=== PATIENT | male | born 1955 | race Caucasian/White ===

== ENCOUNTER → 2020-04-27 | Outpatient (CLI) | payer MEDICARE, OTHER | LOC: LABNPT 05:33 | PROVIDERS: ATTEND Nurse Practitioner Adult Health | DX: Z11.59 Encounter for screening for other viral diseases (principal) | CPT/HCPCS: 87635 ==

== ENCOUNTER 2021-08-16 09:02 | Emergency (ER) | payer MEDICARE, OTHER ==
[~2021-08-16] VITALS: Ht 175.2 cm; Wt 72.5 kg
--- OUTSIDE RECORDS SUMMARY | 2021-08-16 09:16 | XMS REPORT | Clinical Summary ---
Author Author [facility] Organization [facility] Address Unknown Phone Unavailable Care Team Providers Care Environmental Protection Geologist Name Role Phone PCP Unavailable Allergies Not on File Medications Not on file Active Problems Not on file Social History Date Tobacco Use Types Packs/Day Years Used Never Assessed Sex Assigned at Date Recorded Not on file Last Filed Vital Signs Not on file Plan of Treatment Not on file Results Not on filefrom Last 3 Months
--- OUTSIDE RECORDS SUMMARY | 2021-08-16 09:17 | XMS REPORT | Encounter Summary ---
Author Author [facility] Organization [facility] Address Unknown Phone Unavailable Care Team Providers Care Pediatric Genetic Counselor Name Role Phone Zakiya Ledezma RN Unavailable Unavailable Liberty Justice MD Unavailable Moy Serrano MD Unavailable Stephania Liu RN Unavailable Unavailable Leobardo Giordano MD Unavailable Kati Thomas MD Unavailable Edilson Villalba MD Unavailable Alex Balbuena MD Unavailable Kleber Can MD Unavailable Unavailable aHrish Irvin MD Unavailable Luis Eduardo Art MD Unavailable Alton Sewell MD Unavailable Unavailable Ariane Campoverde MD Unavailable Dayan Daniels MD Unavailable Jamel Hutchins MD Unavailable Unavailable Leigh Resendez MD Unavailable Carmen Reeves APRN Unavailable Margaux Ng RN Unavailable Unavailable Maureen Robertson LPN Unavailable Unavailable Lupe Hamilton Unavailable Unavailable Berta Baldwin Unavailable Unavailable Michelle Orellana Unavailable Unavailable Lashon Carey MA Unavailable Unavailable Carmen Lassiter PANELBEATER-INSULATOR APPRENTICE Unavailable [phone] Linsey Watson Unavailable Unavailable Audrey Howard RN Unavailable Unavailable Angelic Resendez MD PCP Encounter Details Care Team Description Date Type Department 06/19/2021 Travel Social History Date Tobacco Use Types Packs/Day Years Used Quit: 02/01/1976 Former Smoker Cigarettes 3 Smokeless Tobacco: Never Used Comments: Quit 08/1976 Comments Alcohol Use Standard Drinks/Week No 0 (1 standard drink = 0.6 o z pure alcohol) Sex Assigned at Date Recorded Male 04/17/2020 2:33 PM CDT Date Recorded COVID-19 Exposure Response 06/19/2021 6:44 AM UNIT NURSE In the last month, have you been in contact with No / Unsure someone who was confirmed or suspected to have Coronavirus / COVID-19? documented as of this encounter Functional Status Date of Assessment Functional Status Response 06/18/2021 Does the patient have a hearing impairment: No 06/18/2021 Does the patient have a visual impairment: Yes 06/18/2021 Does the patient have impaired ambulation: No 06/18/2021 Does the patient have an activity of daily living No (ADL) impairment: 06/18/2021 Does the patient have an instrumental activity of No daily living (IADL) impairment: Date of Assessment Cognitive Status Response 06/18/2021 Does the patient have a cognitive impairment: No documented as of this encounter Plan of Treatment Not on filedocumented as of this encounter Goals Goal Patient Associated Recent Progress Patient-Stat Aut hor Goal Type Problems ed? GOAL General No Maria M Erwin, RN Note: get my liver transplant Resume normal activities Hospital No Deandra Bean, RN Note: Waiting for a liver transplant Move to [place]. documented as of this encounter Visit Diagnoses Not on filedocumented in this encounter Additional Health Concerns Noted Time Assessment 06/19/2021 9:20 AM UNIT NURSE A fall risk assessment has been complet ed for the patient 06/19/2021 9:22 AM UNIT NURSE PHQ-2 Depression Total Score: 0 documented as of this encounter Care Teams Start Date End Date Pediatric Genetic Counselor Relationship Specialty 08/12/19 Angelic Resendez MD PCP - [address] [place] [address] 06/03/10 Zakiya Ledezma, RN 06/03/10 Liberty Justice MD [address] [place] [address] 06/03/10 Moy Serrano MD [address] [facility] [id number] [place] [address] 08/25/10 Stephania Liu, ELIAS Emergency Medicine 09/03/10 Leobardo Giordano MD Infectious [address] Disease [facility] Lvl [address] [place] [address] 03/29/11 Kati Thomas MD Internal [address] [place] [address] 05/01/11 Edilson Villalba MD Internal [address] [place] [address] 05/05/11 Alex Balbuena MD Infectious [address] Disease [facility] Lvl [address] [place] [address] 05/20/11 Kleber Can MD Internal Fellow provider only Medicine 06/18/11 Harish Irvin MD Transplant [address] [facility] [address] [place] [address] 10/02/11 Luis Eduardo Art MD Gastroentero [address] logy [facility] Lvl [address] [place] [address] 06/15/12 Alton Sewell MD Dermatology Forwarding Address Unknown 06/15/12 Ariane Campoverde MD Dermatology [address] [place] [address] 09/14/12 Dayan Daniels MD Dermatology [address] [facility] [address]vl [address] [place] [address] 12/21/12 Jamel Hutchins MD Dermatology [place] [place] [id number] 12/21/12 Leigh Resendez MD Dermatology [address] [place] [address] 01/03/15 Carmen Reeves, PANELBEATER Transplant [address] Hepatology [place] [address] [place] [address] 05/07/15 Margaux Ng, RN 06/06/15 Maureen Robertson LPN Maternal and Medicine 07/04/15 Lupe Hamilton Maternal and Medicine 09/05/15 Berta Baldwin 12/11/15 Michelle Orellana 01/01/16 Lashon Carey MA Maternal and Medicine 01/03/16 Carmen Lassiter, Gastroentero PANELBEATER-INSULATOR APPRENTICE logy [address] [facility] [address]vl [address] [place] [address] 01/03/16 Linsey Watson 01/17/16 Audrey Howard, ELIAS documented as of this encounter
--- OUTSIDE RECORDS SUMMARY | 2021-08-16 09:17 | XMS REPORT | Clinical Summary ---
Author Author [facility] Organization [facility] Address Unknown Phone Unavailable Care Team Providers Care Director Of Event Sales Name Role Phone Zakiya Ledezma RN Unavailable Unavailable Liberty Justice MD Unavailable Moy Serrano MD Unavailable Stephania Liu RN Unavailable Unavailable Leobardo Giordano MD Unavailable Kati Thomas MD Unavailable Edilson Villalba MD Unavailable Alex Balbuena MD Unavailable Kleber Can MD Unavailable Unavailable Harish Irvin MD Unavailable Luis Eduardo Art MD Unavailable Alton Sewell MD Unavailable Unavailable Ariane Campoverde MD Unavailable Dayan Daniels MD Unavailable Jamel Hutchins MD Unavailable Unavailable Leigh Resendez MD Unavailable Carmen Reeves APRN Unavailable Margaux Ng RN Unavailable Unavailable Maureen Robertson LPN Unavailable Unavailable Lupe Hamilton Unavailable Unavailable Berta Baldwin Unavailable Unavailable Michelle Orellana Unavailable Unavailable Lashon Carey MA Unavailable Unavailable Carmen Lassiter PACKAGE LINE RELIEF OPERATOR-INTERNAL REVENUE AGENT Unavailable [phone] Linsey Watson Unavailable Unavailable Audrey Howard RN Unavailable Unavailable Angelic Resendez MD PCP Source Comments Some departments are not documenting in the electronic medical record. If you d o not see the information that you expected, contact Release of Information in [facility] Information Management department at [phone] for further assistan ce in locating additional records.[facility] Allergies Comments Active Allergy Reactions Severity Noted Date Developed breast tissue Spironolactone SEE COMMENTS Low 06/19/2021 Medications End Date Status Medication Sig Dispensed Refills Start Date Active calcium carbonate-vitamin Take 1 tablet 0 D3 200 mg (500 mg) -400 by mouth unit cap three times daily. Active camphor/menthol (SARNA) Apply to skin 222 mL 5 0.5/0.5 % lotn areas two to 7 three times as needed. Active cholecalciferol (VITAMIN Take 1,000 0 D-3) 1,000 units tablet Units by mouth every 48 hours. Active COCONUT OIL TP Apply 0 topically to affected area. Active fish oil /omega-3 fatty Take 1 0 acids (SEA-OMEGA) capsule by 340/1000 mg capsule mouth every 48 hours. Active vitamins, multiple (DAILY Take 1 tablet 0 MULTI-VITAMIN) tablet by mouth daily. Active Apple Cider Vinegar 600 Take 1 0 mg cap capsule by mouth daily. Active atorvastatin (LIPITOR) 20 Take one 90 tablet 3 mg tablet tablet by 1 mouth at bedtime daily. Active ursodioL (ACTIGALL) 300 TAKE 1 270 capsule 3 mg capsule CAPSULE IN 1 THE MORNING AND 2 CAPSULES IN THE EVENING Active famotidine (PEPCID) 20 mg TAKE 1 TABLET 180 tablet 3 tablet TWICE A DAY 1 08/25/2021 Active tacrolimus (PROGRAF) 0.5 Take two 120 capsule 5 0 mg capsuleIndications: capsules by 1 Liver transplant status mouth twice (HCC) daily for 180 days. Additional Information Patient taking differently: 1 mg Oral TWICE DAILY, 2 mg in the morning and 1.5 in the evening, Reported on 02/26/2021 Active predniSONE (DELTASONE) 5 TAKE 1 TABLET 90 tablet 3 mg tabletIndications: DAILY WITH 1 Liver transplant status BREAKFAST (HCC) Active amoxicillin/K clavulanate TAKE 1 TABLET 30 tablet 3 (AUGMENTIN) 500/125 mg DAILY WITH 1 tablet FOOD FOR 1 WEEK, THEN CYCLE OFF OF MEDICATION AND TAKE BACTRIM FOR 1 WEEK, THEN CIPRO FOR 1 WEEK, REPEAT CYCLE Active ciprofloxacin (CIPRO) 500 TAKE 1 TABLET 30 tablet 3 mg tablet DAILY FOR 1 1 WEEK, THEN CYCLE OFF OF MEDICATION AND TAKE AUGMENTIN FOR 1 WEEK, THEN BACTRIM FOR 1 WEEK, REPEAT CYCLE Active trimethoprim/sulfamethoxa Take as 180 tablet 3 zole (BACTRIM) 80/400 mg directed by 1 tablet provider Active triamcinolone acetonide Apply 0 (KENALOG) 0.1 % topical topically to cream affected area twice daily as needed. Active tacrolimus (PROGRAF) 1 mg Take 1 mg by 0 capsule mouth twice daily. Active zinc sulfate (ORAZINC) Take one 90 capsule 1 220 mg (50 mg elemental capsule by 1 zinc) capsule mouth daily. 10/15/2021 Active aMILoride (MIDAMOR) 5 mg Take two 360 tablet 1 1 tablet tablets by 1 mouth twice daily for 90 days. 10/15/2021 Active furosemide (LASIX) 20 mg Take one 90 tablet 1 1 tablet tablet by 1 mouth every morning for 90 days. Active Problems Problem Noted Date Encounter for pre-transplant evaluation for liver tra nsplant 06/17/2021 Non-recurrent unilateral inguinal hernia without obst ruction or gangrene 03/05/2021 Inflammatory bowel disease 03/03/2021 Overview: Formatting of this note might be differ ent from the original. Formatting of this note might be differ ent from the original. Unclear if crohns or UC; w/u ongoing Elevated PSA 01/03/2021 Overview: Formatting of this note might be differ ent from the original. PSA SUMMARY 06/2018: 4.62 ng/mL 12/2020: 8.32 ng/mL (-) prior biopsy (-) family history (-) erectile dysfunction (+) mild obstructive urinary symptoms L ast Assessment & Plan: Formatting of this note might be differ ent from the original. I had the pleasure of visiting with Mr. Chun to discuss his PSA. I reviewed what PSA is and why it is used in the screening for prostate cancer. I then explained how PSA level s factor into decision making for further prostate cancer testing. Addit ionally, we reviewed how his current health factors into the decision to pur balbir prostate cancer screening. We then discussed initial steps for a b iopsy naive patient with an elevated PSA. Specifically I reviewed the role of transrectal ultrasound guided prostate biopsies as the standar d of care for further testing. I reviewed the procedural risks, includin g hematuria, hematospermia, hematochezia, pain, infection, and even transient erectile dysfunction. Additional options reviewed included up -front mpMRI with directed biopsy if a lesion is identified versus standard biopsy if the mpMRI were negative. I explained that this approach may redu ce the need for a biopsy and improve the accuracy, however, this is not the standard of care approach, and therefore there is the risk that he wou ld be liable for out of pocket expense if he were to choose upfront MR [place]. Similarly I reviewed the role of biomarkers in improving our ability to assess the risk of harboring prostate cancer, specifically the ExoDx . Finally I discussed the option of pursuing a repeat PSA at a set interval with a predefined threshold to initiate a biopsy. We discussed the competing risks of delia er dysfunction and possible prostate cancer. We also reviewed the c omplexity of biopsy given his prior surgeries and explained that transperin eal biopsy would be necessary due to the absence of a rectum. Ultimately the patient is comfortable p ursuing repeat PSA. 1. Repeat PSA Osteoporosis 04/23/2020 Secondary esophageal varices without bleeding 2019 Skin cancer screening 06/23/2018 Immunosuppressed status 05/21/2018 Total bilirubin, elevated 05/28/2017 Overview: Formatting of this note might be differ ent from the original. Added automatically from request for janey james [id number] History of liver transplant 05/28/2017 Overview: Formatting of this note might be differ ent from the original. Added automatically from request for janey taylorery [id number] Vitamin D deficiency 06/25/2011 Status post liver transplantation 06/19/2011 Overview: Formatting of this note might be differ ent from the original. OLT 06/18/11 Primary sclerosing cholangitis 05/13/2010 Ulcerative colitis 05/13/2010 Sclerosing cholangitis 08/03/1990 Overview: Formatting of this note might be differ ent from the original. Formatting of this note might be differ ent from the original. with liver failure Formatting of this note might be differ ent from the original. Recurrent; Dr Medina; h/o liver failure s /p transplant; referred back to transplant center in [place] Resolved Problems Problem Noted Date Resolved Date Other cirrhosis of liver 04/23/2020 06/19/2021 Sepsis 02/01/2020 06/17/2021 Fever 09/01/2019 09/02/2019 UTI (urinary tract infection) 07/17/2018 07/31/20 18 RODO (acute kidney injury) 07/17/2018 06/17/2021 Fever 02/08/2016 06/17/2021 History of liver transplant 07/11/2013 06/19/2021 Overview: Formatting of this note might be differ ent from the original. Formatting of this note might be differ ent from the original. Chronic LFT elevation Tx Done 2010 - [place]; Dr Serrano ( transplant specialist [place]) following q6mo; needs monthly labs to b e forwarded to Dr Serrano; local GI - Dr Medina; on ASA to prevent portal vein thrombosis Rigors 03/28/2011 06/17/2021 Acute cholangitis 03/12/2011 06/17/2021 Periodontitis 03/09/2010 06/17/2021 Cholangitis 03/09/2010 05/13/2010 Bacteremia 03/08/2010 06/17/2021 Periodontal abscess 03/07/2010 03/09/2010 UTI (lower urinary tract infection) 03/07/2010 Dehydration 03/07/2010 06/17/2021 Encounters Care Team Description Date Type Specialty Trudy Caba MA Liver transplant status (HCC) 08/06/2021 Orders Only Transplant Surgery Luis Hamilton RN Liver transplant status (HCC) (Primary D x) 08/05/2021 Orders Only Transplant Surgery Trudy Caba MA Liver transplant status (HCC) 08/05/2021 Orders Only Transplant Surgery Fred Hanna Liver transplant status (HCC) 07/30/2021 Orders Only Transplant Surgery Luis Hamilton RN Liver transplant status (HCC) (Primary D x) 07/29/2021 Orders Only Transplant Surgery Fred Hanna Status post liver transplantation (HCC); Primary sclerosing cholangitis 07/29/2021 Orders Only Transplant Surgery Marisela Moore RN Liver transplant status (HCC) 07/22/2021 Orders Only Transplant Surgery Trudy Caba MA Liver transplant status (HCC); Other cirrhosis of liver (HCC) 07/17/2021 Orders Only Transplant Surgery Luis Hamilton RN 07/17/2021 Refill Transplant Surgery Luis Hamilton RN Liver transplant status (HCC) (Primary D x); Other cirrhosis of liver (HCC) 07/17/2021 Orders Only Transplant Surgery Truyd Caba MA Status post liver transplantation (HCC); Primary sclerosing cholangitis 07/16/2021 Orders Only Transplant Surgery Kat Ren, ELIAS 07/11/2021 Documentation Transplant Surgery Catrachito Soliz RN On-call; Other (ER visit) 07/09/2021 Telephone Transplant Surgery Sinan Lin RN Lab Request 07/08/2021 Telephone Transplant Surgery Moy Serrano MD Lab Request (ret. call) 07/08/2021 Telephone Transplant Surgery Moy Serrano MD Follow-up Phone Call 06/25/2021 Telephone Transplant Surgery Luis Hamilton RN 06/25/2021 Orders Only Transplant Surgery Moy Serrano MD 06/20/2021 Hospital Cardiology Encounter Moy Serrano MD Records Request (f/u call) 06/20/2021 Telephone Transplant Surgery 06/20/2021 Travel Self, Referral 06/19/2021 Clinical Transplant Surgery Support Self, Referral 06/19/2021 Clinical Transplant Surgery Support Ravin Mcconnell MD New Patient 06/19/2021 Office Visit Cardiology Moy Serrano MD 06/19/2021 Hospital Cardiology Encounter Moy Serrano MD 06/19/2021 Orders Only Transplant Surgery Josué Hooks Financial/Insurance Questions (Financial Consult Update ) 06/19/2021 Telephone Transplant Surgery 06/19/2021 Travel Do Gerry Devine DO Encounter for pre-transplant evaluation for liver transplant (Primary Dx) 06/18/2021 Office Visit Psychiatry Gemma Vaca MD Age related osteoporosis, unspecified pa thological fracture presence (Primary Dx); Vitamin D deficiency 06/18/2021 Office Visit Endocrinology Telehealth Moy Serrano MD Liver transplant status (HCC) (Primary D x) 06/18/2021 Office Visit Transplant Surgery Moy Serrano MD 06/18/2021 Hospital Radiology Encounter 06/18/2021 Travel Moy Serrano MD 06/17/2021 Hospital Radiology Encounter Angelic Resendez MD Status post liver transplantation (HCC); Primary sclerosing cholangitis; Other cirrhosis of liver (HCC); Encounter for pre-transplant evaluation for liver transplant; Bowel disease; 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; Osteopenia, unspecified location 06/17/2021 Clinical Endocrinology, [place] bolism Support & Genetics Moy Serrano MD 06/17/2021 Hospital Encounter Harish Irvin MD History of liver transplant (HCC) (Prima ry Dx); PSC (primary sclerosing cholangitis); End-stage liver disease (HCC) 06/17/2021 Transplant Transplant Surgery Evaluation Harish Irvin MD 06/17/2021 Clinical Transplant Surgery Support Genesis Andersen MD Encounter for pre-transplant evaluation for liver transplant (Primary Dx); Primary sclerosing cholangitis; Status post liver transplantation (HCC); Immunosuppressed status (HCC); Vitamin D deficiency 06/17/2021 Office Visit Infectious Diseases Moy Serrano MD 06/17/2021 Hospital Lab Encounter December, Stress Test Instructions (Thall Prep lef t to pt's VM. RX meds ok on test AM as indicated. # left to Cb if questions) 06/17/2021 Telephone Cardiology 06/17/2021 Travel Moy Serrano MD Other (Prescription Discussion) 06/13/2021 Telephone Transplant Surgery Fred Hanna Status post liver transplantation (HCC); Primary sclerosing cholangitis 06/10/2021 Orders Only Transplant Surgery Michelle Collier BSN Other (education) 05/23/2021 Telephone Transplant Surgery Fred Hanna Status post liver transplantation (HCC); Primary sclerosing cholangitis 05/22/2021 Orders Only Transplant Surgery Luis Hamilton RN 05/21/2021 Refill Transplant Surgery Sinan Lin RN Status post liver transplantation (HCC) (Primary Dx); Primary sclerosing cholangitis 05/21/2021 Orders Only Transplant Surgery Moy Serrano MD Lab Request 05/21/2021 Telephone Transplant Surgery Adam López MD History of immunosuppression (Primary Dx ); Multiple melanocytic nevi; Seborrheic keratosis; Telangiectasias 05/17/2021 Office Visit Dermatology Moy Serrano MD Appointment Request (OLT Re-Eval) 05/17/2021 Telephone Transplant Surgery Sinan Lin RN Status post liver transplantation (HCC) (Primary Dx); Primary sclerosing cholangitis; Other cirrhosis of liver (HCC); Encounter for observation for other suspected diseases and conditions ruled out ; Abnormal finding of blood chemistry, unspecified ; Encounter for screening for human immunodeficiency virus (HIV) ; Chronic fatigue, unspecified ; Encounter for other preprocedural examination 05/17/2021 Orders Only Transplant Surgery 05/17/2021 Travel Luis Hamilton RN 05/16/2021 Refill Transplant Surgery from Last 3 Months Immunizations Name Administration Dates Next Due Adenovirus Vaccine Type 4 12/15/1983 COVID-19 ([employer]), mRNA 09/25/2020, 08/16/2020 vacc, 30 mcg/0.3 mL (PF) FLU VACCINE >3YO 05/15/2010 FLU VACCINE >3YO 05/21/2011 (Preservative Free) Flu Vaccine =>6 Months 09/02/2019 Quadrivalent PF Flu Vaccine =>65 YO 06/22/2018 High-Dose (PF) Flu Vaccine =>65 YO 08/07/2020 High-Dose Quadrivalent (PF) IPV 12/01/2001 MMR Vaccine 03/13/1986 Measles/Rubella Vaccine 12/17/1983 Meningococcal 12/18/2001 Polysaccharide Vaccine IM (MPSV4)([place]) OPV 01/29/1984 Pneumococcal Vaccine 09/02/2019, 06/24/2013, (23-[facility] Adult) Pneumococcal 06/19/2016 Vaccine(13-[facility] Peds/immunocompromised adult) Td vaccine, unspecified 03/29/2013 (Historical) Tdap Vaccine 09/18/2017 Typhoid Vaccine Im 10/15/2004 Typhoid Vaccine, 12/01/2001 unspecified Varicella-Zoster Vaccine 07/06/2008 - live (ZOSTAVAX) Yellow Fever Vaccine 12/01/2001 Zoster Vaccine 06/22/2018 Recombinant, Adjuvanted (shingles) IM (vial 2 of 2)(SHINGRIX) Zoster Vaccine 06/22/2018 Recombinant, adjuvant suspension component (vial 1 of 2)(SHINGRIX) Surgical History Surgery Date Site/Laterality Comments HX CHOLECYSTECTOMY 1990 HX TONSILLECTOMY 1966 ELECTROCARDIOGRAM LIVER TRANSPLANT 06/18/11 UPPER GASTROINTESTINAL 08/12/2018 N/A ESOPHAG OGASTRODUODENOSCOPY WITH SPECIMEN ENDOSCOPY COLLECTION BY BRUSHING/ WAS JUNG performed by Hay Shaw MD at ENDO/GI ERCP 05/20/2018 N/A CHOLANGIOPANCRE ATOGRAPHY ENDOSCOPY RETROGRADE performed by Moy Serrano MD at END O/GI ERCP 06/10/2017 N/A CHOLANGIOPANCRE ATOGRAPHY ENDOSCOPY RETROGRADE performed by Moy Serrano MD at END O/GI ERCP 02/16/2017 N/A CHOLANGIOPANCRE ATOGRAPHY ENDOSCOPY RETROGRADE performed by Moy Serrano MD at END O/GI UPPER GASTROINTESTINAL 02/16/2017 N/A ESOPHAG OGASTRODUODENOSCOPY ENDOSCOPIC ULTRASOUND ENDOSCOPY performed by Rhoda Serrano MD at ENDO/GI ERCP 02/16/2017 CHOLANGIOPANCREATOG RAVEN ENDOSCOPY RETROGRADE WITH BILIARY DUCT DILATATION performed by Moy Oh MD at ENDO/GI ERCP 01/17/2016 N/A CHOLANGIOPANCRE ATOGRAPHY ENDOSCOPY RETROGRADE performed by Moy Serrano MD at END O/GI LIVER BIOPSY 01/17/2016 N/A BIOPSY LIVER pe rformed by Moy Serrano MD at ENDO/GI UPPER GASTROINTESTINAL 08/12/2019 N/A ESOPHAG OGASTRODUODENOSCOPY WITH SPECIMEN ENDOSCOPY COLLECTION BY BRUSHING/ WAS JUNG performed by Adam Simental MD at ENDO/GI ERCP 02/02/2020 ENDOSCOPIC RETROGRA DE CHOLANGIOPANCREATOGRAPHY WITH REMOVAL CALCULI/ DEBRIS FROM BILIA RY/ PANCREATIC DUCT performed by Paolo Serrano MD at [facility] ENDO UPPER GASTROINTESTINAL 04/30/2020 N/A ESOPHAG OGASTRODUODENOSCOPY WITH TRANSENDOSCOPIC ENDOSCOPY ULTRASOUND GUIDED FINE NEED LE ASPIRATION/ BIOPSY LIVER BX performed by Moy Serrano MD at [facility] ENDO ERCP 04/30/2020 ENDOSCOPIC RETROGRA DE CHOLANGIOPANCREATOGRAPHY WITH TRANS-ENDOSCOPIC BALLOON DILATION BILIARY/ PANCREATIC DUCT/ AMPULLA - EACH DUCT pe rformed by Moy Serrano MD at [facility] ENDO ERCP 08/29/2020 N/A ENDOSCOPIC RETR OGRADE CHOLANGIOPANCREATOGRAPHY WITH TRANS-ENDOSCOPIC BALLOON DILATION BILIARY/ PANCREATIC DUCT/ AMPULLA - EACH DUCT pe rformed by Moy Serrano MD at [facility] ENDO UPPER GASTROINTESTINAL 08/29/2020 N/A ESOPHAG OGASTRODUODENOSCOPY WITH BAND LIGATION ENDOSCOPY ESOPHAGEAL/ GASTRIC VARICES - FLEXIBLE performed by Moy Serrano MD at [facility] ENDO Medical History Medical History Date Comments Primary sclerosing cholangitis diagnosed 2007 Ulcerative colitis diagnosed 1990 Cholangitis, recurrent Pancreatitis, acute 2007 Possibly related t o ERCP Hemorrhoids Elevated liver enzymes Bacteremia E. Coli Transplant 06/19/2011 liver Cancer of colon (HCC) UTI (lower urinary tract infection) 03/07/2010 Acute cholangitis 03/12/2011 Family History Medical History Relation Name Comments Hypertension Brother Diabetes Father Hypertension Father Thyroid Disease Father Cancer Maternal Grandfather Migraines Maternal Uncle Arthritis-osteo Mother Crohn's Disease Mother Stroke Mother Cancer Sister breast CA age 39 Melanoma Neg Hx Relation Name Status Comments Brother Alive Brother Alive Brother Alive Father Alive pacemaker Maternal Grandfather Maternal Uncle Mother Alive Sister Sister Alive Social History Date Tobacco Use Types Packs/Day Years Used Quit: 02/01/1976 Former Smoker Cigarettes 3 Smokeless Tobacco: Never Used Tobacco Cessation: Counseling Given: No Comments: Quit 08/1976 Comments Alcohol Use Standard Drinks/Week No 0 (1 standard drink = 0.6 o z pure alcohol) Sex Assigned at Date Recorded Male 04/17/2020 2:33 PM CDT Last Filed Vital Signs Reading Time Taken Comments Vital Sign 118/68 06/19/2021 9:20 AM ASSEMBLY REPAIRER Blood Pressure 61 06/19/2021 9:20 AM ASSEMBLY REPAIRER Pulse 36.5 C (97.7 F) 06/18/2021 10:48 AM ASSEMBLY REPAIRER Temperature 16 06/17/2021 2:42 PM ASSEMBLY REPAIRER Respiratory Rate 96% 06/19/2021 9:20 AM ASSEMBLY REPAIRER Oxygen Saturation - - Inhaled Oxygen Concentration 73 kg (161 lb) 06/19/2021 9:20 AM ASSEMBLY REPAIRER Weight 175.3 cm (5' 9") 06/19/2021 9:20 AM ASSEMBLY REPAIRER Height 23.78 06/19/2021 9:20 AM ASSEMBLY REPAIRER Body Mass Index Plan of Treatment Health Maintenance Due Date Last Done Comments MEDICARE ANNUAL WELLNESS 1955 VISIT PHYSICAL (COMPREHENSIVE) 1972 EXAM SHINGLES RECOMBINANT 08/17/2018 06/22/2018 VACCINE (2 of 2) ABDOMINAL AORTIC ANEURYSM 11/16/2019 SCREENING INFLUENZA VACCINE 03/03/2021 08/07/2020, 09/02/2019, 06/22/2018, Additional history exists COVID-19 VACCINE (4 - 12/05/2021 06/07/2021, Booster for Pfizer 09/25/2020, series) 08/16/2020 COLORECTAL CANCER 03/25/2022 03/25/2012, SCREENING 10/02/2011, 05/16/2010 PNEUMONIA (PPSV23) 09/02/2024 09/02/2019, VACCINE (4 of 4 - PPSV23) 06/19/2016, 06/24/2013, Additional history exists DTAP/TDAP VACCINES (2 - 09/18/2027 09/18/2017, Td or Tdap) 03/29/2013 HEPATITIS C SCREENING Completed 06/17/2021, 06/21/2018, 05/13/2010, Additional history exists Goals Goal Patient Associated Recent Progress Patient-Stat Aut hor Goal Type Problems ed? GOAL General No Maria M Erwin, RN Note: get my liver transplant Resume normal activities Hospital No Deandra Bean, RN Note: Waiting for a liver transplant [place]. Procedures Comments Procedure Name Priority Date/Time Associated Diag nosis PROTIME INR (PT) Routine 08/03/2021 Liver transpl ant status 8:12 AM ASSEMBLY REPAIRER (HCC) CBC AND DIFF Routine 08/03/2021 Liver transplan t status 8:12 AM ASSEMBLY REPAIRER (HCC) COMPREHENSIVE METABOLIC Routine 08/03/2021 Liver transplant status PANEL 8:12 AM ASSEMBLY REPAIRER (HCC) PTT (APTT) Routine 07/26/2021 Liver transplan t status 12:03 PM ASSEMBLY REPAIRER (HCC) COMPREHENSIVE METABOLIC Routine 07/26/2021 Status post liver PANEL 12:03 PM ASSEMBLY REPAIRER transplantation (HC C) Primary sclerosing cholangitis CBC AND DIFF Routine 07/26/2021 Status post delia er 12:03 PM ASSEMBLY REPAIRER transplantation (HCC) Primary sclerosing cholangitis PROTIME INR (PT) Routine 07/26/2021 Status post l iver 12:03 PM ASSEMBLY REPAIRER transplantation (HCC) Primary sclerosing cholangitis TACROLIMUS LC-MS/MS Routine 07/16/2021 Liver yu splant status 7:39 AM ASSEMBLY REPAIRER (HCC) LIPID PROFILE Routine 07/16/2021 Liver transplan t status 7:39 AM ASSEMBLY REPAIRER (HCC) Other cirrhosis of liver (HCC) 25-OH VITAMIN D (D2 + D3) Routine 07/16/2021 Live r transplant status 7:39 AM ASSEMBLY REPAIRER (HCC) Other cirrhosis of liver (HCC) COMPREHENSIVE METABOLIC Routine 07/16/2021 Status post liver PANEL 7:39 AM ASSEMBLY REPAIRER transplantation (HC C) Primary sclerosing cholangitis CBC AND DIFF Routine 07/16/2021 Status post delia er 7:39 AM ASSEMBLY REPAIRER transplantation (HCC) Primary sclerosing cholangitis PROTIME INR (PT) Routine 07/16/2021 Status post l iver 7:39 AM ASSEMBLY REPAIRER transplantation (HCC) Primary sclerosing cholangitis PROTEIN/CR RATIO,UR RAN Routine 07/16/2021 Other cirrhosis of liver 7:39 AM ASSEMBLY REPAIRER (HCC) SINGLE GATED Routine 06/20/2021 Status post delia er 8:52 AM ASSEMBLY REPAIRER transplantation (HCC) Primary sclerosing cholangitis Other cirrhosis of liver (HCC) 2D + DOPPLER ECHO NO Routine 06/19/[address] liver CONTRAST 8:22 AM ASSEMBLY REPAIRER transplantation (HC C) Primary sclerosing cholangitis Other cirrhosis of liver (HCC) ECG-SCAN 06/19/2021 12:00 AM ASSEMBLY REPAIRER US DUPLEX SCAN CAROTID Routine 06/18/2021 Encount er for other BILATERAL 8:47 AM ASSEMBLY REPAIRER preprocedural exami nation S tatus post liver transplantation (HCC) Primary sclerosing cholangitis Other cirrhosis of liver (HCC) CHEST 2 VIEWS Routine 06/17/2021 Status post delia er 3:45 PM ASSEMBLY REPAIRER transplantation (HCC) Primary sclerosing cholangitis Other cirrhosis of liver (HCC) HC METHEMOGLOBIN;QUANT 06/17/2021 12:39 PM ASSEMBLY REPAIRER HC HEMOGLOBIN (BG) 06/17/2021 12:39 PM ASSEMBLY REPAIRER HC 06/17/2021 CARBOXYHEMOGLOBIN-CARBON 12:39 PM ASSEMBLY REPAIRER MONOX HC BLOOD 06/17/2021 Encounter for other GASES;(CALCULATED 02) 12:39 PM ASSEMBLY REPAIRER preprocedural e xamination PFT COMPLETE PULM Routine 06/17/2021 Status post liver FUNCTION 12:34 PM ASSEMBLY REPAIRER transplantation (HC C) Primary sclerosing cholangitis Other cirrhosis of liver (HCC) HC BLOOD TYPING, ABO Routine 06/17/[address] liver CONFIRM 91 9:33 AM ASSEMBLY REPAIRER transplantation (HC C) Primary sclerosing cholangitis Other cirrhosis of liver (HCC) HC PHENCYCLIDINES; QUAL Routine 06/17/[address] for observation 9:18 AM ASSEMBLY REPAIRER for other suspected diseases and conditions ruled out Status post liver transplantation (HCC) Primary sclerosing cholangitis Other cirrhosis of liver (HCC) HC OPIATES; QUAL Routine 06/17/2021 Encounter for observation 9:18 AM ASSEMBLY REPAIRER for other suspected diseases and conditions ruled out Status post liver transplantation (HCC) Primary sclerosing cholangitis Other cirrhosis of liver (HCC) HC COCAINE; QUAL Routine 06/17/2021 Encounter for observation 9:18 AM ASSEMBLY REPAIRER for other suspected diseases and conditions ruled out Status post liver transplantation (HCC) Primary sclerosing cholangitis Other cirrhosis of liver (HCC) HC CANNABINOIDS; QUAL Routine 06/17/2021 Encounte r for observation 9:18 AM ASSEMBLY REPAIRER for other suspected diseases and conditions ruled out Status post liver transplantation (HCC) Primary sclerosing cholangitis Other cirrhosis of liver (HCC) HC BENZODIAZEPINES, QUAL Routine 06/17/2021 Encou nter for observation 9:18 AM ASSEMBLY REPAIRER for other suspected diseases and conditions ruled out Status post liver transplantation (HCC) Primary sclerosing cholangitis Other cirrhosis of liver (HCC) HC BARBITURATES Routine 06/17/2021 Encounter for observation 9:18 AM ASSEMBLY REPAIRER for other suspected diseases and conditions ruled out Status post liver transplantation (HCC) Primary sclerosing cholangitis Other cirrhosis of liver (HCC) HC AMPHETAMINES QUAL, Routine 06/17/2021 Encounte r for observation URINE 9:18 AM ASSEMBLY REPAIRER for other suspected diseases and conditions ruled out Status post liver transplantation (HCC) Primary sclerosing cholangitis Other cirrhosis of liver (HCC) URINALYSIS, MICROSCOPIC Routine 06/17/2021 Status post liver 9:18 AM ASSEMBLY REPAIRER transplantation (HCC) Primary sclerosing cholangitis Other cirrhosis of liver (HCC) HC URINALYSIS, AUTO W Routine 06/17/2021 Status p ost liver MICRO 9:18 AM ASSEMBLY REPAIRER transplantation (HC C) Primary sclerosing cholangitis Other cirrhosis of liver (HCC) HC T-SPOT TB TEST Routine 06/17/2021 Status post liver 9:18 AM ASSEMBLY REPAIRER transplantation (HCC) Primary sclerosing cholangitis Other cirrhosis of liver (HCC) ABO/RH(D) Routine 06/17/2021 Status post delia er 9:17 AM ASSEMBLY REPAIRER transplantation (HCC) Primary sclerosing cholangitis Other cirrhosis of liver (HCC) TRYPANOSOMA CRUZI Add on 06/17/2021 Immunodefici ency, ANTIBODY, IGG, SERUM 9:17 AM ASSEMBLY REPAIRER unspecified (HCC ) HC PROSTATIC SPECIF Routine 06/17/2021 Elevated P SA AG(PSA);TOT 9:17 AM ASSEMBLY REPAIRER HC TACROLIMUS LC-MS/MS Routine 06/17/2021 Liver t ransplant status 9:17 AM ASSEMBLY REPAIRER (HCC) HC ZINC(ZN) Routine 06/17/2021 Status post delia er 9:17 AM ASSEMBLY REPAIRER transplantation (HCC) Primary sclerosing cholangitis Other cirrhosis of liver (HCC) HC VITAMIN E(ALPHA Routine 06/17/2021 Status post liver TOCOPHEROL) 9:17 AM ASSEMBLY REPAIRER transplantation (HC C) Primary sclerosing cholangitis Other cirrhosis of liver (HCC) HC VITAMIN A Routine 06/17/2021 Status post delia er 9:17 AM ASSEMBLY REPAIRER transplantation (HCC) Primary sclerosing cholangitis Other cirrhosis of liver (HCC) HC VARICELLA ZOSTER Routine 06/17/2021 Status pos t liver IGG(VZG, IGG 9:17 AM ASSEMBLY REPAIRER transplantation (HC C) Primary sclerosing cholangitis Other cirrhosis of liver (HCC) HC TSH SCREEN Routine 06/17/2021 Chronic fatigue , 9:17 AM ASSEMBLY REPAIRER unspecified Status post liver transplantation (HCC) Primary sclerosing cholangitis Other cirrhosis of liver (HCC) TRANSFERRIN Routine 06/17/2021 Status post delia er 9:17 AM ASSEMBLY REPAIRER transplantation (HCC) Primary sclerosing cholangitis Other cirrhosis of liver (HCC) HC T4 TOTAL(THYROXINE) Routine 06/17/2021 Chronic fatigue, 9:17 AM ASSEMBLY REPAIRER unspecified Status post liver transplantation (HCC) Primary sclerosing cholangitis Other cirrhosis of liver (HCC) HC SYPHILIS AB SCREEN Routine 06/17/2021 Status p ost liver (SYPT) 9:17 AM ASSEMBLY REPAIRER transplantation (HC C) Primary sclerosing cholangitis Other cirrhosis of liver (HCC) HC RUBELLA IGG TITER Routine 06/17/[address] liver 9:17 AM ASSEMBLY REPAIRER transplantation (HCC) Primary sclerosing cholangitis Other cirrhosis of liver (HCC) HC RHEUMATOID Routine 06/17/2021 Status post delia er FACTOR:QUANT 9:17 AM ASSEMBLY REPAIRER transplantation (HC C) Primary sclerosing cholangitis Other cirrhosis of liver (HCC) HC PTT(APTT) Routine 06/17/2021 Status post delia er 9:17 AM ASSEMBLY REPAIRER transplantation (HCC) Primary sclerosing cholangitis Other cirrhosis of liver (HCC) HC PT(INR) Routine 06/17/2021 Status post delia er 9:17 AM ASSEMBLY REPAIRER transplantation (HCC) Primary sclerosing cholangitis Other cirrhosis of liver (HCC) HC MAGNESIUM Routine 06/17/2021 Status post delia er 9:17 AM ASSEMBLY REPAIRER transplantation (HCC) Primary sclerosing cholangitis Other cirrhosis of liver (HCC) HC Routine 06/17/2021 Status post delia er LIPID-5:CHOL/TRG/HDL/LDL+ 9:17 AM ASSEMBLY REPAIRER transplanta tion (HCC) VLDL Primary sclerosing cholangitis Other cirrhosis of liver (HCC) HC LD(LDH;LACTIC Routine 06/17/2021 Status post l iver DEHYDROGENASE) 9:17 AM ASSEMBLY REPAIRER transplantation (HC C) Primary sclerosing cholangitis Other cirrhosis of liver (HCC) HC TRANSFERIN Routine 06/17/2021 Status post delia er 9:17 AM ASSEMBLY REPAIRER transplantation (HCC) Primary sclerosing cholangitis Other cirrhosis of liver (HCC) HC HSV I AB IGG Routine 06/17/2021 Status post li angela IMMUNOBLOT(HSVG) 9:17 AM ASSEMBLY REPAIRER transplantation (HC C) Primary sclerosing cholangitis Other cirrhosis of liver (HCC) HC HIV 1/2 CORA AG SCREEN Routine 06/17/2021 Encou nter for screening 9:17 AM ASSEMBLY REPAIRER for human immunodeficiency virus (HIV) Status post liver transplantation (HCC) Primary sclerosing cholangitis Other cirrhosis of liver (HCC) HC HEPATITIS C CORA Routine 06/17/2021 Status post liver 9:17 AM ASSEMBLY REPAIRER transplantation (HCC) Primary sclerosing cholangitis Other cirrhosis of liver (HCC) HC HEPATITIS B-S ANTIGEN Routine 06/17/2021 Statu s post liver 9:17 AM ASSEMBLY REPAIRER transplantation (HCC) Primary sclerosing cholangitis Other cirrhosis of liver (HCC) HC HEPATITIS B-S ANTIBODY Routine 06/17/2021 Stat us post liver 9:17 AM ASSEMBLY REPAIRER transplantation (HCC) Primary sclerosing cholangitis Other cirrhosis of liver (HCC) HC HEPATITIS B CORE Routine 06/17/2021 Status pos t liver ANTIBODY 9:17 AM ASSEMBLY REPAIRER transplantation (HC C) Primary sclerosing cholangitis Other cirrhosis of liver (HCC) HC HEPATITIS A IGM Routine 06/17/2021 Status post liver 9:17 AM ASSEMBLY REPAIRER transplantation (HCC) Primary sclerosing cholangitis Other cirrhosis of liver (HCC) HC HEPATITIS A CORA IGG Routine 06/17/2021 Status post liver AND IGM 9:17 AM ASSEMBLY REPAIRER transplantation (HC C) Primary sclerosing cholangitis Other cirrhosis of liver (HCC) HC GGTP Routine 06/17/2021 Status post delia er 9:17 AM ASSEMBLY REPAIRER transplantation (HCC) Primary sclerosing cholangitis Other cirrhosis of liver (HCC) HC RON THORNTON CAPSID AG Routine 06/17/2021 Stat us post liver IGG 9:17 AM ASSEMBLY REPAIRER transplantation (HC C) Primary sclerosing cholangitis Other cirrhosis of liver (HCC) HC COMPREHENSIVE Routine 06/17/2021 Status post l iver METABOLIC PANEL 9:17 AM ASSEMBLY REPAIRER transplantation (HC C) Primary sclerosing cholangitis Other cirrhosis of liver (HCC) HC CMV TITER IGM Routine 06/17/2021 Status post l iver 9:17 AM ASSEMBLY REPAIRER transplantation (HCC) Primary sclerosing cholangitis Other cirrhosis of liver (HCC) HC CMV IGG Routine 06/17/2021 Status post delia er 9:17 AM ASSEMBLY REPAIRER transplantation (HCC) Primary sclerosing cholangitis Other cirrhosis of liver (HCC) HC CBC W/ AUTOMATED DIFF Routine 06/17/2021 Statu s post liver 9:17 AM ASSEMBLY REPAIRER transplantation (HCC) Primary sclerosing cholangitis Other cirrhosis of liver (HCC) HC AMYLASE Routine 06/17/2021 Status post delia er 9:17 AM ASSEMBLY REPAIRER transplantation (HCC) Primary sclerosing cholangitis Other cirrhosis of liver (HCC) HC ALPHA FETO PROTEIN, Routine 06/17/2021 Status post liver SERUM 9:17 AM ASSEMBLY REPAIRER transplantation (HC C) Primary sclerosing cholangitis Other cirrhosis of liver (HCC) HC 25-OH VITAMIN D Routine 06/17/2021 Status post liver 9:17 AM ASSEMBLY REPAIRER transplantation (HCC) Primary sclerosing cholangitis Other cirrhosis of liver (HCC) HC NICOTINE Routine 06/17/2021 Encounter for o bservation 9:17 AM ASSEMBLY REPAIRER for other suspected diseases and conditions ruled out Status post liver transplantation (HCC) Primary sclerosing cholangitis Other cirrhosis of liver (HCC) HC HEMOGLOBIN A1C Routine 06/17/2021 Abnormal fin ding of blood 9:17 AM ASSEMBLY REPAIRER chemistry, unspecified Status post liver transplantation (HCC) Primary sclerosing cholangitis Other cirrhosis of liver (HCC) HC PHOSPHATIDYLETHANOL Routine 06/17/2021 Encount er for observation 9:17 AM ASSEMBLY REPAIRER for other suspected diseases and conditions ruled out Status post liver transplantation (HCC) Primary sclerosing cholangitis Other cirrhosis of liver (HCC) BONE DENSITY SPINE Routine 06/17/2021 Status post liver transplantation (HCC) Primary sclerosing cholangitis Other cirrhosis of liver (HCC) COMPREHENSIVE METABOLIC Routine 06/09/2021 Status post liver PANEL 7:40 PM ASSEMBLY REPAIRER transplantation (HC C) Primary sclerosing cholangitis CBC AND DIFF Routine 06/09/2021 Status post delia er 7:40 PM ASSEMBLY REPAIRER transplantation (HCC) Primary sclerosing cholangitis PROTIME INR (PT) Routine 06/09/2021 Status post l iver 7:40 PM ASSEMBLY REPAIRER transplantation (HCC) Primary sclerosing cholangitis PROTIME INR (PT) Routine 05/21/2021 Status post l iver 12:01 PM CDT transplantation (HCC) Primary sclerosing cholangitis COMPREHENSIVE METABOLIC Routine 05/21/2021 Status post liver PANEL 12:01 PM CDT transplantation (HC C) Primary sclerosing cholangitis CBC AND DIFF Routine 05/21/2021 Status post delia er 12:01 PM CDT transplantation (HCC) Primary sclerosing cholangitis from Last 3 Months Results * (ABNORMAL) PROTIME INR (PT) (08/03/2021 8:12 AM ASSEMBLY REPAIRER) Only the most recent of 6 results within the time period is included. INR 1.3 1.0 - 4.0 LABDE INTERFACE Protime 16.3 (H) 12.1 - 14.5 LABDE INTERFACE Specimen Blood (substance) Narrative LABDE INTERFACE - 08/06/2021 12:00 AM ASSEMBLY REPAIRER Outside Lab Verified by Trudy Caba on 08/05/2021. Performing Organization Address City/State/ZIP Code P suzy Number LABDE INTERFACE * (ABNORMAL) CBC AND DIFF (08/03/2021 8:12 AM ASSEMBLY REPAIRER) Only the most recent of 6 results within the time period is included. White Blood 12.20 (H) 5.00 - 10.00 K/uL LABDE INTERF ANGELIA Cells RBC 3.41 (L) 4.20 - 5.40 LABDE INTERFACE Hemoglobin 10.8 (L) 14.0 - 17.0 LABDE INTERFACE Hematocrit 32.0 (L) 42.0 - 52.0 LABDE INTERFACE MCV 93.8 80.0 - 97.0 LABDE INTERFACE MCH 31.7 (H) 27.0 - 31.2 pg LABDE INTERFACE MCHC 33.8 32.0 - 36.0 g/dL LABDE INTERFA CE Platelet Count 217 150 - 400 K/uL LABDE INTERFACE RDW 14.9 (H) 11.6 - 14.8 % LABDE INTERFACE Absolute 6.63 2.00 - 6.90 K/uL LABDE INTERFA CE Neutrophil Count Neutrophils 54.3 37.0 - 80.0 % LABDE INTERFACE Absolute Lymph 2.94 0.60 - 3.40 K/uL LABDE INTERFA CE Count Lymphocytes 24.1 10.0 - 50.0 % LABDE INTERFACE Absolute 1.3 (H) 0.0 - 0.9 K/uL LABDE INTERFACE Monocyte Count Monocytes 10.7 0.0 - 12.0 % LABDE INTERFACE Absolute 1.3 (H) 0.0 - 0.2 LABDE INTERFACE Eosinophil Count Eosinophil 10.6 (H) 0.0 - 7.0 LABDE INTERFACE Absolute 0.0 0.0 - 0.2 K/uL LABDE INTERFACE Basophil Count Basophil 0.30 0.00 - 2.50 % LABDE INTERFACE MPV 10.1 (H) 7.4 - 10.0 LABDE INTERFACE Specimen Blood Narrative LABDE INTERFACE - 08/05/2021 12:00 AM ASSEMBLY REPAIRER Outside Lab Verified by Trudy Caba on 08/05/2021. Performing Organization Address City/State/ZIP Code P suzy Number LABDE INTERFACE * (ABNORMAL) COMPREHENSIVE METABOLIC PANEL (08/03/2021 8:12 AM ASSEMBLY REPAIRER) Only the most recent of 6 results within the time period is included. Sodium 139 134 - 148 LABDE INTERFACE Potassium 4.6 3.5 - 5.3 mmol/L LABDE INTERFA CE Chloride 113 95 - 114 mmol/L LABDE INTERFAC E CO2 17 (L) 22 - 33 mEq/L LABDE INTERFACE Anion Gap 14 6 - 14 LABDE INTERFACE Glucose 82 70 - 110 mg/dL LABDE INTERFACE Blood Urea 21 5 - 25 LABDE INTERFACE Nitrogen Creatinine 1.49 0.50 - 1.50 mg/dL LABDE INTERF ANGELIA Calcium 9.4 8.3 - 10.4 mg/dL LABDE INTERFA CE Alk Phosphatase 131 (H) 35 - 130 U/L LABDE INTERFAC E AST (SGOT) 85 (H) 2 - 40 U/L LABDE INTERFACE ALT (SGPT) 67 (H) 6 - 45 U/L LABDE INTERFACE Total Bilirubin 2.2 (H) 0.2 - 1.2 LABDE INTERFAC E Total Protein 6.5 6.0 - 8.3 LABDE INTERFACE Albumin 3.0 (L) 3.6 - 5.1 LABDE INTERFACE eGFR Non 47 (L) >59 ml LABDE INTERFACE Specimen Blood Narrative LABDE INTERFACE - 08/05/2021 12:00 AM ASSEMBLY REPAIRER Outside Lab Verified by Trudy Caba on 08/05/2021. Performing Organization Address City/State/ZIP Code P suzy Number LABDE INTERFACE * (ABNORMAL) PTT (APTT) (07/26/2021 12:03 PM ASSEMBLY REPAIRER) Only the most recent of 2 results within the time period is included. APTT 35.4 (H) 25.2 - 35.0 LABDE INTERFACE Specimen Blood (substance) Narrative LABDE INTERFACE - 07/30/2021 12:00 AM ASSEMBLY REPAIRER Outside Lab Verified by Fred Hanna on 07/29/2021. Performing Organization Address City/[facility] Code P suzy Number LABDE INTERFACE * TACROLIMUS LC-MS/MS (07/16/2021 7:39 AM ASSEMBLY REPAIRER) Only the most recent of 2 results within the time period is included. Tacrolimus 6.4 LABDE INTERFACE LC-MS/MS Specimen Blood Narrative LABDE INTERFACE - 07/22/2021 12:00 AM ASSEMBLY REPAIRER Outside Lab Verified by Marisela Moore on 07/22/2021. Performing Organization Address City/[facility] P suzy Number LABDE INTERFACE * (ABNORMAL) PROTEIN/CR RATIO,UR RAN (07/16/2021 7:39 AM ASSEMBLY REPAIRER) Protein, Random 7 LABDE INTERFACE Creatinine, 164.1 (H) 0.0 - 50.0 LABDE INTERFACE Random Protein/CR 0.04 LABDE INTERFACE ratio Specimen Urine specimen (specimen) - Urine Narrative LABDE INTERFACE - 02/22/2021 12:00 AM CDT Outside Lab Verified by Fred Hanna on 07/18/2021. Performing Organization Address City/State/ZIP Code P suzy Number LABDE INTERFACE * 25-OH VITAMIN D (D2 + D3) (07/16/2021 7:39 AM ASSEMBLY REPAIRER) Only the most recent of 2 results within the time period is included. Vitamin 40.30 LABDE INTERFACE D(25-OH)Total Specimen Blood (substance) Narrative LABDE INTERFACE - 07/17/2021 12:00 AM ASSEMBLY REPAIRER Outside Lab Verified by Fred Hanna on 07/18/2021. Performing Organization Address City/State/ZIP Code P suzy Number LABDE INTERFACE * (ABNORMAL) LIPID PROFILE (07/16/2021 7:39 AM ASSEMBLY REPAIRER) Only the most recent of 2 results within the time period is included. Cholesterol 96 (L) 100 - 240 LABDE INTERFACE Triglycerides 55 LABDE INTERFACE HDL 38 LABDE INTERFACE LDL 47 LABDE INTERFACE VLDL 11 LABDE INTERFACE Cholesterol/HDL 2.5 (L) 3.7 - 6.7 LABDE INTERFAC E Ratio Specimen Blood (substance) Narrative LABDE INTERFACE - 07/17/2021 12:00 AM ASSEMBLY REPAIRER Outside Lab Verified by Frde Hanna on 07/17/2021. Performing Organization Address City/State/ZIP Code P suzy Number LABDE INTERFACE * SINGLE GATED (06/20/2021 8:52 AM ASSEMBLY REPAIRER) Baseline HR 58 bpm OTHER OUTSIDE LAB Baseline BP - 100 mmHg OTHER OUTSIDE Sys LAB Peak HR 70 bpm OTHER OUTSIDE LAB Peak BP - Sys 119 mmHg OTHER OUTSIDE LAB Referring Angelic Resendez MD OTHER OUTSIDE Provider LAB PUL TO [place] 0.33 OTHER OUTSIDE COUNT RATIO LAB Stress Dose 1.8 mCi OTHER OUTSIDE LAB CV NUCLEAR BMI 23.78 kg/m2 OTHER OUTSIDE LAB MPI EF 73 % OTHER OUTSIDE LAB Summed Stress 0 OTHER OUTSIDE Score LAB Baseline BP - 70 mmHg OTHER OUTSIDE Goncalves LAB Peak BP - Goncalves 69 OTHER OUTSIDE LAB LV volume 99 mL OTHER OUTSIDE LAB Study Number [id number] OTHER OUTSIDE LAB Nuclear In aggregate the current study OTHER OUTSIDE Cardiology is low risk in regards to LAB Mortality Risk predicted annual cardiovascular mortality rate. Modality Anatomical Region Laterality Ultrasound Specimen Narrative OTHER OUTSIDE LAB - 06/20/2021 12:52 PM ASSEMBLY REPAIRER Nuclear Report Cardiology: [facility] Division of Nuclear Cardiac Imaging Consultation Report EXAMINATION: D-SPECT Gated [id number] Chloride myocardial perfusion single-photon emission computed tomography regional wall function, post stress ejection fraction, and perfusion imaging utilizing Regadenoson pharmacological stress. Date of Study: 06/20/21 Study #: [id number] IAIN KU Billing ID: [id number] Referring Physician: Angelic Resendez MD Requested by: Moy Serrano MD BMI: 23.78 kg/m2 INDICATIONS FOR STUDY (HISTORY): This is a 65 year old male with a history of end-stage liver disease. This study is being done in the preoperative setting to rule out significant myocardial ischemia. PROCEDURAL DETAILS: Initially, the patient received a 5 ml intravenous infusion of Regadenoson at 0.08 mg/ml over 10 to 15 seconds. Approximately 20 seconds later 1.8 mCi of [id number] hloride was injected intravenously. Throughout the infusion continuous electrocardiographic monitoring and serial electrocardiograms were obtained, as well as intermittent blood pressure recordings. Gated upright D-SPECT tomographic images were then acquired approximately 5 minutes after discontinuation of the regadenoson infusion. When indicated supine D-SPECT images were also obtained. FINDINGS: Pharmacological Stress Electrocardiogram: The patient's resting heart rate was 58 bpm and the resting blood pressure was 100/70. The patient s peak stress heart rate was 70 bpm and the peak stress blood pressure was 119/69. The patient experienced no sig nificant symptoms during the study. The resting ECG shows Normal sinus rhythm. Following Regadenoson infusion there are no new diagnostic ECG changes. Conclusion: Pharmacologic stress ECG is negative for ischemia. Ughcyxzwq-bu-Xxxvntnbkn Count Ratio: 0.33 (normal = or < 0.52). Scintigraphic Findings: Raw images reveal the left ventricular cavity is normal in size. There is normal pulmonary tracer uptake. There is no significant attenuation present. Tomographic images were reconstructed in two orthogonal views. There is normal homogenous uptake of thallium in all myocardial segments. There are no perfusion defects. All myocardial segments appear viable. Polar coordinate map identifies no perfusion abnormalities. Summed Stress Score: 0 Regional Wall Thickening and Motion Post Stress: There is normal left ventricular wall motion and thickening of all myocardial segments. Left Ventricular Ejection Fraction = 73 %. Left Ventricular End Diastolic Volume: 99 mL SUMMARY/OPINION: This stress test only myocardial perfusion imaging study is normal with no evidence of significant myocardial ischemia. Left ventricular systolic function is normal. There are no high risk prognostic indicators present. The pharmacologic ECG portion of the study is negative for ischemia. Comparison is made with a prior D SPECT study completed 06/23/2018. Ejection fraction was 61%. There are no significant changes. In aggregate the current study is low risk in regards to predicted annual cardiovascular mortality rate. Performing Organization Address City/State/ZIP Code P suzy Number OTHER OUTSIDE LAB * 2D + DOPPLER ECHO NO CONTRAST (06/19/2021 8:22 AM ASSEMBLY REPAIRER) IVS 0.90 0.6 - 1.0 cm OTHER OUTSIDE LAB LVIDD 4.99 4.2 - 5.8 cm OTHER OUTSIDE LAB LVIDS 3.27 2.5 - 4.0 cm OTHER OUTSIDE LAB PW 1.20 0.6 - 1.0 cm OTHER OUTSIDE LAB Left Ventricle 90.00 62 - 150 mL OTHER OUTSIDE Diastolic LAB Volume Left Ventricle 48 34 - 74 mL OTHER OUTSIDE Diastolic LAB Volume Index Left Ventricle 23.00 21 - 61 mL OTHER OUTSIDE Systolic Volume LAB Left Ventricle 12 11 - 31 mL OTHER OUTSIDE Systolic Volume LAB Index LVOT peak cecile 0.95 m/s OTHER OUTSIDE LAB TDI lateral e' 0.10 m/s OTHER OUTSIDE LAB Right 3.45 1.9 - 3.5 cm OTHER OUTSIDE Ventricular Mid LAB Diameter LA size 3.28 3.0 - 4.0 cm OTHER OUTSIDE LAB LA volume 42.26 18 - 58 mL OTHER OUTSIDE LAB Right Atrial 17.79 <18 cm2 OTHER OUTSIDE Area LAB Right Atrial 4.77 2.1 - 2.7 cm OTHER OUTSIDE Major Dimension LAB AV peak 1.47 m/s OTHER OUTSIDE velocity LAB AV 959.30 ms OTHER OUTSIDE regurgitation LAB pressure 1/2 time MV Peak A Cecile 0.46 m/s OTHER OUTSIDE LAB MV Peak E Cecile 0.57 m/s OTHER OUTSIDE PW LAB Right 3.71 2.5 - 4.1 cm OTHER OUTSIDE Ventricular LAB Basal Diameter Right Heart 0.15 m/s OTHER OUTSIDE Systolic TDI S' LAB Right Heart 2.48 >1.7 cm OTHER OUTSIDE Systolic Mmode LAB TAPSE Ao root annulus 2.11 2.0 - 3.2 cm OTHER OUTSIDE LAB Sinus 3.62 2.8 - 4.0 cm OTHER OUTSIDE LAB STJ 3.20 2.3 - 3.5 cm OTHER OUTSIDE LAB Ascending aorta 3.75 cm OTHER OUTSIDE LAB BSA 1.89 m2 OTHER OUTSIDE LAB CV ECHO PV ELIAS Flannery IV Sue, RDMILENA OTHER OUTSID E IMAGING SCIENCE PROFESSOR LAB FS 34.47 28 - 44 % OTHER OUTSIDE LAB EF 58.60 % OTHER OUTSIDE LAB LV mass 194 88 - 224 g OTHER OUTSIDE LAB RWT 0.48 <=0.42 OTHER OUTSIDE LAB AV index 0.65 OTHER OUTSIDE (resighini) LAB E/A ratio 1.24 OTHER OUTSIDE LAB Lateral E/E' 5.70 OTHER OUTSIDE ratio LAB Left Atrium 22.36 16 - 34 OTHER OUTSIDE Index LAB Cardiology Siemens [id number] OTHER OUTSIDE Ultrasound LAB Machine Left Ventricle 103 49 - 115 g/m2 OTHER OUTSIDE Mass Index LAB TDI Medial e' 0.076 m/s OTHER OUTSIDE LAB Medial E/E' 7.50 OTHER OUTSIDE ratio LAB TV rest 17 mmHg OTHER OUTSIDE pulmonary LAB artery pressure TR PEAK 1.9 m/s OTHER OUTSIDE VELOCITY LAB RV SYSTOLIC 14 OTHER OUTSIDE PRESSURE LAB RA PRESSURE 3 OTHER OUTSIDE LAB Modality Anatomical Region Laterality Ultrasound Specimen Narrative OTHER OUTSIDE LAB - 06/19/2021 9:52 AM ASSEMBLY REPAIRER Normal left ventricular systolic function, estimated ejection fraction is 65%. The right ventricle is mildly dilated with preserved systolic function. No significant valvular abnormalities. The ascending aorta is mildly dilated. Small pericardial effusion mainly adjacent to the right ventricle, no evidence of hemodynamic compromise. An intracardiac shunt was visualized by agitated saline injection with and without Valsalva maneuver. Performing Organization Address City/State/ZIP Code P suzy Number OTHER OUTSIDE LAB * ECG-SCAN (06/19/2021 12:00 AM ASSEMBLY REPAIRER) Narrative 06/19/2021 12:00 AM ASSEMBLY REPAIRER Ordered by an unspecified provider. * US DUPLEX SCAN CAROTID BILATERAL (06/18/2021 8:47 AM ASSEMBLY REPAIRER) Modality Anatomical Region Laterality Ultrasound Neck, Vascular Bilateral Specimen Impressions [facility] RAD RESULTS - 06/18/2021 10:38 AM ASSEMBLY REPAIRER Normal carotid Doppler exam. Approved by Cruz Gamble D.O. on 06/18/2021 9:50 AM By my electronic signature, I attest that I have personally reviewed the images for this examination and formulated the interpretations and opinions expressed in this report Finalized by Samantha Richard M.D. on 06/18/2021 10:38 AM. Dictated by Cruz Gamble D.O. on 06/18/2021 8:28 AM. Narrative [facility] RAD RESULTS - 06/18/2021 10:38 AM ASSEMBLY REPAIRER CAROTID DOPPLER CLINICAL INDICATION: 65-year-old male. Liver transplant evaluation. TECHNIQUE: Multiple grayscale, color Doppler and spectral Doppler ultrasound images were obtained throughout both carotid systems. COMPARISON: None FINDINGS: RIGHT: CCA PSV: 77 cm/sec ECA PSV: 104 cm/sec ICA PSV: 73 cm/sec ICA EDV: 21 cm/sec ICA/CCA Ratio: 0.95 Vertebral artery: Patent with normal, antegrade blood flow. Grayscale images demonstrate no significant plaque or visible stenosis. Spectral analysis demonstrates no hemodynamically significant CCA or ICA stenosis. LEFT: CCA PSV: 90 cm/sec ECA PSV: 69 cm/sec ICA PSV: 87 cm/sec ICA EDV: 16 cm/sec ICA/CCA ratio: 0.97 Vertebral artery: Patent with normal, antegrade blood flow. Grayscale images demonstrate no significant plaque or visible stenosis. Spectral analysis demonstrates no hemodynamically significant CCA or ICA stenosis. Procedure Note Samantha Richard MD - 06/18/2021 CAROTID DOPPLER CLINICAL INDICATION: 65-year-old male. Liver transplant evaluation. TECHNIQUE: Multiple grayscale, color Doppler and spectral Doppler ultrasound images were obtained throughout both carotid systems. COMPARISON: None FINDINGS: RIGHT: CCA PSV: 77 cm/sec ECA PSV: 104 cm/sec ICA PSV: 73 cm/sec ICA EDV: 21 cm/sec ICA/CCA Ratio: 0.95 Vertebral artery: Patent with normal, antegrade blood flow. Grayscale images demonstrate no significant plaque or visible stenosis. Spectral analysis demonstrates no hemodynamically significant CCA or ICA stenosis. LEFT: CCA PSV: 90 cm/sec ECA PSV: 69 cm/sec ICA PSV: 87 cm/sec ICA EDV: 16 cm/sec ICA/CCA ratio: 0.97 Vertebral artery: Patent with normal, antegrade blood flow. Grayscale images demonstrate no significant plaque or visible stenosis. Spectral analysis demonstrates no hemodynamically significant CCA or ICA stenosis. IMPRESSION Normal carotid Doppler exam. Approved by Cruz Gamble D.O. on 06/18/2021 9:50 AM By my electronic signature, I attest that I have personally reviewed the images for this examination and formulated the interpretations and opinions expressed in this report Finalized by Samantha Richard M.D. on 06/18/2021 10:38 AM. Dictated by Cruz Gamble D.O. on 06/18/2021 8:28 AM. Performing Organization Address City/State/ZIP Code P suzy Number [facility] RAD RESULTS * CHEST 2 VIEWS (06/17/2021 3:45 PM ASSEMBLY REPAIRER) Modality Anatomical Region Laterality Computed Radiography Chest Specimen Impressions [facility] RESULTS - 06/17/2021 4:59 PM ASSEMBLY REPAIRER No acute cardiopulmonary abnormality. By my electronic signature, I attest that I have personally reviewed the images for this examination and formulated the interpretations and opinions expressed in this report Finalized by Stanley Nj M.D. on 06/17/2021 4:59 PM. Dictated by Harjit Romo M.D. on 06/17/2021 3:52 PM. Narrative [facility] RESULTS - 06/17/2021 4:59 PM ASSEMBLY REPAIRER CHEST 2 VIEWS INDICATION: LIVER TRANSPLANT RE EVALUATION. COMPARISON STUDY: External imaging chest radiograph March 02, 2021 and chest radiograph February 01, 2020. FINDINGS: Lungs/Pleura: The lung volume is normal. No focal airspace disease. No pleural effusion or pneumothorax. Heart and Mediastinum: The cardiomediastinal silhouette is normal. Skeletal Structures and Soft Tissues: Multiple surgical clips are redemonstrated in the upper abdomen. Procedure Note Stanley Nj MD - 06/17/2021 CHEST 2 VIEWS INDICATION: LIVER TRANSPLANT RE EVALUATION. COMPARISON STUDY: External imaging chest radiograph March 02, 2021 and chest radiograph February 01, 2020. FINDINGS: Lungs/Pleura: The lung volume is normal. No focal airspace disease. No pleural effusion or pneumothorax. Heart and Mediastinum: The cardiomediastinal silhouette is normal. Skeletal Structures and Soft Tissues: Multiple surgical clips are redemonstrated in the upper abdomen. IMPRESSION No acute cardiopulmonary abnormality. By my electronic signature, I attest that I have personally reviewed the images for this examination and formulated the interpretations and opinions expressed in this report Finalized by Stanley Nj M.D. on 06/17/2021 4:59 PM. Dictated by Harjit Romo M.D. on 06/17/2021 3:52 PM. Performing Organization Address City/State/ZIP Code P suzy Number [facility] RESULTS * (ABNORMAL) HEMOGLOBIN & HEMATOCRIT, BG (06/17/2021 12:39 PM ASSEMBLY REPAIRER) Hemoglobin BG 11.8 (L) 13.5 - 16.5 GM/DL [facility] MAIN LAB Hematocrit BG 36.5 (L) 40 - 50 % [facility] Specimen Performing Organization Address [facility] Code P suzy Number [facility] MAIN LAB [address] [place] [address] * METHEMOGLOBIN (06/17/2021 12:39 PM ASSEMBLY REPAIRER) Methemoglobn 1.2 <1.5 % [facility] Specimen Performing Organization Address [facility] Code P suzy Number MAIN LAB [address] [place] [address] * (ABNORMAL) BLOOD GASES, ARTERIAL (06/17/2021 12:39 PM ASSEMBLY REPAIRER) pH-Arterial 7.40 7.35 - 7.45 MAIN LAB pCO2-Arterial 31 (L) 35 - 45 MMHG MAIN LAB pO2-Arterial 89 80 - 100 MMHG [facility] MAIN LAB Base 4.5 MMOL/L MAIN LAB Deficit-Arteria l O2 Sat-Arterial 97.2 95 - 99 % MAIN LAB Bicarbonate-ART 20.7 (L) 21 - 28 MMOL/L MAIN LAB -Mitch Specimen Performing Organization Address [facility] Code P suzy Number MAIN LAB [address] [place] [address] * CARBON MONOXIDE,BG (06/17/2021 12:39 PM ASSEMBLY REPAIRER) Carbon Monoxide 0.9 <2.0 % MAIN LAB Specimen Performing Organization Address [facility] P suzy Number MAIN LAB [address] [place] [address] * PFT COMPLETE PULM FUNCTION (06/17/2021 12:34 PM ASSEMBLY REPAIRER) FVC-Pre 4.13 L PFT MAIN FVC-%Pred-pre 96 % [facility] PFT MAIN FEV1-Pre 3.38 L [facility] PFT MAIN FEV1-%Pred-Pre 103 % [facility] PFT MAIN FEV1/FVC-Pre 82 % [facility] PFT MAIN [id number] 64 % [facility] PFT MAIN [id number] 3.79 L/sec [facility] PFT MAIN [id number]-%Pred-P 146 % [facility] PFT MAIN re RVPleth-Pre 1.88 L [facility] PFT MAIN RVPleth-%Pred-P 81 % [facility] PFT MAIN re TLCPleth-Pre 6.14 L [facility] PFT MAIN TLCPleth-%Pred- 90 % [facility] PFT MAIN Pre DLCOunc-Pre 18.55 ml/min/mmHg [facility] PFT MAIN DLCOunc-%Pred-P 69 % [facility] PFT MAIN re DLCOunc-#SD -1.338 ml/min/mmHg K[facility] PFT MAIN DLCOcor-#SD -1.037 ml/min/mmHg K[facility] PFT MAIN DLVA-Pred 4.11 ml/min/mmHg/L [facility] PFT MAIN DLVA-Pre 3.11 ml/min/mmHg/L [facility] PFT MAIN DLVA-%Pred-Pre 75 % [facility] PFT MAIN DLVA-SD 0.73 ml/min/mmHg/L [facility] PFT MAIN DLVA-LLN 2.65 ml/min/mmHg/L [facility] PFT MAIN DLVA-ULN 5.57 ml/min/mmHg/L [facility] PFT MAIN DLVA-#SD -1.380 ml/min/mmHg/L [facility] PFT MAIN [id number] 75 % [facility] PFT MAIN Specimen Narrative Performing Organization Address City/State/ZIP Code P suzy Number PFT MAIN [address] [place] [phone] * BLOOD TYPE CONFIRMATION - ORDER ONLY IF REQUESTED BY LAB (06/17/2021 9:33 AM ASSEMBLY REPAIRER) ABO/RH(D) O POS MAIN LAB Specimen Performing Organization Address City/[facility]/ZIP Code P suzy Number MAIN LAB [address] [place] [address] * T SPOT TB (QUANTIFERON TB) (06/17/2021 9:18 AM ASSEMBLY REPAIRER) T Spot TB Negative REFERENCE LAB Reference range: Normal Value: Negative A negative test result does not exclude the possibility of exposure to or infection with Mycobacterium tuberculosis (M. tuberculosis). Patients with recent exposure to TB infected individuals exhibiting a negative T-SPOT.TB result should be considered for retesting within 6 weeks or if other relevant clinical symptoms indicate. Results from T-SPOT.TB testing must be used in conjunction with each individual's epidemiological history, current medical status, and results of other diagnostic evaluations.[id number] T-SPOT.TB test is qualitative and results are reported as positive, borderline or negative, given that the test controls perform as expected. In line with the Centers for Disease Control and Prevention's 2010 recommendation to report quantitative measurements alongside the qualitative result, the laboratory provides spot counts for informational purposes only. The T-SPOT.TB test should not be interpreted as a quantitative test. Neg Control TB Passed REFERENCE LAB Spot Count Panel A TB Spot 1 REFERENCE LAB Count Panel B TB Spot 0 REFERENCE LAB Count Pos Control TB Passed REFERENCE LAB Spot Count Specimen Blood Performing Organization Address City/State/ZIP Code P suzy Number REFERENCE LAB REFERENCE LAB See results for address. * URINALYSIS, MICROSCOPIC (06/17/2021 9:18 AM ASSEMBLY REPAIRER) WBCs,UA 2-10 0 - 2 /HPF [facility] MAIN LAB RBCs,UA 0-2 0 - 3 /HPF [facility] MAIN [facility] MucousUA 2+ [facility] MAIN LAB Squamous 0-2 0 - 5 [facility] MAIN LAB Epithelial Cells Calcium Oxalate FEW [facility] MAIN LAB Crystals Hyaline Cast 2-5 [facility] MAIN LAB Specimen Urine specimen (specimen) - Urine Performing Organization Address City/[facility]/ZIP Code P suzy Number [facility] MAIN LAB [address] [place] [address] * (ABNORMAL) URINALYSIS DIPSTICK (06/17/2021 9:18 AM ASSEMBLY REPAIRER) Color,UA LIBERTY [facility] MAIN LAB Turbidity,UA CLEAR CLEAR-CLEAR [facility] MAIN [facility] Specific 1.024Comment: NOTE NEW 1.005 - 1.030 [facility] MAIN LAB Himrod-Urine REFERENCE RANGES pH,UA 5.0 5.0 - 8.0 [facility] MAIN LAB Protein,UA 1+ (A) NEG-NEG [facility] MAIN LAB Glucose,UA NEG NEG-NEG [facility] MAIN [facility] Ketones,UA NEG NEG-NEG [facility] MAIN [facility] Bilirubin,UA NEG NEG-NEG [facility]IN [facility] Blood,UA NEG NEG-NEG [facility]IN [facility] Urobilinogen,UA NORMAL NORM-NORMAL [facility] MAIN [facility] Nitrite,UA NEG NEG-NEG [facility]IN [facility] Leukocytes,UA NEG NEG-NEG [facility] Urine Ascorbic POS (A) NEG-NEG [facility] MAIN [facility] Acid, UA Comment: Ascorbic acid is found in various food supplies and dietary supplements, and is reported to cause strong interference with Macroscopic Urinalysis testing for glucose, blood and nitrite, and can result in a false negative result. Specimen Urine specimen (specimen) - Urine Performing Organization Address [facility] Code P suzy Number [facility] [address] [place] [address] * PHENCYCLIDINES-URINE RANDOM (06/17/2021 9:18 AM ASSEMBLY REPAIRER) Phencyclidine NEG NEG-NEG [facility] (PCP) Comment: RESULTS WERE OBTAINED BY IMMUNOASSAY AND ARE PRESUMPTIVE ONLY. POSITIVE INDICATES THE PRESENCE OF SUBSTANCE WITH CHARACTERISTICS SIMILAR TO DRUG-DRUG CLASS OR METABOLITE IN CONC. EQUAL TO OR EXCEEDING VALUES LISTED. PHENCYCLIDINE (PCP) 25 NG/ML Specimen Urine specimen (specimen) - Urine Performing Organization Address [facility] P suzy Number [facility] [address] [place] [address] * OPIATES-URINE RANDOM (06/17/2021 9:18 AM ASSEMBLY REPAIRER) Opiates-Urine NEG NEG-NEG [facility] Comment: RESULTS WERE OBTAINED BY IMMUNOASSAY AND ARE PRESUMPTIVE ONLY. POSITIVE INDICATES THE PRESENCE OF SUBSTANCE WITH CHARACTERISTICS SIMILAR TO DRUG-DRUG CLASS OR METABOLITE IN CONC. EQUAL TO OR EXCEEDING VALUES LISTED. OPIATES 2000 NG/ML Specimen Urine specimen (specimen) - Urine Performing Organization Address [facility] P suzy Number [facility] [address] [place] [address] * COCAINE-URINE RANDOM (06/17/2021 9:18 AM ASSEMBLY REPAIRER) Cocaine-Urine NEG NEG-NEG [facility] Comment: RESULTS WERE OBTAINED BY IMMUNOASSAY AND ARE PRESUMPTIVE ONLY. POSITIVE INDICATES THE PRESENCE OF SUBSTANCE WITH CHARACTERISTICS SIMILAR TO DRUG-DRUG CLASS OR METABOLITE IN CONC. EQUAL TO OR EXCEEDING VALUES LISTED. COCAINE 300 NG/ML Specimen Urine specimen (specimen) - Urine Performing Organization Address [facility] P suzy Number [facility] [address] [place] [address] * CANNABINOIDS-URINE RANDOM (06/17/2021 9:18 AM ASSEMBLY REPAIRER) THC NEG NEG-NEG MAIN LAB Comment: RESULTS WERE OBTAINED BY IMMUNOASSAY AND ARE PRESUMPTIVE ONLY. POSITIVE INDICATES THE PRESENCE OF SUBSTANCE WITH CHARACTERISTICS SIMILAR TO DRUG-DRUG CLASS OR METABOLITE IN CONC. EQUAL TO OR EXCEEDING VALUES LISTED. CANNABINOIDS 50 NG/ML Specimen Urine specimen (specimen) - Urine Performing Organization Address [facility] P suzy Number MAIN LAB [address] [place] [address] * BENZODIAZEPINES-URINE RANDOM (06/17/2021 9:18 AM ASSEMBLY REPAIRER) Benzodiazepines NEG NEG-NEG [facility] Comment: RESULTS WERE OBTAINED BY IMMUNOASSAY AND ARE PRESUMPTIVE ONLY. POSITIVE INDICATES THE PRESENCE OF SUBSTANCE WITH CHARACTERISTICS SIMILAR TO DRUG-DRUG CLASS OR METABOLITE IN CONC. EQUAL TO OR EXCEEDING VALUES LISTED. BENZODIAZEPINES 200 NG/ML Specimen Urine specimen (specimen) - Urine Performing Organization Address [facility] P suzy Number [facility] MAIN LAB [address] [place] [address] * BARBITURATES-URINE RANDOM (06/17/2021 9:18 AM ASSEMBLY REPAIRER) Pathologist [facility] Barbiturates,Ur NEG NEG-NEG MAIN LAB ine Comment: RESULTS WERE OBTAINED BY IMMUNOASSAY AND ARE PRESUMPTIVE ONLY. POSITIVE INDICATES THE PRESENCE OF SUBSTANCE WITH CHARACTERISTICS SIMILAR TO DRUG-DRUG CLASS OR METABOLITE IN CONC. EQUAL TO OR EXCEEDING VALUES LISTED. BARBITURATES 200 NG/ML Specimen Urine specimen (specimen) - Urine Performing Organization Address [facility] P suzy Number MAIN LAB [address] [place] [address] * AMPHETAMINES-URINE RANDOM (06/17/2021 9:18 AM ASSEMBLY REPAIRER) Pathologist [facility] Amphetamines NEG NEG-NEG [facility] MAIN LAB Comment: RESULTS WERE OBTAINED BY IMMUNOASSAY AND ARE PRESUMPTIVE ONLY. POSITIVE INDICATES THE PRESENCE OF SUBSTANCE WITH CHARACTERISTICS SIMILAR TO DRUG-DRUG CLASS OR METABOLITE IN CONC. EQUAL TO OR EXCEEDING VALUES LISTED. AMPHETAMINES 1000 NG/ML Specimen Urine specimen (specimen) - Urine Performing Organization Address [facility] P suzy Number MAIN LAB [address] [place] [address] * TRYPANOSOMA CRUZI ANTIBODY, IGG, SERUM (06/17/2021 9:17 AM ASSEMBLY REPAIRER) Trypanosoma 0.3 REFERENCE LAB cruzi Antibody, Comment: IgG Reference range: <=1.0 Unit: IV INTERPRETIVE INFORMATION: Trypanosoma cruzi Ab, IgG 1.0 IV or less......Negative - No significant level of Trypanosoma cruzi IgG antibody detected. 1.1 IV..............Equivocal - Questionable presence of Trypanosoma cruzi IgG antibody detected. Repeat testing in 10-14 days may be helpful. 1.2 IV or greater...Positive - IgG antibodies to Trypanosoma cruzi detected, which may suggest current or past infection. This assay should not be used for blood donor screening or associated re-entry protocols, or for screening Human Cell and Cellular Tissue-Based Products (HCT/Ps). According to the CDC, at least two different serologic tests should be used to make the laboratory diagnosis of chronic Chagas Disease, as no single serologic test is sufficiently sensitive and specific. Performed By: [facility] [address] [place] [id number] [employer] Officer: Lorena Hill MD Specimen Performing Organization Address City/[facility]/ZIP Code P suzy Number REFERENCE LAB REFERENCE LAB See results for address. * PHOSPHATIDYLETHANOL (06/17/2021 9:17 AM ASSEMBLY REPAIRER) Phosphatidyleth NEGATIVE REFERENCE LAB anol Reference range: NEGATIVE Unit: ng/mL Analyzed compound: PEth 16:0/18:1. [id number]. Analysis performed by Liquid Chromatography with Tandem Mass Spectrometry (LC/MS/MS). Detection limit: 20 ng/mL PEth levels in excess of 20 ng/mL are considered evidence of moderate to heavy ethanol consumption. However, the Center for Substance Abuse Treatment (CSAT) advises caution in interpretation and use of biomarkers alone to assess alcohol use. Results should be interpreted in the context of all available clinical and behavioral information. Reference: Substance Abuse and Mental Health Services Administration (2012). "The Role of Biomarkers in the Treatment of Alcohol Use Disorders", 2012 Revision. Advisory, Volume 11, Issue 2. This test was developed and its performance characteristics determined by [facility]. It has not been cleared or approved by the Food and Drug Administration. Test Performed by: [facility] [employer]. [address] [place] [id number] Specimen Performing Organization Address City/[facility] Code P suzy Number REFERENCE LAB REFERENCE LAB See results for address. * IRON + BINDING CAPACITY + %SAT+ FERRITIN (06/17/2021 9:17 AM ASSEMBLY REPAIRER) Iron 135 50 - 185 MCG/DL [facility] MAIN LAB Iron 322 270 - 380 MCG/DL [facility] MAIN LAB Binding-TIBC % Saturation 42 28 - 42 % [facility] MAIN LAB Ferritin 184 30 - 300 NG/ML [facility] Specimen Blood Performing Organization Address [facility]/ZIP Code P suzy Number [facility] [address] [place] [address] * HIV 1& 2 AG-AB SCRN W REFLEX HIV 1 PCR QUANT (06/17/2021 9:17 AM ASSEMBLY REPAIRER) HIV 1 and 2 AG NONREACTIVEComment: Negative NR-NONREACTIVE K [facility] MAIN LAB AB Screen for HIV-1 Ag and HIV-1/2 specific antibodies. Specimen Blood Performing Organization Address City/[facility]/ZIP Code P suzy Number [facility] [address] [place] [address] * SYPHILIS AB SCREEN (06/17/2021 9:17 AM ASSEMBLY REPAIRER) Syphilis AB, NEG NEG-NEG [facility] Total Specimen Blood Performing Organization Address [facility] P suzy Number [facility] [address] [place] [address] * TSH WITH FREE T4 REFLEX (06/17/2021 9:17 AM ASSEMBLY REPAIRER) TSH 3.03 0.35 - 5.00 MCU/ML [facility] Specimen Blood Performing Organization Address [facility] Code P suzy Number [facility] [address] [place] [address] * ABO/RH(D) (06/17/2021 9:17 AM ASSEMBLY REPAIRER) ABO/RH(D) O POS [facility] Specimen Performing Organization Address [facility] P suzy Number [facility] [address] [place] [address] * (ABNORMAL) ZINC (06/17/2021 9:17 AM ASSEMBLY REPAIRER) Zinc 0.41 (L) REFERENCE LAB Comment: Reference range: 0.66 to 1.10 Unit: mcg/mL ADDITIONAL INFORMATION This test was developed and its performance characteristics determined by [facility] in a manner consistent with CLIA requirements. This test has not been cleared or approved by the U.S. Food and Drug Administration. [facility], [address] [place] [id number] Specimen Blood Performing Organization Address City/[facility]/ZIP Code P suzy Number REFERENCE LAB REFERENCE LAB See results for address. * (ABNORMAL) VITAMIN A (06/17/2021 9:17 AM ASSEMBLY REPAIRER) [facility] Vitamin A 21.8 (L) REFERENCE LAB Comment: Reference range: 32.5 to 78.0 Unit: mcg/dL ADDITIONAL INFORMATION This test was developed and its performance characteristics determined by [facility] in a manner consistent with CLIA requirements. This test has not been cleared or approved by the U.S. Food and Drug Administration. [facility], [address] [place] [address] Specimen Blood Performing Organization Address [facility] P suzy Number REFERENCE LAB REFERENCE LAB See results for address. * TOTAL THYROXINE T4 (06/17/2021 9:17 AM ASSEMBLY REPAIRER) [facility] T4 (Total) 9.9 6.1 - 12.3 MCG/DL MAIN LAB Specimen Blood Performing Organization Address [facility] Code P suzy Number [facility] MAIN LAB [address] [place] [address] * RUBELLA AB IGG (06/17/2021 9:17 AM ASSEMBLY REPAIRER) [facility] Rubella IgG IMMUNE MAIN LAB Specimen Blood Performing Organization Address [facility] P suzy Number [facility] MAIN LAB [address] [place] [address] * RHEUMATOID FACTOR (RF) (06/17/2021 9:17 AM ASSEMBLY REPAIRER) [facility] Rheum Factor <10 <25 IU/mL MAIN LAB Screen Specimen Blood Performing Organization Address [facility] P suzy Number [facility] MAIN LAB [address] [place] [address] * NICOTINE & COTININE LEVEL (06/17/2021 9:17 AM ASSEMBLY REPAIRER) [facility] Nicotine <3.0 REFERENCE LAB Reference range: <3.0 Unit: ng/mL [facility], [address] [place], [place] [id number] Cotinine <3.0 REFERENCE LAB Reference range: <3.0 Unit: ng/mL ADDITIONAL INFORMATION This test was developed and its performance characteristics determined by [facility] in a manner consistent with CLIA requirements. This test has not been cleared or approved by the U.S. Food and Drug Administration. [facility], [address] [place] [address], [place] [address] Specimen Blood Performing Organization Address [facility] P suzy Number REFERENCE LAB REFERENCE LAB See results for address. * HERPES SIMPLEX IGG AB (HSV IGG) (06/17/2021 9:17 AM ASSEMBLY REPAIRER) HSV Type 1 IgG NEG NEG-NEG MAIN LAB HSV Type 2 IgG NEG NEG-NEG MAIN LAB Specimen Blood Performing Organization Address [facility] P suzy Number MAIN LAB [address] [place] [address] * HEPATITIS C ANTIBODY W REFLEX HCV PCR QUANT (06/17/2021 9:17 AM ASSEMBLY REPAIRER) Anti HCV NONREACTIVEComment: Antibodies NR-NONREACTIVE [facility] to HCV were not detected. Specimen Blood Performing Organization Address [facility] P suzy Number [facility] MAIN LAB [address] [place] [address] * HEPATITIS B CORE AB TOT (IGG+IGM) (06/17/2021 9:17 AM ASSEMBLY REPAIRER) Anti HBc Total NONREACTIVEComment: Antibodies NR-NONREACTIVE [facility] to HBV core antigen (anti-HBc) were not detected. Specimen Blood Performing Organization Address [facility] P suzy Number [facility] MAIN LAB [address] [place] [address] * HEPATITIS A IGM (06/17/2021 9:17 AM ASSEMBLY REPAIRER) Hepatitis A IgM NONREACTIVE NR-NONREACTIVE MAIN LAB Specimen Blood Performing Organization Address [facility] P suzy Number [facility] MAIN LAB [address] [place] [address] * (ABNORMAL) HEPATITIS A TOTAL AB (IGG+IGM) (06/17/2021 9:17 AM ASSEMBLY REPAIRER) Hepatitis A, REACTIVE (A) NR-NONREACTIVE [facility] MAIN LAB Total Specimen Blood Performing Organization Address [facility] Code P suzy Number [facility] MAIN LAB [address] [place] [address] * HEPATITIS B SURFACE AG (06/17/2021 9:17 AM ASSEMBLY REPAIRER) HBsAg NONREACTIVEComment: HBs NR-NONREACTIVE [facility] ELIZ N LAB antigen not detected. Specimen Blood Performing Organization Address [facility]/ZIP Code P suzy Number [facility] MAIN LAB [address] [place] [address] * (ABNORMAL) HEPATITIS B SURFACE AB (06/17/2021 9:17 AM ASSEMBLY REPAIRER) Anti HBs POS (A) NEG-NEG [facility] MAIN LAB Comment: Anti-HBs concentration detected at >10 mIU/mL, indicating recovery from HBV infection or acquired immunity from HBV vaccination. Specimen Blood Performing Organization Address [facility] Code P suzy Number [facility] MAIN LAB [address] [place] [address] * (ABNORMAL) GGTP (06/17/2021 9:17 AM ASSEMBLY REPAIRER) GGTP 86 (H) 9 - 64 U/L [facility] MAIN LAB Specimen Blood Performing Organization Address [facility] Code P suzy Number [facility] MAIN LAB [address] [place] [id number] * RON THORNTON PANEL(EBV) (06/17/2021 9:17 AM ASSEMBLY REPAIRER) EBV Capsid IgG POS [facility] MAIN LAB EBV Nuclear POS [facility] MAIN LAB Ag,Ab EBV Early Ag,Ab NEG [facility] MAIN LAB EBV Capsid IgM NEG NEG-NEG [facility] MAIN LAB Specimen Blood Performing Organization Address City/[facility]/ZIP Code P suzy Number [facility] MAIN LAB [address] [place] [address] * CMV AB IGM (06/17/2021 9:17 AM ASSEMBLY REPAIRER) CMV, IgM NEG NEG-NEG [facility] MAIN LAB Specimen Blood Performing Organization Address City/[facility]/ZIP Code P suzy Number [facility] MAIN LAB [address] [place] [address] * CMV AB IGG (06/17/2021 9:17 AM ASSEMBLY REPAIRER) CMV, IgG POS [facility] MAIN LAB Specimen Blood Performing Organization Address City/[facility]/ZIP Code P suzy Number [facility] MAIN LAB [address] [place] [phone] * ALPHA FETO PROTEIN (AFP) (06/17/2021 9:17 AM ASSEMBLY REPAIRER) Alpha Feto 2.7 0.0 - 15.0 NG/ML MAIN LAB Protein Specimen Blood Performing Organization Address [facility] P suzy Number [facility] MAIN LAB [address] [place] [address] * VARICELLA ZOSTER AB IGG (06/17/2021 9:17 AM ASSEMBLY REPAIRER) Varcella Zoster POS [facility] MAIN LAB IgG Specimen Blood Performing Organization Address [facility] P suzy Number [facility] MAIN LAB [address] [place] [address] * TRANSFERRIN (06/17/2021 9:17 AM ASSEMBLY REPAIRER) Transferrin 224 185 - 336 MG/DL MAIN LAB Specimen Blood Performing Organization Address [facility] P suzy Number MAIN LAB [address] [place] [address] * VITAMIN E (06/17/2021 9:17 AM ASSEMBLY REPAIRER) Vitamin E 6.9 REFERENCE LAB Comment: Reference range: 5.5 to 17.0 Unit: mg/L ADDITIONAL INFORMATION This test was developed and its performance characteristics determined by [facility] in a manner consistent with CLIA requirements. This test has not been cleared or approved by the U.S. Food and Drug Administration. [facility], [address] [place] [id number] Specimen Blood Performing Organization Address [facility] P suzy Number REFERENCE LAB REFERENCE LAB See results for address. * PROSTATIC SPECIFIC ANTIGEN-PSA (06/17/2021 9:17 AM ASSEMBLY REPAIRER) Prostatic 3.41 <4.01 NG/ML [facility] MAIN LAB Specific Comment: Antigen REFERENCE RANGES AGE PSA VALUE <50 <=1.5 50-54 <=2.0 55-59 <=3.0 60-69 <=4.0 70+ <=6.0 Specimen Blood Performing Organization Address [facility] P suzy Number [facility] MAIN LAB [address] [place] [address] * MAGNESIUM (06/17/2021 9:17 AM ASSEMBLY REPAIRER) Magnesium 1.8 1.6 - 2.6 mg/dL [facility] MAIN LAB Specimen Blood Performing Organization Address City/[facility] P suzy Number [facility]U MAIN LAB [address] [place] [phone] * LDH-LACTATE DEHYDROGENASE (06/17/2021 9:17 AM ASSEMBLY REPAIRER) Lactate 192 100 - 210 U/L [facility] MAIN LAB Dehydrogenase Specimen Blood Performing Organization Address [facility] P suzy Number [facility]U MAIN LAB [address] [place] [phone] * (ABNORMAL) HEMOGLOBIN A1C (06/17/2021 9:17 AM ASSEMBLY REPAIRER) Hemoglobin A1C 6.5 (H) 4.0 - 6.0 % [facility] MAIN LAB Comment: The ADA recommends that most patients with type 1 and type 2 diabetes maintain an A1c level <7%. Specimen Blood Performing Organization Address [facility] P suzy Number [facility] MAIN LAB [address] [place] [phone] * AMYLASE (06/17/2021 9:17 AM ASSEMBLY REPAIRER) Amylase 90 24 - 100 U/L [facility] MAIN LAB Specimen Blood Performing Organization Address [facility] P suzy Number K[facility] MAIN LAB [address] [place] [phone] * BONE DENSITY SPINE (06/17/2021) Modality Anatomical Region Laterality Other Spine Narrative Performing Organization Address [facility]/ZIP Code P suzy Number IN CLINIC from Last 3 Months Insurance Type Payer Benefit Subscriber ID Effective Phone Address Plan / Dates Group Medicare MEDICARE MEDICARE [id number] 2019-P [address] resent [address] [place] [address] HMO [id number] 2019-P [phone] resent [address] [place] [address] Medicare MEDICARE MEDICARE [id number] 2019-P [phone] AND resent [address] [place] [phone] Ravindra Chun Transplant Self 1955 [address] (Home) [place] [address] Advance Directives Patient Supervising Deputy Explanation Type Date Recorded Advance 08/12/2019 10:52 AM Directive/DPOA Advance Directives 03/08/2013 4:14 PM and Living Will Advance Directives 09/18/2011 12:00 AM and Living Will Date Inactivated Comments Code Status Date Activated 03/05/2021 4:57 PM Full Code 03/03/2021 4:48 AM Provider has discussed Code Status No, more discussi on w/Patient or Family? needed 02/03/2020 2:07 PM Full Code 02/01/2020 5:38 AM Provider has discussed Code Status Yes w/Patient or Family? 02/01/2020 5:38 AM Full Code 02/01/2020 4:50 AM Provider has discussed Code Status No, more discussi on w/Patient or Family? needed 09/02/2019 6:11 PM Full Code 09/01/2019 1:48 AM Provider has discussed Code Status Yes w/Patient or Family? 08/05/2018 12:33 PM Full Code 07/17/2018 10:06 PM Provider has discussed Code Status Yes w/Patient or Family? Care Teams Start Date End Date Director Of Event Sales Relationship Specialty 08/12/19 Angelic Resendez MD PCP - [address] [place] [address] 06/03/10 Zakiya Ledezma RN 06/03/10 Liberty Justice MD [address] [place] [address] 06/03/10 Moy Serrano MD [address] [facility] [place] [address] 08/25/10 Stephania Liu RN Emergency Medicine 09/03/10 Leobardo Giordano MD Infectious [address] Disease Ortho/Med Pavilion Lvl [address] [place] [address] 03/29/11 Kati Thomas MD Internal [address] [place] [address] 05/01/11 Edilson Villalba MD Internal [address] [place] [address] 05/05/11 Alex Balbuena MD Infectious [address] Disease Ortho/Med Pavilion Lvl [address] [place] [address] 05/20/11 Kleber Can MD Internal Fellow provider only Medicine 06/18/11 Harish Irvin MD Transplant 4000 [facility] Main [address]st [place] [address] 10/02/11 Luis Eduardo Art MD Gastroentero [address] logy Ortho/Med Pavilion Lvl 2B [place] [address] 06/15/12 Alton Sewell MD Dermatology Forwarding Address Unknown 06/15/12 Ariane Campoverde MD Dermatology [address] [place] [address] 09/14/12 Dayan Daniels MD Dermatology [address] Ortho/Med Pavilion Lvl [address] [place] [address] 12/21/12 Jamel Hutchins MD Dermatology [place]ired Left [place] [id number] 12/21/12 Leigh Resendez MD Dermatology [address] [facility] [address] [place] [address] 01/03/15 Carmen Reeves, PACKAGE LINE RELIEF OPERATOR Transplant [address] Hepatology [place] [address] [place] [address] 05/07/15 Margaux Ng, ELIAS 06/06/15 Maureen Robertson LPN Maternal and Medicine 07/04/15 Lupe Hamilton Maternal and Medicine 09/05/15 Berta Baldwin 12/11/15 Michelle Orellana 01/01/16 Lashon Carey MA Maternal and Medicine 01/03/16 Carmen Lassiter, Gastroentero PACKAGE LINE RELIEF OPERATOR-INTERNAL REVENUE AGENT logy [address] Ortho/Med Pavilion Lvl 2B [place] [address] 01/03/16 Linsey Watson 01/17/16 Audrey Howard, RN
--- OUTSIDE RECORDS SUMMARY | 2021-08-16 09:17 | XMS REPORT | Encounter Summary ---
Author Author [facility] Organization [facility] Address Unknown Phone Unavailable Care Team Providers Care Tearoom Host Name Role Phone Zakiya Ledezma RN Unavailable [...] Lashon Carey MA Unavailable Unavailable Carmen Lassiter PLATING TANK OPERATOR-SILO MAN Unavailable [phone] Linsey Watson Unavailable Unavailable Audrey Howard RN Unavailable Unavailable Angelic Resendez MD PCP Reason for Visit * Reason Onset Date Comments Records Request 06/20/2021 f/u call Encounter Details Care Team Description Date Type Department Moy Serrano MD 4000 [facility] [id number] [place] [address] Records Request (f/u call) 06/20/2021 Telephone Transplant: Main Ca mp, [facility] 4000 [facility] Level 1, [address] [place] [address] Social History Date Tobacco Use Types Packs/Day Years Used Quit: 02/01/1976 Former Smoker Cigarettes 3 Smokeless Tobacco: Never Used Comments: Quit 08/1976 Comments Alcohol Use Standard Drinks/Week No 0 (1 standard drink = 0.6 o z pure alcohol) Sex Assigned at Date Recorded Male 04/17/2020 2:33 PM CDT Date Recorded COVID-19 Exposure Response 06/20/2021 7:42 AM MANAGER ACCESS In the last month, have you been [...] impairment: No documented as of this encounter Miscellaneous Notes * Telephone Encounter - Lashon Carey MA - 06/25/2021 9:05 AM MANAGER ACCESS Spoke w/staff will leave message for medical personnel stating I have not receiv ed these records. GER ACCESS * Telephone Encounter - Lashon Carey MA - 06/20/2021 11:55 AM MANAGER ACCESS Spoke w/Dr. Rubio office request most recent panerox (2019 OSH), states will sen d this report and recent scan from doctor Joanne (not a panerox). GER ACCESS documented in this encounter Plan of Treatment Not on filedocumented as of this encounter Goals Goal Patient Associated Recent Progress Patient-Stat Aut hor Goal Type Problems ed? GOAL General No Maria M Erwin, RN Note: get my liver transplant Resume normal activities Hospital No Deandra Bean, ELIAS Note: Waiting for a liver transplant Move to [place]. documented as of this encounter Visit Diagnoses Not on filedocumented in this encounter Additional Health Concerns Noted Time Assessment 06/19/2021 9:20 AM MANAGER ACCESS A fall risk assessment has been complet ed for the patient 06/19/2021 9:22 AM MANAGER ACCESS PHQ-2 Depression Total Score: 0 documented as of this encounter Care Teams Start Date End Date Tearoom Host Relationship Specialty 08/12/19 Angelic Resendez MD PCP - [address] [place] [address] 06/03/10 Zakiya Ledezma, ELIAS 06/03/10 Liberty Justice MD [address] [place], [place] [id number] 06/03/10 Moy Serrano MD 4000 [facility]1170 [place], [place] [id number] 08/25/10 Stephania Liu, ELIAS Emergency Medicine 09/03/10 Leobardo Giordano MD Infectious [address] [facility] Disease Ortho/Med Pavilion Lvl [address] [place] [address] 03/29/11 Kati Thomas MD Internal [address] [place] [address] 05/01/11 Edilson Villalba MD Internal [address] [place] [address] 05/05/11 Alex Balbuena MD Infectious [address] Disease Ortho/Med Pavilion Lvl [address] [place] [address] 05/20/11 Kleber Can MD Internal Fellow provider only Medicine 06/18/11 Harish Irvin MD Transplant [address] [facility] Main 1st [place] [address] 10/02/11 Luis Eduardo Art MD Gastroentero [address] logy Ortho/Med Pavilion Lvl 2B [place] [address] 06/15/12 Alton Sewell MD Dermatology Forwarding Address Unknown 06/15/12 Ariane Campoverde MD Dermatology [address] [place] [address] 09/14/12 Dayan Daniels MD Dermatology [address] Ortho/Med Pavilion Lvl [address] [place] [address] 12/21/12 Jamel Hutchins MD Dermatology Retired Left [place] [id number] 12/21/12 Leigh Resendez MD Dermatology [address] [place] [address] 5201 [place] [address] 01/03/15 Carmen Reeves, PLATING TANK OPERATOR Transplant [address] Hepatology [place] 1023 [place] [address] 05/07/15 Margaux Ng, ELIAS 06/06/15 Maureen Robertson LPN Maternal and Medicine 07/04/15 Lupe Hamilton Maternal and Medicine 09/05/15 Berta Baldwin 12/11/15 Michelle Orellana 01/01/16 Lashon Carey MA Maternal and Medicine 01/03/16 Carmen Lassiter, Gastroentero PLATING TANK OPERATOR-SILO MAN logy [address] Ortho/Med Pavilion Lvl 2B [place] [address] 01/03/16 Linsey Watson 01/17/16 Audrey Howard, ELIAS documented as of this encounter
--- OUTSIDE RECORDS SUMMARY | 2021-08-16 09:17 | XMS REPORT | Encounter Summary ---
Author Author [facility] Organization [facility] Address Unknown Phone Unavailable Care Team Providers Care Pump And Still Operator Name Role Phone Zakiya Ledezma RN Unavailable [...] Lashon Carey MA Unavailable Unavailable Carmen Lassiter DIRECTOR OF NEUROLOGY-CERTIFIED ADDICTION COUNSELOR Unavailable [phone] Linsey Watson Unavailable Unavailable Audrey Howard RN Unavailable Unavailable Angelic Resendez MD PCP Reason for Visit * Reason Onset Date Comments Financial/Insurance 06/19/2021 Financial Consult Update Questions Encounter Details Care Team Description Date Type Department Josué Hooks Financial/Insurance Questions (Financial Consult Update ) 06/19/2021 Telephone Transplant: Main La mpus, [facility] [address], [address] [place] [address] Social History Date Tobacco Use Types Packs/Day Years Used Quit: 02/01/1976 Former Smoker Cigarettes 3 Smokeless Tobacco: Never Used Comments: Quit 08/1976 Comments Alcohol Use Standard Drinks/Week No 0 (1 standard drink = 0.6 o z pure alcohol) Sex Assigned at Date Recorded Male 04/17/2020 2:33 PM CDT Date Recorded COVID-19 Exposure Response 06/19/2021 6:44 AM SPECTACLE TRUER In the last month, have you been [...] encounter Miscellaneous Notes * Telephone Encounter - Josué Hooks - 06/19/2021 7:18 AM SPECTACLE TRUER Josué Hooks met with Ravindra Chun for insurance consult update. There appea r to be NO coverage/insurance barriers with [employer] and [employer] plan. Ravindra expressed NO insurance concerns related to cost of post-transplant care and medications and verbalized understanding of Transplant Finance Coordinator's discussion and documents presented. NO Authorization required prior to listing. Patient remains Financially Approved with No Barriers Documents presented: Signed Patient Liability Form, Medication Cost Estimate TACLE TRUER documented in this encounter Plan of Treatment Not on filedocumented as of this encounter Goals Goal Patient Associated Recent Progress Patient-Stat Aut hor Goal Type Problems ed? GOAL General No Maria M Erwin, RN Note: get my liver transplant Resume normal activities Hospital No Deandra Bean, ELIAS Note: Waiting for a liver transplant Move to [place]. documented as of this encounter Visit Diagnoses Not on filedocumented in this encounter Additional Health Concerns Noted Time Assessment 06/19/2021 9:20 AM SPECTACLE TRUER A fall risk assessment has been complet ed for the patient 06/19/2021 9:22 AM SPECTACLE TRUER PHQ-2 Depression Total Score: 0 documented as of this encounter Care Teams Start Date End Date Pump And Still Operator Relationship Specialty 08/12/19 Angelic Resendez MD PCP - [address] [address] 06/03/10 Zakiya Ledezma RN 06/03/10 Liberty Justice MD [address] [place] [address] 06/03/10 Moy Serrano MD 4000 [facility] BS1838 [place] [address] 08/25/10 Stephania Liu RN Emergency Medicine 09/03/10 Leobardo Giordano MD Infectious 2000 [facility] Disease Ortho/Med [address] [address] 03/29/11 Kati Thomas MD Internal 4000 [place] [address] 05/01/11 Edilson Villalba MD Internal 4000 [facility] [place] [address] 05/05/11 Alex Balbuena MD Infectious [address] Disease Ortho/Med Pavilion Lvl 4C [place] [address] 05/20/11 Kleber Can MD Internal Fellow provider only Medicine 06/18/11 Harish Irvin MD Transplant 4000 [facility] Main 1st [place] [address] 10/02/11 Luis Eduardo Art MD Gastroentero [address] logy Ortho/Med Pavilion Lvl 2B [place] [address] 06/15/12 Alton Sewell MD Dermatology Forwarding Address Unknown 06/15/12 Ariane Campoverde MD Dermatology [address] [place] [address] 09/14/12 Dayan Daniels MD Dermatology [address] Ortho/Med Pavilion Lvl [address] [place] [address] 12/21/12 Jamel Hutchins MD Dermatology Retired Left [place] [id number] 12/21/12 Leigh Resendez MD Dermatology [address] [facility] [address] [place] [address] 01/03/15 Carmen Reeves, DIRECTOR OF NEUROLOGY Transplant [address] Hepatology [place] [address] [place] [address] 05/07/15 Margaux Ng RN 06/06/15 Maureen Robertson LPN Maternal and Medicine 07/04/15 Lupe Hamilton Maternal and Medicine 09/05/15 Berta Baldwin 12/11/15 Michelle Orellana 01/01/16 Lashon Carey MA Maternal and Medicine 01/03/16 Carmen Lassiter, Gastroentero DIRECTOR OF NEUROLOGY-CERTIFIED ADDICTION COUNSELOR [facility]Med Pavilion Lvl [address]B [place] [address] 01/03/16 Linsey Watson 01/17/16 Audrey Howard, ELIAS documented as of this encounter
--- OUTSIDE RECORDS SUMMARY | 2021-08-16 09:17 | XMS REPORT | Encounter Summary ---
Author Author [facility] Organization [facility] Address Unknown Phone Unavailable Care Team Providers Care Cone Tender Name Role Phone Zakiya Ledezma RN Unavailable [...] Lashon Carey MA Unavailable Unavailable Carmen Lassiter KITCHEN FOOD SERVER-GARBAGE DEPOT WORKER Unavailable [phone] Linsey Watson Unavailable Unavailable Audrey Howard RN Unavailable Unavailable Angelic Resendez MD PCP Encounter Details Care Team Description Date Type Department Luis Hamilton RN Liver transplant status (HCC) (Primary D x); Other cirrhosis of liver (HCC) 07/17/2021 Orders Only Transplant: Main De mpus, [facility] [address] 1, [address] [place] [address] Social History Date Tobacco Use Types Packs/Day Years Used Quit: 02/01/1976 Former Smoker Cigarettes 3 Smokeless Tobacco: Never Used Comments: Quit 08/1976 Comments Alcohol Use Standard Drinks/Week No 0 (1 standard drink = 0.6 o z pure alcohol) Sex Assigned at Date Recorded Male 04/17/2020 2:33 PM CDT Date Recorded COVID-19 Exposure Response 06/20/2021 7:42 AM TOOL MECHANIC In the last month, have you been [...] ed? GOAL General No Maria M Erwin, ELIAS Note: get my liver transplant Resume normal activities Hospital No Deandra Bean RN Note: Waiting for a liver transplant Move to [place]. documented as of this encounter Results * 25-OH VITAMIN D (D2 + D3) (07/16/2021 7:39 AM TOOL MECHANIC) Vitamin 40.30 LABDE INTERFACE D(25-OH)Total Specimen Blood (substance) Narrative LABDE INTERFACE - 07/17/2021 12:00 AM TOOL MECHANIC Outside Lab Verified by Freddarling Hanna on 07/18/2021. Performing Organization Address City/State/ZIP Code P suzy Number LABDE INTERFACE * (ABNORMAL) LIPID PROFILE (07/16/2021 7:39 AM TOOL MECHANIC) Cholesterol 96 (L) 100 - 240 LABDE INTERFACE Triglycerides 55 LABDE INTERFACE HDL 38 LABDE INTERFACE LDL 47 LABDE INTERFACE VLDL 11 LABDE INTERFACE Cholesterol/HDL 2.5 (L) 3.7 - 6.7 LABDE INTERFAC E Ratio Specimen Blood (substance) Narrative LABDE INTERFACE - 07/17/2021 12:00 AM TOOL MECHANIC Outside Lab Verified by Freddarling Hanna on 07/17/2021. Performing Organization Address City/State/ZIP Code P suzy Number LABDE INTERFACE documented in this encounter Visit Diagnoses Diagnosis Liver transplant status (HCC) - Primary Other cirrhosis of liver (HCC) Liver transplant status (HCC) Other cirrhosis of liver (HCC) documented in this encounter Additional Health Concerns Noted Time Assessment 06/19/2021 9:20 AM TOOL MECHANIC A fall risk assessment has been complet ed for the patient 06/19/2021 9:22 AM TOOL MECHANIC PHQ-2 Depression Total Score: 0 documented as of this encounter Care Teams Start Date End Date Cone Tender Relationship Specialty 08/12/19 Angelic Resendez MD PCP - [address] [place] [address] 06/03/10 Zakiya Ledezma RN 06/03/10 Liberty Justice MD 3901 [place], [place] [id number] 06/03/10 Moy Serrano MD [address] [id number] 08/25/10 Stephania Liu, ELIAS Emergency Medicine 09/03/10 Leobardo Giordano MD Infectious [address] Disease Ortho/Med Pavilion Lvl [address] [place] [address] 03/29/11 Kati Thomas MD Internal 4000 [place] [address] 05/01/11 Edilson Villalba MD Internal [address] [place] [address] 05/05/11 Alex Balbuena MD Infectious [address] Disease Ortho/Med Pavilion Lvl [address] [place] [address] 05/20/11 Kleber Can MD Internal Fellow provider only Medicine 06/18/11 Harish Irvin MD Transplant 4000 [facility] Main [address]st [place] [address] 10/02/11 Luis Eduardo Art MD Gastroentero [address] logy Ortho/Med Pavilion Lvl [address] [place] [address] 06/15/12 Alton Sewell MD Dermatology Forwarding Address Unknown 06/15/12 Ariane Campoverde MD Dermatology [address] [place] [address] 09/14/12 Dayan Daniels MD Dermatology [address] Ortho/Med Pavilion Lvl [address] [place] [address] 12/21/12 Jamel Hutchins MD Dermatology [place]ired Left [place] [id number] 12/21/12 Leigh Resendez MD Dermatology 35 [facility] [address] [place] [address] 01/03/15 Carmen Reeves, KITCHEN FOOD SERVER Transplant [address] Hepatology [place] [address] [place] [address] 05/07/15 Margaux Ng, ELIAS 06/06/15 Maureen Robertson LPN Maternal and Medicine 07/04/15 Lupe Hamilton Maternal and Medicine 09/05/15 Berta Baldwin 12/11/15 Michelle Orellana 01/01/16 Lashon Carey MA Maternal and Medicine 01/03/16 Carmen Lassiter, Gastroentero KITCHEN FOOD SERVER-GARBAGE DEPOT WORKER logy [address] Ortho/Med Pavilion Lvl [address] [place] [address] 01/03/16 Linsey Watson 01/17/16 Audrey Howard, ELIAS documented as of this encounter
--- OUTSIDE RECORDS SUMMARY | 2021-08-16 09:17 | XMS REPORT | Encounter Summary ---
Author Author [facility] Organization [facility] Address Unknown Phone Unavailable Care Team Providers Care Tumbler Plater Name Role Phone Zakiya Ledezma RN Unavailable [...] Lashon Carey MA Unavailable Unavailable Carmen Lassiter HR ASSOCIATE-COOK DESSERT Unavailable [phone] Linsey Watson Unavailable Unavailable Audrey Howard RN Unavailable Unavailable Angelic Resendez MD PCP Encounter Details Care Team Description Date Type Department Marisela Moore RN Liver transplant status (HCC) 07/22/2021 Orders Only Transplant: Main Ak mpus, [facility] [address], [address] [place] [address] Social History Date Tobacco Use Types Packs/Day Years Used Quit: 02/01/1976 Former Smoker Cigarettes 3 Smokeless Tobacco: Never Used Comments: Quit 08/1976 Comments Alcohol Use Standard Drinks/Week No 0 (1 standard drink = 0.6 o z pure alcohol) Sex Assigned at Date Recorded Male 04/17/2020 2:33 PM CDT documented as of this encounter Functional Status [...] Waiting for a liver transplant Move to [place]. documented as of this encounter Procedures Comments Procedure Name Priority Date/Time Associated Diag nosis TACROLIMUS LC-MS/MS Routine 07/16/2021 Liver yu splant status 7:39 AM COLLEGE OR UNIVERSITY DEPARTMENT HEAD (HCC) documented in this encounter Results * TACROLIMUS LC-MS/MS (07/16/2021 7:39 AM COLLEGE OR UNIVERSITY DEPARTMENT HEAD) Tacrolimus 6.4 LABDE INTERFACE LC-MS/MS Specimen Blood Narrative LABDE INTERFACE - 07/22/2021 12:00 AM COLLEGE OR UNIVERSITY DEPARTMENT HEAD Outside Lab Verified by Marisela Moore on 07/22/2021. Performing Organization Address City/State/ZIP Code P suzy Number LABDE INTERFACE documented in this encounter Visit Diagnoses Diagnosis Liver transplant status (HCC) documented in this encounter Additional Health Concerns Noted Time Assessment 06/19/2021 9:20 AM COLLEGE OR UNIVERSITY DEPARTMENT HEAD A fall risk assessment has been complet ed for the patient 06/19/2021 9:22 AM COLLEGE OR UNIVERSITY DEPARTMENT HEAD PHQ-2 Depression Total Score: 0 documented as of this encounter Care Teams Start Date End Date Tumbler Plater Relationship Specialty 08/12/19 Angelic Resendez MD PCP - [address] Ardon [address] [place] [address] 06/03/10 Zakiya Ledezma, ELIAS 06/03/10 Liberty Justice MD [address] [place] [address] 06/03/10 Moy Serrano MD 4000 [facility] OR3372 [place] [address] 08/25/10 Stephania Liu, ELIAS Emergency Medicine 09/03/10 Leobardo Giordano MD Infectious [address] Disease [facility] [address] [address] 03/29/11 Kati Thomas MD Internal 4000 [place] [address] 05/01/11 Edilson Villalba MD Internal 4000 [place] [address] 05/05/11 Alex Balbuena MD Infectious [address] Disease Ortho[facility] Pavilion Lvl [address]C [place] [address] 05/20/11 Kleber Can MD Internal Fellow provider only Medicine 06/18/11 Harish Irvin MD Transplant 4000 [facility] Main 1st [place] [address] 10/02/11 Luis Eduardo Art MD Gastroentero [address] logy Ortho[facility]Med Pavilion Lvl 2B [place] [address] 06/15/12 Alton Sewell MD Dermatology Forwarding Address Unknown 06/15/12 Ariane Campoverde MD Dermatology [address] [place] [address] 09/14/12 Dayan Daniels MD Dermatology [address] Ortho/Med Pavilion Lvl 4C [place] [address] 12/21/12 Jamel Hutchins MD Dermatology Retired Left [place] [id number] 12/21/12 Leigh Resendez MD Dermatology [address] [address] 01/03/15 Carmen Reeves APRN Transplant [address] Hepatology [place] 1023 [place] [address] 05/07/15 Margaux Ng RN 06/06/15 Maureen Robertson LPN Maternal and Medicine 07/04/15 Lupe Hamilton Maternal and Medicine 09/05/15 Berta Baldwin 12/11/15 Michelle Orellana 01/01/16 Lashon Carey MA Maternal and Medicine 01/03/16 Carmen Lassiter, Gastroentero HR ASSOCIATE-COOK DESSERT logy 1999 [facility] Ortho/Med Pavilion l 2B [place] [address] 01/03/16 Linsey Watson 01/17/16 Audrey Howard RN documented as of this encounter
--- OUTSIDE RECORDS SUMMARY | 2021-08-16 09:17 | XMS REPORT | Encounter Summary ---
Author Author [facility] Organization [facility] Address Unknown Phone Unavailable Care Team Providers Care Vp Marketing Name Role Phone Zakiya Ledezma RN Unavailable Unavailable Liberty Jutsice MD Unavailable Moy Serrano MD Unavailable Stephania Liu RN Unavailable Unavailable Leobardo Giordano MD Unavailable Kati Thomas MD Unavailable Edilson Villalba MD Unavailable Alex Balbuena MD Unavailable Kleber Can MD Unavailable Unavailable Harish Irvin MD Unavailable Luis dEuardo Art MD Unavailable Alton Sewell MD Unavailable Unavailable Ariane Campoverde MD Unavailable Dayan Daniels MD Unavailable Jamel Hutchins MD Unavailable Unavailable Leigh Resendez MD Unavailable Carmen Reeves APRN Unavailable Margaux Ng RN Unavailable Unavailable Maureen Robertson LPN Unavailable Unavailable Lupe Hamilton Unavailable Unavailable Berta Baldwin Unavailable Unavailable Michelle Orellana Unavailable Unavailable Lashon Carey MA Unavailable Unavailable Carmen Lassiter SOCIAL SECURITY ASSESSOR-K 12 SCHOOL PROFESSIONAL Unavailable [phone] Linsey Watson Unavailable Unavailable Audrey Howard RN Unavailable Unavailable Angelic Resendez MD PCP Encounter Details Care Team Description Date Type Department Trudy Caba MA Liver transplant status (HCC) 08/05/2021 Orders Only Transplant: Main Ca mpus, [facility] [address], [address] [place] [address] Social History Date Tobacco Use [...] Waiting for a liver transplant Move to [place]. documented as of this encounter Procedures Comments Procedure Name Priority Date/Time Associated Diag nosis CBC AND DIFF Routine 08/03/2021 Liver transplan t status 8:12 AM FULL STACK PYTHON DEVELOPER (HCC) COMPREHENSIVE METABOLIC Routine 08/03/2021 Liver transplant status PANEL 8:12 AM FULL STACK PYTHON DEVELOPER (HCC) documented in this encounter Results * (ABNORMAL) CBC AND DIFF (08/03/2021 8:12 AM FULL STACK PYTHON DEVELOPER) White Blood 12.20 (H) 5.00 - 10.00 [...] Narrative LABDE INTERFACE - 08/05/2021 12:00 AM FULL STACK PYTHON DEVELOPER Outside Lab Verified by Trudy Caba on 08/05/2021. Performing Organization Address City/State/ZIP Code P suzy Number LABDE INTERFACE * (ABNORMAL) COMPREHENSIVE METABOLIC PANEL (08/03/2021 8:12 AM FULL STACK PYTHON DEVELOPER) Sodium 139 134 - 148 LABDE INTERFACE [...] Narrative LABDE INTERFACE - 08/05/2021 12:00 AM FULL STACK PYTHON DEVELOPER Outside Lab Verified by Trudy Caba on 08/05/2021. Performing Organization Address City/State/ZIP Code P suzy Number LABDE INTERFACE documented in this encounter Visit Diagnoses Diagnosis Liver transplant status (HCC) documented in this encounter Additional Health Concerns Noted Time Assessment 06/19/2021 9:20 AM FULL STACK PYTHON DEVELOPER A fall risk assessment has been complet ed for the patient 06/19/2021 9:22 AM FULL STACK PYTHON DEVELOPER PHQ-2 Depression Total Score: 0 documented as of this encounter Care Teams Start Date End Date Vp Marketing Relationship Specialty 08/12/19 Angelic Resendez MD PCP - [address] Ardon [address] [place] [address] 06/03/10 Zakiya Ledezma RN 06/03/10 Liberty Justice MD 3901 [place] [address] 06/03/10 Moy Serrano MD [address] [address] 08/25/10 Stephania Liu, ELIAS Emergency Medicine 09/03/10 Leobardo Giordano MD Infectious [address] Disease Ortho[facility]Med Pavilion Lvl [address] [place] [address] 03/29/11 Kati Thomas MD Internal 4000 [place] [address] 05/01/11 Edilson Villalba MD Internal 4000 [place] [address] 05/05/11 Alex Balbuena MD Infectious [address] Disease Ortho[facility]Med Pavilion Lvl [address] [place] [address] 05/20/11 Kleber Can MD Internal Fellow provider only Medicine 06/18/11 Harish Irvin MD Transplant 4000 [facility] Main 1st [place] [address] 10/02/11 Luis Eduardo Art MD Gastro[facility] [address] logy Ortho/Med Pavilion Lvl 2B [place] [address] 06/15/12 Alton Sewell MD Dermatology Forwarding Address Unknown 06/15/12 Ariane Campoverde MD Dermatology [address] [place] [address] 09/14/12 Dayan Daniels MD Dermatology [address] Ortho/Med Pavilion Lvl 4C [place] [address] 12/21/12 Jamel Hutchins MD Dermatology Retired Left [id number] [id number] 12/21/12 Leigh Resendez MD Dermatology 35 [facility] [address] [place] [address] 01/03/15 Carmen Reeves, SOCIAL SECURITY ASSESSOR Transplant [address] Hepatology [place] 1023 [place] [address] 05/07/15 Margaux Ng, ELIAS 06/06/15 Maureen Robertson LPN Maternal and Medicine 07/04/15 Lupe Hamilton Maternal and Medicine 09/05/15 Berta Baldwin 12/11/15 Michelle Orellana 01/01/16 Lashon Carey MA Maternal and Medicine 01/03/16 Carmen Lassiter, Gastroentero SOCIAL SECURITY ASSESSOR-K 12 SCHOOL PROFESSIONAL logy [address] Ortho/Med Pavilion Lvl [address]B [place] [address] 01/03/16 Linsey Watson 01/17/16 Audrey Howard, ELIAS documented as of this encounter
--- OUTSIDE RECORDS SUMMARY | 2021-08-16 09:17 | XMS REPORT | Encounter Summary ---
Author Author [facility] Organization [facility] Address Unknown Phone Unavailable Care Team Providers Care Patient Case Manager Name Role Phone Zakiya Ledezma RN Unavailable [...] Lashon Carey MA Unavailable Unavailable Carmen Lassiter SERVICE DISPATCHER-WATER RESOURCES PROJECT MANAGER Unavailable [phone] Linsey Watson Unavailable Unavailable Audrey Howard RN Unavailable Unavailable Angelic Resendez MD PCP Encounter Details Care Team Description Date Type Department Trudy Caba MA Status post liver transplantation (HCC); Primary sclerosing cholangitis 07/16/2021 Orders Only Transplant: Main Md mpus, [facility] [address], [address] [place] [address] Social History Date Tobacco Use Types Packs/Day Years Used Quit: 02/01/1976 Former Smoker Cigarettes 3 Smokeless Tobacco: Never Used Comments: Quit 08/1976 Comments Alcohol Use Standard Drinks/Week No 0 (1 standard drink = 0.6 o z pure alcohol) Sex Assigned at Date Recorded Male 04/17/2020 2:33 PM CDT Date Recorded COVID-19 Exposure Response 06/20/2021 7:42 AM CHAINSTITCH FELLED SEAM OPERATOR In the last month, have you been [...] Waiting for a liver transplant Move to [place]. documented as of this encounter Procedures Comments Procedure Name Priority Date/Time Associated Diag nosis PROTIME INR (PT) Routine 07/26/2021 Status post l iver 12:03 PM CHAINSTITCH FELLED SEAM OPERATOR transplantation (HCC) Primary sclerosing cholangitis PROTIME INR (PT) Routine 07/16/2021 Status post l iver 7:39 AM CHAINSTITCH FELLED SEAM OPERATOR transplantation (HCC) Primary sclerosing cholangitis CBC AND DIFF Routine 07/16/2021 Status post delia er 7:39 AM CHAINSTITCH FELLED SEAM OPERATOR transplantation (HCC) Primary sclerosing cholangitis COMPREHENSIVE METABOLIC Routine 07/16/2021 Status post liver PANEL 7:39 AM CHAINSTITCH FELLED SEAM OPERATOR transplantation (HC C) Primary sclerosing cholangitis documented in this encounter Results * (ABNORMAL) PROTIME INR (PT) (07/26/2021 12:03 PM CHAINSTITCH FELLED SEAM OPERATOR) Protime 16.0 (H) 12.1 - 14.5 LABDE INTERFACE INR 1.3 LABDE INTERFACE Specimen Blood Narrative LABDE INTERFACE - 07/16/2021 12:00 AM CHAINSTITCH FELLED SEAM OPERATOR Outside Lab Verified by Fred Hanna on 07/29/2021. Performing Organization Address City/State/ZIP Code P suzy Number LABDE INTERFACE * (ABNORMAL) COMPREHENSIVE METABOLIC PANEL (07/16/2021 7:39 AM CHAINSTITCH FELLED SEAM OPERATOR) Sodium 141 mmol/L LABDE INTERFACE Potassium 4.1 LABDE INTERFACE Chloride 112 LABDE INTERFACE CO2 18 (L) 22 - 33 LABDE INTERFACE Anion Gap 15 (H) 6 - 14 LABDE INTERFACE Glucose 87 LABDE INTERFACE Blood Urea 28 (H) 5 - 25 LABDE INTERFACE Nitrogen Creatinine 1.39 mg/dl LABDE INTERFACE Calcium 9.3 LABDE INTERFACE Alk Phosphatase 147 (H) 35 - 130 LABDE INTERFAC E AST (SGOT) 91 (H) 2 - 40 LABDE INTERFACE ALT (SGPT) 64 (H) 6 - 45 LABDE INTERFACE Total Bilirubin 2.0 (H) 0.2 - 1.2 mg/dL LABDE INTERFA CE Total Protein 6.6 LABDE INTERFACE Albumin 3.1 (L) 3.6 - 5.1 LABDE INTERFACE Specimen Blood Narrative LABDE INTERFACE - 07/16/2021 12:00 AM CHAINSTITCH FELLED SEAM OPERATOR Outside Lab Verified by Fred Jacques on 07/18/2021. Performing Organization Address City/State/ZIP Code P suzy Number LABDE INTERFACE * (ABNORMAL) CBC AND DIFF (07/16/2021 7:39 AM CHAINSTITCH FELLED SEAM OPERATOR) White Blood 12.12 (H) 5.00 - 10.00 LABDE INTERFACE Cells RBC 3.52 (L) 4.20 - 5.40 LABDE INTERFACE Hemoglobin 11.0 (L) 14.0 - 17.0 LABDE INTERFACE Hematocrit 32.9 (L) 42.0 - 52.0 LABDE INTERFACE MCV 93.5 LABDE INTERFACE MCH 31.3 (H) 27.0 - 31.2 LABDE INTERFACE MCHC 33.4 LABDE INTERFACE Platelet Count 277 LABDE INTERFACE RDW 14.9 (H) 11.6 - 14.8 LABDE INTERFACE Absolute 7.14 (H) 2.00 - 6.90 LABDE INTERFACE Neutrophil Count Neutrophils 58.9 LABDE INTERFACE Absolute Lymph 2.71 LABDE INTERFACE Count Lymphocytes 22.4 LABDE INTERFACE Absolute 1.3 (H) 0.0 - 0.9 LABDE INTERFACE Monocyte Count Monocytes 11.0 LABDE INTERFACE Absolute 0.9 (H) 0.0 - 0.7 LABDE INTERFACE Eosinophil Count Eosinophil 7.5 (H) 0.0 - 7.0 LABDE INTERFACE Absolute 0.0 LABDE INTERFACE Basophil Count Basophil 0.20 LABDE INTERFACE MPV 10.4 (H) 7.4 - 10.0 LABDE INTERFACE Specimen Blood Narrative LABDE INTERFACE - 07/16/2021 12:00 AM CHAINSTITCH FELLED SEAM OPERATOR Outside Lab Verified by Fred Lando on 07/18/2021. Performing Organization Address City/State/ZIP Code P suzy Number LABDE INTERFACE * (ABNORMAL) PROTIME INR (PT) (07/16/2021 7:39 AM CHAINSTITCH FELLED SEAM OPERATOR) Protime 16.3 (H) 12.1 - 14.5 LABDE INTERFACE INR 1.3 LABDE INTERFACE Specimen Blood Narrative LABDE INTERFACE - 07/16/2021 12:00 AM CHAINSTITCH FELLED SEAM OPERATOR Outside Lab Verified by Fred Jacques on 07/18/2021. Performing Organization Address City/State/ZIP Code P suzy Number LABDE INTERFACE documented in this encounter Visit Diagnoses Diagnosis Status post liver transplantation (HCC) Liver replaced by transplant Primary sclerosing cholangitis Cholangitis documented in this encounter Additional Health Concerns Noted Time Assessment 06/19/2021 9:20 AM CHAINSTITCH FELLED SEAM OPERATOR A fall risk assessment has been complet ed for the patient 06/19/2021 9:22 AM CHAINSTITCH FELLED SEAM OPERATOR PHQ-2 Depression Total Score: 0 documented as of this encounter Care Teams Start Date End Date Patient Case Manager Relationship Specialty 08/12/19 Angelic Resendez MD PCP - [address] Ardon [address] [place] [address] 06/03/10 Zakiya Ledezma, ELIAS 06/03/10 Liberty Justice MD 3901 [place] [address] 06/03/10 Moy Serrano MD 4000 [facility]1170 [place] [address] 08/25/10 Stephania Liu RN Emergency Medicine 09/03/10 Leobardo Giordano MD Infectious [address] Disease Ortho/Med Pavilion Lvl [address] [place] [address] 03/29/11 Kati Thomas MD Internal 4000 [place] [address] 05/01/11 Edilson Villalba MD Internal 4000 [place] [address] 05/05/11 Alex Balbuena MD Infectious [address] Disease Ortho/Med Pavilion Lvl [address] [place] [address] 05/20/11 Kleber Can MD Internal Fellow provider only Medicine 06/18/11 Harish Irvin MD Transplant 4000 [facility] Main 1st Flr [place], [place] [address] 10/02/11 Luis Eduardo Art MD Gastro[facility] [address] logy Ortho/Med Pavilion Lvl 2B [place] [address] 06/15/12 Alton Sewell MD Dermatology Forwarding Address Unknown 06/15/12 Ariane Campoverde MD Dermatology [address] [place] [address] 09/14/12 Dayan Daniels MD Dermatology [address] Ortho/Med Pavilion Lvl 4C [place] [address] 12/21/12 Jamel Hutchins MD Dermatology Retired Left [place] [id number] 12/21/12 Leigh Resendez MD Dermatology 35 [facility] [address] [place] [address] 01/03/15 Carmen Reeves APRN Transplant [address] Hepatology [place] 1023 [place] [address] 05/07/15 Margaux Ng, ELIAS 06/06/15 Maureen Robertson LPN Maternal and Medicine 07/04/15 Lupe Hamilton Maternal and Medicine 09/05/15 Berta Baldwin 12/11/15 Michelle Orellana 01/01/16 Lashon Carey MA Maternal and Medicine 01/03/16 Carmen Lassiter, Gastroentero SERVICE DISPATCHER-WATER RESOURCES PROJECT MANAGER logy [address] Ortho/Med Pavilion Lvl 2B [place] [address] 01/03/16 Linsey Watson 01/17/16 Audrey Howard RN documented as of this encounter
--- OUTSIDE RECORDS SUMMARY | 2021-08-16 09:17 | XMS REPORT | Encounter Summary ---
Author Author [facility] Organization [facility] Address Unknown Phone Unavailable Care Team Providers Care Corsage Maker Name Role Phone Zakiya Ledezma RN Unavailable [...] Unavailable Unavailable Maureen Robertson LPN Unavailable Unavailable uLpe Hamilton Unavailable Unavailable Berta Baldwin Unavailable Unavailable Michelle Orellana Unavailable Unavailable Lashon Carey MA Unavailable Unavailable Carmen Lassiter APRN-FREELANCE PATTERNMAKER Unavailable Linsey Watson Unavailable Unavailable Audrey Howard RN Unavailable Unavailable Angelic Resendez MD PCP Reason for Visit * Reason Onset Date Comments On-call 07/09/2021 Other 07/09/2021 ER visit Encounter Details Care Team Description Date Type Department Catrachito Soliz RN On-call; Other (ER visit) 07/09/2021 Telephone Transplant: Main Ca mpus, Main [facility] 4000 [facility] Level 1, [address] [place] [address] Social History Date Tobacco Use Types Packs/Day Years Used Quit: 02/01/1976 Former Smoker Cigarettes 3 Smokeless Tobacco: Never Used Comments: Quit 08/1976 Comments Alcohol Use Standard Drinks/Week No 0 (1 standard drink = 0.6 o z pure alcohol) Sex Assigned at Date Recorded Male 04/17/2020 2:33 PM CDT Date Recorded COVID-19 Exposure Response 06/20/2021 7:42 AM PHOTOGRAPHIC EQUIPMENT ASSEMBLER In the last month, have you been [...] encounter Miscellaneous Notes * Telephone Encounter - Catrachito Soliz RN - 07/09/2021 6:37 PM PHOTOGRAPHIC EQUIPMENT ASSEMBLER Received page from FREELANCE PATTERNMAKER at [facility] regarding pt. Returned call to Sourav hendricks NP. He reports pt went to ER today with complaints of feeling lethargic and "catatonic." [place], FREELANCE PATTERNMAKER reports he did not find anything abnormal on physical as sessment, CXR clear, urine normal, and labs are all consistent with trends. Pt's temperature was 100 upon arrival to ER, but was reportedly wearing 4 shirts and a coat, so layers were removed and repeat temperature was 98.9. Asked if pt was confused/encephalopathic. [place] denies and sates he clinically does not see any need to admit pt or have him transferred to . Advised that he can request tra nsfer if warranted, otherwise he can d/c pt and instructed for pt to call [facility] tomorrow to f/u. Routing to primary [place] for follow up. Wbc 12 hgb 11 plt 228 Creatinine 1.59 t bili 1.3 INR 1.3 Ammonia 79 AST, ALT, ALP all improved from last month Lactic acid 1.0 OGRAPHIC EQUIPMENT ASSEMBLER documented in this encounter Plan of Treatment Not on filedocumented as of this encounter Goals Goal Patient Associated Recent Progress Patient-Stat Aut hor Goal Type Problems ed? GOAL General No Maria M Erwin, RN Note: get my liver transplant Resume normal activities Hospital No Deandra Bean, RN Note: Waiting for a liver transplant Move to [place]. documented as of this encounter Visit Diagnoses Not on filedocumented in this encounter Additional Health Concerns Noted Time Assessment 06/19/2021 9:20 AM PHOTOGRAPHIC EQUIPMENT ASSEMBLER A fall risk assessment has been complet ed for the patient 06/19/2021 9:22 AM PHOTOGRAPHIC EQUIPMENT ASSEMBLER PHQ-2 Depression Total Score: 0 documented as of this encounter Care Teams Start Date End Date Corsage Maker Relationship Specialty 08/12/19 Angelic Resendez MD PCP - [address] Ardon [address] [place] [address] 06/03/10 Zakiya Ledezma, ELIAS 06/03/10 Liberty Justice MD 3901 [place] [address] 06/03/10 Moy Serrano MD 4000 [facility] LB[address]661 [place] [address] 08/25/10 Stephania Liu, ELIAS Emergency Medicine 09/03/10 Leobardo Giordano MD Infectious [address] Disease Ortho/Med Pavilion Lvl [address]C [place] [address] 03/29/11 Kati Thomas MD Internal 4000 [place] [address] 05/01/11 Edilson Villalba MD Internal 4000 [place] [address] 05/05/11 Alex Balbuena MD Infectious [address] Disease Ortho/Med Pavilion Lvl [address] [place] [address] 05/20/11 Kleber Can MD Internal Fellow provider only Medicine 06/18/11 Harish Irvin MD Transplant 4000 [facility] 1st [place] [address] 10/02/11 Luis Eduardo Art MD Gastro[facility]ero [address] logy Ortho/Med Pavilion Lvl 2B [place] [address] 06/15/12 Alton Sewell MD Dermatology Forwarding Address Unknown 06/15/12 Ariane Campovedre MD Dermatology [address] [place] [address] 09/14/12 Dayan Daniels MD Dermatology [address] Ortho/Med Pavilion Lvl [address]C [place] [address] 12/21/12 Jaeml Hutchins MD Dermatology [place] [id number] 12/21/12 Leigh Resendez MD Dermatology 35 [facility] [address] [place] [address] 01/03/15 Carmen Reeves, AUTOMATIC CLIPPER AND STRIPPER Transplant [address] Hepatology MS 1023 [place] [address] 05/07/15 Margaux Ng, RN 06/06/15 Maureen Robertson LPN Maternal and Medicine 07/04/15 Lupe Hamilton Maternal and Medicine 09/05/15 Berta Baldwin 12/11/15 Michelle Orellana 01/01/16 Lashon Carey MA Maternal and Medicine 01/03/16 Carmen Lassiter, Gastroentero AUTOMATIC CLIPPER AND STRIPPER-FREELANCE PATTERNMAKER logy [address] Ortho/Med Pavilion Lvl [address]B [place] [address] 01/03/16 Linsey Watson 01/17/16 Audrey Howard, ELIAS documented as of this encounter
--- OUTSIDE RECORDS SUMMARY | 2021-08-16 09:17 | XMS REPORT | Encounter Summary ---
Author Author [facility] Organization [facility] Address Unknown Phone Unavailable Care Team Providers Care Dentist/Owner Name Role Phone Zakiya Ledezma RN Unavailable [...] Lashon Carey MA Unavailable Unavailable Carmen Lassiter INVENTORY CONTROL SUPERVISOR-CUTTER BRAKE LINING Unavailable [phone] Linsey Watson Unavailable Unavailable Audrey Howard RN Unavailable Unavailable Angelic Resendez MD PCP Encounter Details Care Team Description Date Type Department 06/20/2021 Travel Social History Date Tobacco Use Types Packs/Day Years Used Quit: 02/01/1976 Former Smoker Cigarettes 3 Smokeless Tobacco: Never Used Comments: Quit 08/1976 Comments Alcohol Use Standard Drinks/Week No 0 (1 standard drink = 0.6 o z pure alcohol) Sex Assigned at Date Recorded Male 04/17/2020 2:33 PM CDT Date Recorded COVID-19 Exposure Response 06/20/2021 7:42 AM INSOLE DEPARTMENT WORKER In the last month, have you been [...] Waiting for a liver transplant Move to [place]. documented as of this encounter Visit Diagnoses Not on filedocumented in this encounter Additional Health Concerns Noted Time Assessment 06/19/2021 9:20 AM INSOLE DEPARTMENT WORKER A fall risk assessment has been complet ed for the patient 06/19/2021 9:22 AM INSOLE DEPARTMENT WORKER PHQ-2 Depression Total Score: 0 documented as of this encounter Care Teams Start Date End Date Dentist/Owner Relationship Specialty 08/12/19 Angelic Resendez MD PCP - [address] [place] [address] 06/03/10 Zakiya Ledezma, RN 06/03/10 Liberty Justice MD [address] [place] [address] 06/03/10 Moy Serrano MD 4000 [facility] NH5494 [place] [address] 08/25/10 Stephania Liu, ELIAS Emergency Medicine 09/03/10 Leobardo Giordano MD Infectious [address] Disease Orth[facility]ilion Lvl [address] [place] [address] 03/29/11 Kati Thomas MD Internal 4000 [place] [address] 05/01/11 Edilson Villalba MD Internal 4000 [place] [address] 05/05/11 Alex Balbuena MD Infectious [address] Disease Ortho/Med Pavilion Lvl [address] [place] [address] 05/20/11 Kleber Can MD Internal Fellow provider only Medicine 06/18/11 Harish Irvin MD Transplant 4000 [facility] 1st [place] [address] 10/02/11 Luis Eduardo Art MD Gastroentero [address] logy Ortho/Med Pavilion Lvl 2B [place] [address] 06/15/12 Alton Sewell MD Dermatology Forwarding Address Unknown 06/15/12 Ariane Campoverde MD Dermatology [address] [place] [address] 09/14/12 Dayan Daniels MD Dermatology [address] Ortho/Med Pavilion Lvl 4C [place] [address] 12/21/12 Jamel Hutchins MD Dermatology Retired Left [place] [id number] 12/21/12 Leigh Resendez MD Dermatology 35 [place] [address] 01/03/15 Carmen Reeves, INVENTORY CONTROL SUPERVISOR Transplant [address] Hepatology [place] [address] [place] [address] 05/07/15 Margaux Ng, RN 06/06/15 Maureen Robertson LPN Maternal and Medicine 07/04/15 Lupe Hamilton Maternal and Medicine 09/05/15 Berta Baldwin 12/11/15 Michelle Orellana 01/01/16 Lashon Carey MA Maternal and Medicine 01/03/16 Carmen Lassiter, Gastroentero INVENTORY CONTROL SUPERVISOR-CUTTER BRAKE LINING logy [address] Ortho/Med Pavilion Lvl 2B [place] [address] 01/03/16 Linsey Watson 01/17/16 Audrey Howard, ELIAS documented as of this encounter
--- OUTSIDE RECORDS SUMMARY | 2021-08-16 09:17 | XMS REPORT | Encounter Summary ---
Author Author [facility] Organization [facility] Address Unknown Phone Unavailable Care Team Providers Care Clinic Business Manager Name Role Phone Zakiya Ledezma RN [...] Lashon Carey MA Unavailable Unavailable Carmen Lassiter NOVELTY PRINTING MACHINE OPERATOR-UNIVERSITY RELATIONS DIRECTOR Unavailable [phone] Linsey Watson Unavailable Unavailable Audrey Howard RN Unavailable Unavailable Angelic Resendez MD PCP Encounter Details Care Team Description Date Type Department Kat Ren RN 07/11/2021 Documentation Transplant: Main [place] [facility], [facility] [address], [address] [place] [address] Social History Date Tobacco Use Types Packs/Day Years Used Quit: 02/01/1976 Former Smoker Cigarettes 3 Smokeless Tobacco: Never Used Comments: Quit 08/1976 Comments Alcohol Use Standard Drinks/Week No 0 (1 standard drink = 0.6 o z pure alcohol) Sex Assigned at Date Recorded Male 04/17/2020 2:33 PM CDT Date Recorded COVID-19 Exposure Response 06/20/2021 7:42 AM INSIDE B2B SALES In the last month, have you been [...] liver transplant Resume normal activities Hospital No Deandar Bean, ELIAS Note: Waiting for a liver transplant Move to [place]. documented as of this encounter Visit Diagnoses Not on filedocumented in this encounter Additional Health Concerns Noted Time Assessment 06/19/2021 9:20 AM INSIDE B2B SALES A fall risk assessment has been complet ed for the patient 06/19/2021 9:22 AM INSIDE B2B SALES PHQ-2 Depression Total Score: 0 documented as of this encounter Care Teams Start Date End Date Clinic Business Manager Relationship Specialty 08/12/19 Angelic Resendez MD PCP - [address] [place] [address] 06/03/10 Zakiya Ledezma RN 06/03/10 Liberty Justice MD [address] [place] [address] 06/03/10 Moy Serrano MD 4000 [facility] [id number] [place] [address] 08/25/10 Stephania Liu RN Emergency Medicine 09/03/10 Leobardo Giordano MD Infectious [address] Disease Ortho/Med Pavilion Lvl [address] [place] [address] 03/29/11 Kati Thomas MD Internal 4000 [place] [address] 05/01/11 Edilson Villalba MD Internal 4000 [place] [address] 05/05/11 Alex Balbuena MD Infectious [address] Disease Ortho/Med Pavilion Lvl [address] [place] [address] 05/20/11 Kleber Can MD Internal Fellow provider only Medicine 06/18/11 Harish Irvin MD Transplant 4000 [facility] 1st [place] [address] 10/02/11 Luis Eduardo Art MD Gastroentero [address] logy Ortho/Med Pavilion Lvl 2B [place] [address] 06/15/12 Alton Sewell MD Dermatology Forwarding Address Unknown 06/15/12 Ariane Campoverde MD Dermatology [address] [place] [address] 09/14/12 Dayan Daniels MD Dermatology [address] Ortho/Med Pavilion Lvl 4C [place] [address] 12/21/12 Jamel Hutchins MD Dermatology Retired Left [place] [id number] 12/21/12 Leigh Resendez MD Dermatology 35 [facility] [address] [place] [address] 01/03/15 Carmen Reeves, NOVELTY PRINTING MACHINE OPERATOR Transplant [address] Hepatology [address] [place] [address] 05/07/15 Margaux Ng RN 06/06/15 Maureen Robertson LPN Maternal and Medicine 07/04/15 Lupe Hamilton Maternal and Medicine 09/05/15 Berta Baldwin 12/11/15 Michelle Orellana 01/01/16 Lashon Carey MA Maternal and Medicine 01/03/16 Carmen Lassiter, Gastroentero NOVELTY PRINTING MACHINE OPERATOR-UNIVERSITY RELATIONS DIRECTOR logy [address] Ortho/Med Pavilion Lvl 2B [place] [address] 01/03/16 Linsey Watson 01/17/16 Audrey Howard RN documented as of this encounter
--- OUTSIDE RECORDS SUMMARY | 2021-08-16 09:17 | XMS REPORT | Encounter Summary ---
Author Author [facility] Organization [facility] Address Unknown Phone Unavailable Care Team Providers Care Filter Pulp Washer Name Role Phone Zakiya Ledezma RN Unavailable [...] Lashon Carey MA Unavailable Unavailable Carmen Lassiter ASSET ANALYST-MICROWAVE SUPERVISOR Unavailable [phone] Linsey Watson Unavailable Unavailable Audrey Howard RN Unavailable Unavailable Angelic Resendez MD PCP Reason for Visit * Reason Onset Date Comments Lab Request 07/08/2021 ret. call Encounter Details Care Team Description Date Type Department Moy Serrano MD 4000 [facility] PZ5403 [place] [address] Lab Request (ret. call) 07/08/2021 [facility]phone [facility] 4000 [facility] Level 1, [address] [place] [address] Social History Date Tobacco Use Types Packs/Day Years Used Quit: 02/01/1976 Former Smoker Cigarettes 3 Smokeless Tobacco: Never Used Comments: Quit 08/1976 Comments Alcohol Use Standard Drinks/Week No 0 (1 standard drink = 0.6 o z pure alcohol) Sex Assigned at Date Recorded Male 04/17/2020 2:33 PM CDT Date Recorded COVID-19 Exposure Response 06/20/2021 7:42 AM INFORMAL WAITER/WAITRESS In the last month, have you been [...] encounter Miscellaneous Notes * Telephone Encounter - Ligia Del Valle - 07/08/2021 8:36 AM INFORMAL WAITER/WAITRESS Ravindra returned your call. Please call him. RMAL WAITER/WAITRESS * Telephone Encounter - Sinan Lin RN - 07/08/2021 8:30 AM INFORMAL WAITER/WAITRESS Message left for pt to call regarding need for updated Waitlist labs RMAL WAITER/WAITRESS documented in this encounter Plan of Treatment Not on filedocumented as of this encounter Goals Goal Patient Associated Recent Progress Patient-Stat Aut hor Goal Type Problems ed? GOAL General No Maria M Erwin, RN Note: get my liver transplant Resume normal activities Hospital No Deandra Bean, RN Note: Waiting for a liver transplant Move to [place]. documented as of this encounter Visit Diagnoses Not on filedocumented in this encounter Additional Health Concerns Noted Time Assessment 06/19/2021 9:20 AM INFORMAL WAITER/WAITRESS A fall risk assessment has been complet ed for the patient 06/19/2021 9:22 AM INFORMAL WAITER/WAITRESS PHQ-2 Depression Total Score: 0 documented as of this encounter Care Teams Start Date End Date Filter Pulp Washer Relationship Specialty 08/12/19 Angelic Resendez MD PCP - [address] Ardon [address] [place] [address] 06/03/10 Zakiya Ledezma RN 06/03/10 Liberty Justice MD [address] [place] [address] 06/03/10 Moy Serrano MD 4000 [facility] HA2382 [place] [address] 08/25/10 Stephania Liu, ELIAS Emergency Medicine 09/03/10 Leobardo Giordano MD Infectious [address] [facility] Disease Ortho/Med [address] [address] 03/29/11 Kati Thomas MD Internal 4000 [place] [address] 05/01/11 Edilson Villalba MD Internal 4000 [place] [address] 05/05/11 Alex Balbuena MD Infectious [address] Disease Ortho/Med Pavilion Lvl 4[address] [place] [address] 05/20/11 Kleber Can MD Internal Fellow provider only Medicine 06/18/11 Harish Irvin MD Transplant 4000 [facility] Main 1st [place] [address] 10/02/11 Luis Eduardo Art MD Gastroentero [address] logy Ortho/Med Pavilion Lvl 2B [place] [address] 06/15/12 Alton Sewell MD Dermatology Forwarding Address Unknown 06/15/12 Ariane Campoverde MD Dermatology [address] [place] [address] 09/14/12 Dayan Daniels MD Dermatology [address] Ortho/Med Pavilion Lvl 4C [place] [address] 12/21/12 Jamel Hutchins MD Dermatology Retired Left [id number] [id number] 12/21/12 Leigh Resendez MD Dermatology 35 [place] [address] 01/03/15 Carmen Reeves, ASSET ANALYST Transplant 3901 [facility] Hepatology [address] [place] [address] 05/07/15 Margaux Ng RN 06/06/15 Maureen Robertson LPN Maternal and Medicine 07/04/15 Lupe Hamilton Maternal and Medicine 09/05/15 Berta Baldwin 12/11/15 Michelle Orellana 01/01/16 Lashon Carey MA Maternal and Medicine 01/03/16 Carmen Lassiter, Gastroentero ASSET ANALYST-MICROWAVE SUPERVISOR logy 2000 [facility] Ortho/Med Pavilion Lvl 2B [place] [address] 01/03/16 Linsey Watson 01/17/16 Audrey Howard, ELIAS documented as of this encounter
--- OUTSIDE RECORDS SUMMARY | 2021-08-16 09:17 | XMS REPORT | Encounter Summary ---
Author Author [facility] Organization [facility] Address Unknown Phone Unavailable Care Team Providers Care Dispatcher Maintenance Service Name Role Phone Zakiya Leedzma RN Unavailable Unavailable Liberty Justice MD Unavailable [...] Unavailable Unavailable Michelle Orellana Unavailable Unavailable Lashon Carye MA Unavailable Unavailable Carmen Lassiter HOT PLATE PLYWOOD PRESS OFFBEARER-COLLECTIONS ATTORNEY Unavailable [phone] Linsey Watson Unavailable Unavailable Audrey Howard RN Unavailable Unavailable Angelic Resendez MD PCP Encounter Details Care Team Description Date Type Department Luis Hamilton RN Liver transplant status (HCC) (Primary D x) 07/29/2021 Orders Only Transplant: [facility] mp, [facility] [address], [address] [place] [address] Social History Date Tobacco Use [...] Waiting for a liver transplant Move to [place]. documented as of this encounter Results * (ABNORMAL) PTT (APTT) (07/26/2021 12:03 PM STENOTYPE OPERATOR) APTT 35.4 (H) 25.2 - 35.0 LABDE INTERFACE Specimen Blood (substance) Narrative LABDE INTERFACE - 07/30/2021 12:00 AM STENOTYPE OPERATOR Outside Lab Verified by Fred Hanna on 07/29/2021. Performing Organization Address City/State/ZIP Code P suzy Number LABDE INTERFACE documented in this encounter Visit Diagnoses Diagnosis Liver transplant status (HCC) - Primary Liver transplant status (HCC) documented in this encounter Additional Health Concerns Noted Time Assessment 06/19/2021 9:20 AM STENOTYPE OPERATOR A fall risk assessment has been complet ed for the patient 06/19/2021 9:22 AM STENOTYPE OPERATOR PHQ-2 Depression Total Score: 0 documented as of this encounter Care Teams Start Date End Date Dispatcher Maintenance Service Relationship Specialty 08/12/19 Angelic Resendez MD PCP - [address] [address] 06/03/10 Zakiya Ledezma RN 06/03/10 Liberty Justice MD [address] [place] [address] 06/03/10 Moy Serrano MD 4000 [facility] UI4028 [place] [address] 08/25/10 Stephania Liu, ELIAS Emergency Medicine 09/03/10 Leobardo Giordano MD Infectious [address] Disease Ortho/Med Pavilion Lvl [address] [place] [address] 03/29/11 Kati Thomas MD Internal 4000 [place] [address] 05/01/11 Edilson Villalba MD Internal 4000 [place] [address] 05/05/11 Alex Balbuena MD Infectious [address] Disease Ortho/Med Pavilion Lvl 4C [place] [address] 05/20/11 Kleber Can MD Internal Fellow provider only Medicine 06/18/11 Harish Irvin MD Transplant 4000 [facility] Main 1st [place] [address] 10/02/11 Luis Eduardo Art MD Gastroentero [address] logy Ortho/Med Pavilion Lvl 2B [place] [address] 06/15/12 Alton Sewell MD Dermatology Forwarding Address Unknown 06/15/12 Ariane Campoverde MD Dermatology [address] [place] [address] 09/14/12 Dayan Daniels MD Dermatology [address] Ortho/Med Pavilion Lvl 4C [place] [address] 12/21/12 Jamel Hutchins MD Dermatology Retired Left [place] [id number] 12/21/12 Leigh Resendez MD Dermatology 35 [facility] [address] [place] [address] 01/03/15 Carmen Reeves, HOT PLATE PLYWOOD PRESS OFFBEARER Transplant [address] Hepatology [address] [place] [address] 05/07/15 Margaux Ng, RN 06/06/15 Maureen Robertson LPN Maternal and Medicine 07/04/15 Lupe Hamilton Maternal and Medicine 09/05/15 Berta Baldwin 12/11/15 Michelle Orellana 01/01/16 Lashon Carey MA Maternal and Medicine 01/03/16 Carmen Lassiter, Gastroentero HOT PLATE PLYWOOD PRESS OFFBEARER-COLLECTIONS ATTORNEY logy [facility] Orth[facility]/Med Pavilion Lvl 2B [place] [address] 01/03/16 Linsey Watson 01/17/16 Audrey Howard RN documented as of this encounter
--- OUTSIDE RECORDS SUMMARY | 2021-08-16 09:17 | XMS REPORT | Encounter Summary ---
Author Author [facility] Organization [facility] Address Unknown Phone Unavailable Care Team Providers Care Aeronautical Drafter Name Role Phone Zakiya Ledezma RN Unavailable [...] Lashon Carey MA Unavailable Unavailable Carmen Lassiter TILE LAYER SUPERVISOR-SUPERVISOR REWORK Unavailable [phone] Linsey Watson Unavailable Unavailable Audrey Howard RN Unavailable Unavailable Angelic Resendez MD PCP Encounter Details Care Team Description Date Type Department Trudy Caba MA Liver transplant status (HCC); Other cirrhosis of liver (HCC) 07/17/2021 Orders Only Transplant: Main [place], [facility] 4000 [facility] Level 1, [address] [place] [address] Social History Date Tobacco Use Types Packs/Day Years Used Quit: 02/01/1976 Former Smoker Cigarettes 3 Smokeless Tobacco: Never Used Comments: Quit 08/1976 Comments Alcohol Use Standard Drinks/Week No 0 (1 standard drink = 0.6 o z pure alcohol) Sex Assigned at Date Recorded Male 04/17/2020 2:33 PM CDT Date Recorded COVID-19 Exposure Response 06/20/2021 7:42 AM FURNACE PROCESS SUPERVISOR In the last month, have you been [...] Waiting for a liver transplant [place]. documented as of this encounter Procedures Comments Procedure Name Priority Date/Time Associated Diag nosis 25-OH VITAMIN D (D2 + D3) Routine 07/16/2021 Live r transplant status 7:39 AM FURNACE PROCESS SUPERVISOR (HCC) Other cirrhosis of liver (HCC) LIPID PROFILE Routine 07/16/2021 Liver transplan t status 7:39 AM FURNACE PROCESS SUPERVISOR (HCC) Other cirrhosis of liver (HCC) documented in this encounter Results * (ABNORMAL) LIPID PROFILE (07/16/2021 7:39 AM FURNACE PROCESS SUPERVISOR) Cholesterol 96 (L) 100 - 240 LABDE INTERFACE Triglycerides 55 LABDE INTERFACE HDL 38 LABDE INTERFACE LDL 47 LABDE INTERFACE VLDL 11 LABDE INTERFACE Cholesterol/HDL 2.5 (L) 3.7 - 6.7 LABDE INTERFAC E Ratio Specimen Blood (substance) Narrative LABDE INTERFACE - 07/17/2021 12:00 AM FURNACE PROCESS SUPERVISOR Outside Lab Verified by Freddarling Hamht on 07/17/2021. Performing Organization Address City/State/ZIP Code P suzy Number LABDE INTERFACE * 25-OH VITAMIN D (D2 + D3) (07/16/2021 7:39 AM FURNACE PROCESS SUPERVISOR) Vitamin 40.30 LABDE INTERFACE D(25-OH)Total Specimen Blood (substance) Narrative LABDE INTERFACE - 07/17/2021 12:00 AM FURNACE PROCESS SUPERVISOR Outside Lab Verified by Fred Jacques on 07/18/2021. Performing Organization Address City/State/ZIP Code P suzy Number LABDE INTERFACE documented in this encounter Visit Diagnoses Diagnosis Liver transplant status (HCC) Other cirrhosis of liver (HCC) documented in this encounter Additional Health Concerns Noted Time Assessment 06/19/2021 9:20 AM FURNACE PROCESS SUPERVISOR A fall risk assessment has been complet ed for the patient 06/19/2021 9:22 AM FURNACE PROCESS SUPERVISOR PHQ-2 Depression Total Score: 0 documented as of this encounter Care Teams Start Date End Date Aeronautical Drafter Relationship Specialty 08/12/19 Angelic Resendez MD PCP - [address] [place] [address] 06/03/10 Zakiya Ledezma RN 06/03/10 Liberty Justice MD [address] [place] [address] 06/03/10 Moy Serrano MD 4000 [facility] [id number] [place] [address] 08/25/10 Stephania Liu RN Emergency Medicine 09/03/10 Leobardo Giordano MD Infectious [address] Disease Ortho/Med Pavilion Lvl [address] [place] [address] 03/29/11 Kati Thomas MD Internal 4000 [place] [address] 05/01/11 Edilson Villalba MD Internal 4000 [place] [address] 05/05/11 Alex Balbuena MD Infectious [address] Disease Ortho/Med Pavilion Lvl [address] [place] [address] 05/20/11 Kleber Can MD Internal Fellow provider only Medicine 06/18/11 Harish Irvin MD Transplant 4000 [facility] 1st [place] [address] 10/02/11 Luis Eduardo Art MD Gastroentero [address] logy Ortho/Med Pavilion Lvl 2B [place] [address] 06/15/12 Alton Sewell MD Dermatology Forwarding Address Unknown 06/15/12 Ariane Campoverde MD Dermatology [address] [place] [address] 09/14/12 Dayan Daniels MD Dermatology [address] Ortho/Med Pavilion Lvl 4C [place] [address] 12/21/12 Jamel Hutchins MD Dermatology Retired Left [place]U [id number] 12/21/12 Leigh Resendez MD Dermatology 35 [facility] [address] [place] [address] 01/03/15 Carmen Reeves, TILE LAYER SUPERVISOR Transplant [address] Hepatology [address] [place] [address] 05/07/15 Margaux Ng, ELIAS 06/06/15 Maureen Robertson LPN Maternal and Medicine 07/04/15 Lupe Hamilton Maternal and Medicine 09/05/15 Berta Baldwin 12/11/15 Michelle Orellana 01/01/16 Lashon Carey MA Maternal and Medicine 01/03/16 Carmen Lassiter, Gastroentero TILE LAYER SUPERVISOR-SUPERVISOR REWORK logy [address] Ortho/Med Pavilion Lvl 2B [place] [address] 01/03/16 Linsey Watson 01/17/16 Audrey Howard, ELIAS documented as of this encounter
--- OUTSIDE RECORDS SUMMARY | 2021-08-16 09:17 | XMS REPORT | Encounter Summary ---
Author Author [facility] Organization [facility] Address Unknown Phone Unavailable Care Team Providers Care Pipe Finisher Name Role Phone Zakiya Ledezma RN Unavailable [...] Lashon Carey MA Unavailable Unavailable Carmen Lassiter TAB MACHINE OPERATOR-PUBLIC HEALTH SANITARIAN Unavailable [phone] Linsey Watson Unavailable Unavailable Audrey Howard RN Unavailable Unavailable Angelic Resendez MD PCP Encounter Details Care Team Description Date Type Department Luis Hamilton RN Liver transplant status (HCC) (Primary D x) 08/05/2021 Orders Only Transplant: [facility] mp, [facility] [address], [address] [place] [address] Social History Date Tobacco Use [...] Waiting for a liver transplant Move to [place]. documented as of this encounter Results * (ABNORMAL) PROTIME INR (PT) (08/03/2021 8:12 AM PAN WASHER) INR 1.3 1.0 - 4.0 LABDE INTERFACE Protime 16.3 (H) 12.1 - 14.5 LABDE INTERFACE Specimen Blood (substance) Narrative LABDE INTERFACE - 08/06/2021 12:00 AM PAN WASHER Outside Lab Verified by Trudy Caba on 08/05/2021. Performing Organization Address City/State/ZIP Code P suzy Number LABDE INTERFACE documented in this encounter Visit Diagnoses Diagnosis Liver transplant status (HCC) - Primary Liver transplant status (HCC) documented in this encounter Additional Health Concerns Noted Time Assessment 06/19/2021 9:20 AM PAN WASHER A fall risk assessment has been complet ed for the patient 06/19/2021 9:22 AM PAN WASHER PHQ-2 Depression Total Score: 0 documented as of this encounter Care Teams Start Date End Date Pipe Finisher Relationship Specialty 08/12/19 Angelic Resendez MD PCP - [address] Ardon [address] [place] [address] 06/03/10 Zakiya Ledezma RN 06/03/10 Liberty Justice MD [address] [place] [address] 06/03/10 Moy Serrano MD 4000 [facility] AX0023 [place] [address] 08/25/10 Stephania Liu, RN Emergency Medicine 09/03/10 Leobardo Giordano MD Infectious [address] Disease Ortho/Med Pavilion Lvl [address] [place] [address] 03/29/11 Kati Thomas MD Internal 4000 [place] [address] 05/01/11 Edilson Villalba MD Internal 4000 [place] [address] 05/05/11 Alex Balbuena MD Infectious [address] Disease Ortho/Med Pavilion Lvl 4C [place] [address] 05/20/11 Kleber Can MD Internal Fellow provider only Medicine 06/18/11 Harish Irvin MD Transplant 4000 [facility] Main 1st [place] [address] 10/02/11 Luis Edaurdo Art MD Gastroentero [address] logy Ortho/Med Pavilion Lvl 2B [place] [address] 06/15/12 Alton Sewell MD Dermatology Forwarding Address Unknown 06/15/12 Ariane Campoverde MD Dermatology [address] [place] [address] 09/14/12 Dayan Daniels MD Dermatology [address] Ortho/Med Pavilion Lvl 4C [place] [address] 12/21/12 Jamel Hutchins MD Dermatology Retired Left [id number] [id number] 12/21/12 Leigh Resendez MD Dermatology 35 [facility] [address] [place] [address] 01/03/15 Carmen Reeves, GINI Transplant [address] Hepatology [address] [place] [address] 05/07/15 Margaux Ng, RN 06/06/15 Maureen Robertson LPN Maternal and Medicine 07/04/15 Lupe Hamilton Maternal and Medicine 09/05/15 Berta Baldwin 12/11/15 Michelle Orellana 01/01/16 Lashon Carey MA Maternal and Medicine 01/03/16 Carmen Lassiter, Gastroentero TAB MACHINE OPERATOR-PUBLIC HEALTH SANITARIAN logy 1999 [facility] Ortho/Med Pavilion [facility] 2B [place] [address] 01/03/16 Linsey Watson 01/17/16 Audrey Howard RN documented as of this encounter
--- OUTSIDE RECORDS SUMMARY | 2021-08-16 09:17 | XMS REPORT | Encounter Summary ---
Author Author [facility] Organization [facility] Address Unknown Phone Unavailable Care Team Providers Care Vending Technician Name Role Phone Zakiya Ledezma RN Unavailable [...] Lashon Carey MA Unavailable Unavailable Carmen Lassiter OPTICAL ENGINEER-VACUUM EVAPORATION OPERATOR Unavailable [phone] Linsey Watson Unavailable Unavailable Audrey Howard RN Unavailable Unavailable Angelic Resendez MD PCP Encounter Details Care Team Description Date Type Department Moy Serrano MD 4000 [facility] [id number] [place], [place] [id number] 06/19/2021 Orders Only Transplant: Main Ca mpus, [facility] [address] [facility] Level 1, [address] [place] [address] Social History Date Tobacco Use Types Packs/Day Years Used Quit: 02/01/1976 Former Smoker Cigarettes 3 Smokeless Tobacco: Never Used Comments: Quit 08/1976 Comments Alcohol Use Standard Drinks/Week No 0 (1 standard drink = 0.6 o z pure alcohol) Sex Assigned at Date Recorded Male 04/17/2020 2:33 PM CDT Date Recorded COVID-19 Exposure Response 06/19/2021 6:44 AM WINDOW MACHINE OPERATOR In the last month, have you [...] impairment: No documented as of this encounter Ordered Prescriptions Start Date End Date Prescription Sig Dispensed Refills 06/19/2021 zinc sulfate (ORAZINC) Take one 90 capsule 1 220 mg (50 mg elemental capsule by zinc) capsule mouth daily. documented in this encounter Plan of Treatment Not on filedocumented as of this encounter Goals Goal Patient Associated Recent Progress Patient-Stat Aut hor Goal Type Problems ed? GOAL General No Maria M Erwin, RN Note: get my liver transplant Resume normal activities [facility] Deandra Bean, ELIAS Note: Waiting for a liver transplant Move to [place]. documented as of this encounter Visit Diagnoses Not on filedocumented in this encounter Additional Health Concerns Noted Time Assessment 06/19/2021 9:20 AM WINDOW MACHINE OPERATOR A fall risk assessment has been complet ed for the patient 06/19/2021 9:22 AM WINDOW MACHINE OPERATOR PHQ-2 Depression Total Score: 0 documented as of this encounter Care Teams Start Date End Date Vending Technician Relationship Specialty 08/12/19 Angelic Resendez MD PCP - [address] Ardon [address] [place] [address] 06/03/10 Zakiya Ledezma RN 06/03/10 Liberty Justice MD [address] [place] [address] 06/03/10 Moy Serrano MD 4000 [facility] GI6317 [place] [address] 08/25/10 Stephania Liu, ELIAS Emergency Medicine 09/03/10 Leobardo Giordano MD Infectious [address] Disease Ortho/Med Pavilion Lvl [address] [place] [address] 03/29/11 Kati Thomas MD Internal 4000 [place] [address] 05/01/11 Eidlson Villalba MD Internal 4000 [place] [address] 05/05/11 Alex Balbuena MD Infectious [address] Disease Ortho/Med Pavilion Lvl 4C [place] [address] 05/20/11 Kleber Can MD Internal Fellow provider only Medicine 06/18/11 Harish Irvin MD Transplant 4000 [facility] Main 1st [place] [address] 10/02/11 Luis Eduardo Art MD Gastroentero [address] logy Ortho/Med Pavilion Lvl 2B [place] [address] 06/15/12 Alton Sewell MD Dermatology Forwarding Address Unknown 06/15/12 Ariane Campoverde MD Dermatology [address] [place] [address] 09/14/12 Dayan Daniels MD Dermatology [address] Ortho/Med Pavilion Lvl 4C [place] [address] 12/21/12 Jamel Hutchins MD Dermatology Retired Left [place] [id number] 12/21/12 Leigh Resendez MD Dermatology 35 [facility] [address] [place] [address] 01/03/15 Carmen Reeves APRN Transplant [address] Hepatology [place] 1023 [place] [address] 05/07/15 Margaux Ng, RN 06/06/15 Maureen Robertson LPN Maternal and Medicine 07/04/15 Lupe Hamilton Maternal and Medicine 09/05/15 Berta Baldwin 12/11/15 Michelle Orellana 01/01/16 Lashon Carey MA Maternal and Medicine 01/03/16 Carmen Lassiter, Gastroentero OPTICAL ENGINEER-VACUUM EVAPORATION OPERATOR logy 1999 [facility] Ortho/Med Pavilion [facility] 2B [place] [address] 01/03/16 Linsey Watson 01/17/16 Audrey Howard RN documented as of this encounter
--- OUTSIDE RECORDS SUMMARY | 2021-08-16 09:17 | XMS REPORT | Encounter Summary ---
Author Author [facility] Organization [facility] Address Unknown Phone Unavailable Care Team Providers Care Model And Dye Person Name Role Phone Zakiya Ledezma RN Unavailable [...] Lashon Carey MA Unavailable Unavailable Carmen Lassiter DESIGN ENGINEERING SPECIALIST-DEMAND EQUIPMENT REPAIRER Unavailable [phone] Linsey Watson Unavailable Unavailable Audrey Howard RN Unavailable Unavailable Angelic Resendez MD PCP Reason for Visit * Reason Onset Date Comments Lab Request 07/08/2021 Encounter Details Care Team Description Date Type Department Sinan Lin RN 4000 [place] [address] Lab Request 07/08/2021 Telephone Transplant: Main [place] mpus, [facility] 4000 [facility]. Level 1, [address] [place] [address] Social History Date Tobacco Use Types Packs/Day Years Used Quit: 02/01/1976 Former Smoker Cigarettes 3 Smokeless Tobacco: Never Used Comments: Quit 08/1976 Comments Alcohol Use Standard Drinks/Week No 0 (1 standard drink = 0.6 o z pure alcohol) Sex Assigned at Date Recorded Male 04/17/2020 2:33 PM CDT Date Recorded COVID-19 Exposure Response 06/20/2021 7:42 AM SENIOR LINUX UNIX ADMINISTRATOR In the last month, have you been [...] encounter Miscellaneous Notes * Telephone Encounter - Sinan Lin RN - 07/08/2021 9:42 AM SENIOR LINUX UNIX ADMINISTRATOR Advised pt that his waitlist labs are due by 07/17. Pt will go next week to hav e labs drawn. OR LINUX UNIX ADMINISTRATOR documented in this encounter Plan of Treatment Not on filedocumented as of this encounter Goals Goal Patient Associated Recent Progress Patient-Stat Aut hor Goal Type Problems ed? GOAL General No Maria M Erwin, RN Note: get my liver transplant Resume normal activities Hospital No Deandra Bean, RN Note: Waiting for a liver transplant Move to [place]. documented as of this encounter Visit Diagnoses Not on filedocumented in this encounter Additional Health Concerns Noted Time Assessment 06/19/2021 9:20 AM SENIOR LINUX UNIX ADMINISTRATOR A fall risk assessment has been complet ed for the patient 06/19/2021 9:22 AM SENIOR LINUX UNIX ADMINISTRATOR PHQ-2 Depression Total Score: 0 documented as of this encounter Care Teams Start Date End Date Model And Dye Person Relationship Specialty 08/12/19 Angelic Resendez MD PCP - [address] Ardon [address] [place] [address] 06/03/10 Zakiya Ledezma RN 06/03/10 Liberty Justice MD [address] [place] [address] 06/03/10 Moy Serrano MD 4000 [facility] QV9770 [place] [address] 08/25/10 Stephania Liu RN Emergency Medicine 09/03/10 Leobardo Giordano MD Infectious [address] Disease Ortho/Med Pavilion [address] [address] 03/29/11 Kati Thomas MD Internal 4000 [place] [address] 05/01/11 Edilson Villalba MD Internal 4000 [place] [address] 05/05/11 Alex Balbuena MD Infectious [address] Disease Ortho/Med Pavilion Lvl 4C [place] [address] 05/20/11 Kleber Can MD Internal Fellow provider only Medicine 06/18/11 Harish Irvin MD Transplant 4000 [facility] Main 1st [place] [address] 10/02/11 Luis Eduardo Art MD Gastroentero [address] logy Ortho/Med Pavilion Lvl 2B [place] [address] 06/15/12 Alton eSwell MD Dermatology Forwarding Address Unknown 06/15/12 Ariane Campoverde MD Dermatology [address] [place] [address] 09/14/12 Dayan Daniels MD Dermatology [address] Ortho/Med Pavilion Lvl 4C [place] [address] 12/21/12 Jamel Hutchins MD Dermatology Retired Left [id number] [id number] 12/21/12 Leigh Resendez MD Dermatology [address] [address] 01/03/15 Carmen Reeves, GINI Transplant [address] Hepatology MS 1023 [place] [address] 05/07/15 Margaux Ng RN 06/06/15 Maureen Robertson LPN Maternal and Medicine 07/04/15 Lupe Hamilton Maternal and Medicine 09/05/15 Berta Baldwin 12/11/15 Michelle Orellana 01/01/16 Lashon Carey MA Maternal and Medicine 01/03/16 Carmen Lassiter, Gastroentero DESIGN ENGINEERING SPECIALIST-DEMAND EQUIPMENT REPAIRER logy 1999 [facility] Ortho/Med Pavilion Lvl 2B [place] [address] 01/03/16 Linsey Watson 01/17/16 Audrey Howard RN documented as of this encounter
--- OUTSIDE RECORDS SUMMARY | 2021-08-16 09:17 | XMS REPORT | Encounter Summary ---
Author Author [facility] Organization [facility] Address Unknown Phone Unavailable Care Team Providers Care Manager Equity Name Role Phone Zakiya Ledezma RN Unavailable [...] Lashon Carey MA Unavailable Unavailable Carmen Lassiter TUMBLER PLATER-MARKETING CONTENT MANAGER Unavailable [phone] Linsey Watson Unavailable Unavailable Audrey Howard RN Unavailable Unavailable Angelic Resendez MD PCP Reason for Visit * Reason Onset Date Comments Medication Refill 07/17/2021 Encounter Details Care Team Description Date Type Department Luis Hamilton RN 07/17/2021 Refill Transplant: Main [place] mpus, [facility] 4000 [facility] Level 1, [address] [place] [address] Social History Date Tobacco Use Types Packs/Day Years Used Quit: 02/01/1976 Former Smoker Cigarettes 3 Smokeless Tobacco: Never Used Comments: Quit 08/1976 Comments Alcohol Use Standard Drinks/Week No 0 (1 standard drink = 0.6 o z pure alcohol) Sex Assigned at Date Recorded Male 04/17/2020 2:33 PM CDT Date Recorded COVID-19 Exposure Response 06/20/2021 7:42 AM AMMONIA OPERATOR In the last month, have you [...] Date End Date Prescription Sig Dispensed Refills 07/17/2021 10/15/2021 furosemide (LASIX) 20 mg Take one 90 tablet 1 tablet tablet by mouth every morning for 90 days. 07/17/2021 10/15/2021 aMILoride (MIDAMOR) 5 mg Take two 360 tablet 1 tablet tablets by mouth twice daily for 90 days. documented in this encounter Plan of Treatment Not on filedocumented as of this encounter Goals Goal Patient Associated Recent Progress Patient-Stat Aut hor Goal Type Problems ed? GOAL General No Maria M Erwin, RN Note: get my liver transplant Resume normal activities [facility] No Deandra Bean, ELIAS Note: Waiting for a liver transplant Move to [place]. documented as of this encounter Visit Diagnoses Not on filedocumented in this encounter Discontinued Medications Start Date End Date Medication Sig Discontinue Reason 05/16/2021 07/17/2021 furosemide (LASIX) 20 mg Take one Reorder tablet tablet by mouth every morning for 90 days. 06/10/2021 07/17/2021 aMILoride (MIDAMOR) 5 mg Take two Reorder tablet tablets by mouth twice daily. documented as of this encounter Additional Health Concerns Noted Time Assessment 06/19/2021 9:20 AM AMMONIA OPERATOR A fall risk assessment has been complet ed for the patient 06/19/2021 9:22 AM AMMONIA OPERATOR PHQ-2 Depression Total Score: 0 documented as of this encounter Care Teams Start Date End Date Manager Equity Relationship Specialty 08/12/19 Angelic Resendez MD PCP - [address] [address] 06/03/10 Zakiya Ledezma RN 06/03/10 Liberty Justice MD 3901 [place] [address] 06/03/10 Moy Serrano MD 4000 [facility] HG4530 [place] [address] 08/25/10 Stephania Liu RN Emergency Medicine 09/03/10 Leobardo Giordano MD Infectious 2000 [facility] Disease Ortho/Med [address] [address] 03/29/11 Kati Thomas MD Internal 4000 [place] [address] 05/01/11 Edilson Villalba MD Internal 4000 [facility] [address] 05/05/11 Alex Balbuena MD Infectious [address] Disease Ortho/Med Pavilion Lvl 4C [place] [address] 05/20/11 Kleber Can MD Internal Fellow provider only Medicine 06/18/11 Harish Irvin MD Transplant 4000 [facility] Main 1st [place] [address] 10/02/11 Luis Eduardo Art MD Gastroentero [address] logy Ortho/Med Pavilion Lvl 2B [place] [address] 06/15/12 Alton Sewell MD Dermatology Forwarding Address Unknown 06/15/12 Ariane Campoverde MD Dermatology [address] [place] [address] 09/14/12 Dayan Daniels MD Dermatology [address] Ortho/Med Pavilion Lvl [address] [place] [address] 12/21/12 Jamel Hutchins MD Dermatology Retired Left KU [id number] 12/21/12 Leigh Resendez MD Dermatology 35 [facility] [address] [place] [address] 01/03/15 Carmen Reeves, TUMBLER PLATER Transplant [address] Hepatology [place] 10[address] [place] [address] 05/07/15 Margaux Ng RN 06/06/15 Maureen Robertson LPN Maternal and Medicine 07/04/15 Lupe Hamilton Maternal and Medicine 09/05/15 Berta Baldwin 12/11/15 Michelle Orellana 01/01/16 Lashon Carey MA Maternal and Medicine 01/03/16 Carmen Lassiter, Gastroentero TUMBLER PLATER-MARKETING CONTENT MANAGER loghali [facility]Med Pavilion Lvl 2B [place] [address] 01/03/16 Linsey Watson 01/17/16 Audrey Howard, ELIAS documented as of this encounter
--- OUTSIDE RECORDS SUMMARY | 2021-08-16 09:17 | XMS REPORT | Encounter Summary ---
Author Author [facility] Organization [facility] Address Unknown Phone Unavailable Care Team Providers Care Software Release Manager Name Role Phone Zakiya Ledezma RN Unavailable Unavailable Liberty Justice MD Unavailable Moy Serrano MD Unavailable Stephnaia Liu RN Unavailable Unavailable Leobardo Giordano MD [...] Lashon Carey MA Unavailable Unavailable Carmen Lassiter EDGE CUTTING MACHINE OPERATOR-PHOTOGRAPHER FINISH Unavailable [phone] Linsey Watson Unavailable Unavailable Audrey Howard RN Unavailable Unavailable Angelic Resendez MD PCP Encounter Details Care Team Description Date Type Department Fred Hanna Status post liver transplantation (HCC); Primary sclerosing cholangitis 07/29/2021 Orders Only Transplant: Main [place] mpus, [facility] [address] Level 1, [address] [place] [phone] Social History Date Tobacco Use Types Packs/Day [...] Waiting for a liver transplant Move to [place]. documented as of this encounter Procedures Comments Procedure Name Priority Date/Time Associated Diag nosis CBC AND DIFF Routine 07/26/2021 Status post delia er 12:03 PM NAIL PULLER transplantation (HCC) Primary sclerosing cholangitis COMPREHENSIVE METABOLIC Routine 07/26/2021 Status post liver PANEL 12:03 PM NAIL PULLER transplantation (HC C) Primary sclerosing cholangitis documented in this encounter Results * (ABNORMAL) COMPREHENSIVE METABOLIC PANEL (07/26/2021 12:03 PM NAIL PULLER) Sodium 138 mmol/l LABDE INTERFACE Potassium 4.6 LABDE INTERFACE Chloride 114 LABDE INTERFACE CO2 17 (L) 22 - 33 LABDE INTERFACE Anion Gap 12 LABDE INTERFACE Glucose 113 (H) 70 - 110 LABDE INTERFACE Blood Urea 22 LABDE INTERFACE Nitrogen Creatinine 1.37 mg/dL LABDE INTERFACE Calcium 9.1 LABDE INTERFACE Alk Phosphatase 133 (H) 35 - 130 LABDE INTERFAC E AST (SGOT) 80 (H) 2 - 40 LABDE INTERFACE ALT (SGPT) 63 (H) 6 - 45 LABDE INTERFACE Total Bilirubin 1.8 (H) 0.2 - 1.2 mg/dL LABDE INTERFA CE Total Protein 6.4 LABDE INTERFACE Albumin 3.0 (L) 3.6 - 5.1 LABDE INTERFACE eGFR Non 52 (L) >59 LABDE INTERFACE Specimen Blood Narrative LABDE INTERFACE - 07/29/2021 12:00 AM NAIL PULLER Outside Lab Verified by Fred Hanna on 07/29/2021. Performing Organization Address City/State/ZIP Code P suzy Number LABDE INTERFACE * (ABNORMAL) CBC AND DIFF (07/26/2021 12:03 PM NAIL PULLER) White Blood 15.24 (H) 5.00 - 10.00 LABDE INTERFACE Cells RBC 3.35 (L) 4.20 - 5.40 LABDE INTERFACE Hemoglobin 10.6 (L) 14.0 - 17.0 LABDE INTERFACE Hematocrit 31.3 (L) 42.0 - 52.0 LABDE INTERFACE MCV 93.4 LABDE INTERFACE MCH 31.6 (H) 27.0 - 31.2 LABDE INTERFACE MCHC 33.9 LABDE INTERFACE Platelet Count 237 LABDE INTERFACE RDW 14.9 (H) 11.6 - 14.8 LABDE INTERFACE Absolute 10.42 (H) 2.00 - 6.90 LABDE INTERFACE Neutrophil Count Neutrophils 68.4 LABDE INTERFACE Absolute Lymph 1.48 LABDE INTERFACE Count Lymphocytes 9.7 (L) 10.0 - 50.0 LABDE INTERFACE Absolute 2.4 (H) 0.0 - 0.9 LABDE INTERFACE Monocyte Count Monocytes 15.5 (H) 0.0 - 12.0 LABDE INTERFACE Absolute 1.0 (H) 0.0 - 0.7 LABDE INTERFACE Eosinophil Count Eosinophil 6.2 LABDE INTERFACE Absolute 0.0 LABDE INTERFACE Basophil Count Basophil 0.20 LABDE INTERFACE MPV 10.9 (H) 7.4 - 10.0 LABDE INTERFACE Specimen Blood Narrative LABDE INTERFACE - 07/29/2021 12:00 AM NAIL PULLER Outside Lab Verified by Fred Hanna on 07/29/2021. Performing Organization Address City/State/ZIP Code P suzy Number LABDE INTERFACE documented in this encounter Visit Diagnoses Diagnosis Status post liver transplantation (HCC) Liver replaced by transplant Primary sclerosing cholangitis Cholangitis documented in this encounter Additional Health Concerns Noted Time Assessment 06/19/2021 9:20 AM NAIL PULLER A fall risk assessment has been complet ed for the patient 06/19/2021 9:22 AM NAIL PULLER PHQ-2 Depression Total Score: 0 documented as of this encounter Care Teams Start Date End Date Software Release Manager Relationship Specialty 08/12/19 Angelic Resendez MD PCP - [address] [address] 06/03/10 Zakiya Ledezma RN 06/03/10 Liberty Justice MD [address] [place] [address] 06/03/10 Moy Serrano MD 4000 [facility] EW0460 [place] [address] 08/25/10 Stephania Liu, ELIAS Emergency Medicine 09/03/10 Leobardo Giordano MD Infectious [address] [facility] Disease Ortho/Med [address] [address] 03/29/11 Kati Thomas MD Internal 4000 [place] [address] 05/01/11 Edilson Villalba MD Internal 4000 [facility] [place] [address] 05/05/11 Alex Balbuena MD Infectious [address] Disease Ortho/Med Pavilion Lvl 4C [place] [address] 05/20/11 Kleber Can MD Internal Fellow provider only Medicine 06/18/11 Harish Irvin MD Transplant 4000 [facility] Main 1st [place] [address] 10/02/11 Luis Eduardo Art MD Gastroentero [address] logy Ortho/Med Pavilion Lvl 2B [place] [address] 06/15/12 Alton Sewell MD Dermatology Forwarding Address Unknown 06/15/12 Ariane Campoverde MD Dermatology [address] [place] [address] 09/14/12 Dayan Daniels MD Dermatology [address] Ortho/Med Pavilion Lvl [address] [place] [address] 12/21/12 Jamel Hutchins MD Dermatology Retired Left KU [id number] 12/21/12 Leigh Resendez MD Dermatology [address] [address] 01/03/15 Carmen Reeves, EDGE CUTTING MACHINE OPERATOR Transplant [address] Hepatology MS [address] [place] [address] 05/07/15 Margaux Ng RN 06/06/15 Maureen Robertson LPN Maternal and Medicine 07/04/15 Lupe Hamilton Maternal and Medicine 09/05/15 Berta Baldwin 12/11/15 Michelle Orellana 01/01/16 Lashon Carey MA Maternal and Medicine 01/03/16 Carmen Lassiter, Gastroentero EDGE CUTTING MACHINE OPERATOR-PHOTOGRAPHER FINISH logy 1999 [facility] Ortho/Med Pavilion Lvl [address]B [place] [address] 01/03/16 Linsey Watson 01/17/16 Audrey Howard, ELIAS documented as of this encounter
--- OUTSIDE RECORDS SUMMARY | 2021-08-16 09:17 | XMS REPORT | Encounter Summary ---
Author Author [facility] Organization [facility] Address Unknown Phone Unavailable Care Team Providers Care Burlesque Dancer Name Role Phone Zakiya Ledezma RN Unavailable [...] Lashon Carey MA Unavailable Unavailable Carmen Lassiter PRODUCTION MACHINE SHOP SUPERVISOR-RIVER DRIVER Unavailable [phone] Linsey Watson Unavailable Unavailable Audrey Howard RN Unavailable Unavailable Angelic Resendez MD PCP Encounter Details Care Team Description Date Type Department Trudy Caba MA Liver transplant status (HCC) 08/06/2021 Orders Only Transplant: Main [place] mpus, [facility] [address] 1, [address] [place] [address] Social History Date Tobacco Use [...] Waiting for a liver transplant Move to [place]. documented as of this encounter Procedures Comments Procedure Name Priority Date/Time Associated Diag nosis PROTIME INR (PT) Routine 08/03/2021 Liver transpl ant status 8:12 AM HOUSEPERSON (HCC) documented in this encounter Results * (ABNORMAL) PROTIME INR (PT) (08/03/2021 8:12 AM HOUSEPERSON) INR 1.3 1.0 - 4.0 LABDE INTERFACE Protime 16.3 (H) 12.1 - 14.5 LABDE INTERFACE Specimen Blood (substance) Narrative LABDE INTERFACE - 08/06/2021 12:00 AM HOUSEPERSON Outside Lab Verified by Trudy Caba on 08/05/2021. Performing Organization Address City/State/ZIP Code P suzy Number LABDE INTERFACE documented in this encounter Visit Diagnoses Diagnosis Liver transplant status (HCC) documented in this encounter Additional Health Concerns Noted Time Assessment 06/19/2021 9:20 AM HOUSEPERSON A fall risk assessment has been complet ed for the patient 06/19/2021 9:22 AM HOUSEPERSON PHQ-2 Depression Total Score: 0 documented as of this encounter Care Teams Start Date End Date Burlesque Dancer Relationship Specialty 08/12/19 Angelic Resendez MD PCP - [address] Ardon [address] [place] [address] 06/03/10 Zakiya Ledezma, ELIAS 06/03/10 Liberty Justice MD [address] [place] [address] 06/03/10 Moy Serrano MD 4000 [facility] [id number] [place] [address] 08/25/10 Stephania Liu RN Emergency Medicine 09/03/10 Leobardo Giordano MD Infectious 2000 [facility] Disease Ortho/Med Pavilion [address] [address] 03/29/11 Kati Thomas MD Internal 4000 [place] [address] 05/01/11 Edilson Villalba MD Internal 4000 [place] [address] 05/05/11 Alex Balbuena MD Infectious [address] Disease Ortho/Med Pavilion Lvl 4C [place] [address] 05/20/11 Kleber Can MD Internal Fellow provider only Medicine 06/18/11 Harish Irvin MD Transplant 4000 [facility] Main 1st [place] [address] 10/02/11 Luis Eduardo Art MD Gastroentero [address] logy Ortho/Med Pavilion Lvl 2B [place] [address] 06/15/12 Alton Sewell MD Dermatology Forwarding Address Unknown 06/15/12 Ariane Campoverde MD Dermatology [address] [place] [address] 09/14/12 Dayan Daniels MD Dermatology [address] Ortho/Med Pavilion Lvl 4C [place] [address] 12/21/12 Jamel Hutchins MD Dermatology Retired Left [id number] [id number] 12/21/12 Leigh Resendez MD Dermatology 35 [facility] [address] [place] [address] 01/03/15 Carmen Reeves APRN Transplant [address] Hepatology MS 10[address] [place] [address] 05/07/15 Margaux Ng RN 06/06/15 Robertson, Maureen, VETERINARY RECEPTIONIST Maternal and Medicine 07/04/15 Lupe Hamilton Maternal and Medicine 09/05/15 Berta Baldwin 12/11/15 Michelle Orellana 01/01/16 Lashon Carey MA Maternal and Medicine 01/03/16 Carmen Lassiter, Gastroentero PRODUCTION MACHINE SHOP SUPERVISOR-RIVER DRIVER logy 1999 [facility] Ortho/Med Pavilion [facility] [address]B [place] [address] 01/03/16 Linsey Watson 01/17/16 Audrey Howard RN documented as of this encounter
--- OUTSIDE RECORDS SUMMARY | 2021-08-16 09:17 | XMS REPORT | Encounter Summary ---
Author Author [facility] Organization [facility] Address Unknown Phone Unavailable Care Team Providers Care Fruit Picker Machine Operator Name Role Phone Zakiya Ledezma RN [...] Lashon Carey MA Unavailable Unavailable Carmen Lassiter MIXING MACHINE TENDER CORK GASKET-COPER HAND Unavailable [phone] Linsey Watson Unavailable Unavailable Audrey Howard RN Unavailable Unavailable Angelic Resendez MD PCP Reason for Visit * Reason Onset Date Comments Follow-up Phone Call 06/25/2021 Encounter Details Care Team Description Date Type Department Moy Serrano MD 4000 [facility] [id number] [place] [address] Follow-up Phone Call 06/25/2021 Telephone Transplant: Main Ca mpus, [facility] 4000 [facility] Level 1, [address] [place] [address] Social History Date Tobacco Use Types Packs/Day Years Used Quit: 02/01/1976 Former Smoker Cigarettes 3 Smokeless Tobacco: Never Used Comments: Quit 08/1976 Comments Alcohol Use Standard Drinks/Week No 0 (1 standard drink = 0.6 o z pure alcohol) Sex Assigned at Date Recorded Male 04/17/2020 2:33 PM CDT Date Recorded COVID-19 Exposure Response 06/20/2021 7:42 AM WASH TEST CHECKER In the last month, have you been [...] Encounter - Lashon Carey MA - 06/25/2021 2:17 PM WASH TEST CHECKER After multiple phone calls w/Valerie (nurse) and further instructions from nurses (Sinan & Kat) they will await pt's phone call to get scheduled for panorex (dental clearance). TEST CHECKER documented in this encounter Plan of Treatment Not on filedocumented as of this encounter Goals Goal Patient Associated Recent Progress Patient-Stat Aut hor Goal Type Problems ed? GOAL General No Maria M Erwin, RN Note: get my liver transplant Resume normal activities Hospital No Deandra Bean, ELIAS Note: Waiting for a liver transplant Move to [place]. documented as of this encounter Visit Diagnoses Not on filedocumented in this encounter Additional Health Concerns Noted Time Assessment 06/19/2021 9:20 AM WASH TEST CHECKER A fall risk assessment has been complet ed for the patient 06/19/2021 9:22 AM WASH TEST CHECKER PHQ-2 Depression Total Score: 0 documented as of this encounter Care Teams Start Date End Date Fruit Picker Machine Operator Relationship Specialty 08/12/19 Angelic Resendez MD PCP - [address] Ardon [address] [place] [address] 06/03/10 Zakiya Ledezma, ELIAS 06/03/10 Liberty Justice MD [address]01 [place] [address] 06/03/10 Moy Serrano MD 4000 [facility] RA7295 [place] [address] 08/25/10 Stephania Liu RN Emergency Medicine 09/03/10 Leobardo Giordano MD Infectious [address] [place] [facility] Disease Ortho/Med [address] [address] 03/29/11 Kati Thomas MD Internal 4000 [place] [address] 05/01/11 Edilson Villalba MD Internal 4000 [facility] [address] 05/05/11 Alex Balbuena MD Infectious [address] Disease Ortho/Med Pavilion Lvl 4C [place] [address] 05/20/11 Kleber Can MD Internal Fellow provider only Medicine 06/18/11 Harish Irvin MD Transplant 4000 [facility] Main 1st [place] [address] 10/02/11 Luis Eduardo Art MD Gastroentero [address] logy Ortho/Med Pavilion Lvl 2B [place] [address] 06/15/12 Alton Sewell MD Dermatology Forwarding Address Unknown 06/15/12 Ariane Campoverde MD Dermatology [address] [place] [address] 09/14/12 Dayan Daniels MD Dermatology [address] Ortho/Med Pavilion Lvl 4C [place] [address] 12/21/12 Jamel Hutchins MD Dermatology Retired Left [place] [id number] 12/21/12 Leigh Resendez MD Dermatology [address] [address] 01/03/15 Carmen Reeves, MIXING MACHINE TENDER CORK GASKET Transplant [address] Hepatology [place] [address] [place] [address] 05/07/15 Margaux Ng, ELIAS 06/06/15 Maureen Robertson LPN Maternal and Medicine 07/04/15 Lupe Hamilton Maternal and Medicine 09/05/15 Berta [place] 12/11/15 Michelle Orellana 01/01/16 Lashon Carey MA Maternal and Medicine 01/03/16 Carmen Lassiter, Gastroentero MIXING MACHINE TENDER CORK GASKET-COPER HAND logy 2000 [facility] Ortho/Med [facility] 2B [place] [address] 01/03/16 Linsey Watson 01/17/16 Audrey Howard, ELIAS documented as of this encounter
--- OUTSIDE RECORDS SUMMARY | 2021-08-16 09:17 | XMS REPORT | Encounter Summary ---
Author Author [facility] Organization [facility] Address Unknown Phone Unavailable Care Team Providers Care Horses Or Mules Teamster Name Role Phone Zakiya Ledezma RN Unavailable [...] Lashon Carey MA Unavailable Unavailable Carmen Lassiter CUSTOMER SERVICE ENGINEER-DYNAMITE SHOOTER Unavailable [phone] Linsey Watson Unavailable Unavailable Audrey Howard RN Unavailable Unavailable Angelic Resendez MD PCP Encounter Details Care Team Description Date Type Department Fred Hanna Liver transplant status (HCC) 07/30/2021 Orders Only Transplant: Main Nm mpus, [facility] [address] [place] [address], [address] [place] [address] Social History Date Tobacco Use [...] Waiting for a liver transplant Move to [place]. documented as of this encounter Procedures Comments Procedure Name Priority Date/Time Associated Diag nosis PTT (APTT) Routine 07/26/2021 Liver transplan t status 12:03 PM ITALIAN TEACHER (HCC) documented in this encounter Results * (ABNORMAL) PTT (APTT) (07/26/2021 12:03 PM ITALIAN TEACHER) APTT 35.4 (H) 25.2 - 35.0 LABDE INTERFACE Specimen Blood (substance) Narrative LABDE INTERFACE - 07/30/2021 12:00 AM ITALIAN TEACHER Outside Lab Verified by Fred Hanna on 07/29/2021. Performing Organization Address City/State/ZIP Code P suzy Number LABDE INTERFACE documented in this encounter Visit Diagnoses Diagnosis Liver transplant status (HCC) documented in this encounter Additional Health Concerns Noted Time Assessment 06/19/2021 9:20 AM ITALIAN TEACHER A fall risk assessment has been complet ed for the patient 06/19/2021 9:22 AM ITALIAN TEACHER PHQ-2 Depression Total Score: 0 documented as of this encounter Care Teams Start Date End Date Horses Or Mules Teamster Relationship Specialty 08/12/19 Angelic Resendez MD PCP - [address] Ardon [address] [place] [address] 06/03/10 Zakiya Ledezma, ELIAS 06/03/10 Liberty Justice MD [address] [place] [address] 06/03/10 Moy Serrano MD 4000 [facility]1170 [place] [address] 08/25/10 Stephania Liu, ELIAS Emergency Medicine 09/03/10 Leobardo Giordano MD Infectious 2000 [facility] Disease Ortho/Med Pavilion Lvl [address] [place] [address] 03/29/11 Kati Thomas MD Internal 4000 [place] [address] 05/01/11 Edilson Villalba MD Internal 4000 [place] [address] 05/05/11 Alex Balbuena MD Infectious [address] Disease Ortho/Med Pavilion Lvl 4C [place] [address] 05/20/11 Kleber Can MD Internal Fellow provider only Medicine 06/18/11 Harish Irvin MD Transplant 4000 [facility] Main 1st [place] [address] 10/02/11 Luis Eduardo Art MD Gastroentero [address] logy Ortho/Med Pavilion Lvl 2B [place] [address] 06/15/12 Alton Sewell MD Dermatology Forwarding Address Unknown 06/15/12 Ariane Campoverde MD Dermatology [address] [place] [address] 09/14/12 Dayan Daniels MD Dermatology [address] Ortho/Med Pavilion Lvl 4C [place] [address] 12/21/12 Jamel Hutchins MD Dermatology Retired Left [place] [id number] 12/21/12 Leigh Resendez MD Dermatology 35 [facility] [address] [place] [address] 01/03/15 Carmen Reeves APRN Transplant [address] Hepatology MS [address] [place] [address] 05/07/15 Margaux Ng RN 06/06/15 Maureen Robertson LPN Maternal and Medicine 07/04/15 Lupe Hamilton Maternal and Medicine 09/05/15 Berta [place] 12/11/15 Michelle Orellana 01/01/16 Lashon Carey MA Maternal and Medicine 01/03/16 Carmen Lassiter, Gastroentero CUSTOMER SERVICE ENGINEER-DYNAMITE SHOOTER logy [facility]Med Pavilion Lvl 2B [place] [address] 01/03/16 Linsey Watson 01/17/16 Audrey Howard RN documented as of this encounter
--- OUTSIDE RECORDS SUMMARY | 2021-08-16 09:17 | XMS REPORT | Encounter Summary ---
Author Author [facility] Organization [facility] Address Unknown Phone Unavailable Care Team Providers Care Patient Flow Coordinator Name Role Phone Zakiya Ledezma RN Unavailable [...] Lashon Carey MA Unavailable Unavailable Carmen Lassiter SUPERVISOR CELL OPERATION-SCIENTIST Unavailable Linsey Watson Unavailable Unavailable Audrey Howard RN Unavailable Unavailable Angelic Resendez MD PCP Encounter Details Care Team Description Date Type Department Luis Hamilton RN 06/25/2021 Orders Only Transplant: Main Pa mp, [facility] [address], [address] [place] [address] Social History Date Tobacco Use Types Packs/Day Years Used Quit: 02/01/1976 Former Smoker Cigarettes 3 Smokeless Tobacco: Never Used Comments: Quit 08/1976 Comments Alcohol Use Standard Drinks/Week No 0 (1 standard drink = 0.6 o z pure alcohol) Sex Assigned at Date Recorded Male 04/17/2020 2:33 PM CDT Date Recorded COVID-19 Exposure Response 06/20/2021 7:42 AM MOBILE 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 documented as of this encounter Visit Diagnoses Not on filedocumented in this encounter Additional Health Concerns Noted Time Assessment 06/19/2021 9:20 AM MOBILE HOME LOT UTILITY WORKER A fall risk assessment has been complet ed for the patient 06/19/2021 9:22 AM MOBILE HOME LOT UTILITY WORKER PHQ-2 Depression Total Score: 0 documented as of this encounter Care Teams Start Date End Date Patient Flow Coordinator Relationship Specialty 08/12/19 Angelic Resendez MD PCP - [address] Ardon [address] [place] [address] 06/03/10 Zakiya Ledezma RN 06/03/10 Liberty Justice MD [address] [place] [address] 06/03/10 Moy Serrano MD 4000 [facility] QR0188 [place] [address] 08/25/10 Stephania Liu RN Emergency Medicine 09/03/10 Leobardo Giordano MD Infectious [address] Disease Ortho/Med Pavilion Lvl [address] [place] [address] 03/29/11 Kati Thomas MD Internal 4000 [place] [address] 05/01/11 Edilson Villalba MD Internal 4000 [place] [address] 05/05/11 Alex Balbuena MD Infectious [address] Disease Ortho/Med Pavilion Lvl [address] [place] [address] 05/20/11 Kleber Can MD Internal Fellow provider only Medicine 06/18/11 Harish Irvin MD Transplant 4000 [facility] 1st [place] [address] 10/02/11 Luis Eduardo Art MD Gastroentero [address] logy Ortho/Med Pavilion Lvl 2B [place] [address] 06/15/12 Alton Sewell MD Dermatology Forwarding Address Unknown 06/15/12 Ariane Campoverde MD Dermatology [address] [place] [address] 09/14/12 Dayan Daniels MD Dermatology [address] Ortho/Med Pavilion Lvl 4C [place] [address] 12/21/12 Jamel Hutchins MD Dermatology Retired Left [place] [id number] 12/21/12 Leigh Resendez MD Dermatology 35 [facility] [address] [place] [address] 01/03/15 Carmen Reeves, SUPERVISOR CELL OPERATION Transplant [address] Hepatology [place] [address] [place] [address] 05/07/15 Margaux Ng RN 06/06/15 Maureen Robertson LPN Maternal and Medicine 07/04/15 Lupe Hamilton Maternal and Medicine 09/05/15 Berta [place] 12/11/15 Michelle Orellana 01/01/16 Lashon Carey MA Maternal and Medicine 01/03/16 Carmen Lassiter, Gastroentero SUPERVISOR CELL OPERATION-SCIENTIST logy [address] Ortho/Med Pavilion Lvl 2B [place] [address] 01/03/16 Linsey Watson 01/17/16 Audrey Howard RN documented as of this encounter
--- OUTSIDE RECORDS SUMMARY | 2021-08-16 09:17 | XMS REPORT | Encounter Summary ---
Author Author [facility] Organization [facility] Address Unknown Phone Unavailable Care Team Providers Care Reception Clerk Name Role Phone Zakiya Ledezma RN Unavailable [...] Lashon Carey MA Unavailable Unavailable Carmen Lassiter WIRE STITCHER MACHINE-REWINDER OPERATOR Unavailable [phone] Linsey Watson Unavailable Unavailable Audrey Howard RN Unavailable Unavailable Angelic Resendez MD PCP Reason for Referral * Consult, Test & Treat (Routine) - Authorized Diagnoses / Procedures Referred By Contact Referred To [facility] ct Specialty Diagnoses Status post liver transplantation (HCC) Primary sclerosing cholangitis Other cirrhosis of liver (HCC) Procedures REGADENOSON MPI STRESS TEST [place] MYOCARDIAL SPECT MULTIPLE STUDIES [place] CV STRS TST XERS&/OR RX CONT ECG I&R ONLY [place] CV STRS TST XERS&/OR RX CONT ECG W/O I&R [place] CV STRS TST XERS&/OR RX CONT ECG TRCG ONLY Moy Serrano MD [address] [place] [address] [address] Cardiology Referral ID Status Reason Start Date Expiration Visits Vi sits Date Requested Authorized [id number] Authorized 05/17/2021 05/17/2022 1 1 CUTTER Reason for Visit * Consult, Test & Treat (Routine) - Authorized Diagnoses / Procedures Referred By Contact Referred To [facility] ct Specialty Diagnoses Status post liver transplantation (HCC) Primary sclerosing cholangitis Other cirrhosis of liver (HCC) Procedures REGADENOSON MPI STRESS TEST [place] MYOCARDIAL SPECT MULTIPLE STUDIES [place] CV STRS TST XERS&/OR RX CONT ECG I&R ONLY [place] CV STRS TST XERS&/OR RX CONT ECG W/O I&R [place] CV STRS TST XERS&/OR RX CONT ECG TRCG ONLY Moy Serrano MD [address] [place] [address] [facility] Nuclear [address] [place] [address], [address] [place] [address] Cardiology Referral ID Status Reason Start Date Expiration Visits Vi sits Date Requested Authorized [id number] Authorized 05/17/2021 05/17/2022 1 1 Encounter Details Care Team Description Date Type Department Moy Serrano MD 4000 [facility] [id number] [place] [address] 06/20/2021 Hospital Cardiology: [facility] 4000 [facility], [address] [place] [address] Social History Date Tobacco Use Types Packs/Day Years Used Quit: 02/01/1976 Former Smoker Cigarettes 3 Smokeless Tobacco: Never Used Comments: Quit 08/1976 Comments Alcohol Use Standard Drinks/Week No 0 (1 standard drink = 0.6 o z pure alcohol) Sex Assigned at Date Recorded Male 04/17/2020 2:33 PM CDT Date Recorded COVID-19 Exposure Response 06/20/2021 7:42 AM SOD CUTTER In the last month, have you been [...] impairment: No documented as of this encounter Medications at Time of Discharge Start Date End Date Medication Sig Dispensed Refills 05/07/2021 amoxicillin/K clavulanate TAKE 1 TABLET 30 tablet 3 (AUGMENTIN) 500/125 mg DAILY WITH tablet FOOD FOR 1 WEEK, THEN CYCLE OFF OF MEDICATION AND TAKE BACTRIM FOR 1 WEEK, THEN CIPRO FOR 1 WEEK, REPEAT CYCLE Apple Cider Vinegar 600 Take 1 0 mg cap capsule by mouth daily. 11/13/2020 atorvastatin (LIPITOR) 20 Take one 90 tablet 3 mg tablet tablet by mouth at bedtime daily. calcium carbonate-vitamin Take 1 tablet 0 D3 200 mg (500 mg) -400 by mouth unit cap three times daily. 02/16/2017 camphor/menthol (SARNA) Apply to skin 222 mL 5 0.5/0.5 % lotn areas two to three times as needed. cholecalciferol (VITAMIN Take 1,000 0 D-3) 1,000 units tablet Units by mouth every 48 hours. 05/07/2021 ciprofloxacin (CIPRO) 500 TAKE 1 TABLET 30 tablet 3 mg tablet DAILY FOR 1 WEEK, THEN CYCLE OFF OF MEDICATION AND TAKE AUGMENTIN FOR 1 WEEK, THEN BACTRIM FOR 1 WEEK, REPEAT CYCLE COCONUT OIL TP Apply 0 topically to affected area. 02/21/2021 famotidine (PEPCID) 20 mg TAKE 1 TABLET 180 tablet 3 tablet TWICE A DAY fish oil /omega-3 fatty Take 1 0 acids (SEA-OMEGA) capsule by 340/1000 mg capsule mouth every 48 hours. 04/10/2021 predniSONE (DELTASONE) 5 TAKE 1 TABLET 90 tablet 3 mg tabletIndications: DAILY WITH Liver transplant status BREAKFAST (HCC) 02/26/2021 08/25/2021 tacrolimus (PROGRAF) 0.5 Take two 120 capsule 5 mg capsuleIndications: capsules by Liver transplant status mouth twice (HCC) daily for 180 days. tacrolimus (PROGRAF) 1 mg Take 1 mg by 0 capsule mouth twice daily. triamcinolone acetonide Apply 0 (KENALOG) 0.1 % topical topically to cream affected area twice daily as needed. 05/16/2021 trimethoprim/sulfamethoxa Take as 180 tablet 3 zole (BACTRIM) 80/400 mg directed by tablet provider 02/21/2021 ursodioL (ACTIGALL) 300 TAKE 1 270 capsule 3 mg capsule CAPSULE IN THE MORNING AND 2 CAPSULES IN THE EVENING vitamins, multiple (DAILY Take 1 tablet 0 MULTI-VITAMIN) tablet by mouth daily. 06/19/2021 zinc sulfate (ORAZINC) Take one 90 capsule 1 220 mg (50 mg elemental capsule by zinc) capsule mouth daily. 06/10/2021 07/17/2021 aMILoride (MIDAMOR) 5 mg Take two 120 tablet 5 tablet tablets by mouth twice daily. 05/16/2021 07/17/2021 furosemide (LASIX) 20 mg Take one 90 tablet 0 tablet tablet by mouth every morning for 90 days. documented as of this encounter Discharge Disposition Code Departure Means Destination Disposition Home Home or Self Care documented in this encounter Plan of Treatment Not on filedocumented as of this encounter Goals Goal Patient Associated Recent Progress Patient-Stat Aut hor Goal Type Problems ed? GOAL General No Maria M Erwin, RN Note: get my liver transplant Resume normal activities Hospital No Deandra Bean, ELIAS Note: Waiting for a liver transplant Move to [place]. documented as of this encounter Procedures Comments Procedure Name Priority Date/Time Associated Diag nosis SINGLE GATED Routine 06/20/2021 Status post delia er 8:52 AM SOD CUTTER transplantation (HCC) Primary sclerosing cholangitis Other cirrhosis of liver (HCC) documented in this encounter Results * SINGLE GATED (06/20/2021 8:52 AM SOD CUTTER) Baseline HR 58 bpm OTHER OUTSIDE LAB [...] 99 mL OTHER OUTSIDE LAB Study Number [id number] OTHER OUTSIDE LAB Nuclear In aggregate the current study OTHER OUTSIDE Cardiology is low risk in regards to LAB Mortality Risk predicted annual cardiovascular mortality rate. Modality Anatomical Region Laterality Ultrasound Specimen Narrative OTHER OUTSIDE LAB - 06/20/2021 12:52 PM SOD CUTTER Nuclear Report Cardiology: [facility] Division of Nuclear Cardiac Imaging Consultation Report EXAMINATION: D-SPECT Gated [id number] Chloride myocardial perfusion single-photon emission computed tomography regional wall function, post stress ejection fraction, and perfusion imaging utilizing Regadenoson pharmacological stress. Date of Study: 06/20/21 Study #: [id number] Billing ID: [id number] Referring Physician: Angelic Resendez MD Requested by: [...] Approximately 20 seconds later 1.8 mCi of [id number] hloride was injected intravenously. Throughout the infusion [...] Pharmacologic stress ECG is negative for ischemia. Kgywjgann-ha-Kevbhqzyiq Count Ratio: 0.33 (normal = or < [...] Code P suzy Number OTHER OUTSIDE LAB documented in this encounter Visit Diagnoses Diagnosis Status post liver transplantation (HCC) Liver replaced by transplant Primary sclerosing cholangitis Cholangitis Other cirrhosis of liver (HCC) documented in this encounter Administered Medications Action Date Dose Rate Site Medication Order MAR Action 06/20/2021 8:10 AM SOD CUTTER 0.4 mg regadenoson (LEXISCAN) injection 0.4 mg Given 0.4 mg, Intravenous, ONCE, 1 dose, On Mala 06/20/21 at 0900, Inject 0.4 mg Regadenoson IV over 10 to 15 seconds, flush with 10 mL 0.9% Sodium Chloride solution IV over 10-20 seconds., MAC Procedure Area Only - Medications 06/20/2021 8:52 AM SOD CUTTER 1.8 millicuries RP DX [id number] thallous chloride injection Given 1.75 millicurie 1.75 millicurie, Intravenous, ONCE, 1 dose, On Mala 06/20/21 at 0900, MAC Procedure Area Only - Medications documented in this encounter Orders First Ordered Date Medications Ordered That Might Not Have Count Last Ordered Date Been Administered albuterol sulfate (PROAIR HFA) inhaler 2 1 06/20/2021 puff aminophylline injection 50 mg 1 06/20/20 21 eucalyptus-menthol (HALLS) lozenge 1 1 1 08/20/2020 lozenge nitroglycerin (NITROSTAT) tablet 0.4 mg 1 06/20/2021 sodium chloride 0.9 % infusion 1 06/20 documented in this encounter Additional Health Concerns Noted Time Assessment 06/19/2021 9:20 AM SOD CUTTER A fall risk assessment has been complet ed for the patient 06/19/2021 9:22 AM SOD CUTTER PHQ-2 Depression Total Score: 0 documented as of this encounter Care Teams Start Date End Date Reception Clerk Relationship Specialty 08/12/19 Angelic Resendez MD PCP - [address]don [address] [place] [address] 06/03/10 Zakiya Ledezma, ELIAS 06/03/10 Liberty Justice MD [address] [place] [address] 06/03/10 Moy Serrano MD 4000 [facility] PC8025 [place] [address] 08/25/10 Stephania Liu RN Emergency Medicine 09/03/10 Leobardo Giordano MD Infectious [address] Disease Ortho/Med Pavilion Lvl [address] [place] [address] 03/29/11 Kati Thomas MD Internal 4000 [place] [address] 05/01/11 Edilson Villalba MD Internal [address] [place] [address] 05/05/11 Alex Balbuena MD Infectious [address] Disease Ortho/Med Pavilion Lvl [address] [place] [address] 05/20/11 Kleber Can MD Internal Fellow provider only Medicine 06/18/11 Harish Irvin MD Transplant 4000 [facility] 1st [place] [address] 10/02/11 Luis Eduardo Art MD Gastroentero [address] logy Ortho/Med Pavilion Lvl 2B [place] [address] 06/15/12 Alton Sewell MD Dermatology Forwarding Address Unknown 06/15/12 Ariane Campoverde MD Dermatology [address] [place] [address] 09/14/12 Dayan Daniels MD Dermatology [address] Ortho/Med Pavilion Lvl 4C [place] [address] 12/21/12 Jamel Hutchins MD Dermatology Retired Left KU [id number] 12/21/12 Leigh Resendez MD Dermatology 35 [place] [address] 01/03/15 Carmen Reeves, WIRE STITCHER MACHINE Transplant [address] Hepatology MS [address] [place] [address] 05/07/15 Margaux Ng, RN 06/06/15 Maureen Robertson LPN Maternal and Medicine 07/04/15 Lupe Hamilton Maternal and Medicine 09/05/15 Berta [place] 12/11/15 Michelle Orellana 01/01/16 Lashon Carey MA Maternal and Medicine 01/03/16 Carmen Lassiter, Gastroentero WIRE STITCHER MACHINE-REWINDER OPERATOR logy [address] Ortho/Med Pavilion Lvl 2B [place] [address] 01/03/16 Linsey Watson 01/17/16 Audrey Howard, ELIAS documented as of this encounter
--- OUTSIDE RECORDS SUMMARY | 2021-08-16 09:18 | XMS REPORT | Encounter Summary ---
Author Author [facility] Organization [facility] Address Unknown Phone Unavailable Care Team Providers Care Inventory Transcriber Name Role Phone Zakiya Ledezma RN Unavailable [...] Lashon Carey MA Unavailable Unavailable Carmen Lassiter CHANGE MANAGEMENT LEAD-STUMP SHOOTER Unavailable Linsey Watson Unavailable Unavailable Audrey Howard RN Unavailable Unavailable Angelic Resendez MD PCP Reason for Visit * Consult, Test & Treat (Routine) - Authorized Diagnoses / Procedures Referred By Contact Referred To Conta ct Specialty Diagnoses Status post liver transplantation (HCC) Primary sclerosing cholangitis Other cirrhosis of liver (HCC) Moy Serrano MD [address] [facility] [address] [place] [address] [facility] Hepatology Cl [address] [address], [address] [place] [address] Transplant Surgery Referral ID Status Reason Start Date Expiration Visits Vi sits Date Requested Authorized [id number] Authorized Specialty Services 05/17/2021 05/17/2022 1 1 Required Encounter Details Care Team Description Date Type Department Self, Referral 06/19/2021 Clinical Transplant: Main Ca mpus, Support [facility] [address] [address], [address] [place] [address] Social History Date Tobacco Use Types Packs/Day Years Used Quit: 02/01/1976 Former Smoker Cigarettes 3 Smokeless Tobacco: Never Used Comments: Quit 08/1976 Comments Alcohol Use Standard Drinks/Week No 0 (1 standard drink = 0.6 o z pure alcohol) Sex Assigned at Date Recorded Male 04/17/2020 2:33 PM CDT Date Recorded COVID-19 Exposure Response 06/20/2021 7:42 AM SOLAR POOL HEATING INSTALLER In the last month, have you been [...] impairment: No documented as of this encounter Progress Notes * Ni Frost, RD - 06/19/2021 12:00 PM SOLAR POOL HEATING INSTALLER Liver Transplant Nutrition Evaluation I see no nutritional contraindications to transplantation. BMI: 23.78 Hand user support analyst strength: NA Malnutrition Assessment: Does not meet criteria Flatwork Supervisor Strength (R) lbs: (NA d/t covid 19 precautions) SARC-F Questionnaire: 0 Assessment: Estimated body mass index is 23.78 kg/m as calculated from the following: Height as of an earlier encounter on 06/19/21: 175.3 cm (69"). Weight as of an earlier encounter on 06/19/21: 73 kg (161 lb). Wt Readings from Last 10 Encounters: 06/19/21 73 kg (161 lb) 06/19/21 73 kg (161 lb) 06/18/21 72.6 kg (160 lb) 06/18/21 72.6 kg (160 lb) 06/18/21 73.1 kg (161 lb 3.2 oz) 06/17/21 73.4 kg (161 lb 12.8 oz) 06/17/21 72.8 kg (160 lb 6.4 oz) 05/17/21 69.4 kg (153 lb) 03/03/21 79.2 kg (174 lb 9.6 oz) 02/22/21 73.9 kg (162 lb 14.7 oz) Nutrition related laboratory values: Last vitamin D: Lab Results Component Value Date VITD25 56.0 06/17/2021 Last Vitamin A: Free Retinol Date Value Ref Range Status 05/13/2010 39.0 Final Comment: Reference range: 32.5 to 78.0 Unit: mcg/dL [facility] [employer] [facility], [address] [place] [address] Last Zinc: Zinc Date Value Ref Range Status 06/17/2021 0.41 (L) Final Comment: Reference range: 0.66 to 1.10 Unit: mcg/mL ADDITIONAL INFORMATION This test was developed and its performance characteristics determined by [facility] in a manner consistent with CLIA requirements. This test has not been cleared or approved by the U.S. Food and Drug Administration. [facility], [address] [facility], [place] [address] Last HbA1c: 6.5% FSBS at home: NA Nutrition supplement regimen: Supplement Taking Comment MVI with Minerals x MVI Vitamin D x Vit D3 1,000 units q48hrs, Calcium x Calcium carbonate-Vit D3 1 tablet 3x/day Vitamin A Zinc Thiamine Folate Vitamin B12 Vitamin E Other: x Fish oil/omega 3 q48 hrs, Oral calorie or protein supplement: NA Subjective: Transplant Liver Nutrition Questionnaire Highest weight in the past 6 months: 73.18 kg Lowest weight in the past 6 months: 68.18 kg Have you recently lost weight without trying?: No Have you noticed a decrease in muscle mass?: No Have you been eating poorly due to decreased appetite?: No Are you following any of the folllowing special diets?: Low Sodium Do you have any of the following conditions?: Diabetes, Ascites (swelling in the belly), Edema (swelling in the ankles, feet, hands, etc.) 65 yo M with PMH of 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 Pt reports good ap petite and intake. Typically eats 2-3 meals/day. B: banana, oj, cereal, surinamese yo gurt, L: from longterm where his mother lives (gets 5 meals/ week this way), D: noodles with kimchi or slice of apple pie, snacks: oatmeal cookies or candy. Beverages: [place] juice, 2 regular cokes/day, 16 oz of water in AM. Pt reports ascites and edema well controlled with diuretics. 30 minutes of walking each day , reports good functional status. Note: A1c 6.5%, pt not previously diagnosed wi th DM. Reviewed DM diet education as detailed below. Nutrition Education/Intervention: Instructed on low sodium diet. Encouraged pt to limit sodium intake to less than 2000mg sodium per day. Recommended pt avoid salting food at the table and during food preparation. Suggested pt make majority of food choices from fresh meats, produce. Encouraged pt to read labels and only choose products with < 140mg sodium/serving. Recommended pt avoid all products with >140mg sodium/serving. Encouraged avoidance of foods most often high in sodium ie canned vegetables, canned soup and processed meats. Discussed diet to maintain muscle mass, weight. Encouraged pt to eat 3 meals/day everyday. Suggested pt incorporate a bedtime snack daily. Encouraged protein i ntake with every meal/snack. Recommended pt aim for "palm sized" serving of prot ein with each meal. Reviewed high protein foods: Animal based proteins have the most protein/bite, however plant-based proteins are also an important part of o btaining adequate protein. Encouraged pt to avoid packaged/processed meats. Instructed on consistent CHO diet. Recommended pt consume 60-75g CHO/meal * 3 me als/day. Reviewed 3 classes of nutrients: CHO, fats, protein. Encouraged pt to choose non-starchy vegetables with as many meals/day as possible. With regards t o CHOs, recommended 100% whole grains, high fiber starches, low-fat/fat-free shawn ry products and whole fruit. Encouraged pt to avoid fruit juice and soda pop. En couraged using artificial sweetener in tea and drinking more water. Stressed imp ortance of portion management when choosing carbohydrates. Discussed plate metho d. Encouraged 1/2 plate from fruits and non-starchy vegetables, 1/4 lean meats, 1/4 whole grains. Encouraged physical activity daily. Handouts provided detailin g recommendations. Instructed on post-OLT diet related expectations including hand hygiene, grapefr uit avoidance and food safety. MD referral received on 06/19/21 for medical nutrition therapy services. Ni Frost MS, RD, LD Desk phone [phone] | Available on Voalte R POOL HEATING INSTALLER documented in this encounter Plan of Treatment Order Schedule Name Type Priority Associated Diag noses Ordered: 05/17/2021 AMB REFERRAL TO NUTRITION Outpatient Routine Stat us post liver Referral transplantation (HCC) Primary sclerosing cholangitis Other cirrhosis of liver (HCC) documented as of this encounter Goals Goal Patient Associated Recent Progress Patient-Stat Aut hor Goal Type Problems ed? GOAL General No Maria M Erwin RN Note: get my liver transplant Resume normal activities [facility] Deandra Bean RN Note: Waiting for a liver transplant Move to [place]. documented as of this encounter Visit Diagnoses Not on filedocumented in this encounter Additional Health Concerns Noted Time Assessment 06/19/2021 9:20 AM SOLAR POOL HEATING INSTALLER A fall risk assessment has been complet ed for the patient 06/19/2021 9:22 AM SOLAR POOL HEATING INSTALLER PHQ-2 Depression Total Score: 0 documented as of this encounter Care Teams Start Date End Date Inventory Transcriber Relationship Specialty 08/12/19 Angelic Resendez MD PCP - [address] [address] 06/03/10 Zakiya Ledezma RN 06/03/10 Liberty Justice MD [address] [place] [address] 06/03/10 Moy Serrano MD [address] [facility] [address] [place] [address] 08/25/10 Stephania Liu RN Emergency Medicine 09/03/10 Leobardo Giordano MD Infectious [address] Disease Ortho[facility]ilion Lvl [address] [place] [address] 03/29/11 Kati Thomas MD Internal [address] [place] [address] 05/01/11 Edilson Villalba MD Internal [address] [place] [address] 05/05/11 Alex Balbuena MD Infectious [address] Disease Ortho[facility]Med Pavilion Lvl [address] [place] [address] 05/20/11 Kleber Can MD Internal Fellow provider only Medicine 06/18/11 Harish Irvin MD Transplant 4000 [facility] Main 1st [place] [address] 10/02/11 Luis Eduardo Art MD Gastroentero [address] logy Ortho/Med Pavilion Lvl [address] [place] [address] 06/15/12 Alton Sewell MD Dermatology Forwarding Address Unknown 06/15/12 Ariane Campoverde MD Dermatology [address] [place] [address] 09/14/12 Dayan Daniels MD Dermatology [address] Ortho/Med Pavilion Lvl [address] [place] [address] 12/21/12 Jamel Hutchins MD Dermatology [place] [id number] 12/21/12 Leigh Resendez MD Dermatology 35 [facility] [address] [place] [address] 01/03/15 Carmen Reeves, CHANGE MANAGEMENT LEAD Transplant [address] Hepatology [place] [address] [place] [address] 05/07/15 Margaux Ng, RN 06/06/15 Maureen Robertson LPN Maternal and Medicine 07/04/15 Lupe Hamilton Maternal and Medicine 09/05/15 Berta Baldwin 12/11/15 Michelle Orellana 01/01/16 Lashon Carey MA Maternal and Medicine 01/03/16 Carmen Lassiter, Gastroentero CHANGE MANAGEMENT LEAD-STUMP SHOOTER [facility] Pavilion Lvl [address] [place] [address] 01/03/16 Linsey Watson 01/17/16 Audrey Howard RN documented as of this encounter
--- OUTSIDE RECORDS SUMMARY | 2021-08-16 09:18 | XMS REPORT | Encounter Summary ---
Author Author [facility] Organization [facility] Address Unknown Phone Unavailable Care Team Providers Care Shampooer Name Role Phone Zakiya Ledezma RN Unavailable [...] Lashon Carey MA Unavailable Unavailable Carmen Lassiter MOBILE UI/UX DESIGNER-FUNERAL SALES MANAGER Unavailable [phone] Linsey Watson Unavailable Unavailable Audrey Howard RN Unavailable Unavailable Angelic Resendez MD PCP Encounter Details Care Team Description Date Type Department Moy Serrano MD [address] [facility] [place] [address] 06/17/2021 [facility] Pulmonary Function Lab: Encounter [address], [address] [place] [address] Social History Date Tobacco Use Types Packs/Day Years Used Quit: 02/01/1976 Former Smoker Cigarettes 3 Smokeless Tobacco: Never Used Comments: Quit 08/1976 Comments Alcohol Use Standard Drinks/Week No 0 (1 standard drink = 0.6 o z pure alcohol) Sex Assigned at Date Recorded Male 04/17/2020 2:33 PM CDT Date Recorded COVID-19 Exposure Response 06/17/2021 8:33 AM AUTOMOTIVE FLEET SUPERVISOR In the last month, have you been in contact with No / Unsure someone who was confirmed or suspected to have Coronavirus / COVID-19? documented as of this encounter Functional Status Date of Assessment Functional Status Response 06/17/2021 Does the patient have a hearing impairment: No 06/17/2021 Does the patient have a visual impairment: No 06/17/2021 Does the patient have impaired ambulation: No 06/17/2021 Does the patient have an activity of daily living No (ADL) impairment: 06/17/2021 Does the patient have an instrumental activity of No daily living (IADL) impairment: Date of Assessment Cognitive Status Response 06/17/2021 Does the patient have a cognitive impairment: [...] mouth twice (HCC) daily for 180 days. triamcinolone acetonide Apply 0 (KENALOG) 0.1 % [...] tablet 0 MULTI-VITAMIN) tablet by mouth daily. 06/10/2021 07/17/2021 aMILoride (MIDAMOR) 5 [...] Waiting for a liver transplant Move to [place]. documented as of this encounter Procedures Comments Procedure Name Priority Date/Time Associated Diag nosis HC HEMOGLOBIN (BG) 06/17/2021 12:39 PM AUTOMOTIVE FLEET SUPERVISOR HC METHEMOGLOBIN;QUANT 06/17/2021 12:39 PM AUTOMOTIVE FLEET SUPERVISOR HC BLOOD 06/17/2021 Encounter for other GASES;(CALCULATED 02) 12:39 PM AUTOMOTIVE FLEET SUPERVISOR preprocedural e xamination HC 06/17/2021 CARBOXYHEMOGLOBIN-CARBON 12:39 PM AUTOMOTIVE FLEET SUPERVISOR MONOX PFT COMPLETE PULM Routine 06/17/2021 Status post liver FUNCTION 12:34 PM AUTOMOTIVE FLEET SUPERVISOR transplantation (HC C) Primary sclerosing cholangitis Other cirrhosis of liver (HCC) documented in this encounter Results * METHEMOGLOBIN (06/17/2021 12:39 PM AUTOMOTIVE FLEET SUPERVISOR) Methemoglobn 1.2 <1.5 % [facility] Specimen Performing Organization Address City/[facility]/ZIP Code P suzy Number [facility] [address] [place] [address] * (ABNORMAL) HEMOGLOBIN & HEMATOCRIT, BG (06/17/2021 12:39 PM AUTOMOTIVE FLEET SUPERVISOR) Hemoglobin BG 11.8 (L) 13.5 - 16.5 GM/DL [facility] Hematocrit BG 36.5 (L) 40 - 50 % [facility] Specimen Performing Organization Address City/[facility]/ZIP Code P suzy Number [facility] [address] [place] [address] * CARBON MONOXIDE,BG (06/17/2021 12:39 PM AUTOMOTIVE FLEET SUPERVISOR) Carbon Monoxide 0.9 <2.0 % [facility] Specimen Performing Organization Address City/[facility]/ZIP Code P suzy Number [facility] [address] [place] [address] * (ABNORMAL) BLOOD GASES, ARTERIAL (06/17/2021 12:39 PM AUTOMOTIVE FLEET SUPERVISOR) pH-Arterial 7.40 7.35 - 7.45 [facility] pCO2-Arterial 31 (L) 35 - 45 MMHG [facility] pO2-Arterial 89 80 - 100 MMHG [facility] Base 4.5 MMOL/L [facility] Deficit-Arteria l O2 Sat-Arterial 97.2 95 - 99 % [facility] Bicarbonate-ART 20.7 (L) 21 - 28 MMOL/L [facility] -Mitch Specimen Performing Organization Address City/[facility]/ZIP Code P suzy Number [facility] [address] [place] [address] * PFT COMPLETE PULM FUNCTION (06/17/2021 12:34 PM AUTOMOTIVE FLEET SUPERVISOR) FVC-Pre 4.13 L [facility] FVC-%Pred-pre 96 % [facility] FEV1-Pre 3.38 L [facility] FEV1-%Pred-Pre 103 % [facility] FEV1/FVC-Pre 82 % [facility] [id number] 64 % [facility] [id number] 3.79 L/sec [facility] [id number]-%Pred-P 146 % [facility] re RVPleth-Pre [...] MAIN DLVA-#SD -1.380 ml/min/mmHg/L [facility] [id number] 75 % [facility] Specimen Narrative Performing Organization Address City/State/ZIP Code P suzy Number [facility] [address] [place], [place] [address] documented in this encounter Visit Diagnoses Diagnosis Status post liver transplantation (HCC) Liver replaced by transplant Primary sclerosing cholangitis Cholangitis Other cirrhosis of liver (HCC) Encounter for other preprocedural exami nation documented in this encounter Additional Health Concerns Noted Time Assessment 06/17/2021 2:40 PM AUTOMOTIVE FLEET SUPERVISOR A fall risk assessment has been complet ed for the patient 06/17/2021 2:40 PM AUTOMOTIVE FLEET SUPERVISOR PHQ-2 Depression Total Score: 0 documented as of this encounter Care Teams Start Date End Date Shampooer Relationship Specialty 08/12/19 Angelic Resendez MD PCP - [address] [address] 06/03/10 Zakiya Ledezma RN 06/03/10 Liberty Justice MD [address] [place] [address] 06/03/10 Moy Serrano MD 4000 [facility] [id number] [place] [address] 08/25/10 Stephania Liu RN Emergency Medicine 09/03/10 Leobardo Giordano MD Infectious [address] [facility] [address] [address] 03/29/11 Kati Thomas MD Internal [address] [place] [address] 05/01/11 Edilson Villalba MD Internal 4000 [facility] [place] [address] 05/05/11 Alex Balbuena MD Infectious [address] Disease Ortho/Med Pavilion Lvl [address] [place] [address] 05/20/11 Kleber Can MD Internal Fellow provider only Medicine 06/18/11 Harish Irvin MD Transplant 4000 [facility] Main [address]st [place] [address] 10/02/11 Luis Eduardo Art MD Gastroentero [address] logy Ortho/Med Pavilion Lvl [address] [place] [address] 06/15/12 Alton Sewell MD Dermatology Forwarding Address Unknown 06/15/12 Ariane Camopverde MD Dermatology [address] [place] [address] 09/14/12 Dayan Daniels MD Dermatology [address] Ortho/Med Pavilion Lvl [address] [place] [address] 12/21/12 Jamel Hutchins MD Dermatology Retired Left [place] [id number] 12/21/12 Leigh Resendez MD Dermatology 35 [facility] [address] [place] [address] 01/03/15 Carmen Reeves, MOBILE UI/UX DESIGNER Transplant [address] Hepatology [place] [address] [place] [address] 05/07/15 Margaux Ng RN 06/06/15 Maureen Robertson LPN Maternal and Medicine 07/04/15 Lupe Hamilton Maternal and Medicine 09/05/15 Berta Baldwin 12/11/15 Michelle Orellana 01/01/16 Lashon Carey MA Maternal and Medicine 01/03/16 Carmen Lassiter, Gastroentero MOBILE UI/UX DESIGNER-FUNERAL SALES MANAGER [facility] Pavilion Lvl [address] [place] [address] 01/03/16 Linsey Watson 01/17/16 Audrey Howard, ELIAS documented as of this encounter
--- OUTSIDE RECORDS SUMMARY | 2021-08-16 09:18 | XMS REPORT | Encounter Summary ---
Author Author [facility] Organization [facility] Address Unknown Phone Unavailable Care Team Providers Care Roadmaster Name Role Phone Zakiya Ledezma RN Unavailable [...] Lashon Carey MA Unavailable Unavailable Carmen Lassiter BLOCK SPLITTER OPERATOR-OFFICE SYSTEMS TECHNOLOGY INSTRUCTOR Unavailable [phone] Linsey Watson Unavailable Unavailable Audrey Howard RN Unavailable Unavailable Angelic Resendez MD PCP Encounter Details Care Team Description Date Type Department 06/17/2021 Travel Social History Date Tobacco Use Types Packs/Day Years Used Quit: 02/01/1976 Former Smoker Cigarettes 3 Smokeless Tobacco: Never Used Comments: Quit 08/1976 Comments Alcohol Use Standard Drinks/Week No 0 (1 standard drink = 0.6 o z pure alcohol) Sex Assigned at Date Recorded Male 04/17/2020 2:33 PM CDT Date Recorded COVID-19 Exposure Response 06/17/2021 8:33 AM OPHTHALMOLOGY ASSISTANT In the last month, have you been [...] Waiting for a liver transplant Move to [place]. documented as of this encounter Visit Diagnoses Not on filedocumented in this encounter Additional Health Concerns Noted Time Assessment 06/17/2021 2:40 PM OPHTHALMOLOGY ASSISTANT A fall risk assessment has been complet ed for the patient 06/17/2021 2:40 PM OPHTHALMOLOGY ASSISTANT PHQ-2 Depression Total Score: 0 documented as of this encounter Care Teams Start Date End Date Roadmaster Relationship Specialty 08/12/19 Angelic Resendez MD PCP - [address] [place] [address] 06/03/10 Zakiya Ledezma, RN 06/03/10 Liberty Justice MD [address] [place] [address] 06/03/10 Moy Serrano MD 4000 [facility] [address] [place] [address] 08/25/10 Stephania Liu, ELIAS Emergency Medicine 09/03/10 Leobardo Giordano MD Infectious [address] Disease Ortho/Med Pavilion Lvl [address] [place] [address] 03/29/11 Kati Thomas MD Internal [address] [place] [address] 05/01/11 Edislon Villalba MD Internal [address] [place] [address] 05/05/11 Alex Balbuena MD Infectious [address] Disease Ortho/Med Pavilion Lvl [address] [place] [address] 05/20/11 Kleber Can MD Internal Fellow provider only Medicine 06/18/11 Harish Irvin MD Transplant 4000 [facility] 1st [place] [address] 10/02/11 Luis Eduardo Art MD Gastroentero [address] logy Ortho/Med Pavilion Lvl [address] [place] [address] 06/15/12 Alton Sewell MD Dermatology Forwarding Address Unknown 06/15/12 Ariane Campoverde MD Dermatology [address] [place] [address] 09/14/12 Dayan Daniels MD Dermatology [address] Ortho/Med Pavilion Lvl [address] [place] [address] 12/21/12 Jamel Hutchins MD Dermatology Retired Left [place] [id number] 12/21/12 Leigh Resendez MD Dermatology [address] [place] [address] 01/03/15 Carmen Reeves, BLOCK SPLITTER OPERATOR Transplant [address] Hepatology [place] [address] [place] [address] 05/07/15 Margaux Ng, RN 06/06/15 Maureen Robertson LPN Maternal and Medicine 07/04/15 Lupe Hamilton Maternal and Medicine 09/05/15 Berta Baldwin 12/11/15 Michelle Orellana 01/01/16 Lashon Carey MA Maternal and Medicine 01/03/16 Carmen Lassiter, Gastroentero BLOCK SPLITTER OPERATOR-OFFICE SYSTEMS TECHNOLOGY INSTRUCTOR logy [address] Ortho/Med Pavilion Lvl [address] [place] [address] 01/03/16 Linsey Watson 01/17/16 Audrey Howard, ELIAS documented as of this encounter
--- OUTSIDE RECORDS SUMMARY | 2021-08-16 09:18 | XMS REPORT | Encounter Summary ---
Author Author [facility] Organization [facility] Address Unknown Phone Unavailable Care Team Providers Care Wrapper And Preserver Name Role Phone Zakiya Ledezma RN Unavailable [...] Lashon Carey MA Unavailable Unavailable Carmen Lassiter PROJECT LEAD[employer]POULTRY PINNER Unavailable [phone] Linsey Watson Unavailable Unavailable Audrey Howard RN Unavailable Unavailable Angelic Resendez MD PCP Encounter Details Care Team Description Date Type Department Moy Serrano MD [address] [facility] [address] [place], [place] [id number] 06/17/2021 Hospital Laboratory: Main Ca mpus, Encounter [facility] [address] [facility] [address], [address] [place] [address] Social History Date Tobacco Use Types Packs/Day Years Used Quit: 02/01/1976 Former Smoker Cigarettes 3 Smokeless Tobacco: Never Used Comments: Quit 08/1976 Comments Alcohol Use Standard Drinks/Week No 0 (1 standard drink = 0.6 o z pure alcohol) Sex Assigned at Date Recorded Male 04/17/2020 2:33 PM CDT Date Recorded COVID-19 Exposure Response 06/17/2021 8:33 AM TOILET ATTENDANT In the last month, have you been [...] capsules by Liver transplant status mouth twice ([facility]) daily for 180 days. triamcinolone acetonide Apply [...] documented in this encounter Plan of Treatment Date/Time Name Type Priority Associated Diag noses 06/17/2021 9:17 AM TOILET ATTENDANT TRYPANOSOMA CRUZI Lab Add on Immunodefici ency, ANTIBODY, IGM, SERUM unspecified (HCC) documented as of this encounter Goals Goal Patient Associated Recent Progress Patient-Stat Aut hor Goal Type Problems ed? GOAL General No Maria M Erwin, RN Note: get my liver transplant Resume normal activities Hospital No Deandra Bean, ELIAS Note: Waiting for a liver transplant Move to [place]. documented as of this encounter Procedures Comments Procedure Name Priority Date/Time Associated Diag nosis HC BLOOD TYPING, ABO Routine 06/17/[address] liver CONFIRM 91 9:33 AM TOILET ATTENDANT transplantation (HC C) Primary sclerosing cholangitis Other cirrhosis of liver (HCC) HC T-SPOT TB TEST Routine 06/17/2021 Status post liver 9:18 AM TOILET ATTENDANT transplantation (HCC) Primary sclerosing cholangitis Other cirrhosis of liver (HCC) URINALYSIS, MICROSCOPIC Routine 06/17/2021 Status post liver 9:18 AM TOILET ATTENDANT transplantation (HCC) Primary sclerosing cholangitis Other cirrhosis of liver (HCC) HC URINALYSIS, AUTO W Routine 06/17/2021 Status p ost liver MICRO 9:18 AM TOILET ATTENDANT transplantation (HC C) Primary sclerosing cholangitis Other cirrhosis of liver (HCC) HC PHENCYCLIDINES; QUAL Routine 06/17/[address] for observation 9:18 AM TOILET ATTENDANT for other suspected diseases and conditions ruled out Status post liver transplantation (HCC) Primary sclerosing cholangitis Other cirrhosis of liver (HCC) HC OPIATES; QUAL Routine 06/17/2021 Encounter for observation 9:18 AM TOILET ATTENDANT for other suspected diseases and conditions ruled out Status post liver transplantation (HCC) Primary sclerosing cholangitis Other cirrhosis of liver (HCC) HC COCAINE; QUAL Routine 06/17/2021 Encounter for observation 9:18 AM TOILET ATTENDANT for other suspected diseases and conditions ruled out Status post liver transplantation (HCC) Primary sclerosing cholangitis Other cirrhosis of liver (HCC) HC CANNABINOIDS; QUAL Routine 06/17/2021 Encounte r for observation 9:18 AM TOILET ATTENDANT for other suspected diseases and conditions ruled out Status post liver transplantation (HCC) Primary sclerosing cholangitis Other cirrhosis of liver (HCC) HC BENZODIAZEPINES, QUAL Routine 06/17/2021 Encou nter for observation 9:18 AM TOILET ATTENDANT for other suspected diseases and conditions ruled out Status post liver transplantation (HCC) Primary sclerosing cholangitis Other cirrhosis of liver (HCC) HC BARBITURATES Routine 06/17/2021 Encounter for observation 9:18 AM TOILET ATTENDANT for other suspected diseases and conditions ruled out Status post liver transplantation (HCC) Primary sclerosing cholangitis Other cirrhosis of liver (HCC) HC AMPHETAMINES QUAL, Routine 06/17/2021 Encounte r for observation URINE 9:18 AM TOILET ATTENDANT for other suspected diseases and conditions ruled out Status post liver transplantation (HCC) Primary sclerosing cholangitis Other cirrhosis of liver (HCC) TRYPANOSOMA CRUZI Add on 06/17/2021 Immunodefici ency, ANTIBODY, IGG, SERUM 9:17 AM TOILET ATTENDANT unspecified (HCC ) HC PHOSPHATIDYLETHANOL Routine 06/17/2021 Encount er for observation 9:17 AM TOILET ATTENDANT for other suspected diseases and conditions ruled out Status post liver transplantation (HCC) Primary sclerosing cholangitis Other cirrhosis of liver (HCC) HC TACROLIMUS LC-MS/MS Routine 06/17/2021 Liver t ransplant status 9:17 AM TOILET ATTENDANT (HCC) HC TRANSFERIN Routine 06/17/2021 Status post delia er 9:17 AM TOILET ATTENDANT transplantation (HCC) Primary sclerosing cholangitis Other cirrhosis of liver (HCC) HC HIV 1/2 CORA AG SCREEN Routine 06/17/2021 Encou nter for screening 9:17 AM TOILET ATTENDANT for human immunodeficiency virus (HIV) Status post liver transplantation (HCC) Primary sclerosing cholangitis Other cirrhosis of liver (HCC) HC SYPHILIS AB SCREEN Routine 06/17/2021 Status p ost liver (SYPT) 9:17 AM TOILET ATTENDANT transplantation (HC C) Primary sclerosing cholangitis Other cirrhosis of liver (HCC) HC TSH SCREEN Routine 06/17/2021 Chronic fatigue , 9:17 AM TOILET ATTENDANT unspecified Status post liver transplantation (HCC) Primary sclerosing cholangitis Other cirrhosis of liver (HCC) ABO/RH(D) Routine 06/17/2021 Status post delia er 9:17 AM TOILET ATTENDANT transplantation (HCC) Primary sclerosing cholangitis Other cirrhosis of liver (HCC) HC ZINC(ZN) Routine 06/17/2021 Status post delia er 9:17 AM TOILET ATTENDANT transplantation (HCC) Primary sclerosing cholangitis Other cirrhosis of liver (HCC) HC VITAMIN A Routine 06/17/2021 Status post delia er 9:17 AM TOILET ATTENDANT transplantation (HCC) Primary sclerosing cholangitis Other cirrhosis of liver (HCC) HC T4 TOTAL(THYROXINE) Routine 06/17/2021 Chronic fatigue, 9:17 AM TOILET ATTENDANT unspecified Status post liver transplantation (HCC) Primary sclerosing cholangitis Other cirrhosis of liver (HCC) HC RUBELLA IGG TITER Routine 06/17/[address] liver 9:17 AM TOILET ATTENDANT transplantation (HCC) Primary sclerosing cholangitis Other cirrhosis of liver (HCC) HC RHEUMATOID Routine 06/17/2021 Status post delia er FACTOR:QUANT 9:17 AM TOILET ATTENDANT transplantation (HC C) Primary sclerosing cholangitis Other cirrhosis of liver (HCC) HC NICOTINE Routine 06/17/2021 Encounter for o bservation 9:17 AM TOILET ATTENDANT for other suspected diseases and conditions ruled out Status post liver transplantation (HCC) Primary sclerosing cholangitis Other cirrhosis of liver (HCC) HC HSV I AB IGG Routine 06/17/2021 Status post li angela IMMUNOBLOT(HSVG) 9:17 AM TOILET ATTENDANT transplantation (HC C) Primary sclerosing cholangitis Other cirrhosis of liver (HCC) HC HEPATITIS C CORA Routine 06/17/2021 Status post liver 9:17 AM TOILET ATTENDANT transplantation (HCC) Primary sclerosing cholangitis Other cirrhosis of liver (HCC) HC HEPATITIS B CORE Routine 06/17/2021 Status pos t liver ANTIBODY 9:17 AM TOILET ATTENDANT transplantation (HC C) Primary sclerosing cholangitis Other cirrhosis of liver (HCC) HC HEPATITIS A IGM Routine 06/17/2021 Status post liver 9:17 AM TOILET ATTENDANT transplantation (HCC) Primary sclerosing cholangitis Other cirrhosis of liver (HCC) HC HEPATITIS A CORA IGG Routine 06/17/2021 Status post liver AND IGM 9:17 AM TOILET ATTENDANT transplantation (HC C) Primary sclerosing cholangitis Other cirrhosis of liver (HCC) HC HEPATITIS B-S ANTIGEN Routine 06/17/2021 Statu s post liver 9:17 AM TOILET ATTENDANT transplantation (HCC) Primary sclerosing cholangitis Other cirrhosis of liver (HCC) HC HEPATITIS B-S ANTIBODY Routine 06/17/2021 Stat us post liver 9:17 AM TOILET ATTENDANT transplantation (HCC) Primary sclerosing cholangitis Other cirrhosis of liver (HCC) HC GGTP Routine 06/17/2021 Status post delia er 9:17 AM TOILET ATTENDANT transplantation (HCC) Primary sclerosing cholangitis Other cirrhosis of liver (HCC) HC RON THORNTON CAPSID AG Routine 06/17/2021 Stat us post liver IGG 9:17 AM TOILET ATTENDANT transplantation (HC C) Primary sclerosing cholangitis Other cirrhosis of liver (HCC) HC CMV TITER IGM Routine 06/17/2021 Status post l iver 9:17 AM TOILET ATTENDANT transplantation (HCC) Primary sclerosing cholangitis Other cirrhosis of liver (HCC) HC CMV IGG Routine 06/17/2021 Status post delia er 9:17 AM TOILET ATTENDANT transplantation (HCC) Primary sclerosing cholangitis Other cirrhosis of liver (HCC) HC ALPHA FETO PROTEIN, Routine 06/17/2021 Status post liver SERUM 9:17 AM TOILET ATTENDANT transplantation (HC C) Primary sclerosing cholangitis Other cirrhosis of liver (HCC) HC 25-OH VITAMIN D Routine 06/17/2021 Status post liver 9:17 AM TOILET ATTENDANT transplantation (HCC) Primary sclerosing cholangitis Other cirrhosis of liver (HCC) HC PTT(APTT) Routine 06/17/2021 Status post delia er 9:17 AM TOILET ATTENDANT transplantation (HCC) Primary sclerosing cholangitis Other cirrhosis of liver (HCC) HC PT(INR) Routine 06/17/2021 Status post delia er 9:17 AM TOILET ATTENDANT transplantation (HCC) Primary sclerosing cholangitis Other cirrhosis of liver (HCC) HC CBC W/ AUTOMATED DIFF Routine 06/17/2021 Statu s post liver 9:17 AM TOILET ATTENDANT transplantation (HCC) Primary sclerosing cholangitis Other cirrhosis of liver (HCC) HC VARICELLA ZOSTER Routine 06/17/2021 Status pos t liver IGG(VZG, IGG 9:17 AM TOILET ATTENDANT transplantation (HC C) Primary sclerosing cholangitis Other cirrhosis of liver (HCC) TRANSFERRIN Routine 06/17/2021 Status post delia er 9:17 AM TOILET ATTENDANT transplantation (HCC) Primary sclerosing cholangitis Other cirrhosis of liver (HCC) HC VITAMIN E(ALPHA Routine 06/17/2021 Status post liver TOCOPHEROL) 9:17 AM TOILET ATTENDANT transplantation (HC C) Primary sclerosing cholangitis Other cirrhosis of liver (HCC) HC PROSTATIC SPECIF Routine 06/17/2021 Elevated P SA AG(PSA);TOT 9:17 AM TOILET ATTENDANT HC MAGNESIUM Routine 06/17/2021 Status post delia er 9:17 AM TOILET ATTENDANT transplantation (HCC) Primary sclerosing cholangitis Other cirrhosis of liver (HCC) HC LD(LDH;LACTIC Routine 06/17/2021 Status post l iver DEHYDROGENASE) 9:17 AM TOILET ATTENDANT transplantation (HC C) Primary sclerosing cholangitis Other cirrhosis of liver (HCC) HC HEMOGLOBIN A1C Routine 06/17/2021 Abnormal fin ding of blood 9:17 AM TOILET ATTENDANT chemistry, unspecified Status post liver transplantation (HCC) Primary sclerosing cholangitis Other cirrhosis of liver (HCC) HC AMYLASE Routine 06/17/2021 Status post delia er 9:17 AM TOILET ATTENDANT transplantation (HCC) Primary sclerosing cholangitis Other cirrhosis of liver (HCC) HC Routine 06/17/2021 Status post delia er LIPID-5:CHOL/TRG/HDL/LDL+ 9:17 AM TOILET ATTENDANT transplanta tion (HCC) VLDL Primary sclerosing cholangitis Other cirrhosis of liver (HCC) HC COMPREHENSIVE Routine 06/17/2021 Status post l iver METABOLIC PANEL 9:17 AM TOILET ATTENDANT transplantation (HC C) Primary sclerosing cholangitis Other cirrhosis of liver (HCC) documented in this encounter Results * BLOOD TYPE CONFIRMATION - ORDER ONLY IF REQUESTED BY LAB (06/17/2021 9:33 AM TOILET ATTENDANT) ABO/RH(D) O POS [facility] Specimen Performing Organization Address [facility] P suzy Number MAIN LAB [address] [place] [address] * PHENCYCLIDINES-URINE RANDOM (06/17/2021 9:18 AM TOILET ATTENDANT) Phencyclidine NEG NEG-NEG MAIN LAB (PCP) Comment: RESULTS WERE OBTAINED BY IMMUNOASSAY AND ARE PRESUMPTIVE ONLY. POSITIVE INDICATES THE PRESENCE OF SUBSTANCE WITH CHARACTERISTICS SIMILAR TO DRUG-DRUG CLASS OR METABOLITE IN CONC. EQUAL TO OR EXCEEDING VALUES LISTED. PHENCYCLIDINE (PCP) 25 NG/ML Specimen Urine specimen (specimen) - Urine Performing Organization Address [facility] P suzy Number MAIN LAB [address] [place] [address] * OPIATES-URINE RANDOM (06/17/2021 9:18 AM TOILET ATTENDANT) Opiates-Urine NEG NEG-NEG MAIN LAB Comment: RESULTS WERE OBTAINED BY IMMUNOASSAY AND ARE PRESUMPTIVE ONLY. POSITIVE INDICATES THE PRESENCE OF SUBSTANCE WITH CHARACTERISTICS SIMILAR TO DRUG-DRUG CLASS OR METABOLITE IN CONC. EQUAL TO OR EXCEEDING VALUES LISTED. OPIATES 2000 NG/ML Specimen Urine specimen (specimen) - Urine Performing Organization Address City/[facility] P suzy Number MAIN LAB [address] [place] [address] * COCAINE-URINE RANDOM (06/17/2021 9:18 AM TOILET ATTENDANT) Cocaine-Urine NEG NEG-NEG MAIN LAB Comment: RESULTS WERE OBTAINED BY IMMUNOASSAY AND ARE PRESUMPTIVE ONLY. POSITIVE INDICATES THE PRESENCE OF SUBSTANCE WITH CHARACTERISTICS SIMILAR TO DRUG-DRUG CLASS OR METABOLITE IN CONC. EQUAL TO OR EXCEEDING VALUES LISTED. COCAINE 300 NG/ML Specimen Urine specimen (specimen) - Urine Performing Organization Address [facility] P suzy Number MAIN LAB [address] [place] [address] * CANNABINOIDS-URINE RANDOM (06/17/2021 9:18 AM TOILET ATTENDANT) THC NEG NEG-NEG MAIN LAB Comment: RESULTS WERE OBTAINED BY IMMUNOASSAY AND ARE PRESUMPTIVE ONLY. POSITIVE INDICATES THE PRESENCE OF SUBSTANCE WITH CHARACTERISTICS SIMILAR TO DRUG-DRUG CLASS OR METABOLITE IN CONC. EQUAL TO OR EXCEEDING VALUES LISTED. CANNABINOIDS 50 NG/ML Specimen Urine specimen (specimen) - Urine Performing Organization Address [facility] P suzy Number MAIN LAB [address] [place] [address] * BENZODIAZEPINES-URINE RANDOM (06/17/2021 9:18 AM TOILET ATTENDANT) Benzodiazepines NEG NEG-NEG MAIN LAB Comment: RESULTS WERE OBTAINED BY IMMUNOASSAY AND ARE PRESUMPTIVE ONLY. POSITIVE INDICATES THE PRESENCE OF SUBSTANCE WITH CHARACTERISTICS SIMILAR TO DRUG-DRUG CLASS OR METABOLITE IN CONC. EQUAL TO OR EXCEEDING VALUES LISTED. BENZODIAZEPINES 200 NG/ML Specimen Urine specimen (specimen) - Urine Performing Organization Address [facility] P suzy Number MAIN LAB [address] [place] [address] * BARBITURATES-URINE RANDOM (06/17/2021 9:18 AM TOILET ATTENDANT) Barbiturates,Ur NEG NEG-NEG MAIN LAB ine Comment: RESULTS WERE OBTAINED BY IMMUNOASSAY AND ARE PRESUMPTIVE ONLY. POSITIVE INDICATES THE PRESENCE OF SUBSTANCE WITH CHARACTERISTICS SIMILAR TO DRUG-DRUG CLASS OR METABOLITE IN CONC. EQUAL TO OR EXCEEDING VALUES LISTED. BARBITURATES 200 NG/ML Specimen Urine specimen (specimen) - Urine Performing Organization Address [facility] P suzy Number MAIN LAB [address] [place] [address] * AMPHETAMINES-URINE RANDOM (06/17/2021 9:18 AM TOILET ATTENDANT) Amphetamines NEG NEG-NEG [facility] Comment: RESULTS WERE OBTAINED BY IMMUNOASSAY AND ARE PRESUMPTIVE ONLY. POSITIVE INDICATES THE PRESENCE OF SUBSTANCE WITH CHARACTERISTICS SIMILAR TO DRUG-DRUG CLASS OR METABOLITE IN CONC. EQUAL TO OR EXCEEDING VALUES LISTED. AMPHETAMINES 1000 NG/ML Specimen Urine specimen (specimen) - Urine Performing Organization Address [facility] P suzy Number [facility] MAIN LAB [address] [place] [address] * URINALYSIS, MICROSCOPIC (06/17/2021 9:18 AM TOILET ATTENDANT) WBCs,UA 2-10 0 - 2 /HPF [facility] MA[facility] RBCs,UA 0-2 0 - 3 /HPF [facility] MucousUA 2+ [facility] Squamous 0-2 0 - 5 [facility] Epithelial Cells Calcium Oxalate FEW [facility] Crystals Hyaline Cast 2-5 [facility] Specimen Urine specimen (specimen) - Urine Performing Organization Address [facility] P suzy Number [facility] MAIN LAB [address] [place] [address] * (ABNORMAL) URINALYSIS DIPSTICK (06/17/2021 9:18 AM TOILET ATTENDANT) Color,UA LIBERTY [facility] Turbidity,UA CLEAR CLEAR-CLEAR [facility] Specific 1.024Comment: NOTE NEW 1.005 - 1.030 [facility] MAIN LAB [place]-Urine REFERENCE RANGES pH,UA 5.0 5.0 - 8.0 [...] specimen (specimen) - Urine Performing Organization Address [facility] P suzy Number [facility] MAIN LAB [address] [place] [address] * T SPOT TB (QUANTIFERON TB) (06/17/2021 9:18 AM TOILET ATTENDANT) Pathologist [facility] T Spot TB Negative REFERENCE LAB Reference [...] medical status, and results of other diagnostic evaluations.[id number] T-SPOT.TB test is qualitative and results are [...] REFERENCE LAB See results for address. * TRYPANOSOMA CRUZI ANTIBODY, IGG, SERUM (06/17/2021 9:17 AM TOILET ATTENDANT) Pathologist [facility] Trypanosoma 0.3 REFERENCE LAB cruzi Antibody, Comment: [...] is sufficiently sensitive and specific. Performed By: [facility] [address] [place] [address] Show Design Supervisor: Lorena Hill MD Specimen Performing Organization Address City/State/ZIP Code P suzy Number REFERENCE LAB REFERENCE LAB See results for address. * PROSTATIC SPECIFIC ANTIGEN-PSA (06/17/2021 9:17 AM TOILET ATTENDANT) Prostatic 3.41 <4.01 NG/ML [facility] MAIN [facility] Specific Comment: Antigen REFERENCE RANGES AGE PSA VALUE <50 <=1.5 50-54 <=2.0 55-59 <=3.0 60-69 <=4.0 70+ <=6.0 Specimen Blood Performing Organization Address [facility] Code P suzy Number [facility] MAIN LAB [address] [place] [address] * (ABNORMAL) TACROLIMUS LC-MS/MS (06/17/2021 9:17 AM TOILET ATTENDANT) Tacrolimus 4.8 (L) REFERENCE LAB LC-MS/MS Comment: Reference range: 5.0 to 20.0 Unit: ng/mL . The range listed under the reference range indicates the target therapeutic range for transplant patients. This range will vary some based on the type of transplant, time post transplant, and the specific drug regimen the patient is on. Results should be used in conjunction with clinical findings, and should not form the sole basis for a diagnosis or treatment decision. Results above 25 ng/mL are considered toxic. The drug level was determined by Liquid Chromatography- Tandem Mass Spectrometry (LC-MS/MS). . This test was developed and its performance characteristics determined by [email or web address]. It has not been cleared or approved by the U.S. Food and Drug Administration. Testing Performed At: [employer] [facility] [address] [place] [address] Show Design Supervisor: Martinez Cosme Ph.D., BCLD (ABB) CLIA#: [id number] Phone: Specimen Blood Performing Organization Address City/[facility]/ZIP Code P suzy Number REFERENCE LAB REFERENCE LAB See results for address. * (ABNORMAL) ZINC (06/17/2021 9:17 AM TOILET ATTENDANT) Zinc 0.41 (L) REFERENCE LAB Comment: Reference range: 0.66 to 1.10 Unit: mcg/mL ADDITIONAL INFORMATION This test was developed and its performance characteristics determined by [facility] in a manner consistent with CLIA requirements. This test has not been cleared or approved by the U.S. Food and Drug Administration. [facility], [address] [place] [address] Specimen Blood Performing Organization Address [facility] P suzy Number REFERENCE LAB REFERENCE LAB See results for address. * VITAMIN E (06/17/2021 9:17 AM TOILET ATTENDANT) [facility] Vitamin E 6.9 REFERENCE LAB Comment: Reference range: 5.5 to 17.0 Unit: mg/L ADDITIONAL INFORMATION This test was developed and its performance characteristics determined by [facility] in a manner consistent with CLIA requirements. This test has not been cleared or approved by the U.S. Food and Drug Administration. [facility], [address] [place] [address] Specimen Blood Performing Organization Address [facility] P suzy Number REFERENCE LAB REFERENCE LAB See results for address. * (ABNORMAL) VITAMIN A (06/17/2021 9:17 AM TOILET ATTENDANT) [facility] Vitamin A 21.8 (L) REFERENCE LAB Comment: Reference range: 32.5 to 78.0 Unit: mcg/dL ADDITIONAL INFORMATION This test was developed and its performance characteristics determined by [facility] in a manner consistent with CLIA requirements. This test has not been cleared or approved by the U.S. Food and Drug Administration. [facility], [address], [place] [address] Specimen Blood Performing Organization Address City/[facility] Code P suzy Number REFERENCE LAB REFERENCE LAB See results for address. * VARICELLA ZOSTER AB IGG (06/17/2021 9:17 AM TOILET ATTENDANT) Varcella Zoster POS [facility] MAIN [facility] IgG Specimen Blood Performing Organization Address [facility] Code P suzy Number [facility] MAIN LAB [address] [place] [address] * TSH WITH FREE T4 REFLEX (06/17/2021 9:17 AM TOILET ATTENDANT) TSH 3.03 0.35 - 5.00 MCU/ML [facility] MAIN [facility] Specimen Blood Performing Organization Address City/[facility] Code P suzy Number [facility] MAIN LAB [address] [place] [address] * TRANSFERRIN (06/17/2021 9:17 AM TOILET ATTENDANT) Transferrin 224 185 - 336 MG/DL [facility]IN [facility] Specimen Blood Performing Organization Address [facility] P suzy Number [facility] MAIN [facility] [address] [place] [address] * TOTAL THYROXINE T4 (06/17/2021 9:17 AM TOILET ATTENDANT) T4 (Total) 9.9 6.1 - 12.3 MCG/DL [facility]IN [facility] Specimen Blood Performing Organization Address [facility] P suzy Number [facility] [address] [place] [address] * SYPHILIS AB SCREEN (06/17/2021 9:17 AM TOILET ATTENDANT) Syphilis AB, NEG NEG-NEG [facility]IN [facility] Total Specimen Blood Performing Organization Address [facility] Code P suzy Number [facility] MAIN LAB [address] [place] [phone] * RUBELLA AB IGG (06/17/2021 9:17 AM TOILET ATTENDANT) Rubella IgG IMMUNE [facility] Specimen Blood Performing Organization Address [facility] Code P suzy Number [facility]IN [facility] [address] [place] [phone] * RHEUMATOID FACTOR (RF) (06/17/2021 9:17 AM TOILET ATTENDANT) Rheum Factor <10 <25 IU/mL [facility] MAIN [facility] Screen Specimen Blood Performing Organization Address [facility] Code P suzy Number [facility]IN [facility] [address] [place] [address] * PTT (APTT) (06/17/2021 9:17 AM TOILET ATTENDANT) APTT 35.6 24.0 - 36.5 SEC MAIN LAB Specimen Blood Performing Organization Address [facility] Code P suzy Number [facility] [address] [place] [address] * (ABNORMAL) PROTIME INR (PT) (06/17/2021 9:17 AM TOILET ATTENDANT) INR 1.4 (H) 0.8 - 1.2 [facility] Specimen Blood Performing Organization Address [facility] P suzy Number [facility] MAIN LAB [address] [place] [address] * MAGNESIUM (06/17/2021 9:17 AM TOILET ATTENDANT) Magnesium 1.8 1.6 - 2.6 mg/dL [facility] MAIN LAB Specimen Blood Performing Organization Address [facility] P suzy Number KU MAIN LAB [address] [place] [address] * LIPID PROFILE (06/17/2021 9:17 AM TOILET ATTENDANT) Cholesterol 94 <200 MG/DL [facility] Triglycerides 66 <150 MG/DL [facility] HDL 44 >40 MG/DL [facility] LDL 41 <100 mg/dL [facility] VLDL 13 MG/DL [facility]IN [facility] Non HDL 50 MG/DL [facility] Cholesterol Comment: Calculated non-HDL Cholesterol (non-HDL-C) indirectly measures LDL-C, Lp(a), IDL-C, and VLDL-C. It is a surrogate marker for Apoprotein B. Goal should be less than 130 mg/dL. Specimen Blood Performing Organization Address City/[facility] Code P suzy Number MAIN LAB [address] [place] [address] * LDH-LACTATE DEHYDROGENASE (06/17/2021 9:17 AM TOILET ATTENDANT) Lactate 192 100 - 210 U/L [facility] MAIN [facility] Dehydrogenase Specimen Blood Performing Organization Address [facility]/ZIP Code P suzy Number [facility] MAIN [facility] [address] [place] [address] * IRON + BINDING CAPACITY + %SAT+ FERRITIN (06/17/2021 9:17 AM TOILET ATTENDANT) Iron 135 50 - 185 MCG/DL [facility] Iron 322 270 - 380 MCG/DL [facility] Binding-TIBC % Saturation 42 28 - 42 % [facility] Ferritin 184 30 - 300 NG/ML [facility]IN [facility] Specimen Blood Performing Organization Address City/[facility]/ZIP Code P suzy Number [facility] MAIN LAB [address] [place] [address] * HERPES SIMPLEX IGG AB (HSV IGG) (06/17/2021 9:17 AM TOILET ATTENDANT) HSV Type 1 IgG NEG NEG-NEG [facility] MAIN [facility] HSV Type 2 IgG NEG NEG-NEG [facility] MAIN [facility] Specimen Blood Performing Organization Address City/[facility]/ZIP Code P suzy Number [facility] MAIN LAB [address] [place] [address] * HIV 1& 2 AG-AB SCRN W REFLEX HIV 1 PCR QUANT (06/17/2021 9:17 AM TOILET ATTENDANT) Pathologist [facility] HIV 1 and 2 AG NONREACTIVEComment: Negative NR-NONREACTIVE [facility] MAIN LAB AB Screen for HIV-1 Ag and HIV-1/2 specific antibodies. Specimen Blood Performing Organization Address City/[facility]/ZIP Code P suzy Number MAIN LAB [address] [place] [address] * HEPATITIS C ANTIBODY W REFLEX HCV PCR QUANT (06/17/2021 9:17 AM TOILET ATTENDANT) Pathologist [facility] Anti HCV NONREACTIVEComment: Antibodies NR-NONREACTIVE MAIN LAB to HCV were not detected. Specimen Blood Performing Organization Address City/[facility]/ZIP Code P suzy Number [facility] MAIN [facility] [address] [place] [address] * HEPATITIS B SURFACE AG (06/17/2021 9:17 AM TOILET ATTENDANT) Pathologist [facility] HBsAg NONREACTIVEComment: HBs NR-[facility]REACTIVE [facility] detected. Specimen Blood Performing Organization Address City/[facility]/ZIP Code P suzy Number [facility] MAIN [facility] [address] [place] [address] * (ABNORMAL) HEPATITIS B SURFACE AB (06/17/2021 9:17 AM TOILET ATTENDANT) Anti HBs POS (A) NEG-NEG MAIN LAB Comment: Anti-HBs concentration detected at >10 mIU/mL, indicating recovery from HBV infection or acquired immunity from HBV vaccination. Specimen Blood Performing Organization Address City/[facility] Code P suzy Number [facility] MAIN LAB [address] [place] [address] * HEPATITIS B CORE AB TOT (IGG+IGM) (06/17/2021 9:17 AM TOILET ATTENDANT) Anti HBc Total NONREACTIVEComment: Antibodies NR-NONREACTIVE [facility] to HBV core antigen (anti-HBc) were not detected. Specimen Blood Performing Organization Address [facility] Code P suzy Number [facility] MAIN [facility] [address] [place] [address] * HEPATITIS A IGM (06/17/2021 9:17 AM TOILET ATTENDANT) Hepatitis A IgM NONREACTIVE NR-NONREACTIVE [facility] MAIN [facility] Specimen Blood Performing Organization Address [facility] P suzy Number [facility] MAIN [facility] [address] [place] [address] * (ABNORMAL) HEPATITIS A TOTAL AB (IGG+IGM) (06/17/2021 9:17 AM TOILET ATTENDANT) Hepatitis A, REACTIVE (A) NR-NONREACTIVE [facility] Total Specimen Blood Performing Organization Address [facility] P suzy Number [facility] MAIN [facility] [address] [place] [address] * (ABNORMAL) GGTP (06/17/2021 9:17 AM TOILET ATTENDANT) GGTP 86 (H) 9 - 64 U/L [facility]IN [facility] Specimen Blood Performing Organization Address [facility] P suzy Number [facility] MAIN [facility] [address] [place] [address] * RON THORNTON PANEL(EBV) (06/17/2021 9:17 AM TOILET ATTENDANT) EBV Capsid IgG POS [facility] EBV Nuclear POS [facility] Ag,Ab EBV Early Ag,Ab NEG [facility] EBV Capsid IgM NEG NEG-NEG [facility] Specimen Blood Performing Organization Address [facility] Code P suzy Number [facility] MAIN [facility] [address] [place] [address] * (ABNORMAL) COMPREHENSIVE METABOLIC PANEL (06/17/2021 9:17 AM TOILET ATTENDANT) Sodium 140 137 - 147 MMOL/L [facility] Potassium 4.7 3.5 - 5.1 MMOL/L [facility] Chloride 107 98 - 110 MMOL/L [facility] Glucose 83 70 - 100 MG/DL [facility] Blood Urea 30 (H) 7 - 25 MG/DL [facility] Nitrogen Creatinine 1.80 (H) 0.4 - 1.24 MG/DL [facility] Calcium 9.5 8.5 - 10.6 MG/DL [facility] Total Protein 6.8 6.0 - 8.0 G/DL [facility] Total Bilirubin 2.7 (H) 0.3 - 1.2 MG/DL [facility] Albumin 3.3 (L) 3.5 - 5.0 G/DL [facility] Alk Phosphatase 140 (H) 25 - 110 U/L [facility] AST (SGOT) 100 (H) 7 - 40 U/L [facility] CO2 22 21 - 30 MMOL/L [facility] ALT (SGPT) 83 (H) 7 - 56 U/L [facility] Anion Gap 11 3 - 12 [facility] eGFR Non 38 (L) >60 mL/min [facility] Comment: Albanian The eGFR is not validated f or use in drug dosing adjustments. Continue to use estimated creatinine clearance per dosing reference text. Please contact the Clinical Pharmacist for questions. eGFR 46 (L) >60 mL/min [facility] Albanian Comment: The eGFR is not validated for use in drug dosing adjustments. Continue to use estimated creatinine clearance per dosing reference text. Please contact the Clinical Pharmacist for questions. Specimen Blood Performing Organization Address City/[facility]/ZIP Code P suzy Number [facility] MAIN [facility] [address] [place] [address] * CMV AB IGM (06/17/2021 9:17 AM TOILET ATTENDANT) CMV, IgM NEG NEG-NEG [facility] Specimen Blood Performing Organization Address City/[facility]/ZIP Code P suzy Number [facility] [address] [place] [address] * CMV AB IGG (06/17/2021 9:17 AM TOILET ATTENDANT) CMV, IgG POS [facility] Specimen Blood Performing Organization Address City/[facility]/ZIP Code P suzy Number [facility]IN [facility] [address] [place] [address] * (ABNORMAL) CBC AND DIFF (06/17/2021 9:17 AM TOILET ATTENDANT) White Blood 13.1 (H) 4.5 - 11.0 K/UL [facility] Cells RBC 4.02 (L) 4.4 - 5.5 M/UL [facility] Hemoglobin 12.4 (L) 13.5 - 16.5 GM/DL [facility] Hematocrit 37.9 (L) 40 - 50 % [facility] MCV 94.3 80 - 100 FL [facility] MCH 30.7 26 - 34 PG [facility] MCHC 32.6 32.0 - 36.0 G/DL [facility] RDW 17.0 (H) 11 - 15 % [facility] Platelet Count 285 150 - 400 K/UL [facility] MPV 8.6 7 - 11 FL [facility] Neutrophils 64 41 - 77 % [facility] Lymphocytes 18 (L) 24 - 44 % [facility] Monocytes 12 4 - 12 % [facility] Eosinophils 6 (H) 0 - 5 % [facility] Basophils 0 0 - 2 % [facility] Absolute 8.38 (H) 1.8 - 7.0 K/UL [facility] Neutrophil Count Absolute Lymph 2.30 1.0 - 4.8 K/UL [facility] Count Absolute 1.59 (H) 0 - 0.80 K/UL [facility] Monocyte Count Absolute 0.79 (H) 0 - 0.45 K/UL [facility] Eosinophil Count Absolute 0.05 0 - 0.20 K/UL [facility] Basophil Count Specimen Blood Performing Organization Address City/[facility]/ZIP Code P suzy Number [facility]IN [facility] [address] [place] [address] * AMYLASE (06/17/2021 9:17 AM TOILET ATTENDANT) Amylase 90 24 - 100 U/L [facility] Specimen Blood Performing Organization Address City/[facility]/ZIP Code P suzy Number [facility] [address] [place] [address] * ALPHA FETO PROTEIN (AFP) (06/17/2021 9:17 AM TOILET ATTENDANT) Alpha Feto 2.7 0.0 - 15.0 NG/ML [facility] Protein Specimen Blood Performing Organization Address City/[facility]/ZIP Code P suzy Number [facility]IN [facility] [address] [place] [address] * ABO/RH(D) (06/17/2021 9:17 AM TOILET ATTENDANT) Pathologist [facility] ABO/RH(D) O POS [facility] Specimen Performing Organization Address City/[facility]/ZIP Code P suzy Number MAIN LAB [address] [place] [address] * 25-OH VITAMIN D (D2 + D3) (06/17/2021 9:17 AM TOILET ATTENDANT) Pathologist [facility] Vitamin 56.0 30 - 80 NG/ML MAIN LAB D(25-OH)Total Specimen Blood Performing Organization Address City/[facility] P suzy Number MAIN LAB [address] [place] [address] * NICOTINE & COTININE LEVEL (06/17/2021 9:17 AM TOILET ATTENDANT) Pathologist [facility] Nicotine <3.0 REFERENCE LAB Reference range: <3.0 Unit: ng/mL [facility], [address] [place], [place] [id number] Cotinine <3.0 REFERENCE LAB Reference range: <3.0 Unit: ng/mL ADDITIONAL INFORMATION This test was developed and its performance characteristics determined by [facility] in a manner consistent with CLIA requirements. This test has not been cleared or approved by the U.S. Food and Drug Administration. [facility], [address] [place], [place] [id number] Specimen Blood Performing Organization Address [facility] P suzy Number REFERENCE LAB REFERENCE LAB See results for address. * (ABNORMAL) HEMOGLOBIN A1C (06/17/2021 9:17 AM TOILET ATTENDANT) Pathologist [facility] Hemoglobin A1C 6.5 (H) 4.0 - 6.0 % MAIN LAB Comment: The ADA recommends that most patients with type 1 and type 2 diabetes maintain an A1c level <7%. Specimen Blood Performing Organization Address City/[facility]/ZIP Code P suzy Number MAIN LAB [address] [place] [address] * PHOSPHATIDYLETHANOL (06/17/2021 9:17 AM TOILET ATTENDANT) Pathologist [facility] Phosphatidyleth NEGATIVE REFERENCE LAB anol Reference range: NEGATIVE Unit: ng/mL Analyzed compound: PEth 16:0/18:1. [id number]. Analysis performed by Liquid Chromatography with Tandem [...] developed and its performance characteristics determined by [employer]. It has not been cleared or approved by the Food and Drug Administration. Test Performed by: [employer]. [address] [place] [address] Specimen Performing Organization Address City/State/ZIP Code P suzy Number REFERENCE LAB REFERENCE LAB See results for address. documented in this encounter Visit Diagnoses Diagnosis Primary sclerosing cholangitis Cholangitis Encounter for observation for other jessica pected diseases and conditions ruled out Status post liver transplantation (HCC) Liver replaced by transplant Other cirrhosis of liver (HCC) Abnormal finding of blood chemistry, un specified Encounter for screening for human immun odeficiency virus (HIV) Special screening examination for other specified viral diseases Chronic fatigue, unspecified Liver transplant status (HCC) Elevated PSA Elevated prostate specific antigen (PSA ) Immunodeficiency, unspecified (HCC) documented in this encounter Additional Health Concerns Noted Time Assessment 06/17/2021 2:40 PM TOILET ATTENDANT A fall risk assessment has been complet ed for the patient 06/17/2021 2:40 PM TOILET ATTENDANT PHQ-2 Depression Total Score: 0 documented as of this encounter Care Teams Start Date End Date Wrapper And Preserver Relationship Specialty 08/12/19 Angelic Resendez MD PCP - [address] [place] [address] 06/03/10 Zakiya Ledezma RN 06/03/10 Liberty Justice MD [address] [place] [address] 06/03/10 Moy Serrano MD [address] [address] 08/25/10 Stephania Liu, ELIAS Emergency Medicine 09/03/10 Leobardo Giordano MD Infectious [address] Disease [facility] L[address] [place] [address] 03/29/11 Kati Thomas MD Internal [address] [place] [address] 05/01/11 Edilson Villalba MD Internal [address] [place] [address] 05/05/11 Alex Balbuena MD Infectious [address] Disease [facility] Lvl [address] [place] [address] 05/20/11 Kleber Can MD Internal Fellow provider only Medicine 06/18/11 Harish Irvin MD Transplant [address] [facility] Main [address] [place] [address] 10/02/11 Luis Eduardo Art MD [facility] [address] logy Ortho[facility] Lvl [address] [place] [address] 06/15/12 Alton Sewell MD Dermatology Forwarding Address Unknown 06/15/12 Ariane Campoverde MD Dermatology [address] [place] [address] 09/14/12 Dayan Daniels MD Dermatology [address] Orth[facility] Lvl [address] [place] [address] 12/21/12 Jamel Hutchins MD Dermatology [place] [id number] 12/21/12 Leigh Resendez MD Dermatology [address] [facility] [address] [place] [address] 01/03/15 Carmen Reeves, PROJECT LEAD Transplant [address] Hepatology [place] [address] [place] [address] 05/07/15 Margaux Ng, ELIAS 06/06/15 Maureen Robertson LPN Maternal and Medicine 07/04/15 Lupe Hamilton Maternal and Medicine 09/05/15 Berta Baldwin 12/11/15 Michelle Orellana 01/01/16 Lashon Carey MA Maternal and Medicine 01/03/16 Carmen Lassiter, [facility] PROJECT LEAD-POULTRY PINNER logy [address] Ortho[facility] Lvl [address] [place] [address] 01/03/16 Linsey Watson 01/17/16 Audrey Howard, ELIAS documented as of this encounter
--- OUTSIDE RECORDS SUMMARY | 2021-08-16 09:18 | XMS REPORT | Encounter Summary ---
Author Author [facility] Organization [facility] Address Unknown Phone Unavailable Care Team Providers Care Cryptography Teacher Name Role Phone Zakiya Ledezma RN Unavailable [...] Lashon Carey MA Unavailable Unavailable Carmen Lassiter AMPOULE FILLER-CLINICAL PHARMACY TECHNICIAN Unavailable [phone] Linsey Watson Unavailable Unavailable Audrey Howard RN Unavailable Unavailable Angelic Resendez MD PCP Reason for Visit * Reason Comments New Patient * Consult, Test & Treat (Routine) - New Request Diagnoses / Procedures Referred By Contact Referred To [facility] Specialty Diagnoses Status post liver transplantation (HCC) Primary sclerosing cholangitis Other cirrhosis of liver (HCC) Moy Serrano MD [address] [facility] [id number] [place] [address] [facility] [address] [facility], [address] [place] [address] Cardiology Referral ID Status Reason Start Date Expiration Visits Vi sits Date Requested Authorized [id number] New Request Specialty Services 05/17/2021 05/17/2022 1 1 Required Encounter Details Care Team Description Date Type Department Ravin Mcconnell MD [address] [facility] R[address]324 [place] [address] New Patient 06/19/2021 Office Visit Cardiology: [facility] [address] [facility] [place] [address] Social History Date Tobacco Use Types Packs/Day Years Used Quit: 02/01/1976 Former Smoker Cigarettes 3 Smokeless Tobacco: Never Used Comments: Quit 08/1976 Comments Alcohol Use Standard Drinks/Week No 0 (1 standard drink = 0.6 o z pure alcohol) Sex Assigned at Date Recorded Male 04/17/2020 2:33 PM CDT Date Recorded COVID-19 Exposure Response 06/20/2021 7:42 AM DIRECTOR PHARMACEUTICAL In the last month, have you been in contact with No / Unsure someone who was confirmed or suspected to have Coronavirus / COVID-19? documented as of this encounter Last Filed Vital Signs Reading Time Taken Comments Vital Sign 118/68 06/19/2021 9:20 AM DIRECTOR PHARMACEUTICAL Blood Pressure 61 06/19/2021 9:20 AM DIRECTOR PHARMACEUTICAL Pulse - - Temperature - - Respiratory Rate 96% 06/19/2021 9:20 AM DIRECTOR PHARMACEUTICAL Oxygen Saturation - - Inhaled Oxygen Concentration 73 kg (161 lb) 06/19/2021 9:20 AM DIRECTOR PHARMACEUTICAL Weight 175.3 cm (5' 9") 06/19/2021 9:20 AM DIRECTOR PHARMACEUTICAL Height 23.78 06/19/2021 9:20 AM DIRECTOR PHARMACEUTICAL Body Mass Index documented in this encounter Functional Status Date of Assessment [...] as of this encounter Progress Notes * Ravin Mcconnell MD - 06/19/2021 9:00 AM DIRECTOR PHARMACEUTICAL Date of Service: 06/19/2021 Ravindra Chun is a 65 y.o. male. HPI Mr. Chun comes for cardiac evaluation. He is being considered for redo live r transplant. We saw him 3 years ago. 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 He has a history of ulcerative colitis and primary sclerosing cholangitis. Elise de leon had a liver transplant about 10 years ago. He has not had cardiac problems. His cardiac imaging 3 years ago was low risk with no ischemia and normal heart f unction. He has not had any significant valvular problems, but did have some ao rtic sclerosis and mild aortic regurgitation. He has not had intracardiac shunt ing. His liver disease has progressed. His MELD score has gone up. He is now being considered for redo transplant. His most recent lab work showed creatinine 1.8, potassium 4.7. His liver enzymes have increased. His LDL cholesterol is 41. He denies angina. There has been no significant dyspnea, PND, orthopnea, palpit ations, presyncope, syncope, and peripheral edema. He has not had any COVID pro blems. ([id number]) Vitals: 06/19/21 0920 BP: 118/68 BP Source: Arm, Left Upper Patient Position: Sitting Pulse: 61 SpO2: 96% Weight: 73 kg (161 lb) Height: 1.753 m (5' 9") PainSc: Zero Body mass index is 23.78 kg/m. Past Medical History Patient Active Problem List Diagnosis Date Noted Encounter for pre-transplant evaluation for liver transplant 06/17/2021 Non-recurrent unilateral inguinal hernia without obstruction or gangrene 10/2020 Inflammatory bowel disease 03/03/2021 Unclear if crohns or UC; w/u ongoing Elevated PSA 01/03/2021 PSA SUMMARY 06/2018: 4.62 ng/mL 12/2020: 8.32 ng/mL (-) prior biopsy (-) family history (-) erectile dysfunction (+) mild obstructive urinary symptoms Osteoporosis 04/23/2020 Secondary esophageal varices without bleeding (HCC) 04/23/2020 Skin cancer screening 06/23/2018 Immunosuppressed status (HCC) 05/21/2018 Total bilirubin, elevated 05/28/2017 Added automatically from request for surgery [id number] History of liver transplant (HCC) 05/28/2017 Added automatically from request for surgery [id number] Vitamin D deficiency 06/25/2011 Status post liver transplantation (HCC) 06/19/2011 OLT 06/18/11 Primary sclerosing cholangitis 05/13/2010 Ulcerative colitis (HCC) 05/13/2010 Sclerosing cholangitis 08/03/1990 with liver failure Recurrent; Dr Medina; h/o liver failure s/p transplant; referred back to [facility] in [place] Review of Systems Cardiovascular: Positive for leg swelling. All other systems reviewed and are negative. Review of systems is documented in the database. (DOC:[id number]) Physical Exam On examination, he is in no distress. He is 5 feet 9, weight is 161. BMI 23.8. Blood pressure 118/68. Pulse is regular at 60 beats per minute. Rhythm is si nus. Saturation is 96%. There is no cyanosis. Venous pressure is normal. The re is trace lower extremity edema. Lungs are clear. There is no wheeze or rhon chi. PMI is not felt. Heart sounds are normal. I do not hear any gallops, mur murs, or rubs. There is no hepatomegaly. There is no ascites. Distal pulses a re 2+ bilaterally. Bowel sounds are normal. There are no carotid bruits. Ther e is no focal neurologic deficit. He is alert and oriented times 3. His mood, judgment, and affect are normal. ([id number]) Cardiovascular Studies EKG shows sinus rhythm with interventricular conduction delay and left axis gal ation. There has been no significant change. (DOC:[id number]) Cardiovascular Health Factors Vitals BP Readings from Last 3 Encounters: 06/19/21 118/68 06/19/21 126/72 06/18/21 112/67 Wt Readings from Last 3 Encounters: 06/19/21 73 kg (161 lb) 06/19/21 73 kg (161 lb) 06/18/21 72.6 kg (160 lb) BMI Readings from Last 3 Encounters: 06/19/21 23.78 kg/m 06/19/21 23.78 kg/m 06/18/21 23.63 kg/m Smoking Social History Tobacco Use Smoking Status Former Smoker Years: 3.00 Types: Cigarettes Quit date: 02/01/1976 Years since quittin.4 Smokeless Tobacco Never Used Tobacco Comment Quit 08/1976 Lipid Profile Cholesterol Date Value Ref Range Status 06/17/2021 94 <200 MG/DL Final HDL Date Value Ref Range Status 06/17/2021 44 >40 MG/DL Final LDL Date Value Ref Range Status 06/17/2021 41 <100 mg/dL Final Triglycerides Date Value Ref Range Status 06/17/2021 66 <150 MG/DL Final Blood Sugar Hemoglobin A1C Date Value Ref Range Status 06/17/2021 6.5 (H) 4.0 - 6.0 % Final Comment: The ADA recommends that most patients with type 1 and type 2 diabetes maintain an A1c level <7%. Glucose Date Value Ref Range Status 06/17/2021 83 70 - 100 MG/DL Final 06/09/2021 133 (H) 70 - 110 Final 05/21/2021 130 (H) 70 - 110 Final 05/03/2021 79 mg/dL Final Glucose, POC Date Value Ref Range Status 10/02/2011 110 (H) 70 - 100 MG/DL Final 06/25/2011 117 (H) 70 - 100 MG/DL Final 06/24/2011 103 (H) 70 - 100 MG/DL Final Problems Addressed Today Encounter Diagnoses Name Primary? Status post liver transplantation (HCC) Yes Sclerosing cholangitis History of liver transplant (HCC) Immunosuppressed status (HCC) Assessment and Plan Mr. Chun has no significant cardiac symptoms or problems. He is going to mendez ve repeat imaging with echo and thallium study. I will keep you informed with t he results. Further recommendations are pending these results. If I can be of further assistance, please do not hesitate to let me know. (DOC:[id number]) Current Medications (including today's revisions) aMILoride (MIDAMOR) 5 mg tablet Take two tablets by mouth twice daily. amoxicillin/K clavulanate (AUGMENTIN) 500/125 mg tablet TAKE 1 TABLET DAILY WITH FOOD FOR 1 WEEK, THEN CYCLE OFF OF MEDICATION AND TAKE BACTRIM FOR 1 WEEK, THEN CIPRO FOR 1 WEEK, REPEAT CYCLE Apple Cider Vinegar 600 mg cap Take 1 capsule by mouth daily. atorvastatin (LIPITOR) 20 mg tablet Take one tablet by mouth at bedtime bonnie y. calcium carbonate-vitamin D3 200 mg (500 mg) -400 unit cap Take 1 tablet by mouth three times daily. camphor/menthol (SARNA) 0.5/0.5 % lotn Apply to skin areas two to three time s as needed. cholecalciferol (VITAMIN D-3) 1,000 units tablet Take 1,000 Units by mouth e very 48 hours. ciprofloxacin (CIPRO) 500 mg tablet TAKE 1 TABLET DAILY FOR 1 WEEK, THEN CYC LE OFF OF MEDICATION AND TAKE AUGMENTIN FOR 1 WEEK, THEN BACTRIM FOR 1 WEEK, REP EAT CYCLE COCONUT OIL TP Apply topically to affected area. famotidine (PEPCID) 20 mg tablet TAKE 1 TABLET TWICE A DAY fish oil /omega-3 fatty acids (SEA-OMEGA) 340/1000 mg capsule Take 1 capsule by mouth every 48 hours. furosemide (LASIX) 20 mg tablet Take one tablet by mouth every morning for 9 0 days. predniSONE (DELTASONE) 5 mg tablet TAKE 1 TABLET DAILY WITH BREAKFAST tacrolimus (PROGRAF) 0.5 mg capsule Take two capsules by mouth twice daily f or 180 days. (Patient taking differently: Take 1 mg by mouth twice daily. 2 mg i n the morning and 1.5 in the evening) tacrolimus (PROGRAF) 1 mg capsule Take 1 mg by mouth twice daily. triamcinolone acetonide (KENALOG) 0.1 % topical cream Apply topically to af fected area twice daily as needed. trimethoprim/sulfamethoxazole (BACTRIM) 80/400 mg tablet Take as directed by provider ursodioL (ACTIGALL) 300 mg capsule TAKE 1 CAPSULE IN THE MORNING AND 2 CAPSU LES IN THE EVENING vitamins, multiple (DAILY MULTI-VITAMIN) tablet Take 1 tablet by mouth daily . CTOR PHARMACEUTICAL documented in this encounter Miscellaneous Notes * Patient Instructions - Samara Whalen RN - 06/19/2021 9:00 AM DIRECTOR PHARMACEUTICAL [facility] Nuclear Stress Test Instructions PLEASE REPORT TO: ____[facility] ([address] [facility], [address], [place]) - ____[place] ([address], [address], [place]) - ____[place] Office ([address], [place]) - ____[facility] Office ([address], [place]) - ____[place] Office ([address], [place]) - [facility] Main Date of Test at for Are you able to raise your arm up by your head for about 20 minutes? yes Can you lie on your back for approximately 20 minutes with minimal movement? yes The Thallium evaluation has two parts -- two nuclear scans. The first scan is done in the morning and the second three to four hours later. Wear comfortable clothing. Shorts or pants. (No dresses or skirts please). Bring or wear sneakers/walking shoes if you are walking on Treadmill. Please let the nuclear technologists know if you plan on flying after the test. NO CAFFEINE 24 HOURS PRIOR TO TEST. Examples: coffee, tea, decaf drinks, cola, c hocolate. DO NOT EAT OR DRINK THE MORNING OF YOUR TEST unless otherwise instructed. (You m ay have a couple sips of water). If you are a diabetic, if insulin dependent: please take one third of your insul in with two pieces of dry toast and a small juice). Bring insulin and medication with you to the test. _X__ TAKE MORNING MEDICATIONS WITH A COUPLE SIPS OF WATER PRIOR TO TEST. HOLD THE FOLLOWING MEDICATIONS INDICATED BELOW: Furosemide , Vitamins, Supplements WHAT TO DO BETWEEN THE FIRST TWO THALLIUM SCANS: 1. No strenuous exercise should be performed during this time. 2. A light lunch is permissible. The technologist will give you a list of approp riate foods. 3. Please return 15 minutes prior to the schedule of your second scan. Our nucle ar technologist will tell you exactly what time to return. 4. Please do not use tobacco products in between scans. 5. After the first scan is completed, you may resume usual medications. TEST FINDINGS: You will receive the results of the test within 7 business days of its completio n by telephone, unless arranged differently at the time of the procedure. If yo u have any questions concerning your thallium test or if you do not hear from yo ur CV physician/or nurse within 7 business days, please call the appropriate of ficmoises checked above. Instructions given by Samara Whalen RN We would like to see you again for a follow up visit based off your stress test results Please send a [employer] message or call the Cardiology GOLD Team with questions, , Samara RN, Olive RN, Linnea RN, Kat, RN, Emily FRAIRE. You may receive test results in [employer]Kai before the ordering provider has reviewe d them. Our care team will follow up with you after reviewing the tests to discu ss your care. This may take up to 5-7 business days if results are not urgently needing to be addressed. Thank you for your patience. CTOR PHARMACEUTICAL documented in this encounter Plan of Treatment Order Schedule Name Type Priority Associated Diag noses Ordered: 06/19/2021 ECG 12-LEAD ECG Routine Status post delia er transplantation (HCC) documented as of this encounter Goals Goal Patient Associated Recent Progress Patient-Stat Aut hor Goal Type Problems ed? GOAL General No Maria M Erwin, ELIAS Note: get my liver transplant Resume normal activities Hospital No Deandra Bean, ELIAS Note: Waiting for a liver transplant Move to [place]. documented as of this encounter Procedures Comments Procedure Name Priority Date/Time Associated Diag nosis ECG-SCAN 06/19/2021 12:00 AM DIRECTOR PHARMACEUTICAL documented in this encounter Results * ECG-SCAN (06/19/2021 12:00 AM DIRECTOR PHARMACEUTICAL) Narrative 06/19/2021 12:00 AM DIRECTOR PHARMACEUTICAL Ordered by an unspecified provider. documented in this encounter Visit Diagnoses Diagnosis Status post liver transplantation (HCC) - Primary Liver replaced by transplant Sclerosing cholangitis Cholangitis History of liver transplant (HCC) Liver replaced by transplant Immunosuppressed status (HCC) Unspecified disorder of immune mechanis m documented in this encounter Additional Health Concerns Noted Time Assessment 06/19/2021 9:20 AM DIRECTOR PHARMACEUTICAL A fall risk assessment has been complet ed for the patient 06/19/2021 9:22 AM DIRECTOR PHARMACEUTICAL PHQ-2 Depression Total Score: 0 documented as of this encounter Care Teams Start Date End Date Cryptography Teacher Relationship Specialty 08/12/19 Angelic Resendez MD PCP - [address] [place], [place] [address] 06/03/10 Zakiya Ledezma, ELIAS 06/03/10 Liberty Justice MD [address] [place] [address] 06/03/10 Moy Serrano MD [address] [facility] [id number] [place] [address] 08/25/10 Stephania Liu, ELIAS Emergency Medicine 09/03/10 Leobardo Giordano MD Infectious [address] Disease [facility] [address] [place] [address] 03/29/11 Kati Thomas MD Internal [address] [place] [address] 05/01/11 Edilson Villalba MD Internal [address] [place] [address] 05/05/11 Alex Balbuena MD Infectious [address] Disease [facility] [address]vl [address] [place] [address] 05/20/11 Kleber Can MD Internal Fellow provider only Medicine 06/18/11 Harish Irvin MD Transplant [address] [facility] [address] [place] [address] 10/02/11 Luis Eduardo Art MD Gastroentero [address] logy Ortho[facility] Pavilion Lvl [address] [place] [address] 06/15/12 Alton Sewell MD Dermatology Forwarding Address Unknown 06/15/12 Ariane Campoverde MD Dermatology [address] [place] [address] 09/14/12 Dayan Daniels MD Dermatology [address] Ortho[facility]Med Pavilion [address]vl [address] [place] [address] 12/21/12 Jamel Hutchins MD Dermatology [place] [id number] 12/21/12 Leigh Resendez MD Dermatology [address] [facility] [address] [facility] [place] [address] 01/03/15 Carmen Reeves, AMPOULE FILLER Transplant [address] Hepatology [address] [place] [address] 05/07/15 Margaux Ng, RN 06/06/15 Maureen Robertson LPN Maternal and Medicine 07/04/15 Lupe Hamilton Maternal and Medicine 09/05/15 Berta Baldwin 12/11/15 Michelle Orellana 01/01/16 Lashon Carey MA Maternal and Medicine 01/03/16 Carmen Lassiter, Gastroentero AMPOULE FILLER-CLINICAL PHARMACY TECHNICIAN logy [address] Ortho[facility]Med Pavilion Lvl [address] [place] [address] 01/03/16 Linsey Watson 01/17/16 Audrey Howard, ELIAS documented as of this encounter
--- OUTSIDE RECORDS SUMMARY | 2021-08-16 09:18 | XMS REPORT | Encounter Summary ---
Author Author [facility] Organization [facility] Address Unknown Phone Unavailable Care Team Providers Care Strategic Marketing Manager Name Role Phone Zakiya Ledezma RN [...] APRN Unavailable Margaux Ng RN Unavailable Unavailable Maueren Robertson LPN Unavailable Unavailable Lupe Hamilton Unavailable Unavailable Berta Baldwin Unavailable Unavailable Michelle Orellana Unavailable Unavailable Lashon Carey MA Unavailable Unavailable Carmen Lassiter SENIOR CLINICAL DATA COORDINATOR-BOILING HOUSE OILER Unavailable [phone] Linsey Watson Unavailable Unavailable Audrey Howard RN Unavailable Unavailable Angelic Resendez MD PCP Reason for Visit * Reason Onset Date Comments Stress Test Instructions 06/17/2021 Thall Prep le ft to pt's VM. RX meds ok on test AM as indicated. # left to Cb if questions Encounter Details Care Team Description Date Type Department December, Stress Test Instructions (Thall Prep lef t to pt's VM. RX meds ok on test AM as indicated. # left to Cb if questions) 06/17/2021 Telephone Cardiology: [facility] [address] [facility] [address] [place] [address] Social History Date Tobacco Use Types Packs/Day Years Used Quit: 02/01/1976 Former Smoker Cigarettes 3 Smokeless Tobacco: Never Used Comments: Quit 08/1976 Comments Alcohol Use Standard Drinks/Week No 0 (1 standard drink = 0.6 o z pure alcohol) Sex Assigned at Date Recorded Male 04/17/2020 2:33 PM CDT Date Recorded COVID-19 Exposure Response 06/17/2021 8:33 AM RUBBER GOODS REPAIRER In the last month, have you been [...] get my liver transplant Resume normal activities [facility] Deandra Bean, RN Note: Waiting for a liver transplant Move to [place]. documented as of this encounter Visit Diagnoses Not on filedocumented in this encounter Additional Health Concerns Noted Time Assessment 06/17/2021 2:40 PM RUBBER GOODS REPAIRER A fall risk assessment has been complet ed for the patient 06/17/2021 2:40 PM RUBBER GOODS REPAIRER PHQ-2 Depression Total Score: 0 documented as of this encounter Care Teams Start Date End Date Strategic Marketing Manager Relationship Specialty 08/12/19 Angelic Resendez MD PCP - [address] [place] [address] 06/03/10 Zakiya Ledezma RN 06/03/10 Liberty Justice MD [address] [place] [address] 06/03/10 Moy Serrano MD [address] [facility] FH[address]2 [place] [address] 08/25/10 Stephania Liu RN Emergency Medicine 09/03/10 Leobardo Giordano MD Infectious [address] [place] [address] Disease Ortho/Med Pavilion [address] [address] 03/29/11 Kati Thomas MD Internal [address] [place] [address] 05/01/11 Edilson Villalba MD Internal [address] [place] [address] 05/05/11 Alex Balbuena MD Infectious [address] [place] [address] Disease Ortho[facility]Med Pavilion Lvl [address] [place] [address] 05/20/11 Kleber Can MD Internal Fellow provider only Medicine 06/18/11 Harish Irvin MD Transplant [address] [facility] Surgery Main 1st [place] [address] 10/02/11 Luis Eduardo Art MD Gastroentero [address] [place] [address] logy Ortho[facility]Med Pavilion Lvl [address] [place] [address] 06/15/12 Alton Sewell MD Dermatology Forwarding Address Unknown 06/15/12 Ariane Campoverde MD Dermatology [address] [place] [address] 09/14/12 Dayan Daniels MD Dermatology [address] [place] [address] Ortho/Med Pavilion [address]vl [address] [place] [address] 12/21/12 Jamel Hutchins MD Dermatology [place]ired [place] [id number] 12/21/12 Leigh Resendez MD Dermatology [address] [facility] [address] [place] [id number] 01/03/15 Carmen Reeves APRN Transplant [address] Hepatology [place] [address] [place] [address] 05/07/15 Margaux Ng, ELIAS 06/06/15 Maureen Robertson LPN Maternal and Medicine 07/04/15 Lupe Hamilton Maternal and Medicine 09/05/15 Berta Baldwin 12/11/15 Michelle Orellana 01/01/16 Lashon Carey MA Maternal and Medicine 01/03/16 Carmen Lassiter, Gastroentero SENIOR CLINICAL DATA COORDINATOR-BOILING HOUSE OILER logy [address] [place] [facility] Ortho/Med Pavilion [address]vl [address] [place] [address] 01/03/16 Linsey Watson 01/17/16 Audrey Howard RN documented as of this encounter
--- OUTSIDE RECORDS SUMMARY | 2021-08-16 09:18 | XMS REPORT | Encounter Summary ---
Author Author [facility] Organization [facility] Address Unknown Phone Unavailable Care Team Providers Care Welding Supervisor Name Role Phone Zakiya Ledezma RN Unavailable [...] Lashon Carey MA Unavailable Unavailable Carmen Lassiter TAI [employer] INSTRUCTOR-FITNESS SERVICES MANAGER Unavailable [phone] Linsey Watson Unavailable Unavailable Audrey Howard RN Unavailable Unavailable Angelic Resendez MD PCP Reason for Visit * Reason Comments Osteoporosis Encounter Details Care Team Description Date Type Department Gemma Vaca MD [address] [facility] [address] [place] [address] Age related osteoporosis, unspecified pa thological fracture presence (Primary Dx); Vitamin D deficiency 06/18/2021 Office Visit Endocrinology: [facility] [address] [place] [address] Social History Date Tobacco Use Types Packs/Day Years Used Quit: 02/01/1976 Former Smoker Cigarettes 3 Smokeless Tobacco: Never Used Comments: Quit 08/1976 Comments Alcohol Use Standard Drinks/Week No 0 (1 standard drink = 0.6 o z pure alcohol) Sex Assigned at Date Recorded Male 04/17/2020 2:33 PM CDT Date Recorded COVID-19 Exposure Response 06/18/2021 7:26 AM METER TESTER POLYPHASE In the last month, have you been in contact with No / Unsure someone who was confirmed or suspected to have Coronavirus / COVID-19? documented as of this encounter Last Filed Vital Signs Reading Time Taken Comments Vital Sign - - Blood Pressure - - Pulse - - Temperature - - Respiratory Rate - - Oxygen Saturation - - Inhaled Oxygen Concentration 72.6 kg (160 lb) 06/18/2021 12:19 PM METER TESTER POLYPHASE Weight 175.3 cm (5' 9") 06/18/2021 12:19 PM METER TESTER POLYPHASE Height 23.63 06/18/2021 12:19 PM METER TESTER POLYPHASE Body Mass Index documented in this encounter [...] as of this encounter Progress Notes * Gemma Vaca MD - 06/18/2021 1:00 PM METER TESTER POLYPHASE Images from the original note were not included. Telehealth Visit Note Date of Service: 06/18/2021 Subjective: Obtained patient's verbal consent to treat them and their agreement to RAJANI molina policy and NPP via this telehealth visit during the Coronavirus Public He alth Emergency Ravindra Heather Chun is a 65 y.o. male presented to the clinic today for ongoing managem ent of osteoporosis. He is under the primary care of Angelic Love. History of Present Illness I had the pleasure meeting with Ms. Chun today. He has history of primary scl erosing cholangitis and liver cirrhosis status post liver transplant in June 2011. He also has a history of ulcerative colitis. He is currently on the list to get a second liver transplant. He has been on prednisone 5 mg since 2010. He denied any fractures since I last saw him. Denied any loose or broken teeth, he last saw dentist in May 2021. He is currently taking calcium 600 mg twice d aily and vitamin D 2000 IU every other day. Review of Systems A comprehensive review of system was obtained from patient today and was negativ e. Medical History: Diagnosis Date Acute cholangitis 03/12/2011 Bacteremia E. Coli Cancer of colon (HCC) Cholangitis, recurrent Elevated liver enzymes Hemorrhoids Pancreatitis, acute 2007 Possibly related to ERCP Primary sclerosing cholangitis diagnosed 2007 Transplant 06/19/2011 liver Ulcerative colitis diagnosed 1990 UTI (lower urinary tract infection) 03/07/2010 Surgical History: Procedure Laterality Date HX TONSILLECTOMY 1966 HX CHOLECYSTECTOMY 1990 LIVER TRANSPLANT 06/18/11 CHOLANGIOPANCREATOGRAPHY ENDOSCOPY RETROGRADE N/A 01/17/2016 Performed by Moy Serrano MD at [facility] BIOPSY LIVER N/A 01/17/2016 Performed by Moy Serrano MD at [facility] ENDO CHOLANGIOPANCREATOGRAPHY ENDOSCOPY RETROGRADE N/A 02/16/2017 Performed by Moy Serrano MD at [facility] ENDO ESOPHAGOGASTRODUODENOSCOPY ENDOSCOPIC ULTRASOUND N/A 02/16/2017 Performed by Moy Serrano MD at [facility] ENDO CHOLANGIOPANCREATOGRAPHY ENDOSCOPY RETROGRADE WITH BILIARY DUCT DILATATION 02/16/2017 Performed by Moy Serrano MD at [facility] ENDO CHOLANGIOPANCREATOGRAPHY ENDOSCOPY RETROGRADE N/A 06/10/2017 Performed by Moy Serrano MD at [facility] ENDO CHOLANGIOPANCREATOGRAPHY ENDOSCOPY RETROGRADE N/A 05/20/2018 Performed by Moy Serrano MD at [facility] ENDO ESOPHAGOGASTRODUODENOSCOPY WITH SPECIMEN COLLECTION BY BRUSHING/ WASHING N/A 08/12/2018 Performed by Hay Shaw MD at [facility] ENDO ESOPHAGOGASTRODUODENOSCOPY WITH SPECIMEN COLLECTION BY BRUSHING/ WASHING N/A 08/12/2019 Performed by Adam Simental MD at [facility] ENDOSCOPIC RETROGRADE CHOLANGIOPANCREATOGRAPHY N/A 10/17/2019 Performed by Moy Serrano MD at [facility] ENDOSCOPIC RETROGRADE CHOLANGIOPANCREATOGRAPHY N/A 02/02/2020 Performed by Moy Serrano MD at [facility] ENDOSCOPIC RETROGRADE CHOLANGIOPANCREATOGRAPHY WITH REMOVAL CALCULI/ DEBRIS FROM BILIARY/ PANCREATIC DUCT 02/02/2020 Performed by Moy Serrano MD at [facility] ENDO ESOPHAGOGASTRODUODENOSCOPY WITH TRANSENDOSCOPIC ULTRASOUND GUIDED FINE NEEDL E ASPIRATION/ BIOPSY LIVER BX N/A 04/30/2020 Performed by Moy Serrano MD at [facility] END[facility] ENDOSCOPIC RETROGRADE CHOLANGIOPANCREATOGRAPHY WITH TRANS-ENDOSCOPIC BALLOON DILATION BILIARY/ PANCREATIC DUCT/ AMPULLA - EACH DUCT 04/30/2020 Performed by Moy Serrano MD at [facility] ENDO ENDOSCOPIC RETROGRADE CHOLANGIOPANCREATOGRAPHY 04/30/2020 Performed by Moy Serrano MD at [facility] ENDO ENDOSCOPIC RETROGRADE CHOLANGIOPANCREATOGRAPHY WITH TRANS-ENDOSCOPIC BALLOON DILATION BILIARY/ PANCREATIC DUCT/ AMPULLA - EACH DUCT N/A 08/29/2020 Performed by Moy Serrano MD at [facility] ENDO ESOPHAGOGASTRODUODENOSCOPY WITH BAND LIGATION ESOPHAGEAL/ GASTRIC VARICES - FLEXIBLE N/A 08/29/2020 Performed by Moy Serrano MD at [facility] ENDO Transperineal NEEDLE/ PUNCH BIOPSY PROSTATE - 12 core - Combo with Radiolog y Dr. Samantha Richard N/A 02/22/2021 Performed by Waqas Tucker MD at [facility] OR ULTRASOUND GUIDANCE FOR NEEDLE PLACEMENT N/A 02/22/2021 Performed by Waqas Tucker MD at [facility] OR ELECTROCARDIOGRAM Family History Problem Relation Age of Onset Arthritis-osteo Mother Stroke Mother Crohn's Disease Mother Diabetes Father Hypertension Father Thyroid Disease Father Cancer Sister breast CA age 39 Hypertension Brother Migraines Maternal Uncle Cancer Maternal Grandfather Melanoma Neg Hx Social History Socioeconomic History Marital status: Single Spouse name: Not on file Number of children: Not on file Years of education: Not on file Highest education level: Not on file Occupational History Not on file Tobacco Use Smoking status: Former Smoker Years: 3.00 Types: Cigarettes Quit date: 02/01/1976 Years since quittin.4 Smokeless tobacco: Never Used Tobacco comment: Quit 08/1976 Vaping Use Vaping Use: Never used Substance and Sexual Activity Alcohol use: No Drug use: No Sexual activity: Not on file Other Topics Concern Not on file Social History Narrative Not on file Objective: aMILoride (MIDAMOR) 5 mg tablet Take two [...] Take 1 tablet by mouth daily . Vitals: 06/18/21 1219 Weight: 72.6 kg (160 lb) Height: 175.3 cm (69") PainSc: Zero Body mass index is 23.63 kg/m. Telehealth Patient Reported Vitals Row Name 06/18/21 1219 Pain Score Zero Physical Exam Labs reviewed. Assessment and Plan: Osteoporosis Vitamin D Diagnosis: 02/2020. Bone density with lowest T score of -2.8 at the left humeral neck. Previously in 2018 bone density showed osteopenia however, he had a high FRAX score of 14% for major osteoporotic fracture and 4.6% for hip fracture. Risk factors: Liver cirrhosis due to primary sclerosing cholangitis, ulcerative colitis, status post liver transplant in 2010, on chronic prednisone 5 mg daily since 2010, mother with history of osteoporosis. Fractures: None Treatment history: Calcium 600 mg 3 times daily vitamin D 2000 IU daily. Prolia: Jul 2020, 01/2021, scheduled to get his next dose this week. Prolia is being ordered by Dr. Resendez. Plan: Bone density is stable without significant decline as it did prior to initiat ing Prolia. No fractures. He continues to be on prednisone 5 mg once daily. Bone density was personally reviewed today and I performed my own interpretat ion. We will continue with Prolia therapy and see him again in 1 year with bone de nsity. Liver cirrhosis secondary to primary sclerosing cholangitis Status post liver transplant in 2010 On chronic prednisone therapy since 2010. Current dose 5 mg daily. Ulcerative colitis Elevated hemoglobin A1c. Recent labs on June 17 showed elevated hemoglobin A1c of 6.5% concerning for diabetes. Fasting glucose readings been within joel l however, he likely has hyperglycemia after meals. Will need repeat hemoglobin A1c in 3 months. If persistently elevated, he will need therapy. He will disc uss that with Dr. Resendez his primary care physician. 15 minutes spent on this patient's encounter with counseling and coordination of care taking >50% of the visit. R TESTER POLYPHASE * Heather Ramirez - 06/18/2021 1:00 PM METER TESTER POLYPHASE Did patient read financial policy, consent to treat, and notice of privacy pract ices? Yes Does the patient give verbal consent to each policy? Yes Does the patient have any vitals to report? No N/A Vitals charted in O2? No Is the patient in pain? 0 = No pain Screening questions completed? Yes Is the patient able to acces the [employer] message with the start visit link? Yes Is patient in "virtual waiting room" Yes R TESTER POLYPHASE documented in this encounter Plan of Treatment Not on filedocumented as of this encounter Goals Goal Patient Associated Recent Progress Patient-Stat Aut hor Goal Type Problems ed? GOAL General No Maria M Erwin, RN Note: get my liver transplant Resume normal activities Hospital No Deandra Bean, ELIAS Note: Waiting for a liver transplant Move to [place]. documented as of this encounter Visit Diagnoses Diagnosis Age related osteoporosis, unspecified p athological fracture presence - Primary Vitamin D deficiency Unspecified vitamin D deficiency documented in this encounter Additional Health Concerns Noted Time Assessment 06/18/2021 10:50 AM METER TESTER POLYPHASE A fall risk assessment has been complet ed for the patient 06/18/2021 12:20 PM METER TESTER POLYPHASE PHQ-2 Depression Total Score: 0 documented as of this encounter Care Teams Start Date End Date Welding Supervisor Relationship Specialty 08/12/19 Angelic Resendez MD PCP - [address] [place] [address] 06/03/10 Zakiya Ledezma RN 06/03/10 Liberty Justice MD [address] [place] [address] 06/03/10 Moy Serrano MD [address] [facility] [id number] [place] [address] 08/25/10 Stephania Liu RN Emergency Medicine 09/03/10 Loebardo Giordano MD Infectious [address] Disease [facility] [address] [place] [address] 03/29/11 Kati Thomas MD Internal [address] [place] [address] 05/01/11 Edilson Villalba MD Internal [address] [place] [address] 05/05/11 Alex Balbuena MD Infectious [address] Disease [facility] [address] [place] [address] 05/20/11 Kleber Can MD Internal Fellow provider only Medicine 06/18/11 Harish Irvin MD Transplant [address] [facility] [address] [place] [address] 10/02/11 Luis Eduardo Art MD Gastroentero [address] logy Ortho[facility] [address] [place] [address] 06/15/12 Alton Sewell MD Dermatology Forwarding Address Unknown 06/15/12 Ariane Campoverde MD Dermatology [address] [place] [address] 09/14/12 Dayan Daniels MD Dermatology [address] [facility] [address] [place] [address] 12/21/12 Jamel Hutchins MD Dermatology Retired [place] 243149 12/21/12 Leigh Resendez MD Dermatology [address] [place] [address] 01/03/15 Carmen Reeves, TAI CHI INSTRUCTOR Transplant [address] Hepatology [address] [place] [address] 05/07/15 Margaux Ng, ELIAS 06/06/15 Maureen Robertson LPN Maternal and Medicine 07/04/15 Lupe Hamilton Maternal and Medicine 09/05/15 Berta Baldwin 12/11/15 Michelle Orellana 01/01/16 Lashon Carey MA Maternal and Medicine 01/03/16 Carmen Lassiter, Gastroentero TAI [employer] INSTRUCTOR-FITNESS SERVICES MANAGER logy [address] [facility] [address] [place] [address] 01/03/16 Linsey Watson 01/17/16 Audrey Howard, ELIAS documented as of this encounter
--- OUTSIDE RECORDS SUMMARY | 2021-08-16 09:18 | XMS REPORT | Encounter Summary ---
Author Author [facility] Organization [facility] Address Unknown Phone Unavailable Care Team Providers Care Science Intern Name Role Phone Zakiya Ledezma RN Unavailable [...] Lashon Carey MA Unavailable Unavailable Carmen Lassiter AMMONIA STILL OPERATOR-PAINTER AND BODY MECHANIC APPRENTICE Unavailable [phone] Linsey Watson Unavailable Unavailable Audrey Howard RN Unavailable Unavailable Angelic Resendez MD PCP Reason for Referral * Radiology Services (Routine) - New Request Diagnoses / Procedures Referred By [facility] Liver transplant status (HCC) Procedures US DOPPLER ABD PELV RETROPER COMP Moy Serrano MD [address] [place] [id number] Radiology Referral ID Status Reason Start Date Expiration Visits Vi sits Date Requested Authorized [id number] New Request 06/18/2021 06/18/2022 1 1 ATOR EXAMINER AND ADJUSTER * Radiology Services (Routine) - New Request Diagnoses / Procedures Referred By Contact [facility] Liver transplant status (HCC) Procedures US ABDOMEN LIMITED Moy Serrano MD [address] [place] [id number] Radiology Referral ID Status Reason Start Date Expiration Visits Vi sits Date Requested Authorized [id number] New Request 06/18/2021 06/18/2022 1 1 ATOR EXAMINER AND ADJUSTER Reason for Visit * Reason Comments Post-transplant Annual Visit PSC Cirrhosis Encounter Details Care Team Description Date Type Department Moy Serrano MD [address] [place] [address] [phone] Liver transplant status (HCC) (Primary D x) 06/18/2021 Office Visit Transplant: [facility], [address], [address] [place] [phone] Social History Date Tobacco Use Types Packs/Day Years Used Quit: 02/01/1976 Former Smoker Cigarettes 3 Smokeless Tobacco: Never Used Comments: Quit 08/1976 Comments Alcohol Use Standard Drinks/Week No 0 (1 standard drink = 0.6 o z pure alcohol) Sex Assigned at Date Recorded Male 04/17/2020 2:33 PM CDT Date Recorded COVID-19 Exposure Response 06/18/2021 7:26 AM ELEVATOR EXAMINER AND ADJUSTER In the last month, have you been in contact with No / Unsure someone who was confirmed or suspected to have Coronavirus / COVID-19? documented as of this encounter Last Filed Vital Signs Reading Time Taken Comments Vital Sign 103/58 06/18/2021 10:48 AM ELEVATOR EXAMINER AND ADJUSTER Blood Pressure 78 06/18/2021 10:48 AM ELEVATOR EXAMINER AND ADJUSTER Pulse 36.5 C (97.7 F) 06/18/2021 10:48 AM ELEVATOR EXAMINER AND ADJUSTER Temperature - - Respiratory Rate 99% 06/18/2021 10:48 AM ELEVATOR EXAMINER AND ADJUSTER Oxygen Saturation - - Inhaled Oxygen Concentration 73.1 kg (161 lb 3.2 oz) 06/18/2021 10:48 AM ELEVATOR EXAMINER AND ADJUSTER Weight 175.3 cm (5' 9") 06/18/2021 10:48 AM ELEVATOR EXAMINER AND ADJUSTER Height 23.81 06/18/2021 10:48 AM ELEVATOR EXAMINER AND ADJUSTER Body Mass Index documented in this encounter [...] as of this encounter Progress Notes * Moy Serrano MD - 06/18/2021 11:00 AM ELEVATOR EXAMINER AND ADJUSTER Date of Service: 06/18/2021 Ravindra Chun is a 65 y.o. male. : 1955 Subjective: History of Present Illness Mr. 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 He continues on chronic immunosuppression of prednisone 5 mg and Prograf 1.5 /1.5with a most recentFKof4.7 (Goal 3-5).We will continue to monitor c losely as he has a history of RODO in the past related to high FK levels. 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 He also has developedCirrhosis that will require HCC surveillance.he is due for routine ultrasound, and has an appointment scheduled for later today. His current MELD score is 20. He denies any abdominal ascites or lower extremity edema. He is currently not on any diuretic therapy. He reports he has no episodes of confusion or foggy t hinking. He does maintain on BID dosing of rifaximin. He previously establis hed with dermatology in [place], and wishes to see a dermatology provider close r to home -in [place], [place].Discussed recommendation to continue daily vit talbert D and calcium supplementation. Last DEXA scan performed in 2017 indicatin g osteopenia and should therefore be repeated in 1 year. Due for routine physi tosha with his primary care provider, , later this year. Hedenies any headache, confusion,he has someright upper quadrant pain,nochanges in bowel habits,yellowing of the skin or eyes,abdominal distention, lower e xtremity edema, chest pain,orshortness of breath.He does endorse feeling fatigued and chills. He states it is more bothersome and his hands and persis agatha off and on since November 2018. Hereports occasionalFevers.He denie s any hospitalizations since his last admission in August with fever., He had ERCP done in October with dominant right and left hepatic duct stricture. He was scheduled for Dexa which is cancelled. Had a CT in august for history of infection and fever. Review of Systems 10 system review is performed and as discussed in HPI. Objective: aMILoride (MIDAMOR) 5 mg tablet Take [...] tablet by mouth daily . Vitals: 06/18/21 1048 BP: 103/58 BP Source: Arm, Right Upper Patient Position: Sitting Pulse: 78 Temp: 36.5 C (97.7 F) TempSrc: Oral SpO2: 99% Weight: 73.1 kg (161 lb 3.2 oz) Height: 175.3 cm (69") PainSc: Zero Body mass index is 23.81 kg/m. Physical Exam Constitutional: Appearance: Normal appearance. HENT: Mouth/Throat: Mouth: Mucous membranes are moist. Eyes: Extraocular Movements: Extraocular movements intact. Pupils: Pupils are equal, round, and reactive to light. Cardiovascular: Rate and Rhythm: Normal rate and regular rhythm. Pulmonary: Effort: Pulmonary effort is normal. Breath sounds: Normal breath sounds. Abdominal: General: Abdomen is flat. Palpations: Abdomen is soft. Musculoskeletal: General: Normal range of motion. Cervical back: Normal range of motion and neck supple. Skin: General: Skin is warm. Neurological: General: No focal deficit present. Mental Status: He is alert and oriented to person, place, and time. Psychiatric: Mood and Affect: Mood normal. Behavior: Behavior normal. Thought Content: Thought content normal. Judgment: Judgment normal. Assessment and Plan: Mr. Chun is a pleasant 65year old manwith past medical history of end-st age liver disease due to primary sclerosing cholangitis status post orthotopic l iver transplant that was nvniharcjsa13/16 /2011. Patienthas additionalhi story of ulcerative colitis with dysplasia status post total colostomy with end ileostomy [id number].He presents to clinic today alone for a routine follow-up and reports that he is doing well. He has more permanently moved back [facility] and [facility] He continues on c hronic immunosuppression of prednisone 5 mg and Prograf 1.5/1.5with a most rec entFKof 4.7. (Goal 3-5).We will continue to monitor closely as he has a hi story of RODO in the past related to high FK levels. He is seen in telehealth cli juwan today. 1.OLT108/18/2010:History ofESLD 2/2 PSC w/ UC: - Current Prograf level2.9 - Continue on current dose of predinose 5mg - Continue on current doseof immunosuppressionwith routine labs every coretta h. (per pt preference) 2.Recurrent PSC w/ OLT reevaluation: - Continue to reevaluate for transplantation. His current MELD is 20. - Continue on ursodiol. 3.HCC Screening: - Patient has developed cirrhosis and therefore needs screening for HCC every 6 months with imaging and AFP. - Last abdominal ultrasound 11/24/2018: No discrete hepatic masses are identifi ed. There is no intrahepatic bile duct dilatation. Repeat exam today. 3.Total colectomy with end ileostomy: - Patient reports he is doing well and has no problems to report. 4.Bone Health: -He has osteoporosis and on Prolia now . - Vit D [id number] in 2018.Will repeatwith next set of labs - Recommendationto continueVit D 2000IU and Calcium 1200mg supplementation . 5.Skin Health: - Continues to follow withdermatologyon a routine basis for skin checks du e to intermodal dispatcher immunosuppression use. - Will continue to have at least one annual skin exam. -saw blueberry grower few months ago for daysi on abdomen. 6.Immunizations: -Has has not received his vaccine yet. Will give him flu vaccine today. . Pancreatic cystic lesions: -Had CT in . We will continue to follow with imaging with MRI/MR CP in february2020.Will reschedule him for MRI and MRCP. Hyperlipidemia: - Patient with history of hyperlipidemia; however, well controlled in 2018 on Lipitor 20mg. Will repeat labs today. EGD - Last EGD performed in August 2018 with small EV not requiring banding. - Repeat in 1 yearfor routine surveillance. Recurrent Cholangitis: He is on recycle of antibiotics with Cipro and Augmentin and Bactrim. He reports chills and no fever. Depend on MRCP will schedule for ERCP if needed. Follow Up: 6 monthsor sooner if needed. The patient is to call our office with any questi ons or changes to your health condition. ATOR EXAMINER AND ADJUSTER documented in this encounter Miscellaneous Notes * Patient Instructions - Luis Hamilton RN - 06/18/2021 11:00 AM ELEVATOR EXAMINER AND ADJUSTER 111:38 AM Follow up appointment in: 6 months Office Note: Pt was seen today by Dr. Serrano. All questions answered and signifi cant issues addressed. Plan: 1. Well get a repeat US liver in 10/2020 If you have any questions you can contact our office at . Luis Hamilton RN ATOR EXAMINER AND ADJUSTER documented in this encounter Plan of Treatment Order Schedule Name Type Priority Associated Diag noses Expected: 09/18/2021 (Approximate), Expi res: 06/18/2022 US ABDOMEN LIMITED Imaging Routine Liver trans plant status (HCC) Expected: 09/18/2021 (Approximate), Expi res: 06/18/2022 US DOPPLER ABD PELV Imaging Routine Liver yu splant status RETROPER COMP (HCC) documented as of this encounter Goals Goal Patient Associated Recent Progress Patient-Stat Aut hor Goal Type Problems ed? GOAL General No Maria M Erwin, RN Note: get my liver transplant Resume normal activities Hospital No Deandra Bean, ELIAS Note: Waiting for a liver transplant Move to [place]. documented as of this encounter Visit Diagnoses Diagnosis Liver transplant status (HCC) - Primary documented in this encounter Additional Health Concerns Noted Time Assessment 06/18/2021 10:50 AM ELEVATOR EXAMINER AND ADJUSTER A fall risk assessment has been complet ed for the patient 06/18/2021 10:50 AM ELEVATOR EXAMINER AND ADJUSTER PHQ-2 Depression Total Score: 0 documented as of this encounter Care Teams Start Date End Date Science Intern Relationship Specialty 08/12/19 Angelic Resendez MD PCP - [address] Ardon [address] [place] [address] [phone] 06/03/10 Zakiya Ledezma RN 06/03/10 Liberty Justice MD [address] [place] [address] 06/03/10 Moy Serrano MD [address] [facility] [id number] [place] [address] 08/25/10 Stephania Liu, ELIAS Emergency Medicine 09/03/10 Leobardo Giordano MD Infectious [address] [facility] Disease Ortho[facility] [address] [place] [address] 03/29/11 Kati Thomas MD Internal [address] [place] [address] 05/01/11 Edilson Villalba MD Internal [address] [place] [address] 05/05/11 Alex Balbuena MD Infectious [address] Disease Ortho[facility] [address] [place] [address] 05/20/11 Kleber Can MD Internal Fellow provider only Medicine 06/18/11 Harsih Irvin MD Transplant [address] [facility] Main [address] [place] [address] 10/02/11 Luis Eduardo Art MD Gastroentero [address] logy Ortho/Med Pavilion [address] [place] [address] 06/15/12 Alton Sewell MD Dermatology Forwarding Address Unknown 06/15/12 Ariane Campoverde MD Dermatology [address] [place] [id number] 09/14/12 Dayan Daniels MD Dermatology [address] Ortho[facility]Med [facility] [address] [place] [address] 12/21/12 Jamel Hutchins MD Dermatology [place] [id number] 12/21/12 Leigh Resendez MD Dermatology [address] [place] [address] 01/03/15 Carmen Reeves, GINI Transplant [address] Hepatology [place] [address] [place] [address] 05/07/15 Margaux Ng RN 06/06/15 Maureen Robertson LPN Maternal and Medicine 07/04/15 Lupe Hamilton Maternal and Medicine 09/05/15 Berta Baldwin 12/11/15 Michelle Orellana 01/01/16 Lashon Carey MA Maternal and Medicine 01/03/16 Carmen Lassiter, Gastroentero AMMONIA STILL OPERATOR-PAINTER AND BODY MECHANIC APPRENTICE [address] [address] [facility] [address] [place] [address] 01/03/16 Linsey Watson 01/17/16 Audrey Howard, ELIAS documented as of this encounter
--- OUTSIDE RECORDS SUMMARY | 2021-08-16 09:18 | XMS REPORT | Encounter Summary ---
Author Author [facility] Organization [facility] Address Unknown Phone Unavailable Care Team Providers Care Steel Barrel Reamer Name Role Phone Zakiya Ledezma RN Unavailable [...] Lashon Carey MA Unavailable Unavailable Carmen Lassiter FERN CUTTER-LENS MARKER Unavailable [phone] Linsey Watson Unavailable Unavailable Audrey Howard RN Unavailable Unavailable Angelic Resendez MD PCP Reason for Visit * Reason Comments Other * Consult, Test & Treat (Routine) - Authorized Diagnoses / Procedures Referred By Contact Referred To Conta ct Specialty Diagnoses Status post liver transplantation (HCC) Primary sclerosing cholangitis Other cirrhosis of liver (HCC) Moy Serrano MD [address] [facility] [id number] [place] [address] [id number] Psych Cl [address] [facility] [place] [address] Psychiatry Referral ID Status Reason Start Date Expiration Visits Vi sits Date Requested Authorized [id number] Authorized Specialty Services 05/17/2021 05/17/2022 1 1 Required Encounter Details Care Team Description Date Type Department Do Gerry Devine DO [address] [place], [place] [id number] Encounter for pre-transplant evaluation for liver transplant (Primary Dx) 06/18/2021 Office Visit Behavioral Health: [facility], [facility] [address] [facility] [address] [place] [address] Social History Date Tobacco Use Types Packs/Day Years Used Quit: 02/01/1976 Former Smoker Cigarettes 3 Smokeless Tobacco: Never Used Comments: Quit 08/1976 Comments Alcohol Use Standard Drinks/Week No 0 (1 standard drink = 0.6 o z pure alcohol) Sex Assigned at Date Recorded Male 04/17/2020 2:33 PM CDT Date Recorded COVID-19 Exposure Response 06/19/2021 6:44 AM FIELD EDUCATION COORDINATOR In the last month, have you been in contact with No / Unsure someone who was confirmed or suspected to have Coronavirus / COVID-19? documented as of this encounter Last Filed Vital Signs Reading Time Taken Comments Vital Sign 112/67 06/18/2021 1:41 PM FIELD EDUCATION COORDINATOR Blood Pressure 60 06/18/2021 1:41 PM FIELD EDUCATION COORDINATOR Pulse - - Temperature - - Respiratory Rate - - Oxygen Saturation - - Inhaled Oxygen Concentration 72.6 kg (160 lb) 06/18/2021 1:41 PM FIELD EDUCATION COORDINATOR Weight 175.3 cm (5' 9") 06/18/2021 1:41 PM FIELD EDUCATION COORDINATOR Height 23.63 06/18/2021 1:41 PM FIELD EDUCATION COORDINATOR Body Mass Index documented in this encounter [...] as of this encounter Progress Notes * Araceli Dial DO - 06/18/2021 2:00 PM FIELD EDUCATION COORDINATOR ATTESTATION I personally performed the ugarte portions of the E/M visit, discussed case with re sident and concur with resident documentation of history, physical exam, assessm ent, and treatment plan unless otherwise noted. Patient without psychiatric pat hology. PACT 4 from psychiatric perspective. No indication to initiate schedule d psychotropics at this time. Staff name: Araceli Dial DO Date: 06/18/2021 D EDUCATION COORDINATOR * Do Gerry Devine DO - 06/18/2021 2:00 PM FIELD EDUCATION COORDINATOR Liver Transplant Evaluation Date of Service: 06/14/2021 Subjective: Ravindra Chun is a 65 y.o. male presents with chief complaint of evaluation for r isk of psychiatric complication in the setting of liver transplantation. He jaqueline ears to have been referred by his club concierge Dr. Serrano on May 17. His pas t medical history is significant for ESLD d/t PSC s/p liver transplant on 2010 on chronic immunosuppression (tacrolimus and prednisone), UC, dysplasia s/p total colostomy and ileostomy in 2014, esophageal varices, IBS and osteopenia. Per chart, patient was hospitalized in March 2021 d/t acute cholangitis. Jameel samson this admission, patient had a reducible right inguinal hernia but surgery defe rred intervention due to several prior abdominal surgeries. 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 He rep orts that his latest MELD score was 20. He appears to have completed a liver transplant evaluation in [address] Kevin worrell with PACT score of 4. Accompanied by (name and relationship): Davon his brother. History of Present Illness: he reports that he's here for liver transplant evalu ation as he needs a new evaluation every 3 years to stay on the list. He reports that this is standard procedure. However, his MELD score has been increasing. He reports that prograf has been destructive to his kidneys that he has talked to his transplant surgeon about getting SLK transplant. He was able to describe his PSC disease process that his expectation that his underlying autoimmune disease would affect his transplanted liver as well as prograf with his kidneys. Reports following up with club concierge and completing U/S every 6 months with ERCP as needed. Access to firearms/plan: denies. Understanding of illness/transplant issues: Patient demonstrates great general understanding of liver transplant procedure. - reports compliance with medical appointments and medication compliance uses a pill box that he sets up for a 2 week period. - he reports his last transplant was exactly 10 years ago to date and recounts h is pain immediately following post-operative period to be the most difficult. De nies significant emotional psychological barrier post-operative period. - this time around, he plans to stay with his brother Davon (who was involved du ring his first transplant) and sister in [place]. Denies current dysphoria and anhedonia. Has noticed to be more forgetful. Denies significant anxiety. Denies history of sleeplessness for 4 days or more with euphoria and irritabilit y. Denies SI, HI, A/VH. Current Psych Provider: only saw a mental health provider during his last transp lant eval - Dr. Up. Hospitalizations: denies Suicide attempts: denies Current psych meds/who Rx: none Past psych meds: took Sertraline and hydroxyzine in the past for itching. Family Psychiatric History: Social History: Born: [facility]. Reports that his dad was career [employer] so moved a round. Raised by his mom and dad. He is one of 6 siblings. 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 Marital status: single Children: none Housing: [facility]. Currently lives in [place] 3 yrs, moved from [facility] in 2018 for liver transplant. Support: Brother, other siblings. Legal: denies Substance Use: Tobacco: Length of use: 3 years Last use: 08/1976 Form of use: cigarettes. Drugs: denies - last UDS in 06/2018 negative Alcohol: sips of wine with communion. Length of use: periodically ongoing. Number of drinks/frequency: infrequent. 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 Only with comm union. Last drink: Last was Thursday during service. DUIs: denies [facility]: denies Detox/Rehab: denies Work/Relationship issues due to alcohol: denies Addiction counseling/AA: denies - BAL neg in 2018 Caffeine: 2 x 12 oz coke per day. Objective: Your Current Medications: Instructions aMILoride (MIDAMOR) 5 mg tablet Take two tablets by mouth twice daily. amoxicillin/K clavulanate (AUGMENTIN) 500/125 mg tablet TAKE 1 TABLET DAILY WIT H FOOD FOR 1 WEEK, THEN CYCLE OFF OF MEDICATION AND TAKE BACTRIM FOR 1 WEEK, THE N CIPRO FOR 1 WEEK, REPEAT CYCLE Apple Cider Vinegar 600 mg cap Take 1 capsule by mouth daily. atorvastatin (LIPITOR) 20 mg tablet Take one tablet by mouth at bedtime daily. calcium carbonate-vitamin D3 200 mg (500 mg) -400 unit cap Take 1 tablet by selene th three times daily. camphor/menthol (SARNA) 0.5/0.5 % lotn Apply to skin areas two to three times a s needed. cholecalciferol (VITAMIN D-3) 1,000 units tablet Take 2,000 Units by mouth bonnie lal. ciprofloxacin (CIPRO) 500 mg tablet TAKE 1 TABLET DAILY FOR 1 WEEK, THEN CYCLE OFF OF MEDICATION AND TAKE AUGMENTIN FOR 1 WEEK, THEN BACTRIM FOR 1 WEEK, REPEAT CYCLE ciprofloxacin (CIPRO) 500 mg tablet Take one tablet by mouth twice daily. Day p rior to biopsy, day of biopsy and day following biopsy with Dr Tucker. COCONUT OIL TP Apply topically to affected area. denosumab (PROLIA) 60 mg/mL syrg Inject 60 mg under the skin every 180 days. famotidine (PEPCID) 20 mg tablet TAKE 1 TABLET TWICE A DAY fish oil /omega-3 fatty acids (SEA-OMEGA) 340/1000 mg capsule Take 1 capsule by mouth daily. furosemide (LASIX) 20 mg tablet Take one tablet by mouth every morning for 90 d ays. levoFLOXacin (LEVAQUIN) 750 mg tablet Take one tablet by mouth daily. predniSONE (DELTASONE) 5 mg tablet TAKE 1 TABLET DAILY WITH BREAKFAST rifAXIMin (XIFAXAN) 550 mg tablet Take 550 mg by mouth daily. spironolactone (ALDACTONE) 50 mg tablet Take one tablet by mouth daily for 90 d ays. Take with food. tacrolimus (PROGRAF) 0.5 mg capsule Take two capsules by mouth twice daily for 180 days. trimethoprim/sulfamethoxazole (BACTRIM) 80/400 mg tablet Take as directed by pr ovider ursodioL (ACTIGALL) 300 mg capsule TAKE 1 CAPSULE IN THE MORNING AND 2 CAPSULES IN THE EVENING vitamins, multiple (DAILY MULTI-VITAMIN) tablet Take 1 tablet by mouth daily. Medical History: Diagnosis Date Bacteremia E. Coli Cancer of colon (HCC) Cholangitis, recurrent Elevated liver enzymes Hemorrhoids Pancreatitis, acute 2007 Possibly related to ERCP Primary sclerosing cholangitis diagnosed 2007 Transplant 06/19/2011 liver Ulcerative colitis diagnosed 1990 Surgical History: Procedure Laterality Date HX TONSILLECTOMY 1966 HX CHOLECYSTECTOMY 1990 LIVER TRANSPLANT 06/18/11 CHOLANGIOPANCREATOGRAPHY ENDOSCOPY RETROGRADE N/A 01/17/2016 Performed by Moy Serrano MD at [facility] ENDO BIOPSY LIVER N/A 01/17/2016 Performed by Moy Serrano MD at [facility] ENDO CHOLANGIOPANCREATOGRAPHY ENDOSCOPY RETROGRADE N/A 02/16/2017 Performed by Moy Serrano MD at [facility] ENDO ESOPHAGOGASTRODUODENOSCOPY ENDOSCOPIC ULTRASOUND N/A 02/16/2017 Performed by Moy Serrano MD at [facility] ENDO CHOLANGIOPANCREATOGRAPHY ENDOSCOPY RETROGRADE WITH BILIARY DUCT DILATATION 02/16/2017 Performed by Moy Serrano MD at [facility] ENDO CHOLANGIOPANCREATOGRAPHY ENDOSCOPY RETROGRADE N/A 06/10/2017 Performed by Moy Serrano MD at [facility] ENDO CHOLANGIOPANCREATOGRAPHY ENDOSCOPY RETROGRADE N/A 05/20/2018 Performed by Moy Serrano MD at [facility] ENDO ESOPHAGOGASTRODUODENOSCOPY WITH SPECIMEN COLLECTION BY BRUSHING/ WASHING N/A 08/12/2018 Performed by Hay Shaw MD at [facility] ENDO ESOPHAGOGASTRODUODENOSCOPY WITH SPECIMEN COLLECTION BY BRUSHING/ WASHING N/A 08/12/2019 Performed by Adam Simental MD at [facility] ENDOSCOPIC RETROGRADE CHOLANGIOPANCREATOGRAPHY N/A 10/17/2019 Performed by Moy Serrano MD at [facility] ENDOSCOPIC RETROGRADE CHOLANGIOPANCREATOGRAPHY N/A 02/02/2020 Performed by Moy Serrano MD at [facility] ENDOSCOPIC RETROGRADE CHOLANGIOPANCREATOGRAPHY WITH REMOVAL CALCULI/ DEBRIS FROM BILIARY/ PANCREATIC DUCT 02/02/2020 Performed by Moy Serrano MD at [facility] ENDO ESOPHAGOGASTRODUODENOSCOPY WITH TRANSENDOSCOPIC ULTRASOUND GUIDED FINE NEEDL E ASPIRATION/ BIOPSY LIVER BX N/A 04/30/2020 Performed by Moy Serrano MD at [facility] ENDO ENDOSCOPIC RETROGRADE CHOLANGIOPANCREATOGRAPHY WITH TRANS-ENDOSCOPIC BALLOON DILATION BILIARY/ PANCREATIC DUCT/ AMPULLA - EACH DUCT 04/30/2020 Performed by Moy Serrano MD at [facility] ENDOSCOPIC RETROGRADE CHOLANGIOPANCREATOGRAPHY 04/30/2020 Performed by Moy Serrano MD at [facility] ENDO ENDOSCOPIC RETROGRADE CHOLANGIOPANCREATOGRAPHY WITH TRANS-ENDOSCOPIC BALLOON DILATION BILIARY/ PANCREATIC DUCT/ AMPULLA - EACH DUCT N/A 08/29/2020 Performed by Moy Serrano MD at [facility] ENDO ESOPHAGOGASTRODUODENOSCOPY WITH BAND LIGATION ESOPHAGEAL/ GASTRIC VARICES - FLEXIBLE N/A 08/29/2020 Performed by Moy Serrano MD at [facility] ENDO Transperineal NEEDLE/ PUNCH BIOPSY PROSTATE - 12 core - Combo with Radiolog y Dr. Samantha Richard N/A 02/22/2021 Performed by Waqas Tucker MD at [facility] OR ULTRASOUND GUIDANCE FOR NEEDLE PLACEMENT N/A 02/22/2021 Performed by Waqas Tucker MD at [facility] OR ELECTROCARDIOGRAM Allergies: No Known Allergies There were no vitals filed for this visit. Physical Exam MENTAL STATUS EXAMINATION General Appearance: appears stated age, dressed in personal clothes, good [place]e oming Behavior: Calm, cooperative; appropriate for conversation Speech: RRR with normal volume and tone. Good articulation Mood: "good" Affect: euthymic, spontaneous smiles ; mood congruent Thought Process: Linear and goal directed Thought Content: denies SI, HI. No evidence of delusions Perception: Denies AVH Associations: Intact Insight/Judgment: fair/fair Orientation: Alert, grossly intact Recent and remote memory: grossly intact Attention span and concentration:appropriate for conversation Language: ethiopian, fluent Fund of knowledge and vocabulary: average Assessment and Plan: PLAN: Patient being considered for repeat liver transplant in setting of PSC. No activ e or past psychiatric barriers for liver transplant. No changes to social suppor t or substance use - restricted to communion. - PDMP for past 5 years negative other than #5 oxycodone 5 mg in 01/2021. Psychiatric Risk: minimal Mitigation of Psychiatric Risk: no current or past psychiatric history. Patient to reach out to psychiatric team as needed. Recidivism Risk: minimal Mitigation of Recidivism Risk: sustained long abstinence from nicotine products. Never used illicit drugs. Alcohol use is limited to communion. The patients PACT Score is a 4 which indicates the patient is a/an excellent can didate for transplantation from a Psychiatric perspective. The proposed treatment plan was discussed with the patient/guardian who was prov ided the opportunity to ask questions and make suggestions regarding alternative treatment. Patient seen and discussed with Dr. Dial Psychosocial Assessment of Candidates for Transplantation (PACT) Rate 1 - 5, or U (Unable to rate) Social Support Family or Support System Stability: 5 1= No strong interpersonal ties or highly unstable relationships 3= Some stable relationships, some problems evident 5= Stable, committed relationships, strong family commitment, good mental health supporters Family or Support System Availability: 5 1= Support unavailable 3= Support availability limited by emotional or geographical factors 5= In town with patient through process, emotionally supportive Psychological Health Psychopathology, Stable Personality Factors 5 1= Severe ongoing psychopathology (e.g., schizophrenia, recurrent depression, pe rsonality disorder) 3= Moderate personality or adjustment/coping problems (e.g., significant reactiv e anxiety, situational depression) 5= Well-adjusted Risk for Psychopathology: 5 1= Strong family history of major psychopathology, previous significant psychiat carlos history in patient 3= Periods of poor coping, some psychological sensitivity to medications, some f amily history of major psychopathology 5= No history of major psychopathology in family, self, no periods of poor copin g Lifestyle Factors Healthy Lifestyle, Ability to Sustain Change in Lifestyle: 5 1= Sedentary lifestyle, major dietary problems, ongoing smoking, reluctant to ch joselito 3= Some lifestyle change, may require further education to reduce controllable r isk 5= Major, sustained changes in lifestyle, no major risk factors, willing to [place] ge Drug and Alcohol Use: 5 1= Dependence, reluctant to change 3= Moderate, non-daily use, willing to discontinue 5= Abstinence or rare use Compliance with Medications and Medical Advice: 5 1= Unreliable compliance, unconcerned, does not consult physician 3= Knowledgeable re: meds, near adequate compliance, not vigilant, usually consu lts physician 5= Knowledgeable re: meds, vigilant ; keeps records, consults physician Understanding Of Transplant and Follow-Up Relevant Knowledge and Receptiveness to Education: 5 1= No idea of what is involved, views transplant as cure, no long range picture 3= Some knowledge gaps or denial, generally good understanding 5= Able to state risks and benefits, realistic Final Rating of Candidate Quality (Do not average above responses): 4 0= Poor, surgery contraindicated 1= Borderline, acceptable under some conditions 2= Acceptable with some reservations 3= Good candidate 4= Excellent candidate D EDUCATION COORDINATOR documented in this encounter Plan of Treatment Order Schedule Name Type Priority Associated Diag noses Ordered: 05/17/2021 AMB REFERRAL TO Outpatient Routine Status post li angela PSYCHIATRY Referral transplantation (HC C) Primary sclerosing cholangitis Other cirrhosis of liver (HCC) documented as of this encounter Goals Goal Patient Associated Recent Progress Patient-Stat Aut hor Goal Type Problems ed? GOAL General No Maria M Erwin, RN Note: get my liver transplant Resume normal activities Hospital No Deandra Bean, ELIAS Note: Waiting for a liver transplant Move to [place]. documented as of this encounter Visit Diagnoses Diagnosis Encounter for pre-transplant evaluation for liver transplant - Primary Other specified pre-operative examinati on documented in this encounter Additional Health Concerns Noted Time Assessment 06/18/2021 10:50 AM FIELD EDUCATION COORDINATOR A fall risk assessment has been complet ed for the patient 06/18/2021 12:20 PM FIELD EDUCATION COORDINATOR PHQ-2 Depression Total Score: 0 documented as of this encounter Care Teams Start Date End Date Steel Barrel Reamer Relationship Specialty 08/12/19 Angelic Resendez MD PCP - [address] [place], [place] [id number] 06/03/10 Zakiya Ledezma RN 06/03/10 Liberty Justice MD [address] [place] [address] 06/03/10 Moy Serrano MD [address] [facility] [id number] [place] [address] 08/25/10 Stephania Liu, ELIAS Emergency Medicine 09/03/10 Leobardo Giordano MD Infectious [address] [facility] Disease [facility] [address] [place] [address] 03/29/11 Kati Thomas MD Internal [address] [place] [address] 05/01/11 Edilson Villalba MD Internal [address] [place] [address] 05/05/11 Alex Balbuena MD Infectious [address] Disease [facility] [address] [place] [address] 05/20/11 Kleber Can MD Internal Fellow provider only Medicine 06/18/11 Harish Irvin MD Transplant [address] [facility] [address] [place] [address] 10/02/11 Luis Eduardo Art MD Gastroentero [address] logy Ortho[facility] [address] [place] [address] 06/15/12 Alton Sewell MD Dermatology Forwarding Address Unknown 06/15/12 Ariane Campoverde MD Dermatology [address] [place] [address] 09/14/12 Dayan Daniels MD Dermatology [address] Ortho[facility] [address] [place] [address] 12/21/12 Jamel Hutchins MD Dermatology Retired [place] [id number] 12/21/12 Leigh Resendez MD Dermatology [address] [place] [address] 01/03/15 Carmen Reeves, FERN CUTTER Transplant [address] Hepatology [place] [address] [place] [address] 05/07/15 Margaux Ng, ELIAS 06/06/15 Maureen Robertson LPN Maternal and Medicine 07/04/15 Lupe Hamilton Maternal and Medicine 09/05/15 Berta Baldwin 12/11/15 Michelle Orellana 01/01/16 Lashon Carey MA Maternal and Medicine 01/03/16 Carmen Lassiter, Gastroentero FERN CUTTER-LENS MARKER logy [address] [facility] [place] [address] [place] [address] 01/03/16 Linsey Watson 01/17/16 Audrey Howard, ELIAS documented as of this encounter
--- OUTSIDE RECORDS SUMMARY | 2021-08-16 09:18 | XMS REPORT | Encounter Summary ---
Author Author [facility] Organization [facility] Address Unknown Phone Unavailable Care Team Providers Care Warp Knitter Name Role Phone Zakiya Ledezma RN Unavailable [...] Lashon Carey MA Unavailable Unavailable Carmen Lassiter MUSHROOM PRESS OPERATOR-ATHLETIC AGENT Unavailable [phone] Linsey Watson Unavailable Unavailable Audrey Howard RN Unavailable Unavailable Angelic Resendez MD PCP Reason for Visit * Reason Comments Olt Evaluation Encounter Details Care Team Description Date Type Department Self, Referral 06/19/2021 Clinical Transplant: [facility], Support [facility] [address], [address] [place] [address] Social History Date Tobacco Use Types Packs/Day Years Used Quit: 02/01/1976 Former Smoker Cigarettes 3 Smokeless Tobacco: Never Used Comments: Quit 08/1976 Comments Alcohol Use Standard Drinks/Week No 0 (1 standard drink = 0.6 o z pure alcohol) Sex Assigned at Date Recorded Male 04/17/2020 2:33 PM CDT Date Recorded COVID-19 Exposure Response 06/18/2021 7:26 AM CORRUGATOR MACHINE OPERATOR In the last month, have [...] as of this encounter Progress Notes * Madi Baum, PHARMD - 06/19/2021 11:00 AM CORRUGATOR MACHINE OPERATOR Images from the original note were not included. Pharmacy Liver Transplant Evaluation I met with Ravindra Chun for their pharmacy transplant evaluation. A medication h istory and reconciliation were performed (including prescription medications, toth pplements, over the counter, and herbal products). [facility] and the patients current medication list is included below. Home Medications Medication Sig aMILoride (MIDAMOR) 5 mg tablet Take two [...] -400 unit cap Take 1 tablet by mout h three times daily. camphor/menthol (SARNA) 0.5/0.5 % lotn Apply to skin areas two to three times as needed. cholecalciferol (VITAMIN D-3) 1,000 units tablet Take 1,000 Units by mouth every 48 hours. ciprofloxacin (CIPRO) 500 mg tablet TAKE 1 TABLET DAILY FOR 1 WEEK, THEN CYCLE O FF OF MEDICATION AND TAKE AUGMENTIN FOR 1 WEEK, THEN BACTRIM FOR 1 WEEK, REPEAT CYCLE COCONUT OIL TP Apply topically to affected area. famotidine (PEPCID) 20 mg tablet TAKE 1 TABLET TWICE A DAY fish oil /omega-3 fatty acids (SEA-OMEGA) 340/1000 mg capsule Take 1 capsule by mouth every 48 hours. furosemide (LASIX) 20 mg tablet Take one tablet by mouth every morning for 90 da ys. predniSONE (DELTASONE) 5 mg tablet TAKE 1 TABLET DAILY WITH BREAKFAST tacrolimus (PROGRAF) 0.5 mg capsule Take two capsules by mouth twice daily for 1 80 days. Patient taking differently: Take 1 mg by mouth twice daily. 2 mg in the morning and 1.5 in the evening tacrolimus (PROGRAF) 1 mg capsule Take 1 mg by mouth twice daily. triamcinolone acetonide (KENALOG) 0.1 % topical cream Apply topically to affect ed area twice daily as needed. trimethoprim/sulfamethoxazole (BACTRIM) 80/400 mg tablet Take as directed by pro vider ursodioL (ACTIGALL) 300 mg capsule TAKE 1 CAPSULE IN THE MORNING AND 2 CAPSULES IN THE EVENING vitamins, multiple (DAILY MULTI-VITAMIN) tablet Take 1 tablet by mouth daily. Patient has prescription drug coverage: yes/no: Yes, Medicare/ Patient currently uses opioids/benzodiazepines: yes/no: No, verified with [facility] Patient is currently on antiplatelet/anticoagulant: yes/no: No Medication Adherence: Casiano (0= Never, 1= Rarely, 2= Sometimes, 3= Often, 4= Always) Method utilized to manage medications: Pillbox and alarms How often do you forget to take one or more of your prescription medications? 0 How often do you run out of one or more of your prescription medications before getting a new refill? 0 How often do you have difficulty swallowing medications or taking your medicatio ns? 0 How often do you have difficulty affording your prescription medications? 0 How often does your pharmacy have difficulty filing your prescription medication s? 0 Patient Education: During this visit the patient was provided with an overview of therapies that wi ll be initiated post-transplant, including but not limited to significant side e ffects and dosing schedules.No REMS are required for any of the prescribed medic ations for this patient. Emphasis was placed on the importance of medication adherence both pre and post- transplant. The patient was encouraged to contact the transplant pharmacist with any follow up questions. Ravindra Chun expressed understanding of the information discussed. Assessment: Comments: I met with Ravindra Chun to discuss transplant medications. All questions were addressed at the time of our encounter. The patient demonstrates excellent medication adherence. Potential Drug Interactions: none Potential Barriers to Transplantation: none Recommendation: There are not pharmacological barriers to transplantation. Madi Baum PharmD, MPH Clinical Pharmacist, Heart and Liver Transplant [facility] | Email:[email or web address] | Email: [email or web address] UGATOR MACHINE OPERATOR documented in this encounter Plan of Treatment Not on filedocumented as of this encounter Goals Goal Patient Associated Recent Progress Patient-Stat Aut hor Goal Type Problems ed? GOAL General No Maria M Erwin, RN Note: get my liver transplant Resume normal activities Hospital No Deandra Bean, ELIAS Note: Waiting for a liver transplant Move to [place]. documented as of this encounter Visit Diagnoses Not on filedocumented in this encounter Historical Medications * This list may reflect changes made after this encounter. Start Date End Date Medication Sig Dispensed Refills tacrolimus (PROGRAF) 1 mg Take 1 mg by 0 capsule mouth twice daily. added in this encounter Additional Health Concerns Noted Time Assessment 06/19/2021 9:20 AM CORRUGATOR MACHINE OPERATOR A fall risk assessment has been complet ed for the patient 06/19/2021 9:22 AM CORRUGATOR MACHINE OPERATOR PHQ-2 Depression Total Score: 0 documented as of this encounter Care Teams Start Date End Date Warp Knitter Relationship Specialty 08/12/19 Angelic Reesndez MD PCP - [address] Ardon [address] [place] [address] 06/03/10 Zakiya Ledezma RN 06/03/10 Liberty Justice MD [address] [place] [address] 06/03/10 Moy Serrano MD 4000 [facility] KS[address] [place] [address] 08/25/10 Stephania Liu, RN Emergency Medicine 09/03/10 Leobardo Giordano MD Infectious [address] Disease [facility] Lvl [address] [place] [address] 03/29/11 Kati Thomas MD Internal [address] [place] [address] 05/01/11 Edilson Villalba MD Internal 4000 [place] [address] 05/05/11 Alex Balbuena MD Infectious [address] Disease [facility] Lvl [address] [place] [address] 05/20/11 Kleber Can MD Internal Fellow provider only Medicine 06/18/11 Harish Irvin MD Transplant 4000 [facility] Surgery Main [address]st [place] [address] 10/02/11 Luis Eduardo Art MD Gastroentero [address] logy Ortho/Med Pavilion [address]vl [address] [place] [address] 06/15/12 Alton Sewell MD Dermatology Forwarding Address Unknown 06/15/12 Ariane Campoverde MD Dermatology [address] [place] [address] 09/14/12 Dayan Daniels MD Dermatology [address] Ortho/Med Pavilion Lvl [address] [place] [address] 12/21/12 Jamel Hutchins MD Dermatology Retired Left [place] [id number] 12/21/12 Leigh Resendez MD Dermatology [address] [facility] [address] [place] [address] 01/03/15 Carmen Reeves APRN Transplant [address] Hepatology [address] [place] [address] 05/07/15 Margaux Ng, RN 06/06/15 Maureen Robertson LPN Maternal and Medicine 07/04/15 Lupe Hamilton Maternal and Medicine 09/05/15 Berta Baldwin 12/11/15 Michelle Orellana 01/01/16 Lashon Carey MA Maternal and Medicine 01/03/16 Carmen Lassiter, Gastroentero MUSHROOM PRESS OPERATOR-ATHLETIC AGENT [address] Ortho[facility]Med Pavilion Lvl [address] [place] [address] 01/03/16 Linsey Watson 01/17/16 Audrey Howard RN documented as of this encounter"
--- OUTSIDE RECORDS SUMMARY | 2021-08-16 09:18 | XMS REPORT | Encounter Summary ---
Author Author [facility] Organization [facility] Address Unknown Phone Unavailable Care Team Providers Care Patent Searcher Name Role Phone Zakiya Ledezma RN Unavailable [...] Lashon Carey MA Unavailable Unavailable Carmen Lassiter FACTORY FOCUS TECHNICIAN-REGISTERED MIDWIFE Unavailable [phone] Linsey Watson Unavailable Unavailable Audrey Howard RN Unavailable Unavailable Angelic Resendez MD PCP Reason for Visit * Reason Comments Surgical Followup Encounter Details Care Team Description Date Type Department Harish Irvin MD [address] [facility] [address] [place] [address] History of liver transplant (HCC) (Prima ry Dx); PSC (primary sclerosing cholangitis); End-stage liver disease (HCC) 06/17/2021 Transplant Transplant: [facility] [address] [facility] [address], [address] [place] [address] Social History Date Tobacco Use Types Packs/Day Years Used Quit: 02/01/1976 Former Smoker Cigarettes 3 Smokeless Tobacco: Never Used Comments: Quit 08/1976 Comments Alcohol Use Standard Drinks/Week No 0 (1 standard drink = 0.6 o z pure alcohol) Sex Assigned at Date Recorded Male 04/17/2020 2:33 PM CDT Date Recorded COVID-19 Exposure Response 06/18/2021 7:26 AM RUG SETTER AXMINSTER In the last month, have you been in contact with No / Unsure someone who was confirmed or suspected to have Coronavirus / COVID-19? documented as of this encounter Last Filed Vital Signs Reading Time Taken Comments Vital Sign 107/59 06/17/2021 2:42 PM RUG SETTER AXMINSTER Blood Pressure 99 06/17/2021 2:42 PM RUG SETTER AXMINSTER Pulse 36.7 C (98.1 F) 06/17/2021 2:42 PM RUG SETTER AXMINSTER Temperature 16 06/17/2021 2:42 PM RUG SETTER AXMINSTER Respiratory Rate 99% 06/17/2021 2:42 PM RUG SETTER AXMINSTER Oxygen Saturation - - Inhaled Oxygen Concentration 73.4 kg (161 lb 12.8 oz) 06/17/2021 2:42 PM RUG SETTER AXMINSTER Weight 175.3 cm (5' 9") 06/17/2021 2:42 PM RUG SETTER AXMINSTER Height 23.89 06/17/2021 2:42 PM RUG SETTER AXMINSTER Body Mass Index documented in this encounter [...] as of this encounter Progress Notes * Harish Irvin MD - 06/17/2021 2:20 PM RUG SETTER AXMINSTER Date of Service: 06/17/2021 Subjective: Ravindra Chun is a 65 y.o. male. 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 The patient had multiple recurrent episodes of cholangitis. He is here for re don liver transplant. 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 Review of Systems Constitutional: Positive for fatigue. HENT: Negative. Eyes: Negative. Respiratory: Negative. Cardiovascular: Negative. Gastrointestinal: Negative. Endocrine: Negative. Genitourinary: Negative. Musculoskeletal: Negative. Neurological: Negative. Psychiatric/Behavioral: Negative. Medical History: Diagnosis Date Acute cholangitis 03/12/2011 Bacteremia E. Coli Cancer of colon (HCC) Cholangitis, recurrent Elevated liver enzymes Hemorrhoids Pancreatitis, acute 2007 Possibly related to ERCP Primary sclerosing cholangitis diagnosed 2007 Transplant 06/19/2011 liver Ulcerative colitis diagnosed 1990 UTI (lower urinary tract infection) 03/07/2010 Surgical History: Procedure Laterality Date HX TONSILLECTOMY 1967 HX CHOLECYSTECTOMY 1990 LIVER TRANSPLANT 06/18/11 CHOLANGIOPANCREATOGRAPHY ENDOSCOPY RETROGRADE N/A 01/17/2016 Performed by Moy Serrano MD at [facility] ENDO BIOPSY LIVER N/A 01/17/2016 Performed by Moy Serrano MD at [facility] ENDO CHOLANGIOPANCREATOGRAPHY ENDOSCOPY RETROGRADE N/A 02/16/2017 Performed by Moy Serrano MD at [facility] ENDO ESOPHAGOGASTRODUODENOSCOPY ENDOSCOPIC ULTRASOUND N/A 02/16/2017 Performed by Moy Serrano MD at [facility] ENDO CHOLANGIOPANCREATOGRAPHY ENDOSCOPY RETROGRADE WITH BILIARY DUCT DILATATION 02/16/2017 Performed by Moy Serrano MD at [facility] ENDO CHOLANGIOPANCREATOGRAPHY ENDOSCOPY RETROGRADE N/A 06/10/2017 Performed by Moy Serrano MD at [facility] ENDO CHOLANGIOPANCREATOGRAPHY ENDOSCOPY RETROGRADE N/A 05/20/2018 Performed by Moy Serrano MD at [facility] ENDO ESOPHAGOGASTRODUODENOSCOPY WITH SPECIMEN COLLECTION BY BRUSHING/ WASHING N/A 08/12/2018 Performed by Hay Shaw MD at [facility] ENDO ESOPHAGOGASTRODUODENOSCOPY WITH SPECIMEN COLLECTION BY BRUSHING/ WASHING N/A 08/12/2019 Performed by Adam Simental MD at [facility] ENDOSCOPIC RETROGRADE CHOLANGIOPANCREATOGRAPHY N/A 10/17/2019 Performed by Moy Serrano MD at [facility] ENDOSCOPIC RETROGRADE CHOLANGIOPANCREATOGRAPHY N/A 02/02/2020 Performed by Moy Serrano MD at [facility] ENDOSCOPIC RETROGRADE CHOLANGIOPANCREATOGRAPHY WITH REMOVAL CALCULI/ DEBRIS FROM BILIARY/ PANCREATIC DUCT 02/02/2020 Performed by Moy Serrano MD at [facility] ENDO ESOPHAGOGASTRODUODENOSCOPY WITH TRANSENDOSCOPIC ULTRASOUND GUIDED FINE NEEDL E ASPIRATION/ BIOPSY LIVER BX N/A 04/30/2020 Performed by Moy Serrano MD at [facility] ENDOSCOPIC RETROGRADE CHOLANGIOPANCREATOGRAPHY WITH TRANS-ENDOSCOPIC BALLOON DILATION BILIARY/ PANCREATIC DUCT/ AMPULLA - EACH DUCT 04/30/2020 Performed by Moy Serrano MD at [facility] ENDO ENDOSCOPIC RETROGRADE CHOLANGIOPANCREATOGRAPHY 04/30/2020 Performed by Moy Serrano MD at [facility] ENDOSCOPIC RETROGRADE CHOLANGIOPANCREATOGRAPHY WITH TRANS-ENDOSCOPIC BALLOON DILATION BILIARY/ PANCREATIC DUCT/ AMPULLA - EACH DUCT N/A 08/29/2020 Performed by Moy Serrano MD at [facility] ENDO ESOPHAGOGASTRODUODENOSCOPY WITH BAND LIGATION ESOPHAGEAL/ GASTRIC VARICES - FLEXIBLE N/A 08/29/2020 Performed by Moy Serrano MD at [facility] ENDO Transperineal NEEDLE/ PUNCH BIOPSY PROSTATE - 12 core - Combo with Radiolog y Dr. Samantha Richard N/A 02/22/2021 Performed by Waqas Tucker MD at [facility] OR ULTRASOUND GUIDANCE FOR NEEDLE PLACEMENT N/A 02/22/2021 Performed by Waqas Tucker MD at [facility] OR ELECTROCARDIOGRAM Family History Problem Relation Age [...] Social History Narrative Not on file Objective: Allergies as of 06/17/2021 (No Known Allergies) aMILoride (MIDAMOR) 5 mg tablet Take two [...] 1 tablet by mouth daily . Vitals: 06/17/21 1442 BP: 107/59 BP Source: Arm, Right Upper Patient Position: Sitting Pulse: 99 Resp: 16 Temp: 36.7 C (98.1 F) TempSrc: Oral SpO2: 99% Weight: 73.4 kg (161 lb 12.8 oz) Height: 175.3 cm (69") PainSc: Zero Body mass index is 23.89 kg/m. Physical Exam Vitals reviewed. Constitutional: Appearance: Normal appearance. HENT: Head: Normocephalic and atraumatic. Mouth/Throat: Mouth: Mucous membranes are moist. Eyes: Extraocular Movements: Extraocular movements intact. Pupils: Pupils are equal, round, and reactive to light. Cardiovascular: Rate and Rhythm: Normal rate and regular rhythm. Abdominal: General: Abdomen is flat. Palpations: Abdomen is soft. Musculoskeletal: General: Normal range of motion. Cervical back: Normal range of motion. Neurological: General: No focal deficit present. Mental Status: He is alert and oriented to person, place, and time. Psychiatric: Mood and Affect: Mood normal. Behavior: Behavior normal. Hospital Outpatient Visit on 06/17/2021 Component Date Value Ref Range Status FVC-Pre 06/17/2021 4.13 L Preliminary FVC-%Pred-pre 06/17/2021 96 % Preliminary FEV1-Pre 06/17/2021 3.38 L Preliminary FEV1-%Pred-Pre 06/17/2021 103 % Preliminary FEV1/FVC-Pre 06/17/2021 82 % Preliminary [id number]-HTP 06/17/2021 64 % Preliminary [id number] 06/17/2021 3.79 L/sec Preliminary [id number]-%Pred-Pre 06/17/2021 146 % Preliminary RVPleth-Pre 06/17/2021 1.88 L Preliminary RVPleth-%Pred-Pre 06/17/2021 81 % Preliminary TLCPleth-Pre 06/17/2021 6.14 L Preliminary TLCPleth-%Pred-Pre 06/17/2021 90 % Preliminary DLCOunc-Pre 06/17/2021 18.56 ml/min/mmHg Preliminary DLCOunc-%Pred-Pre 06/17/2021 69 % Preliminary DLCOunc-#SD 06/17/2021 -1.338 ml/min/mmHg Preliminary DLCOcor-#SD 06/17/2021 -1.037 ml/min/mmHg Preliminary DLVA-Pred 06/17/2021 4.12 ml/min/mmHg/L Preliminary DLVA-Pre 06/17/2021 3.11 ml/min/mmHg/L Preliminary DLVA-%Pred-Pre 06/17/2021 75 % Preliminary DLVA-SD 06/17/2021 0.73 ml/min/mmHg/L Preliminary DLVA-LLN 06/17/2021 2.66 ml/min/mmHg/L Preliminary DLVA-ULN 06/17/2021 5.58 ml/min/mmHg/L Preliminary DLVA-#SD 06/17/2021 -1.380 ml/min/mmHg/L Preliminary SIT2PTW-Adb 06/17/2021 75 % Preliminary pH-Arterial 06/17/2021 7.40 7.35 - 7.45 Final pCO2-Arterial 06/17/2021 31* 35 - 45 MMHG Final pO2-Arterial 06/17/2021 89 80 - 100 MMHG Final Base Deficit-Arterial 06/17/2021 4.5 MMOL/L Final O2 Sat-Arterial 06/17/2021 97.2 95 - 99 % Final Zgdpcviqbnx-JBK-Pnh 06/17/2021 20.7* 21 - 28 MMOL/L Final Carbon Monoxide 06/17/2021 0.9 <2.0 % Final Hemoglobin BG 06/17/2021 11.8* 13.5 - 16.5 GM/DL Final Hematocrit BG 06/17/2021 36.5* 40 - 50 % Final Methemoglobn 06/17/2021 1.2 <1.5 % Final Assessment and Plan: 65 y.o. male gentleman known to us with past medical history of PSC status pos t OLT in 2010 with recurrent PSC. The patient had multiple recurrent episodes of cholangitis. He is here for re don liver transplant. He has hx of total abdomin al colectomy with end ileostomy. Plan: The patient was seen and examined. He will be a reasonable surgical candid ate for re do liver transplant pending full evaluation. I went a head in discuss ed with the patient surgical aspects of liver transplant, life commitment in det ail and also elaborated about , immunosuppression, risks and benefits as well. W e will follow the patient's imaging study in our HCC conference to rule out en h ence lesions in the liver.The patient will be discussed in our selection committ ee. Harish Irvin MD SETTER AXMINSTER documented in this encounter Miscellaneous Notes * Patient Instructions - Mel Solis RN - 06/17/2021 2:20 PM RUG SETTER AXMINSTER Please contact our office if you should have any questions or concerns regarding your office visit or surgery. Contact your coordinator at [phone]. Today in clinic: Review of PMH,PSH Review of the pre-transplant eval process Review of the transplant surgery process Review of risks and potential complications Review of life long anti-rejection medication Your plan: Follow the schedule your coordinator gave you SETTER AXMINSTER documented in this encounter Plan of Treatment Not on filedocumented as of this encounter Goals Goal Patient Associated Recent Progress Patient-Stat Aut hor Goal Type Problems ed? GOAL General No Maria M Erwin, ELIAS Note: get my liver transplant Resume normal activities [facility] Deandra Bean RN Note: Waiting for a liver transplant Move to [place]. documented as of this encounter Visit Diagnoses Diagnosis History of liver transplant (HCC) - [place] Liver replaced by transplant PSC (primary sclerosing cholangitis) Cholangitis End-stage liver disease (HCC) Other sequelae of chronic liver disease documented in this encounter Additional Health Concerns Noted Time Assessment 06/17/2021 2:40 PM RUG SETTER AXMINSTER A fall risk assessment has been complet ed for the patient 06/17/2021 2:40 PM RUG SETTER AXMINSTER PHQ-2 Depression Total Score: 0 documented as of this encounter Care Teams Start Date End Date Patent Searcher Relationship Specialty 08/12/19 Angelic Resendez MD PCP - [address] Ardon [address] [place] [address] 06/03/10 Zakiya Ledezma RN 06/03/10 Liberty Justice MD [address] [place] [address] 06/03/10 Moy Serrano MD [address] [facility] [address] [place] [address] 08/25/10 Stephania Liu RN Emergency Medicine 09/03/10 Leobardo Giordano MD Infectious [address] Disease Ortho[facility]Med Pavilion Lvl [address] [place] [address] 03/29/11 Kati Thomas MD Internal [address] [place] [address] 05/01/11 Edilson Villalba MD Internal [address] [place] [address] 05/05/11 Alex Balbuena MD Infectious [address] Disease Ortho[facility]Med Pavilion Lvl [address] [place] [address] 05/20/11 Kleber Can MD Internal Fellow provider only Medicine 06/18/11 Harish Irvin MD Transplant 4000 [facility] Main 1st [place] [address] 10/02/11 Luis Eduardo Art MD Gastroentero [address] logy Ortho/Med Pavilion Lvl [address] [place] [address] 06/15/12 Alton Sewell MD Dermatology Forwarding Address Unknown 06/15/12 Ariane Campoverde MD Dermatology [address] [place] [address] 09/14/12 Dayan Daniels MD Dermatology [address] Ortho/Med Pavilion Lvl [address] [place] [address] 12/21/12 Jamel Hutchins MD Dermatology Retired Left [place] [id number] 12/21/12 Leigh Resendez MD Dermatology [address] [facility] [address] [place] [address] 01/03/15 Carmen Reeves, GINI Transplant [address] Hepatology [address] [place] [address] 05/07/15 Margaux Ng RN 06/06/15 Maureen Robertson LPN Maternal and Medicine 07/04/15 Lupe Hamilton Maternal and Medicine 09/05/15 Berta Baldwin 12/11/15 Michelle Orellana 01/01/16 Lashon Carey MA Maternal and Medicine 01/03/16 Carmen Lassiter, Gastroentero FACTORY FOCUS TECHNICIAN-REGISTERED MIDWIFE logy [address] [facility] Ortho/Med Pavilion Lvl [address] [place] [address] 01/03/16 Linsey Watson 01/17/16 Audrey Howard RN documented as of this encounter
--- OUTSIDE RECORDS SUMMARY | 2021-08-16 09:18 | XMS REPORT | Encounter Summary ---
Author Author [facility] Organization [facility] Address Unknown Phone Unavailable Care Team Providers Care Training Development Director Name Role Phone Zakiya Ledezma RN Unavailable [...] Lashon Carey MA Unavailable Unavailable Carmen Lassiter PREDATOR CONTROL TRAPPER-POLYMERIZATION OVEN TENDER Unavailable [phone] Linsey Watson Unavailable Unavailable Audrey Howard RN Unavailable Unavailable Angelic Resendez MD PCP Reason for Referral * Radiology Services (Routine) - New Request Diagnoses / Procedures Referred By Contact Referred To [facility] Specialty Diagnoses Encounter for other preprocedural examination Status post liver transplantation (HCC) Primary sclerosing cholangitis Other cirrhosis of liver (HCC) Procedures US DUPLEX SCAN CAROTID BILATERAL Moy Serrano MD [address] [place] [address] Radiology Referral ID Status Reason Start Date Expiration Visits Vi sits Date Requested Authorized [id number] New Request 05/17/2021 05/17/2022 1 1 SERVICES PROFESSIONAL Reason for Visit * Radiology Services (Routine) - New Request Diagnoses / Procedures Referred By Contact Referred To [facility] Specialty Diagnoses Encounter for other preprocedural examination Status post liver transplantation (HCC) Primary sclerosing cholangitis Other cirrhosis of liver (HCC) Procedures US DUPLEX SCAN CAROTID BILATERAL Moy Serrano MD [address] [place] [address] Radiology Referral ID Status Reason Start Date Expiration Visits Vi sits Date Requested Authorized [id number] New Request 05/17/2021 05/17/2022 1 1 Encounter Details Care Team Description Date Type Department Moy Serrano MD [address] [place] [id number] 06/18/2021 Hospital Imaging, Ultrasound : Main Encounter [place], [address], [address] [place] [address] Social History Date Tobacco Use Types Packs/Day Years Used Quit: 02/01/1976 Former Smoker Cigarettes 3 Smokeless Tobacco: Never Used Comments: Quit 08/1976 Comments Alcohol Use Standard Drinks/Week No 0 (1 standard drink = 0.6 o z pure alcohol) Sex Assigned at Date Recorded Male 04/17/2020 2:33 PM CDT Date Recorded COVID-19 Exposure Response 06/18/2021 7:26 AM TAX SERVICES PROFESSIONAL In the last month, have you been [...] for a liver transplant Move to [place]. documented as of this encounter Procedures Comments Procedure Name Priority Date/Time Associated Diag nosis US DUPLEX SCAN CAROTID Routine 06/18/2021 Encount er for other BILATERAL 8:47 AM TAX SERVICES PROFESSIONAL preprocedural exami nation S tatus post liver transplantation (HCC) Primary sclerosing cholangitis Other cirrhosis of liver (HCC) documented in this encounter Results * US DUPLEX SCAN CAROTID BILATERAL (06/18/2021 8:47 AM TAX SERVICES PROFESSIONAL) Modality Anatomical Region Laterality Ultrasound Neck, Vascular Bilateral Specimen Impressions [facility] RESULTS - 06/18/2021 10:38 AM TAX SERVICES PROFESSIONAL Normal carotid Doppler exam. Approved by [facility] [...] [facility] RAD RESULTS - 06/18/2021 10:38 AM TAX SERVICES PROFESSIONAL CAROTID DOPPLER CLINICAL INDICATION: 65-year-old male. Liver [...] Code P suzy Number [facility] RESULTS documented in this encounter Visit Diagnoses Diagnosis Encounter for other preprocedural exami nation Status post liver transplantation (HCC) Liver replaced by transplant Primary sclerosing cholangitis Cholangitis Other cirrhosis of liver (HCC) documented in this encounter Additional Health Concerns Noted Time Assessment 06/18/2021 10:50 AM TAX SERVICES PROFESSIONAL A fall risk assessment has been complet ed for the patient 06/18/2021 12:20 PM TAX SERVICES PROFESSIONAL PHQ-2 Depression Total Score: 0 documented as of this encounter Care Teams Start Date End Date Training Development Director Relationship Specialty 08/12/19 Angelic Resendez MD PCP - [address] [facility] 5 [place], [place] [id number] 06/03/10 Zakiya Ledezma RN 06/03/10 Liberty Justice MD [address] [place], [place] [id number] 06/03/10 Moy Serrano MD 4000 [facility]1170 [place] [address] 08/25/10 Stephania Liu RN Emergency Medicine 09/03/10 Leobardo Giordano MD Infectious [address] Disease Ortho/Med Pavilion Lvl 4C [place] [address] 03/29/11 Kati Thomas MD Internal 4000 [place] [address] 05/01/11 Edilson Villalba MD Internal 4000 [place] [address] 05/05/11 Alex Balbuena MD Infectious [address] Disease Ortho/Med Pavilion Lvl [address] [place] [address] 05/20/11 Kleber Can MD Internal Fellow provider only Medicine 06/18/11 Harish Irvin MD Transplant 4000 [facility] Main 1st [place] [address] 10/02/11 Luis Eduardo Art MD Gastroentero [address] logy Ortho/Med Pavilion Lvl 2B [place] [address] 06/15/12 Alton Sewell MD Dermatology Forwarding Address Unknown 06/15/12 Ariane Campoverde MD Dermatology [address] [place] [address] 09/14/12 Dayan Daniels MD Dermatology [address] Ortho/Med Pavilion Lvl 4C [place] [address] 12/21/12 Jamel Hutchins MD Dermatology Retired Left [id number] 12/21/12 Leigh Resendez MD Dermatology [address] [facility] [address] [place] [id number] 01/03/15 Carmen Reeves, GINI Transplant [address] Hepatology [place] [address] [place] [address] 05/07/15 Margaux Ng, RN 06/06/15 Maureen Robertson LPN Maternal and Medicine 07/04/15 Lupe Hamilton Maternal and Medicine 09/05/15 Berta Baldwin 12/11/15 Michelle Orellana 01/01/16 Lashon Carey MA Maternal and Medicine 01/03/16 Carmen Lassiter, Gastroentero PREDATOR CONTROL TRAPPER-POLYMERIZATION OVEN TENDER logy [address] Ortho/Med Pavilion Lvl 2B [place] [address] 01/03/16 Linsey Watson 01/17/16 Audrey Howard, ELIAS documented as of this encounter
--- OUTSIDE RECORDS SUMMARY | 2021-08-16 09:18 | XMS REPORT | Encounter Summary ---
Author Author [facility] Organization [facility] Address Unknown Phone Unavailable Care Team Providers Care Software Writer Name Role Phone Zakiya Ledezma RN Unavailable [...] Lashon Carey MA Unavailable Unavailable Carmen Lassiter ARMORED TRUCK DRIVER-NURSE EMERGENCY ROOM Unavailable [phone] Linsey Watson Unavailable Unavailable Audrey Howard RN Unavailable Unavailable Angelic Resendez MD PCP Encounter Details Care Team Description Date Type Department 06/18/2021 Travel Social History Date Tobacco Use Types Packs/Day Years Used Quit: 02/01/1976 Former Smoker Cigarettes 3 Smokeless Tobacco: Never Used Comments: Quit 08/1976 Comments Alcohol Use Standard Drinks/Week No 0 (1 standard drink = 0.6 o z pure alcohol) Sex Assigned at Date Recorded Male 04/17/2020 2:33 PM CDT Date Recorded COVID-19 Exposure Response 06/18/2021 7:26 AM HRIS SPECIALIST In the last month, have you been [...] Waiting for a liver transplant Move to [place]. documented as of this encounter Visit Diagnoses Not on filedocumented in this encounter Additional Health Concerns Noted Time Assessment 06/18/2021 10:50 AM HRIS SPECIALIST A fall risk assessment has been complet ed for the patient 06/18/2021 12:20 PM HRIS SPECIALIST PHQ-2 Depression Total Score: 0 documented as of this encounter Care Teams Start Date End Date Software Writer Relationship Specialty 08/12/19 Angelic Resendez MD PCP - [address] [place] [address] 06/03/10 Zakiya Ledezma, RN 06/03/10 Liberty Justice MD [address] [place] [address] 06/03/10 Moy Serrano MD 4000 [facility] LD3751 [place] [address] 08/25/10 Stephanai Liu, ELIAS Emergency Medicine 09/03/10 Leobardo Giordano MD Infectious [address] Disease Ortho/Med Pavilion Lvl [address] [place] [address] 03/29/11 Kati Thomas MD Internal 4000 [place] [address] 05/01/11 Edilson Villalba MD Internal 4000 [place] [address] 05/05/11 Alex Balbuena MD Infectious [address] Disease Ortho/Med Pavilion Lvl [address] [place] [address] 05/20/11 Kleber Can MD Internal Fellow provider only Medicine 06/18/11 Harish Irvin MD Transplant 4000 [facility] 1st [place] [address] 10/02/11 Luis Eduardo Art MD Gastroentero [address] logy Ortho/Med Pavilion Lvl 2B [place] [address] 06/15/12 Alton Sewell MD Dermatology Forwarding Address Unknown 06/15/12 Ariane Campoverde MD Dermatology [address] [place] [address] 09/14/12 Dayan Daniels MD Dermatology [address] Ortho/Med Pavilion Lvl 4C [place] [address] 12/21/12 Jamel Hutchins MD Dermatology Retired Left [id number] [id number] 12/21/12 Leigh Resendez MD Dermatology 35 [place] [address] 01/03/15 Carmen Reeves, ARMORED TRUCK DRIVER Transplant [address] Hepatology [place] [address] [place] [address] 05/07/15 Margaux Ng, RN 06/06/15 Maureen Robertson LPN Maternal and Medicine 07/04/15 Lupe Hamilton Maternal and Medicine 09/05/15 Berta Baldwin 12/11/15 Michelle Orellana 01/01/16 Lashon Carey MA Maternal and Medicine 01/03/16 Carmen Lassiter, Gastroentero ARMORED TRUCK DRIVER-NURSE EMERGENCY ROOM logy [address] Ortho/Med Pavilion Lvl 2B [place] [address] 01/03/16 Linsey Watson 01/17/16 Audrey Howard, ELIAS documented as of this encounter
--- OUTSIDE RECORDS SUMMARY | 2021-08-16 09:18 | XMS REPORT | Encounter Summary ---
Author Author [facility] Organization [facility] Address Unknown Phone Unavailable Care Team Providers Care Warehouse Supervisor Name Role Phone Zakiya Ledezma RN [...] Lashon Carey MA Unavailable Unavailable Carmen Lassiter COKE PRODUCTION HEATER-RAIL CAR REPAIRER Unavailable [phone] Linsey Watson Unavailable Unavailable Audrey Howard RN Unavailable Unavailable Angelic Resendez MD PCP Reason for Visit * Consult, Test & Treat (Routine) - Authorized Diagnoses / Procedures Referred By Contact Referred To [facility] Specialty Diagnoses Status post liver transplantation (HCC) Primary sclerosing cholangitis Other cirrhosis of liver (HCC) Moy Serrano MD 4000 [facility] UM3241 [place] [address] [facility] Hepatology Cl [address] [place] [address], [address] [place] [address] Transplant Surgery Referral ID Status Reason Start Date Expiration Visits Vi sits Date Requested Authorized [id number] Authorized Specialty Services 05/17/2021 05/17/2022 1 1 Required Encounter Details Care Team Description Date Type Department Harish Irvin MD [address] [place] [address] 06/17/2021 Clinical Transplant: Main Ca mpus, Support [facility] [address] [address], [address] [place] [address] Social History Date Tobacco Use Types Packs/Day Years Used Quit: 02/01/1976 Former Smoker Cigarettes 3 Smokeless Tobacco: Never Used Comments: Quit 08/1976 Comments Alcohol Use Standard Drinks/Week No 0 (1 standard drink = 0.6 o z pure alcohol) Sex Assigned at Date Recorded Male 04/17/2020 2:33 PM CDT Date Recorded COVID-19 Exposure Response 06/20/2021 7:42 AM CRIME SCENE EXAMINER In the last month, have you been [...] as of this encounter Progress Notes * EdgarGenesis - 06/17/2021 12:00 PM CRIME SCENE EXAMINER SOCIAL WORK PSYCHOSOCIAL ASSESSMENT Name: [facility] #: [id number] Date: 06/20/2021 Referral Source: Dr. Serrano Date Ref erred: 06/17/21 Referral Reason: OLT Psychosocial Assessment Source of Information: Patient and his brotherDavon Date Interviewed: 06/03 12/21 Patient's Address: [address] [place] [id number] Telephone #: [phone] (home) PRESENT SITUATION: Sex: male Age: 65 y.o. Birthdate: 1955 Primary Language: Citizen Of [place] Religous Preference: Restoration Citizenship: [place] Citizen Diagnosis: ESLD, PSC Statement of Presenting Problem(s): Pt is a 65 yr old male who presents today wi th his brother Davon as part of the OLT evaluation. Pt was diagnosed with PSC se veral years ago. Pt received OLT at [facility] 06/18/11. Pt was re-evaluated for yu splant in June 2018 due to disease reoccurrence. Pt states he is currently l isted for transplant. Pt denies having any changes in his health since he was l ast seen by this SW. He states his meld has increased. Pt states he did develo p RODO and his GFR is in the mid 40's. Pt denies following with a Silo Erector. Pt states his PCP is Angelic Gallegos. He has been seeing her for the past 2.5 yrs. She practice [place], [place]. Pt states his most recent visit was sometime pedro ier this year. Pt denies having a local GI doctor. Pt denies getting paracentes is. Pt takes Xifaxin for HE. Pt uses a calendar to keep track of appointments. Pt denies missing appointments. Pt usually attends appointments alone. Pt states he is able to drive with no restrictions. Pt reports multiple hospitalizations in the past year. He states all were at [facility] and were related to liver disease. Pt states his most recent hospitalization was January 2021. PATIENT'S LIVING SITUATION Comments: Pt lives alone in a house, [facility], in [place], [place]. Pt states hosea de leon has lived in his current home for 3 yrs. There are no stairs to enter the home or within the home. Pt denies having pets. Pt is independent with ADL's and req uires no assistance with mobility. Pt denies receiving HH services or stay in a SNF, LTACH or IRF since last assessment. Pt does use a pill box and is respon sible for his own medication management. Pt states he has reminder alerts on hi s phone. He states he will occasionally miss his calcium at 3:00. He states he v isiah rarely misses any other medication. [place]. He states his father was in the . Pt states he has been in [place] for the p ast 3 yrs. Pt is aware he will be required to stay locally for at least two weeks post yu splant discharge. Pt states he will stay with his brother who lives in during that time. 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 He states he does one confess ion and one mass a week. Pt states he is retired and receives a pensio n. Pt states the also pays for his medications. Pt states he has Med icare A and B and [place] for insurance. Pt gets medication filled through [facility] in [place], [place]. Pt had not met with [facility] at time of assess ment. Pt denies current financial difficulties or concerns. SUPPORTIVE RELATIONSHIPS/ COMMUNITY RESOURCES Comments: Pt denies being , being in a relationship currently or having children. Pt states his father in Aug 2020. Pt states his mother is still living. He states he helps her out some. She lives in a [facility] in [place]. Pt has 4 Siblings living, Gonzalez, Davon, Xiomara, and Derrick. Pt stat es his family is aware of his medical condition and are supportive. Pt's primary support is his brother Davon. Davon confirms he will be able to provide 24 hr c are and transportation assistance post transplant. He states pt will be able to stay at his home in during his recovery. Pt states his sister, Xiomara, will as sist with care and transportation if needed. Pt states Xiomara and Davon will prov mary transportation to the hospital once pt receives transplant call. Pt states Theo real will drive and then meet Davon half-way and Davon will bring pt the rest of t he way. Caregiver Support 1. Davon, brother, 2. Xiomara Whaley, sister, COGNITIVE ABILITIES Comments: Pt was alert and oriented during assessment. Pt has a good understand ing of his medical condition and of the transplant process. Pt was able to verba lize risks and benefits of transplant. Pt denies having concerns regarding recei ving a transplant. Pt hopes he will have more energy post transplant. Pt was in formed of the OLT support groups in and [place], and [facility]. Pt is aware he will be required to take life long medication post transplant. Pt is aware of the frequent f/u at [facility] post transplant. Pt is aware he will be r equired to stay locally for at least two weeks post transplant and will be requi red to have 24 hr care and transportation assistance during that time. [place]NA comple agatha and reviewed Patient Responsibilities Form with pt and his brother. Both par ties verbalized understanding of requirements and signed form. Copy of signed fo rm was given to pt, in educational binder, for his records. Pt denies tobacco, drug or alcohol use. Pt states he does take sips of communion wine during masses everyday of the week. Peth neg. Pt denies ever having a DUI, being on probation or parole or current legal issues. Pt denies SI/SA, psychiatric hospitalizations or MH diagnosis. Pt has two Masters degrees. Pt enjoys going on walks, staying physically active, working and going to movies. Pt states he will provide a copy of his AD/DPOA-HC. He states his brother Davon and sister Xiomara are also able to make his medical decisions if needed. SOCIAL WORK EVALUATION Comments: [place]NA met with pt and his brother as part of the OLT evaluation. Pt is se mi retired and has Medicare and for insurance. Pt denies current financi al difficulties or concerns regarding obtaining medication or f/u treatment post transplant. Pt is aware of the risks and benefits of transplant. Pt is aware he will be required to stay locally for at least two weeks post transplant discha rge and will be required to have 24 hr care and transportation assistance during that time. Pt's brother will provide 24 hr care and transportation assistance post transplant. Pt denies tobacco, drug or alcohol use. Pt's case will be disc ussed with the Multidisciplinary Team SOCIAL WORK IMPRESSION/RECOMMENDATION: *No contraindication to proceed with liver transplant listing if deemed approp riate by the selection committee. PLAN Plan Discussed with Patient / Family: {PLAN DISCUSSED, AGREED UPON Plan Agreed Upon with Patient / Family: {PLAN DISCUSSED, AGREED UPON Genesis Hernández [facility] E SCENE EXAMINER documented in this encounter Plan of Treatment Order Schedule Name Type Priority Associated Diag noses Ordered: 05/17/2021 AMB REFERRAL TO SOCIAL Outpatient Routine Status post liver WORK Referral transplantation (HC C) Primary sclerosing cholangitis Other cirrhosis of liver (HCC) documented as of this encounter Goals Goal Patient Associated Recent Progress Patient-Stat Aut hor Goal Type Problems ed? GOAL General No Maria M Erwin RN Note: get my liver transplant Resume normal activities Hospital No Deandra Bean, ELIAS Note: Waiting for a liver transplant Move to [place]. documented as of this encounter Visit Diagnoses Not on filedocumented in this encounter Additional Health Concerns Noted Time Assessment 06/17/2021 2:40 PM CRIME SCENE EXAMINER A fall risk assessment has been complet ed for the patient 06/17/2021 2:40 PM CRIME SCENE EXAMINER PHQ-2 Depression Total Score: 0 documented as of this encounter Care Teams Start Date End Date Warehouse Supervisor Relationship Specialty 08/12/19 Angelic Resendez MD PCP - [address] 5 [place] [address] 06/03/10 Zakiya Ledezma RN 06/03/10 Liberty Justice MD [address] [place] [address] 06/03/10 Moy Serrano MD [address] [facility] DT2746 [place] [address] 08/25/10 Stephania Liu, ELIAS Emergency Medicine 09/03/10 Leobardo Giordano MD Infectious [address] Disease Ortho/Med Pavilion Lvl 4C [place] [address] 03/29/11 Kati Thomas MD Internal 4000 [place] [address] 05/01/11 Edilson Villalba MD Internal [address] [place] [address] 05/05/11 Alex Balbuena MD Infectious [address] Disease Ortho/Med Pavilion Lvl [address] [place] [address] 05/20/11 Kleber Can MD Internal Fellow provider only Medicine 06/18/11 Harish Irvin MD Transplant 4000 [facility] 1st [place] [address] 10/02/11 Luis Eduardo Art MD Gastroentero [address] logy Ortho/Med Pavilion Lvl 2B [place] [address] 06/15/12 Alton Sewell MD Dermatology Forwarding Address Unknown 06/15/12 Ariane Campoverde MD Dermatology [address] [place] [address] 09/14/12 Dayan Daniels MD Dermatology [address] Ortho/Med Pavilion Lvl 4C [place] [address] 12/21/12 Jamel Hutchins MD Dermatology [place]ired Left [place] [id number] 12/21/12 Leigh Resendez MD Dermatology 35 [facility] [address] [place] [address] 01/03/15 Carmen Reeves, COKE PRODUCTION HEATER Transplant [address] Hepatology [address] [place] [address] 05/07/15 Margaux Ng RN 06/06/15 Maureen Robertson LPN Maternal and Medicine 07/04/15 Lupe Hamilton Maternal and Medicine 09/05/15 Berta Baldwin 12/11/15 Michelle Orellana 01/01/16 Lashon Carey MA Maternal and Medicine 01/03/16 Carmen Lassiter, Gastroentero COKE PRODUCTION HEATER-RAIL CAR REPAIRER logy [address] Ortho/Med Pavilion Lvl [address]B [place] [address] 01/03/16 Linsey Watson 01/17/16 Audrey Howard, ELIAS documented as of this encounter
--- OUTSIDE RECORDS SUMMARY | 2021-08-16 09:18 | XMS REPORT | Encounter Summary ---
Author Author [facility] Organization [facility] Address Unknown Phone Unavailable Care Team Providers Care Library Cataloging Technician Name Role Phone Zakiya Ledezma RN [...] Lashon Carey MA Unavailable Unavailable Carmen Lassiter PRODUCT ASSURANCE ENGINEER-WARDROBE SPECIALIST Unavailable [phone] Linsey Watson Unavailable Unavailable Audrey Howard RN Unavailable Unavailable Angelic Resendez MD PCP Reason for Visit * Reason Comments Test/procedure Encounter Details Care Team Description Date Type Department Angelic Resendez MD [address] [facility] [address] [place] [address] [place] [address] Status post liver transplantation (HCC); Primary sclerosing cholangitis; Other cirrhosis of liver (HCC); Encounter for pre-transplant evaluation for liver transplant; Bowel disease; 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; Osteopenia, unspecified location 06/17/2021 Clinical Osteoporosis: Main [address], [address] [place] [phone] Social History Date Tobacco Use Types Packs/Day Years Used Quit: 02/01/1976 Former Smoker Cigarettes 3 Smokeless Tobacco: Never Used Comments: Quit 08/1976 Comments Alcohol Use Standard Drinks/Week No 0 (1 standard drink = 0.6 o z pure alcohol) Sex Assigned at Date Recorded Male 04/17/2020 2:33 PM CDT Date Recorded COVID-19 Exposure Response 06/20/2021 7:[address]INEER In the last month, have you been [...] Waiting for a liver transplant Move to [place]. documented as of this encounter Procedures Comments Procedure Name Priority Date/Time Associated Diag nosis BONE DENSITY SPINE Routine 06/17/2021 Status post liver transplantation (HCC) Primary sclerosing cholangitis Other cirrhosis of liver (HCC) documented in this encounter Results * BONE DENSITY SPINE (06/17/2021) Modality Anatomical Region Laterality Other Spine Narrative Performing Organization Address City/State/ZIP Code P suzy Number IN CLINIC documented in this encounter Visit Diagnoses Diagnosis Status post liver transplantation (HCC) Liver replaced by transplant Primary sclerosing cholangitis Cholangitis Other cirrhosis of liver (HCC) Encounter for pre-transplant evaluation for liver transplant Other specified pre-operative examinati on Bowel disease Unspecified disorder of intestine Adrenal cortical steroids causing adver se effect in therapeutic use Osteopenia, unspecified location documented in this encounter Additional Health Concerns Noted Time Assessment 06/17/2021 2:[address] ENGINEER A fall risk assessment has been complet ed for the patient 06/17/2021 2:[address] ENGINEER PHQ-2 Depression Total Score: 0 documented as of this encounter Care Teams Start Date End Date Library Cataloging Technician Relationship Specialty 08/12/19 Angelic Resendez MD PCP - [address] [place] [address] 06/03/10 Zakiya Ledezma RN 06/03/10 Liberty Justice MD [address] [place], [place] [phone] 06/03/10 Moy Serrano MD [address] [facility] [place] [address] 08/25/10 Stephania Liu RN Emergency Medicine 09/03/10 Leobardo Giordano MD Infectious [address] [facility] Disease [facility] Lvl [address] [place] [address] 03/29/11 Kati Thomas MD Internal 4000 [place] [address] 05/01/11 Edilson Villalba MD Internal [address] [place] [address] 05/05/11 Alex Balbuena MD Infectious [address] Disease Ortho[facility]Med Pavilion Lvl [address]C [place] [address] 05/20/11 Kleber Can MD Internal Fellow provider only Medicine 06/18/11 Harish Irvin MD Transplant [address] [facility] [address]st [place] [address] 10/02/11 Luis Eduardo Art MD Gastroentero [address] logy Ortho/Med Pavilion Lvl 2B [place] [address] 06/15/12 Alton Sewell MD Dermatology Forwarding Address Unknown 06/15/12 Ariane Campoverde MD Dermatology [address] [place] [address] 09/14/12 Dayan Daniels MD Dermatology [address] Ortho[facility]Med Pavilion Lvl [address]C [place] [address] 12/21/12 Jamel Hutchins MD Dermatology Retired Left [place] [id number] 12/21/12 Leigh Resendez MD Dermatology [address] [place] [address], [place] [address] 01/03/15 Carmen Reeves, PRODUCT ASSURANCE ENGINEER Transplant [address] Hepatology [place] [address] [place] [address] 05/07/15 Margaux Ng RN 06/06/15 Maureen Robertson LPN Maternal and Medicine 07/04/15 Lupe Hamilton Maternal and Medicine 09/05/15 Berta Baldwin 12/11/15 Michelle Orellana 01/01/16 Lashon Carey MA Maternal and Medicine 01/03/16 Carmen Lassiter, Gastroentero PRODUCT ASSURANCE ENGINEER-WARDROBE SPECIALIST logy [address] Ortho/Med Pavilion Lvl [address]B [place] [address] 01/03/16 Linsey Watson 01/17/16 Audrey Howard, ELIAS documented as of this encounter
--- OUTSIDE RECORDS SUMMARY | 2021-08-16 09:18 | XMS REPORT | Encounter Summary ---
Author Author [facility] Organization [facility] Address Unknown Phone Unavailable Care Team Providers Care Signal Supervisor Name Role Phone Zakiya Ledezma RN [...] Lashon Carey MA Unavailable Unavailable Carmen Lassiter BUSINESS SUPPORT LIAISON-WOOL BROKER Unavailable [phone] Linsey Watson Unavailable Unavailable Audrey Howard RN Unavailable Unavailable Angelic Resendez MD PCP Reason for Referral * Test (Routine) - Authorized Diagnoses / Procedures Referred By Contact Referred To [facility] ct Specialty Diagnoses Status post liver transplantation (HCC) Primary sclerosing cholangitis Other cirrhosis of liver (HCC) Procedures 2D + DOPPLER ECHO CT ECHO TTHRC R-T 2D W/WOM-MODE COMPL SPEC&COLR D Moy Serrano MD [address] [place] [address] Cvm [address]g E[address]v [address] [place] [phone] Cardiology Referral ID Status Reason Start Date Expiration Visits Vi sits Date Requested Authorized [id number] Authorized 05/17/2021 05/17/2022 1 1 ETOLOGY TEACHER Reason for Visit * Test (Routine) - Authorized Diagnoses / Procedures Referred By Contact Referred To [facility] ct Specialty Diagnoses Status post liver transplantation (HCC) Primary sclerosing cholangitis Other cirrhosis of liver (HCC) Procedures 2D + DOPPLER ECHO CT ECHO TTHRC R-T 2D W/WOM-MODE COMPL SPEC&COLR Moy Peralta MD [address] [place] [address] Cv Bhg Echopv [address] [place] [phone] Cardiology Referral ID Status Reason Start Date Expiration Visits Vi sits Date Requested Authorized [id number] Authorized 05/17/2021 05/17/2022 1 1 Encounter Details Care Team Description Date Type Department Moy Serrano MD [address] [place], [place] [id number] [place] [address] 06/19/2021 Hospital Cardiology:Center f or Encounter [facility] [address] [facility] [address] [place] [address] Social History Date Tobacco Use Types Packs/Day Years Used Quit: 02/01/1976 Former Smoker Cigarettes 3 Smokeless Tobacco: Never Used Comments: Quit 08/1976 Comments Alcohol Use Standard Drinks/Week No 0 (1 standard drink = 0.6 o z pure alcohol) Sex Assigned at Date Recorded Male 04/17/2020 2:33 PM CDT Date Recorded COVID-19 Exposure Response 06/19/2021 6:44 AM HERPETOLOGY TEACHER In the last month, have you been in contact with No / Unsure someone who was confirmed or suspected to have Coronavirus / COVID-19? documented as of this encounter Last Filed Vital Signs Reading Time Taken Comments Vital Sign 126/72 06/19/2021 8:22 AM HERPETOLOGY TEACHER Blood Pressure - - Pulse - - Temperature - - Respiratory Rate - - Oxygen Saturation - - Inhaled Oxygen Concentration 73 kg (161 lb) 06/19/2021 8:22 AM HERPETOLOGY TEACHER Weight 175.3 cm (5' 9") 06/19/2021 8:22 AM HERPETOLOGY TEACHER Height 23.78 06/19/2021 8:22 AM HERPETOLOGY TEACHER Body Mass Index documented in this encounter [...] Waiting for a liver transplant Move to [place]. documented as of this encounter Procedures Comments Procedure Name Priority Date/Time Associated Diag nosis 2D + DOPPLER ECHO NO Routine 06/19/[address] liver CONTRAST 8:22 AM HERPETOLOGY TEACHER transplantation (HC C) Primary sclerosing cholangitis Other cirrhosis of liver (HCC) documented in this encounter Results * 2D + DOPPLER ECHO NO CONTRAST (06/19/2021 8:22 AM HERPETOLOGY TEACHER) IVS 0.90 0.6 - 1.0 cm OTHER [...] OUTSIDE Systolic Volume LAB Index LVOT peak marshall 0.95 m/s OTHER OUTSIDE LAB TDI lateral [...] LAB pressure 1/2 time MV Peak A Marshall 0.46 m/s OTHER OUTSIDE LAB MV Peak E Marshall 0.57 m/s OTHER OUTSIDE PW LAB Right [...] CV ECHO PV ELIAS Flannery IV Sue, CS OTHER OUTSID E ASSISTANT STRENGTH COACH LAB FS 34.47 28 - 44 % OTHER OUTSIDE LAB EF 58.60 % OTHER OUTSIDE LAB LV mass 194 88 - 224 g OTHER OUTSIDE LAB RWT 0.48 <=0.42 OTHER OUTSIDE LAB AV index 0.65 OTHER OUTSIDE ([place]) LAB E/A ratio 1.24 OTHER OUTSIDE LAB Lateral E/E' 5.70 OTHER OUTSIDE ratio LAB Left Atrium 22.36 16 - 34 OTHER OUTSIDE Index LAB Cardiology Siemens [id number] OTHER OUTSIDE Ultrasound LAB Machine Left Ventricle [...] OTHER OUTSIDE LAB - 06/19/2021 9:52 AM HERPETOLOGY TEACHER Normal left ventricular systolic function, estimated ejection [...] Concerns Noted Time Assessment 06/19/2021 9:20 AM HERPETOLOGY TEACHER A fall risk assessment has been complet ed for the patient 06/19/2021 9:22 AM HERPETOLOGY TEACHER PHQ-2 Depression Total Score: 0 documented as of this encounter Care Teams Start Date End Date Signal Supervisor Relationship Specialty 08/12/19 Angelic Resendez MD PCP - [address] [address] 06/03/10 Zakiya Ledezma RN 06/03/10 Liberty Justice MD [address] [place] [address] 06/03/10 Moy Serrano MD [address] [facility]70 [place] [address] 08/25/10 Stephania Liu, RN Emergency Medicine 09/03/10 Leobardo Giordano MD Infectious [address] Disease Ortho[facility]ilion Lvl [address] [place] [address] 03/29/11 Kati Thomas MD Internal 4000 [place] [address] 05/01/11 Edilson Villalba MD Internal 4000 [place] [address] 05/05/11 Alex Balbuena MD Infectious [address] Disease Orth[facility]ilion Lvl [address] [place] [address] 05/20/11 Kleber Can MD Internal Fellow provider only Medicine 06/18/11 Harish Irvin MD Transplant [address] [facility] Main 1st Fl[address] [place], [place] [id number] 10/02/11 Luis Eduardo Art MD Gastroentero [address] logy Ortho[facility]Med Pavilion [place]vl [address] [place] [address] 06/15/12 Alton Sewell MD Dermatology Forwarding Address Unknown 06/15/12 Ariane Campoverde MD Dermatology [address] [place] [address] 09/14/12 Dayan Daniels MD Dermatology [address] Ortho/Med Pavilion [address]vl [address] [place] [address] 12/21/12 Jamel Hutchins MD Dermatology Retired Left [place] [id number] 12/21/12 Leigh Resendez MD Dermatology [address] [facility] [address] [place], [place] [phone] 01/03/15 Carmen Reeves APRN Transplant [address] Hepatology [place] [address] [place] [address] 05/07/15 Margaux Ng, RN 06/06/15 Maureen Robertson LPN Maternal and Medicine 07/04/15 Lupe Hamilton Maternal and Medicine 09/05/15 Berta Baldwin 12/11/15 Michelle Orellana 01/01/16 Lashon Carey MA Maternal and Medicine 01/03/16 Carmen Lassiter, Gastroentero BUSINESS SUPPORT LIAISON-WOOL BROKER logy [address] Ortho/Med Pavilion Lvl [address] [place] [address] 01/03/16 Linsey Watson 01/17/16 Audrey Howard RN documented as of this encounter
--- OUTSIDE RECORDS SUMMARY | 2021-08-16 09:18 | XMS REPORT | Encounter Summary ---
Author Author [facility] Organization [facility] Address Unknown Phone Unavailable Care Team Providers Care Lead Instructor/Flight Attendant Name Role Phone Zakiya Ledezma RN Unavailable [...] Lashon Carey MA Unavailable Unavailable Carmen Lassiter MISSILE INSPECTOR PREFLIGHT-BULL FLOAT FINISHER Unavailable [phone] Linsey Watson Unavailable Unavailable Audrey Howard RN Unavailable Unavailable Angelic Resendez MD PCP Reason for Referral * Radiology Services (Routine) - New Request Diagnoses / Procedures Referred By Contact Referred To [facility] Specialty Diagnoses Status post liver transplantation (HCC) Primary sclerosing cholangitis Other cirrhosis of liver (HCC) Procedures CHEST 2 VIEWS Moy Serrano MD [address] [place] [address] Radiology Referral ID Status Reason Start Date Expiration Visits Vi sits Date Requested Authorized [id number] New Request 05/17/2021 05/17/2022 1 1 LING HOOD OPERATOR Reason for Visit * Radiology Services (Routine) - New Request Diagnoses / Procedures Referred By Contact Referred To [facility] Specialty Diagnoses Status post liver transplantation (HCC) Primary sclerosing cholangitis Other cirrhosis of liver (HCC) Procedures CHEST 2 VIEWS Moy Serrano MD [address] [place] [address] Radiology Referral ID Status Reason Start Date Expiration Visits Vi sits Date Requested Authorized [id number] New Request 05/17/2021 05/17/2022 1 1 Encounter Details Care Team Description Date Type Department Moy Serrano MD [address] [place] [address] 06/17/2021 Hospital Imaging: James Craig [address], [address] [place] [address] Social History Date Tobacco Use Types Packs/Day Years Used Quit: 02/01/1976 Former Smoker Cigarettes 3 Smokeless Tobacco: Never Used Comments: Quit 08/1976 Comments Alcohol Use Standard Drinks/Week No 0 (1 standard drink = 0.6 o z pure alcohol) Sex Assigned at Date Recorded Male 04/17/2020 2:33 PM CDT Date Recorded COVID-19 Exposure Response 06/17/2021 8:33 AM CHILLING HOOD OPERATOR In the last month, have you [...] Waiting for a liver transplant Move to [place]. documented as of this encounter Procedures Comments Procedure Name Priority Date/Time Associated Diag nosis CHEST 2 VIEWS Routine 06/17/2021 Status post [place] er 3:45 PM CHILLING HOOD OPERATOR transplantation (HCC) Primary sclerosing cholangitis Other cirrhosis of liver (HCC) documented in this encounter Results * CHEST 2 VIEWS (06/17/2021 3:45 PM CHILLING HOOD OPERATOR) Modality Anatomical Region Laterality Computed Radiography Chest Specimen Impressions [facility] RAD RESULTS - 06/17/2021 4:59 PM CHILLING HOOD OPERATOR No acute cardiopulmonary abnormality. By my electronic signature, I attest that I have personally reviewed the images for this examination and formulated the interpretations and opinions expressed in this report Finalized by Stanley Nj M.D. on 06/17/2021 4:59 PM. Dictated by Harjit Romo M.D. on 06/17/2021 3:52 PM. Narrative [facility] RAD RESULTS - 06/17/2021 4:59 PM CHILLING HOOD OPERATOR CHEST 2 VIEWS INDICATION: LIVER TRANSPLANT RE [...] Concerns Noted Time Assessment 06/17/2021 2:40 PM CHILLING HOOD OPERATOR A fall risk assessment has been complet ed for the patient 06/17/2021 2:40 PM CHILLING HOOD OPERATOR PHQ-2 Depression Total Score: 0 documented as of this encounter Care Teams Start Date End Date Lead Instructor/Flight Attendant Relationship Specialty 08/12/19 Angelic Resendez MD PCP - [address] [place] [address] 06/03/10 Zakiya Ledezma, ELIAS 06/03/10 Liberty Justice MD [address] [place] [address] 06/03/10 Moy Serrano MD 4000 [facility] FE[address]89 [place] [address] 08/25/10 Stephania Liu, ELIAS Emergency Medicine 09/03/10 Leobardo Giordano MD Infectious [address] Disease Ortho/Med Pavilion Lvl [address] [place] [address] 03/29/11 Kati Thomas MD Internal [address] [place] [address] 05/01/11 Edilson Villalba MD Internal [address] [place] [address] 05/05/11 Alex Balbuena MD Infectious [address] Disease Ortho[facility]Med Pavilion Lvl [address] [place] [address] 05/20/11 Kleber Can MD Internal Fellow provider only Medicine 06/18/11 Harish Irvin MD Transplant [address] [facility] 1st [place] [address] 10/02/11 Luis Eduardo Art MD Gastroentero [address] logy Ortho/Med Pavilion Lvl [address] [place] [address] 06/15/12 Alton Sewell MD Dermatology Forwarding Address Unknown 06/15/12 Ariane Campoverde MD Dermatology [address] [place] [address] 09/14/12 Dayan Daniels MD Dermatology [address] Ortho/Med Pavilion Lvl [address] [place] [address] 12/21/12 Jamel Hutchins MD Dermatology Retired Left [place] [id number] 12/21/12 Leigh Resendez MD Dermatology 35 [place] [address] 01/03/15 Carmen Reeves, MISSILE INSPECTOR PREFLIGHT Transplant [address] Hepatology [place] [address] [place] [address] 05/07/15 Margaux Ng, RN 06/06/15 Maureen Robertson LPN Maternal and Medicine 07/04/15 Lupe Hamilton Maternal and Medicine 09/05/15 Berta Baldwin 12/11/15 Michelle Orellana 01/01/16 Lashon Carey MA Maternal and Medicine 01/03/16 Carmen Lassiter, Gastroentero MISSILE INSPECTOR PREFLIGHT-BULL FLOAT FINISHER logy [address] Ortho/Med Pavilion Lvl [address] [place] [address] 01/03/16 Linsey Watson 01/17/16 Audrey Howard, ELIAS documented as of this encounter
--- OUTSIDE RECORDS SUMMARY | 2021-08-16 09:18 | XMS REPORT | Encounter Summary ---
Author Author [facility] Organization [facility] Address Unknown Phone Unavailable Care Team Providers Care [address] Freight Name Role Phone Zakiya Ledezma RN Unavailable [...] Carey MA Unavailable Unavailable Carmen Lassiter BUSINESS LIBRARIAN-SEISMOGRAPH OBSERVER Unavailable [phone] Linsey Watson Unavailable Unavailable Audrey Howard RN Unavailable Unavailable Angelic Resendez MD PCP Reason for Visit * Reason Comments Liver Recipient Evaluation * Consult, Test & Treat (Routine) - New Request Diagnoses / Procedures Referred By Contact Referred To Conta ct Specialty Diagnoses Status post liver transplantation (HCC) Primary sclerosing cholangitis Other cirrhosis of liver (HCC) Moy Serrano MD [address] [facility] [id number] [place] [address] Mpb4 Im Inf Dis Cl [address] [address] Infectious Diseases Referral ID Status Reason Start Date Expiration Visits Vi sits Date Requested Authorized [id number] New Request Specialty Services 05/17/2021 05/17/2022 1 1 Required Encounter Details Care Team Description Date Type Department Genesis Andersen MD [address] [facility] [address] [address] Encounter for pre-transplant evaluation for liver transplant (Primary Dx); Primary sclerosing cholangitis; Status post liver transplantation (HCC); Immunosuppressed status (HCC); Vitamin D deficiency 06/17/2021 Office Visit Infectious Diseases : [facility] [place] [address] [address] Social History Date Tobacco Use Types Packs/Day Years Used Quit: 02/01/1976 Former Smoker Cigarettes 3 Smokeless Tobacco: Never Used Comments: Quit 08/1976 Comments Alcohol Use Standard Drinks/Week No 0 (1 standard drink = 0.6 o z pure alcohol) Sex Assigned at Date Recorded Male 04/17/2020 2:33 PM CDT Date Recorded COVID-19 Exposure Response 06/19/2021 6:44 AM CIRCLE SHEAR OPERATOR In the last month, have you been in contact with No / Unsure someone who was confirmed or suspected to have Coronavirus / COVID-19? documented as of this encounter Last Filed Vital Signs Reading Time Taken Comments Vital Sign 120/69 06/17/2021 10:15 AM CIRCLE SHEAR OPERATOR Blood Pressure 70 06/17/2021 10:15 AM CIRCLE SHEAR OPERATOR Pulse - - Temperature - - Respiratory Rate - - Oxygen Saturation - - Inhaled Oxygen Concentration 72.8 kg (160 lb 6.4 oz) 06/17/2021 10:15 AM CIRCLE SHEAR OPERATOR Weight 175.3 cm (5' 9") 06/17/2021 10:15 AM CIRCLE SHEAR OPERATOR Height 23.69 06/17/2021 10:15 AM CIRCLE SHEAR OPERATOR Body Mass Index documented in this encounter [...] as of this encounter Progress Notes * Genesis Andersen MD - 06/17/2021 10:30 AM CIRCLE SHEAR OPERATOR Reason for referral: pre-transplant ID evaluation Referred by: Moy Serrano MD Chief complaint: none today History of Present Illness Ravindra Chun is a 65 y.o. 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 Mr. Chun underwent OLT in 2010 for PSC associated ESLD. Uncontrolled ulcerativ e colitis led to colectomy w/ end-ileostomy in 2014. Over past few years allogra ft failure, now seeking re-transplant. Last ERCP 08/29/20 revealed PSC changes wi th left hepatic duct stricture which was dilated to 6 mm. Brushings revealed no malignancy. He is on cycling [id number] which typically is quite ef fective at preventing infections, with less than 1 infection a year (or less), a lthough most recently 03/03-03/05/21 he was admitted with fevers/chills to [facility] and transferred to , blood cultures negative, CT a/p revealed PS C c/w acute cholangitis, completed 2 days pip/tazo transitioned to levaquin x 8 more days on discharge and has since resumed regular cycling abx regimen. Infectious disease history: History of recurrent/chronic infections [no]; cholecystitis [yes], diverticulit is [no], UTI/prostatitis/pyelonephritis [no], IBD/inflammatory bowel disease [ye s], chronic sinusitis [no] Other: cardiac valvular abnormalities [no] intravascular thrombosis [no] Hep B [HBV-immune 06/2018, repeat HBsAg/sAg/cAb negative ] HepC [negative ] Latent infections: CMV [ seroPOS 06/17/21, h/o CMV ileitis 2011 no CMV issues si nce ], EBV [ seroPOS (06/17/21) ], Toxoplasma [ ], Strongyloides [ ], Trypanoso ma [ ] Colonization with MRSA [no], VRE [no] Prosthetic biomaterials: NO vascular grafts, artificial joints, dialysis access/ fistula Drugs of abuse: Illicit drug use: denies ETOH abuse: denie Tobacco: denies Exposure History: Animal exposures: Dogs [no] Cats [no], Birds [no] Rodents [no] Other [no]; Spec roslyn: TB exposure: [no] Tuberculin skin test: No [x] Yes [ ] Quanteferon Gold testing: No [x] Yes [ ] Tspot pending (negative 8) Travel history: [facility] [no] Foreign travel [yes] Specify: [place] 2012, [place] , 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 history: [place], [place] Risk for endemic infection: Strongyloides stercoralis, Trypanosoma, Schistosoma, Leishmania, Histoplasma capsulatum, Coccidioides, Blastomyces, Mycobacteria, Cr yptosporidium; other: [no] Outdoor activities: Fishing [no] Hunting [no] Camping [no] Gardening [yes] Other [ ]; Specify: Dietary habits: Unpasteurized milk [no] Home made cheese [no] Undercooked meat: Raw meat [no] Fish including raw seafood [no] Water: Bottled [x ]; Filtered [x ]; City water [x ]; Well water [ ] Environmental exposures: House mold [no] Work-specific exposures: none Sexually-transmitted diseases: [no] HIV risk factors [ n/a ]; Specify: negative HIV ag/ab (06/17/21) HSV1 & 2 ab negative (06/17/21) Tattoos [no]; if so professionally done [n/a] Transfusions [ no ]; Year: n/a Immunization history: Childhood immunizations received: Yes [x]; No [ ]; Specify: Childhood illnesses: [x] MMR 12/17/83, 03/13/84, rubella ab positive (06/17/21) Adult immunizations: Prevnar [ 06/19/16 ]; Pneumovax [ 09/02/19 ]; dates: Tdap [ yes ]; date: 09/18/17 Hepatitis A vaccines [ ]; dates: HAV-immune (06/17/21) Hepatitis B vaccines [ ]; dates: HBV-immune (06/21/18 & HBsAb positive today titer pending) Influenza vaccination: every year [ X ]; ever [ ]; date: Shingrex [ yes ]; date: 06/22/18 ; Zostavax 07/06/08 COVID-19 (Penxy) [06/07/21] Past Medical History Medical History: Diagnosis Date Bacteremia E. Coli Cancer of colon (HCC) Cholangitis, recurrent Elevated liver enzymes Hemorrhoids Pancreatitis, acute 2007 Possibly related to ERCP Primary sclerosing cholangitis diagnosed 2007 Transplant 06/19/2011 liver Ulcerative colitis diagnosed 1990 UTI (lower urinary tract infection) 03/07/2010 Past Surgical History Surgical History: Procedure Laterality Date HX TONSILLECTOMY 1966 HX CHOLECYSTECTOMY 1990 LIVER TRANSPLANT 06/18/11 CHOLANGIOPANCREATOGRAPHY ENDOSCOPY RETROGRADE N/A 01/17/2016 Performed by Moy Serrano MD at [facility] END[facility] BIOPSY LIVER N/A 01/17/2016 Performed by Moy Serrano MD at [facility] ENDO CHOLANGIOPANCREATOGRAPHY ENDOSCOPY RETROGRADE N/A 02/16/2017 Performed by Moy Serrano MD at [facility] ENDO ESOPHAGOGASTRODUODENOSCOPY ENDOSCOPIC ULTRASOUND N/A 02/16/2017 Performed by Moy Serrano MD at [facility] ENDO CHOLANGIOPANCREATOGRAPHY ENDOSCOPY RETROGRADE WITH BILIARY DUCT DILATATION 02/16/2017 Performed by Moy Serrano MD at [facility] ENDO CHOLANGIOPANCREATOGRAPHY ENDOSCOPY RETROGRADE N/A 06/10/2017 Performed by Moy Serrano MD at [facility] ENDO CHOLANGIOPANCREATOGRAPHY ENDOSCOPY RETROGRADE N/A 05/20/2018 Performed by Moy Serrano MD at [facility] ENDO ESOPHAGOGASTRODUODENOSCOPY WITH SPECIMEN COLLECTION BY BRUSHING/ WASHING N/A 08/12/2018 Performed by Hay Shaw MD at [facility] ENDO ESOPHAGOGASTRODUODENOSCOPY WITH SPECIMEN COLLECTION BY BRUSHING/ WASHING N/A 08/12/2019 Performed by Adam Simental MD at [facility] ENDOSCOPIC RETROGRADE CHOLANGIOPANCREATOGRAPHY N/A 10/17/2019 Performed by Moy Serrano MD at [facility] ENDOSCOPIC RETROGRADE CHOLANGIOPANCREATOGRAPHY N/A 02/02/2020 Performed by Moy Serrano MD at [facility] ENDOSCOPIC RETROGRADE CHOLANGIOPANCREATOGRAPHY WITH REMOVAL CALCULI/ DEBRIS FROM BILIARY/ PANCREATIC DUCT 02/02/2020 Performed by Moy Serrano MD at [facility] ENDO ESOPHAGOGASTRODUODENOSCOPY WITH TRANSENDOSCOPIC ULTRASOUND GUIDED FINE NEEDL E ASPIRATION/ BIOPSY LIVER BX N/A 04/30/2020 Performed by Moy Serrano MD at [facility] ENDOSCOPIC RETROGRADE CHOLANGIOPANCREATOGRAPHY WITH TRANS-ENDOSCOPIC BALLOON DILATION BILIARY/ PANCREATIC DUCT/ AMPULLA - EACH DUCT 04/30/2020 Performed by Moy Serrano MD at [facility] ENDOSCOPIC RETROGRADE CHOLANGIOPANCREATOGRAPHY 04/30/2020 Performed by Moy Serrano MD at [facility] END[facility] ENDOSCOPIC RETROGRADE CHOLANGIOPANCREATOGRAPHY WITH TRANS-ENDOSCOPIC BALLOON DILATION BILIARY/ PANCREATIC DUCT/ AMPULLA - EACH DUCT N/A 08/29/2020 Performed by Moy Serrano MD at [facility] ENDO ESOPHAGOGASTRODUODENOSCOPY WITH BAND LIGATION ESOPHAGEAL/ GASTRIC VARICES - FLEXIBLE N/A 08/29/2020 Performed by Moy Serrano MD at [facility] ENDO Transperineal NEEDLE/ PUNCH BIOPSY PROSTATE - 12 core - Combo with Radiolog y Dr. Samantha Richard N/A 02/22/2021 Performed by Waqas Tucker MD at [facility] OR ULTRASOUND GUIDANCE FOR NEEDLE PLACEMENT N/A 02/22/2021 Performed by Waqas Tucker MD at [facility] OR ELECTROCARDIOGRAM Family History Family History Problem Relation Age of Onset Arthritis-osteo Mother Stroke Mother Crohn's Disease Mother Diabetes Father Hypertension Father Thyroid Disease Father Cancer Sister breast CA age 39 Hypertension Brother Migraines Maternal Uncle Cancer Maternal Grandfather Melanoma Neg Hx Social History (in addition to above) Marital status/area of residence: Job/occupation: Social History Tobacco Use Smoking status: Former Smoker Years: 3.00 Types: Cigarettes Quit date: 02/01/1976 Years since quittin.4 Smokeless tobacco: Never Used Tobacco comment: Quit 08/1976 Substance Use Topics Alcohol use: No Allergies No Known Allergies Review of Systems Constitutional: no fevers, no chills, no sweats, no malaise, weight stable HEENT: no mouth sores or sore throat, dentition good regularly checked up w/o i ssues Neck: no pain or swelling Respiratory: no dyspnea, no wheezing, no cough Cardiovascular: no chest pain, palpitations, orthopnea or minimal lower leg yaa a controlled on diuretics, mild exertional dyspnea mostly upstairs-walks a mile a day frequently Gastrointestinal: no abdominal pain, no nausea, no diarrhea occasionally loose s tools-baseline Genitourinary: no dysuria, no malodorous, cloudy urine or suprapubic pain Hematologic/lymphatic: no lymph node swelling or pain Musculoskeletal: no myalgias, arthralgias or effusions Neurological: no headache, no sensory changes or motor weakness of LE's or UE's Behavioral/Psych: denies current depression, anxiety Endocrine: denies diabetes Skin: no rash or skin lesions Medications aMILoride (MIDAMOR) 5 mg tablet Take two [...] units tablet Take 2,000 Units by mouth d aily. ciprofloxacin (CIPRO) 500 mg tablet TAKE 1 TABLET DAILY FOR 1 WEEK, THEN CYC LE OFF OF MEDICATION AND TAKE AUGMENTIN FOR 1 WEEK, THEN BACTRIM FOR 1 WEEK, REP EAT CYCLE ciprofloxacin (CIPRO) 500 mg tablet Take one tablet by mouth twice daily. Da y prior to biopsy, day of biopsy and day following biopsy with Dr Tucker. COCONUT OIL TP Apply topically to affected area. famotidine (PEPCID) 20 mg tablet TAKE 1 TABLET TWICE A DAY fish oil /omega-3 fatty acids (SEA-OMEGA) 340/1000 mg capsule Take 1 capsule by mouth daily. furosemide (LASIX) 20 mg tablet Take one tablet by mouth every morning for 9 0 days. levoFLOXacin (LEVAQUIN) 750 mg tablet Take one tablet by mouth daily. predniSONE (DELTASONE) 5 mg tablet TAKE 1 TABLET DAILY WITH BREAKFAST tacrolimus (PROGRAF) 0.5 mg capsule Take two capsules by mouth twice daily f or 180 days. (Patient taking differently: Take 1 mg by mouth twice daily. 2 mg i n the morning and 1.5 in the evening) triamcinolone acetonide (KENALOG) 0.1 % topical cream Apply topically to af fected area twice daily. trimethoprim/sulfamethoxazole (BACTRIM) 80/400 mg tablet Take as directed by provider ursodioL (ACTIGALL) 300 mg capsule TAKE 1 CAPSULE IN THE MORNING AND 2 CAPSU LES IN THE EVENING vitamins, multiple (DAILY MULTI-VITAMIN) tablet Take 1 tablet by mouth daily . Physical Examination Vitals: 06/17/21 1015 BP: 120/69 Pulse: 70 Weight: 72.8 kg (160 lb 6.4 oz) Height: 175.3 cm (69") PainSc: Zero Body mass index is 23.69 kg/m. Gen: alert, oriented, NAD HENT: MMM, no oral lesions, no thrush, no sinus tenderness, teeth appear in good condition Eyes: EOMi, conj pale not injected, no icterus Neck: supple, no rigidity, no LAD, thyroid not palpable Lungs: CTAB no c/w/r/r Heart: RRR no appreciable murmur Abdomen: soft, NTTP, mildly distended, midline scars, ileostomy bag partially fu ll can't see stoma 2/2 opacity of bag Msk: no synovitis or effusions of UE or LE joints Ext: Trace pre-tibial edema Skin: no rashes/lesions, no spider angiomata, no jaundice Lymph: no cervical, axillary LAD Lab Review Recent Labs 06/17/21 0917 WBC 13.1* HGB 12.4* HCT 37.9* PLTCT 285 PTT 35.6 INR 1.4* No results for input(s): NA, K, CL, CO2, BUN, CR, GFR, GLU, CA, PO4, ALBUMIN, TO TPROTEIN, ALKPHOS, AST, ALT, TOTBILI in the last 72 hours. Invalid input(s): MAG Creatinine Date/Time Value Ref Range Status 06/09/2021 07:40 PM 1.57 (H) 0.50 - 1.50 mg/dL Final 05/21/2021 12:01 PM 1.70 (H) 0.50 - 1.50 mg/dL Final AST (SGOT) Date/Time Value Ref Range Status 06/09/2021 07:40 PM 109 (H) 2 - 40 Final 05/21/2021 12:01 PM 99 (H) 2 - 40 Final ALT (SGPT) Date/Time Value Ref Range Status 06/09/2021 07:40 PM 88 (H) 6 - 45 Final 05/21/2021 12:01 PM 85 (H) 6 - 45 Final Alk Phosphatase Date/Time Value Ref Range Status 06/09/2021 07:40 PM 143 (H) 35 - 130 Final 05/21/2021 12:01 PM 130 Final Total Bilirubin Date/Time Value Ref Range Status 06/09/2021 07:40 PM 1.7 (H) 0.2 - 1.2 mg/dL Final 05/21/2021 12:01 PM 2.1 (H) 0.2 - 1.2 mg/dl Final White Blood Cells Date/Time Value Ref Range Status 06/17/2021 09:17 AM 13.1 (H) 4.5 - 11.0 K/UL Final 06/09/2021 07:40 PM 12.74 (H) 5.00 - 10.00 Final RBC Date/Time Value Ref Range Status 06/17/2021 09:17 AM 4.02 (L) 4.4 - 5.5 M/UL Final 06/09/2021 07:40 PM 3.64 (L) 4.20 - 5.40 Final Hemoglobin Date/Time Value Ref Range Status 06/17/2021 09:17 AM 12.4 (L) 13.5 - 16.5 GM/DL Final 06/09/2021 07:40 PM 11.5 (L) 14.0 - 17.0 Final Platelet Count Date/Time Value Ref Range Status 06/17/2021 09:17 AM 285 150 - 400 K/UL Final 06/09/2021 07:40 PM 245 Final RPR Screen Date/Time Value Ref Range Status 05/13/2010 07:23 AM NONREACTIVE NR-NONREACTIVE Final LDL Date/Time Value Ref Range Status 03/03/2021 05:21 AM 38 <100 mg/dL Final HDL Date/Time Value Ref Range Status 03/03/2021 05:21 AM 27 (L) >40 MG/DL Final Triglycerides Date/Time Value Ref Range Status 03/03/2021 05:21 AM 40 <150 MG/DL Final Cholesterol Date/Time Value Ref Range Status 03/03/2021 05:21 AM 74 <200 MG/DL Final CMV, IgG Date/Time Value Ref Range Status 06/21/2018 02:15 PM POS Final Hepatitis A, Total Date/Time Value Ref Range Status 05/13/2010 07:23 AM POS Final Anti HBs Date/Time Value Ref Range Status 06/21/2018 02:15 PM 69.2 mIU/ml Final Comment: Hepatitis B Surface Antibody Reference Ranges >12.0 Positive 8.0-12.0 Equivocal <8.0 Negative HBsAg Date/Time Value Ref Range Status 06/21/2018 02:15 PM NEG NEG-NEG Final Imaging: reviewed Assessment: H/O cholangitis, on cycling regimen with infrequent episodes ascending cholangit is (<1 year) PSC (dx 2007), 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 Clearance for Transplantation: At this time, I do not see any contraindicatio n for transplantation based on the history, physical, laboratory and imaging patrick dies (still awaiting panorex, but exam is good, and follows regularly with denti st). The Tspot is the only test still pending, although w/o known exposures and 2018 Tspot negative so low suspicion this will turn positive. If/when Tspot retu rns negative he is cleared for transplantation. 2. Immunizations: The patient's vaccinations are up to date with the exception o f: influenza vaccination (wants to get in a few weeks which is fine, concurrent w/ pfizer #2). Due for Pfizer COVID-19 vaccination in 3 weeks. Following transpl antation, the patient should receive flu vaccine annually, pneumovax every 5 yea rs, and tetanus/diptheria booster every 10 years. 3. Preventive measures and counseling: The patient's exposure risks were review ed extensively during our visit. The patient was advised to avoid consumption o f raw or undercooked meats and seafood. Advised to avoid consumption of unpaste urized dairy products and well water or other possibly unsanitary water sources. We reviewed the importance of skin protection at all times with activites incl uding but not limited to the use of gloves and other protective clothing garment s and avoiding contact with sick individuals. Thank you for the consult. Please feel free to call me with any questions Genesis Andersen MD Department of Infectious Disease Pager [phone] LE SHEAR OPERATOR documented in this encounter Plan of Treatment Not on filedocumented as of this encounter Goals Goal Patient Associated Recent Progress Patient-Stat Aut hor Goal Type Problems ed? GOAL General No Maria M Erwin, RN Note: get my liver transplant Resume normal activities Hospital No Deandra Bean, RN Note: Waiting for a liver transplant Move to [place]. documented as of this encounter Visit Diagnoses Diagnosis Encounter for pre-transplant evaluation for liver transplant - Primary Other specified pre-operative examinati on Primary sclerosing cholangitis Cholangitis Status post liver transplantation (HCC) Liver replaced by transplant Immunosuppressed status (HCC) Unspecified disorder of immune mechanis m Vitamin D deficiency Unspecified vitamin D deficiency documented in this encounter Discontinued Medications Start Date End Date Medication Sig Discontinue Reason 06/17/2021 denosumab (PROLIA) 60 Inject 60 mg Therapy mg/mL syrg under the completed skin every 180 days. 06/17/2021 rifAXIMin (XIFAXAN) 550 Take 550 mg Therapy mg tablet by mouth completed daily. 04/03/2021 06/17/2021 spironolactone Take one Therapy (ALDACTONE) 50 mg tablet tablet by completed mouth daily for 90 days. Take with food. 02/05/2021 06/17/2021 ciprofloxacin (CIPRO) 500 Take one mg tablet tablet by mouth twice daily. Day prior to biopsy, day of biopsy and day following biopsy with Dr Tucker. 03/05/2021 06/17/2021 levoFLOXacin (LEVAQUIN) Take one 750 mg tablet tablet by mouth daily. documented as of this encounter Historical Medications * This list may reflect changes made after this encounter. Start Date End Date Medication Sig Dispensed Refills triamcinolone acetonide Apply 0 (KENALOG) 0.1 % topical topically to cream affected area twice daily as needed. added in this encounter Additional Health Concerns Noted Time Assessment 06/17/2021 2:40 PM CIRCLE SHEAR OPERATOR A fall risk assessment has been complet ed for the patient 06/17/2021 2:40 PM CIRCLE SHEAR OPERATOR PHQ-2 Depression Total Score: 0 documented as of this encounter Care Teams Start Date End Date [address] Freight Relationship Specialty 08/12/19 Angelic Resendez MD PCP - [address] Ardon [address] [place] [address] [id number] 06/03/10 Zakiya Ledezma RN 06/03/10 Liberty Justice MD [address] [place] [address] 06/03/10 Moy Serrano MD [address] [facility] [id number] [place] [address] 08/25/10 Stephania Liu RN Emergency Medicine 09/03/10 Leobardo Giordano MD Infectious [address] Disease [facility] Lvl [address] [place] [address] 03/29/11 Kati Thomas MD Internal [address] [place] [address] 05/01/11 Edilson Villalba MD Internal [address] [place] [address] 05/05/11 Alex Balbuena MD Infectious [address] Disease [facility] Lvl [address] [place] [address] 05/20/11 Kleber Can MD Internal Fellow provider only Medicine 06/18/11 Harish Irvin MD Transplant [address] [facility] [address] [place] [address] 10/02/11 Luis Eduardo Art MD Gastroentero [address] logy [facility] [address]vl [address] [place] [address] 06/15/12 Alton Sewell MD Dermatology Forwarding Address Unknown 06/15/12 Ariane Campoverde MD Dermatology [address] [place] [address] 09/14/12 Dayan Daniels MD Dermatology [address] [facility] [address] [place] [address] 12/21/12 Jamel Hutchnis MD Dermatology Retired [id number] 12/21/12 Leigh Resendez MD Dermatology [address] [place] [address] 01/03/15 Carmen Reeves, BUSINESS LIBRARIAN Transplant [address] Hepatology [place] [address] [place] [address] 05/07/15 Margaux Ng, RN 06/06/15 Maureen Robertson LPN Maternal and Medicine 07/04/15 Lupe Hamilton Maternal and Medicine 09/05/15 Berta Baldwin 12/11/15 Michelle Orellana 01/01/16 Lashon Carey MA Maternal and Medicine 01/03/16 Carmen Lassiter, Gastroentero BUSINESS LIBRARIAN-SEISMOGRAPH OBSERVER logy [address] [facility] [address] [place] [address] 01/03/16 Linsey Watson 01/17/16 Audrey Howard, ELIAS documented as of this encounter
[2021-08-16 09:45] VITALS: BP 127/73
== END 2021-08-16 10:17 | disposition left against medical advice (07) ==
LOC: EDUNIT# 09:02 → ER 09:03
DX: M25.571 Pain in right ankle and joints of right foot (principal)
CPT/HCPCS: 99281

== ENCOUNTER → 2022-04-03 | Outpatient (CLI) | payer MEDICARE, OTHER ==
[2022-04-03 07:42] LABS: BASOPHILS # (AUTO) 0.1 10^3/uL (0.0-0.1); BASOPHILS % (AUTO) 1 % (0-10); EOSINOPHILS # (AUTO) 1.8 10^3/uL (0.0-0.3); EOSINOPHILS % (AUTO) 16 % (0-10); HEMATOCRIT 36 % (40-54); HEMOGLOBIN 11.9 g/dL (13.3-17.7); LYMPHOCYTES # (AUTO) 2.3 10^3/uL (1.0-4.0); LYMPHOCYTES % (AUTO) 21 % (12-44); MEAN CORPUSCULAR HEMOGLOBIN 30 pg (25-34); MEAN CORPUSCULAR HGB CONC 33 g/dL (32-36); MEAN CORPUSCULAR VOLUME 90 fL (80-99); MEAN PLATELET VOLUME 10.6 fL (9.0-12.2); MONOCYTES # (AUTO) 1.2 10^3/uL (0.0-1.0); MONOCYTES % (AUTO) 11 % (0-12); NEUTROPHILS # (AUTO) 5.5 10^3/uL (1.8-7.8); NEUTROPHILS % (AUTO) 50 % (42-75); PLATELET COUNT 209 10^3/uL (130-400); WHITE BLOOD COUNT 10.9 10^3/uL (4.3-11.0)
[2022-04-03 08:01] LABS: ALBUMIN 3.1 GM/DL (3.2-4.5); POTASSIUM 4.3 MMOL/L (3.6-5.0)
[2022-04-03 08:02] LABS: CALCIUM 9.7 MG/DL (8.5-10.1)
[2022-04-03 08:05] LABS: BILIRUBIN,TOTAL 1.6 MG/DL (0.1-1.0)
[2022-04-03 08:07] LABS: BURR CELLS SLIGHT; CREATININE SERUM 1.21 MG/DL (0.60-1.30); EOSINOPHILS % (MANUAL) 15 %; LYMPHOCYTES % (MANUAL) 19 %; MONOCYTES % (MANUAL) 9 %; NEUTROPHILS % (MANUAL) 57 %
[2022-04-03 08:11] LABS: INR 1.2 (0.8-1.4); PROTHROMBIN TIME PATIENT 15.7 SEC (12.2-14.7)
== END ==
LOC: LAB 07:06
PROVIDERS: ATTEND Internal Medicine Gastroenterology
DX: Z94.4 Liver transplant status (principal); Z79.899 Other long term (current) drug therapy
CPT/HCPCS: 36415; 80053; 80197; 85007; 85027; 85610

== ENCOUNTER → 2022-05-16 | Outpatient (CLI) | payer MEDICARE, OTHER | LOC: LAB 08:06 | PROVIDERS: ATTEND Urology | DX: R97.20 Elevated prostate specific antigen [PSA] (principal) | CPT/HCPCS: 36415; 84153 ==

== ENCOUNTER → 2022-05-16 | Outpatient (CLI) | payer MEDICARE, OTHER ==
[2022-05-16 08:37] LABS: BASOPHILS # (AUTO) 0.1 10^3/uL (0.0-0.1); BASOPHILS % (AUTO) 1 % (0-10); EOSINOPHILS # (AUTO) 1.1 10^3/uL (0.0-0.3); EOSINOPHILS % (AUTO) 12 % (0-10); HEMATOCRIT 31 % (40-54); HEMOGLOBIN 10.1 g/dL (13.3-17.7); LYMPHOCYTES % (AUTO) 22 % (12-44); MEAN CORPUSCULAR HEMOGLOBIN 31 pg (25-34); MEAN CORPUSCULAR HGB CONC 33 g/dL (32-36); MEAN CORPUSCULAR VOLUME 93 fL (80-99); MEAN PLATELET VOLUME 9.7 fL (9.0-12.2); MONOCYTES # (AUTO) 1.2 10^3/uL (0.0-1.0); MONOCYTES % (AUTO) 13 % (0-12); NEUTROPHILS # (AUTO) 4.7 10^3/uL (1.8-7.8); NEUTROPHILS % (AUTO) 52 % (42-75); PLATELET COUNT 180 10^3/uL (130-400); WHITE BLOOD COUNT 9.2 10^3/uL (4.3-11.0)
[2022-05-16 08:54] LABS: INR 1.4 (0.8-1.4); PROTHROMBIN TIME PATIENT 17.3 SEC (12.2-14.7)
[2022-05-16 09:00] LABS: ALBUMIN 2.8 GM/DL (3.2-4.5); BILIRUBIN,TOTAL 1.7 MG/DL (0.1-1.0); CALCIUM 9.2 MG/DL (8.5-10.1); CREATININE SERUM 1.41 MG/DL (0.60-1.30); POTASSIUM 4.1 MMOL/L (3.6-5.0); TOTAL PROTEIN 6.3 GM/DL (6.4-8.2)
== END ==
LOC: LAB 07:43
PROVIDERS: ATTEND Internal Medicine Gastroenterology
DX: Z13.220 Encounter for screening for lipoid disorders (principal); D64.9 Anemia, unspecified; R97.20 Elevated prostate specific antigen [PSA]; Z94.4 Liver transplant status; Z79.899 Other long term (current) drug therapy; Z86.39 Personal history of other endocrine, nutritional and metabolic disease
CPT/HCPCS: 36415; 80053; 80197; 82728; 83540; 83550; 84153; 85025; 85610

== ENCOUNTER 2022-06-12 07:46 | Outpatient (RCR) | payer MEDICARE, OTHER ==
[2022-06-12 08:16] LABS: BASOPHILS # (AUTO) 0.1 10^3/uL (0.0-0.1); BASOPHILS % (AUTO) 1 % (0-10); EOSINOPHILS # (AUTO) 1.4 10^3/uL (0.0-0.3); EOSINOPHILS % (AUTO) 12 % (0-10); HEMATOCRIT 31 % (40-54); HEMOGLOBIN 10.4 g/dL (13.3-17.7); LYMPHOCYTES # (AUTO) 2.4 10^3/uL (1.0-4.0); LYMPHOCYTES % (AUTO) 22 % (12-44); MEAN CORPUSCULAR HEMOGLOBIN 30 pg (25-34); MEAN CORPUSCULAR HGB CONC 33 g/dL (32-36); MEAN CORPUSCULAR VOLUME 91 fL (80-99); MEAN PLATELET VOLUME 10.1 fL (9.0-12.2); MONOCYTES # (AUTO) 1.5 10^3/uL (0.0-1.0); MONOCYTES % (AUTO) 13 % (0-12); NEUTROPHILS # (AUTO) 5.7 10^3/uL (1.8-7.8); NEUTROPHILS % (AUTO) 51 % (42-75); PLATELET COUNT 215 10^3/uL (130-400); WHITE BLOOD COUNT 11.1 10^3/uL (4.3-11.0)
[2022-06-12 08:29] LABS: INR 1.4 (0.8-1.4); PROTHROMBIN TIME PATIENT 17.4 SEC (12.2-14.7)
[2022-06-12 08:33] LABS: BASOPHILS % (MANUAL) 1 %; EOSINOPHILS % (MANUAL) 11 %; LYMPHOCYTES % (MANUAL) 21 %; MONOCYTES % (MANUAL) 4 %; NEUTROPHILS % (MANUAL) 63 %; RBC MORPH NORMAL
[2022-06-12 08:36] LABS: ALBUMIN 2.9 GM/DL (3.2-4.5); BILIRUBIN,TOTAL 1.9 MG/DL (0.1-1.0); CALCIUM 9.4 MG/DL (8.5-10.1); CREATININE SERUM 1.4 MG/DL (0.60-1.30); MAGNESIUM 1.7 MG/DL (1.6-2.4); POTASSIUM 3.9 MMOL/L (3.6-5.0); TOTAL PROTEIN 6.7 GM/DL (6.4-8.2)
== END 2022-07-02 | disposition home or self-care (01) ==
LOC: LAB 07:46
PROVIDERS: ATTEND Internal Medicine Gastroenterology
DX: Z94.4 Liver transplant status (principal); Z79.899 Other long term (current) drug therapy
CPT/HCPCS: 36415; 80053; 80197; 83735; 85007; 85027; 85610